=== PATIENT | female | born 1940 | race Caucasian/White ===

== ENCOUNTER 2017-05-15 10:34 | Inpatient (IN) | payer MEDICARE, OTHER ==
[~2017-05-15] VITALS: Ht 157.5 cm; Wt 56.2 kg
[~2017-05-15 10:34] MED LIST: ACET500T68 PO; ACID1TAB11 PO; ALBU6.7H IH; ALBU8.5H6 IH; ALPR0.5T6 PO; AMLO5TAB4 PO; AMOX1TAB11 PO; ARIP10TA9 PO; ARIP15TA36 PO; ARIP5TAB13 PO; ASCO500T2 PO; CALC-474 PO; CARB200T PO; CHOL4POW2 PO; CIPR500T94 PO; DIVA500T2 PO; DOCU-109 PO; DULO30CA2 PO; ESOM40CA25 PO; FERR-26 PO; FERR325T72 PO; FOLI0.8T2 PO; FOLI1TAB16 PO; HYDR-2766 PO; HYDR10TA2 PO; HYDR12.553 PO; HYDR12.58 PO; LIDO700A4 TP; LIPA1CAP6 PO; LISI10TA2 PO; LISI1TAB3 PO; LOPE2CAP PO; LORA10TA3 PO; LORA1TAB PO; MAG355OR17 PO; MAGN2400 PO; METH10TA13 PO; METH29OI TP; MIRT15TA PO; MOXI3DRO2 LEFTEYE; MOXI3DRO2 RIGHTEYE; MULT1TAB52 PO; MUPI15CR TP; MUPI22OI2 TP; MV-M1TAB8 PO; NEPA1.7D LEFTEYE; NEPA1.7D RIGHTEYE; NITR0.4T22 SL; OLAN5TAB5 PO; OMEP40CA5 PO; ONDA4TAB10 SL; OXYC10TA45 PO; PANT40TA5 PO; POLY17PO5 PO; PRED5DRO16 LEFTEYE; PRED5DRO16 RIGHTEYE; SERT100T PO; SERT50TA PO; SIMV10TA PO; TRAZ50TA15 PO; VENL75CA PO
--- NOTE | 2017-05-15 10:58 | EKG ---
[address] [address] Test Date: 2017-05-15 Test Time: 10:53:52 Pat Name: COLLEEN ANDREA Department: Room: Gender: F Banquet Set Up Person: : [id number] Requested By: JUAN CARIAS Order Number: [id number] Reading MD: Johan Pozo Measurements Intervals [place] Rate: 59 P: 62 SC: 182 QRS: 22 QRSD: 84 T: 56 QT: 454 QTc: 454 Interpretive Statements SINUS RHYTHM PRIOR ANTEROSEPTAL INFARCT Electronically Signed On 05-26-2017 11:01:48 CDT by Johan Pozo
--- NOTE | 2017-05-15 11:12 | PHYS DOC ---
Past History Past Medical History: CVA, Hypertension Past Surgical History: Other Alcohol Use: Rarely Drug Use: None Adult General Chief Complaint Chief Complaint: PSYCH EVALUATION HPI HPI She is a pleasant 77-year-old female with history of dementia, prior CVA, chronic pain, hypertension, a prior fistula, anxiety prior encephalopathy who comes in today that she has SI symptoms and wants to because of the complaint of pain. According to the [facility] she is self-including calling 911 there is increased agitation increased anxiety with erratic behavior. She is requesting a lot of pain medications and is becoming increasingly difficult to control. She's had impulse control disorder as well and she was referred here for psychiatric lives for behavior health psych unit. She denies any fever, headache, chills, voices, homicidal ideations or other symptoms at this time. Her only complaint today is chronic lower back pain lower ache in her legs which is chronic in nature for last several years and some mild dysuria. Review of Systems Review of Systems Constitutional: Denies fever or chills [] Eyes: Denies change in visual acuity, redness, or eye pain [] HENT: Denies nasal congestion or sore throat [] Respiratory: Denies cough or shortness of breath [] Cardiovascular: No additional information not addressed in HPI [] GI: Denies abdominal pain, nausea, vomiting, bloody stools or diarrhea [] does complain of some mild dysuria without hematuria urgency or frequency. Musculoskeletal: Does complain of chronic lower back pain that is radiation to the lower legs which is not new. Integument: Denies rash or skin lesions [] Neurologic: Denies headache, focal weakness or sensory changes [] Endocrine: Denies polyuria or polydipsia [] Allergies Allergies Allergies Coded Allergies Type Severity Reaction Last Updated Verified proparacaine Allergy Severe 11/01/14 Yes Sulfa (Sulfonamide Antibiotics) Allergy Intermediate 11/01/14 Yes codeine Allergy Intermediate 11/01/14 Yes herpes simplex vaccine Allergy Intermediate 11/01/14 Yes prochlorperazine Allergy Intermediate 04/08/14 Yes Physical Exam Physical Exam Constitutional: Well developed, well nourished, no acute distress, non-toxic appearance. [] HENT: Normocephalic, atraumatic, bilateral external ears normal, oropharynx moist, no oral exudates, nose normal. [] Eyes: PERRLA, EOMI, conjunctiva normal, no discharge. [] Neck: Normal range of motion, no tenderness, supple, no stridor. [] Cardiovascular:Heart rate regular rhythm, no murmur [] Lungs & Thorax: Bilateral breath sounds clear to auscultation [] Abdomen: Bowel sounds normal, soft, no tenderness, no masses, no pulsatile masses. [] Skin: Warm, dry, no erythema, no rash. [] Back: No tenderness, no CVA tenderness. [] Extremities: No tenderness, no cyanosis, no clubbing, ROM intact, no edema. [] Neurologic: Alert and oriented X 3, normal motor function, normal sensory function, no focal deficits noted. [] Psychologic: Affect normal, judgement normal, mood normal. [] Current Patient Data Vital Signs Vital Signs Date Time Temp Pulse Resp B/P (MAP) Pulse Ox O2 Delivery O2 Flow Rate FiO2 05/15/17 10:34 97.9 64 18 96 Room Air Lab Results Laboratory Tests Test 05/15/17 10:50 05/15/17 11:05 Urine Collection Type Unknown Urine Color Straw Urine Clarity Clear Urine pH 6.0 Urine Specific [place] <=1.005 Urine Protein Neg (NEG-TRACE) Urine Glucose (UA) Neg mg/dL (NEG) Urine Ketones (Stick) Neg mg/dL (NEG) Urine Blood Trace (NEG) Urine Nitrite Neg (NEG) Urine Bilirubin Neg (NEG) Urine Urobilinogen Dipstick 0.2 mg/dL (0.2 mg/dL) Urine Leukocyte Esterase Neg (NEG) Urine RBC Rare /HPF (0-2) Urine WBC 0 /HPF (0-4) Urine Squamous Epithelial Cells Occ /LPF Urine Bacteria 0 /HPF (0-FEW) Urine Opiates Screen Neg (NEG) Urine Methadone Screen Neg (NEG) Urine Barbiturates Neg (NEG) Urine Phencyclidine Screen Neg (NEG) Urine Amphetamine/Methamphetamine Neg (NEG) Urine Benzodiazepines Screen Neg (NEG) Urine Cocaine Screen Neg (NEG) Urine Cannabinoids Screen Neg (NEG) Urine Ethyl Alcohol Neg (NEG) White Blood Count 8.3 x10^3/uL (4.0-11.0) Red Blood Count 5.22 x10^6/uL (3.50-5.40) Hemoglobin 12.9 g/dL (12.0-15.5) Hematocrit 40.1 % (36.0-47.0) Mean Corpuscular Volume 77 fL (79-100) L Mean Corpuscular Hemoglobin 25 pg (25-35) Mean Corpuscular Hemoglobin Concent 32 g/dL (31-37) Red Cell Distribution Width 19.8 % (11.5-14.5) H Platelet Count 215 x10^3/uL (140-400) Neutrophils (%) (Auto) 74 % (31-73) H Lymphocytes (%) (Auto) 15 % (24-48) L Monocytes (%) (Auto) 9 % (0-9) Eosinophils (%) (Auto) 2 % (0-3) Basophils (%) (Auto) 1 % (0-3) Neutrophils # (Auto) 6.1 x10^3uL (1.8-7.7) Lymphocytes # (Auto) 1.3 x10^3/uL (1.0-4.8) Monocytes # (Auto) 0.7 x10^3/uL (0.0-1.1) Eosinophils # (Auto) 0.1 x10^3/uL (0.0-0.7) Basophils # (Auto) 0.1 x10^3/uL (0.0-0.2) Sodium Level 133 mmol/L (136-145) L Potassium Level 4.1 mmol/L (3.5-5.1) Chloride Level 95 mmol/L (98-107) L Carbon Dioxide Level 30 mmol/L (21-32) Anion Gap 8 (6-14) Blood Urea Nitrogen 18 mg/dL (7-20) Creatinine 1.0 mg/dL (0.6-1.0) Estimated GFR (Cockcroft-Gault) 53.9 BUN/Creatinine Ratio 18 (6-20) Glucose Level 83 mg/dL (70-99) Calcium Level 8.7 mg/dL (8.5-10.1) Magnesium Level 1.9 mg/dL (1.8-2.4) Total Bilirubin 0.3 mg/dL (0.2-1.0) Aspartate Amino Transferase (AST) 17 U/L (15-37) Alanine Aminotransferase (ALT) 17 U/L (14-59) Alkaline Phosphatase 88 U/L (46-116) Total Protein 6.7 g/dL (6.4-8.2) Albumin 3.4 g/dL (3.4-5.0) Albumin/Globulin Ratio 1.0 (1.0-1.7) Ethyl Alcohol Level < 10 mg/dL (0-10) EKG EKG [] EKG timed 10:53 AM 05/15/[address] Carias demonstrates normal sinus rhythm with a heart rate of 59. Normal is 182 which is within normal limits. Patient has a normal QRS width of 84 QTC of 454 which is also normal. Patient has no STEMI at this time has no significant T wave changes in V1 and no ST segment depression. Radiology/Procedures Radiology/Procedures [] Course & Med Decision Making Course & Med Decision Making Pertinent Labs and Imaging studies reviewed. (See chart for details) she presents with depression, anxiety bizarre behavior and increasing agitation with chronic pain issues. Patient resting comfortably here she was given some oral Tylenol Ativan here an oral challenge. Patient's laboratory work is really unremarkable. Patient's EKG is also unremarkable and patient is not suffering from a UTI at this time based in her initial urinalysis. Patient cleared to Senior psych be admitted to internal medicine. [] Dragon Disclaimer Dragon Disclaimer This chart was dictated in whole or in part using Voice Recognition software in a busy, high-work load, and often noisy Emergency Department environment. It may contain unintended and wholly unrecognized errors or omissions. Departure Departure: Impression: Primary Impression: Bipolar disorder, mixed Additional Impression: Dementia Disposition: ADMITTED INPATIENT Admitting Physician: Other Condition: GUARDED Referrals: FAMILIA DUMONT MD (PCP) Problem Qualifiers JUAN CARIAS MD May 15, 2017 11:12
[2017-05-15 11:15] LABS: BARBITURATES NEG (NEG); BENZODIAZEPINES NEG (NEG); CANNABINOIDS NEG (NEG); COCAINE NEG (NEG); METHADONE NEG (NEG); OPIATES NEG (NEG); PHENCYCLIDINE NEG (NEG)
[2017-05-15 11:16] LABS: AMPHETAMINE/METHAMPHETAMINE NEG (NEG)
[2017-05-15 11:18] LABS: BACTERIA,URINE 0 /HPF (0-FEW); BILIRUBIN,URINE NEG (NEG); CLARITY,URINE CLEAR; COLOR,URINE STRAW; GLUCOSE,URINE NEG (NEG); NITRITE,URINE NEG (NEG); RBC,URINE RARE /HPF (0-2); SQUAMOUS EPITHELIAL CELL,UR OCC /LPF; UROBILINOGEN,URINE 0.2 mg/dL (0.2 mg/dL); WBC,URINE 0 /HPF (0-4)
[2017-05-15 11:18] LABS: BASO # 0.1 x10^3/uL (0.0-0.2); BASO % 1 % (0-3); EOS # 0.1 x10^3/uL (0.0-0.7); EOS % 2 % (0-3); HEMATOCRIT 40.1 % (36.0-47.0); HEMOGLOBIN 12.9 g/dL (12.0-15.5); LYMPH # 1.3 x10^3/uL (1.0-4.8); LYMPH % 15 % (24-48); MEAN CORPUSCULAR HEMOGLOBIN 25 pg (25-35); MEAN CORPUSCULAR HGB CONC 32 g/dL (31-37); MEAN CORPUSCULAR VOLUME 77 fL (79-100); MONO # 0.7 x10^3/uL (0.0-1.1); MONO % 9 % (0-9); NEUT # 6.1 x10^3uL (1.8-7.7); NEUT % 74 % (31-73); PLATELET COUNT 215 x10^3/uL (140-400); RED BLOOD COUNT 5.22 x10^6/uL (3.50-5.40); RED CELL DISTRIBUTION WIDTH 19.8 % (11.5-14.5); WHITE BLOOD COUNT 8.3 x10^3/uL (4.0-11.0)
[2017-05-15 11:32] LABS: ALBUMIN 3.4 g/dL (3.4-5.0); CALCIUM 8.7 mg/dL (8.5-10.1); GFR 53.9; MAGNESIUM 1.9 mg/dL (1.8-2.4); POTASSIUM 4.1 mmol/L (3.5-5.1); TOTAL BILIRUBIN 0.3 mg/dL (0.2-1.0); TOTAL PROTEIN 6.7 g/dL (6.4-8.2)
[2017-05-15 11:35] LABS: ACETAMIN < 2.0 mcg/mL (10-30); SALIC 1.2 mg/dL (2.8-20.0)
[2017-05-15] MEDS ORDERED: LORazepam 1 MG TABLET PO ONE (11:45)
[2017-05-15] MEDS ORDERED: ACETAMINOPHEN 500 MG TABLET PO ONE (11:45)
--- NOTE | 2017-05-15 12:30 | NUR ---
Patient arrived on floor via EMS from ED accompanied by personal belongings. She was oriented to room and unit, initial assessment and VS obtained, wound noted and photographed. Patient denies SI at this time, complains of lower back pain. Will monitor for behaviours.
[2017-05-15 13:16] VITALS: BP 189/85
[2017-05-15] MEDS ORDERED: METHYL SALICYLATE/MENTHOL TOPICAL OINTMENT 29GM TUBE. TP PRN (13:30)
[2017-05-15] MEDS ORDERED: MAGNESIUM HYDROXIDE 2,400 MG/30 ML ORAL.SUSP. PO PRN (13:30)
[2017-05-15] MEDS ORDERED: MAG HYDROX/AL HYDROX/SIMETH 30 ML ORAL.SUSP PO PRN (13:30)
[2017-05-15] MEDS ORDERED: IPRATRPIUM/ALBUTEROL 0.5/2.5MG 3 ML NEBU. NEB PRN (14:15)
[2017-05-15] MEDS ORDERED: ONDANSETRON ODT 4 MG TAB.RAPDIS PO PRN (14:15)
[2017-05-15] MEDS: clonazePAM 0.5 MG TABLET PO PRN (14:42)
[2017-05-15] MEDS: ACETAMINOPHEN 325 MG TABLET PO PRN (14:43)
[2017-05-15 16:06] VITALS: BP 175/96
--- NOTE | 2017-05-15 16:57 | NUR ---
Patient has been provided with Practical Counseling for tobacco cessation. It included a face to face interaction and the following was discussed: Recognizing danger situations, Developing coping skills,Basic cessation information. Will follow for discharge needs and discharge planning.
[2017-05-15] MEDS: CALCIUM CARB/VIT D3 500/200 TABLET PO SCH (17:28)
[2017-05-15] MEDS: oxyCODONE/APAP 10/325 1 TAB TABLET PO SCH ×2 (17:29→19:37)
[2017-05-15] MEDS: FAMOTIDINE 20 MG TABLET PO SCH (19:37)
[2017-05-15] MEDS: MIRTAZAPINE 15 MG TAB.RAPDIS PO SCH (19:37)
[2017-05-15] MEDS: OLANZapine 10 MG TABLET PO SCH (19:37)
[2017-05-15] MEDS: clonazePAM 0.5 MG TABLET PO SCH (19:37)
[2017-05-15] MEDS: DOCUSATE SODIUM 100 MG CAPSULE PO SCH (19:38)
[2017-05-15] MEDS: LISINOPRIL 20 MG TABLET PO SCH (19:38)
[2017-05-15] MEDS: METOPROLOL TART IMMED RELEASE 50 MG TABLET PO SCH (19:38)
[2017-05-15] MEDS: DIVALPROEX 125 MG CAP.SPRINK PO SCH (19:38)
[2017-05-15] MEDS: DONEPEZIL HCL 10 MG TABLET PO SCH (19:38)
[2017-05-15] MEDS: levETIRAcetam 250 MG TABLET PO SCH (19:38)
[2017-05-15] MEDS: NYSTATIN TOPICAL POWDER 15GM BOTTLE. TP SCH (19:40)
--- NOTE | 2017-05-15 19:49 | PDOC ---
Exam Monty Demential Exam: Monty Note: Please also refer to the separate dictated note~for this date of service dictated separately.~Patient seen individually. Discussed the patient with Nursing staff reviewed the chart.~Reviewed interim history and current functioning. Reviewed vital signs,~Labs/ Radiology~and current medications noted below. Continue current treatment with the changes noted in the dictated addendum note Assessment: Vital Signs: Vital Signs Date Time Temp Pulse Resp B/P (MAP) Pulse Ox O2 Delivery O2 Flow Rate FiO2 05/15/17 19:38 65 175/96 05/15/17 16:06 98.4 18 94 05/15/17 11:43 Room Air Labs: Laboratory Tests Test 05/15/17 10:50 05/15/17 11:05 Urine Collection Type Unknown Urine Color Straw Urine Clarity Clear Urine pH 6.0 Urine Specific [place] <=1.005 Urine Protein Neg (NEG-TRACE) Urine Glucose (UA) Neg mg/dL (NEG) Urine Ketones (Stick) Neg mg/dL (NEG) Urine Blood Trace (NEG) Urine Nitrite Neg (NEG) Urine Bilirubin Neg (NEG) Urine Urobilinogen Dipstick 0.2 mg/dL (0.2 mg/dL) Urine Leukocyte Esterase Neg (NEG) Urine RBC Rare /HPF (0-2) Urine WBC 0 /HPF (0-4) Urine Squamous Epithelial Cells Occ /LPF Urine Bacteria 0 /HPF (0-FEW) Urine Opiates Screen Neg (NEG) Urine Methadone Screen Neg (NEG) Urine Barbiturates Neg (NEG) Urine Phencyclidine Screen Neg (NEG) Urine Amphetamine/Methamphetamine Neg (NEG) Urine Benzodiazepines Screen Neg (NEG) Urine Cocaine Screen Neg (NEG) Urine Cannabinoids Screen Neg (NEG) Urine Ethyl Alcohol Neg (NEG) White Blood Count 8.3 x10^3/uL (4.0-11.0) Red Blood Count 5.22 x10^6/uL (3.50-5.40) Hemoglobin 12.9 g/dL (12.0-15.5) Hematocrit 40.1 % (36.0-47.0) Mean Corpuscular Volume 77 fL (79-100) L Mean Corpuscular Hemoglobin 25 pg (25-35) Mean Corpuscular Hemoglobin Concent 32 g/dL (31-37) Red Cell Distribution Width 19.8 % (11.5-14.5) H Platelet Count 215 x10^3/uL (140-400) Neutrophils (%) (Auto) 74 % (31-73) H Lymphocytes (%) (Auto) 15 % (24-48) L Monocytes (%) (Auto) 9 % (0-9) Eosinophils (%) (Auto) 2 % (0-3) Basophils (%) (Auto) 1 % (0-3) Neutrophils # (Auto) 6.1 x10^3uL (1.8-7.7) Lymphocytes # (Auto) 1.3 x10^3/uL (1.0-4.8) Monocytes # (Auto) 0.7 x10^3/uL (0.0-1.1) Eosinophils # (Auto) 0.1 x10^3/uL (0.0-0.7) Basophils # (Auto) 0.1 x10^3/uL (0.0-0.2) Sodium Level 133 mmol/L (136-145) L Potassium Level 4.1 mmol/L (3.5-5.1) Chloride Level 95 mmol/L (98-107) L Carbon Dioxide Level 30 mmol/L (21-32) Anion Gap 8 (6-14) Blood Urea Nitrogen 18 mg/dL (7-20) Creatinine 1.0 mg/dL (0.6-1.0) Estimated GFR (Cockcroft-Gault) 53.9 BUN/Creatinine Ratio 18 (6-20) Glucose Level 83 mg/dL (70-99) Calcium Level 8.7 mg/dL (8.5-10.1) Magnesium Level 1.9 mg/dL (1.8-2.4) Iron Level 72 ug/dL (50-170) Total Iron Binding Capacity 342 ug/dL (250-450) Iron Saturation 21 % (15-34) Total Bilirubin 0.3 mg/dL (0.2-1.0) Aspartate Amino Transferase (AST) 17 U/L (15-37) Alanine Aminotransferase (ALT) 17 U/L (14-59) Alkaline Phosphatase 88 U/L (46-116) Troponin I Quantitative < 0.017 ng/mL (0-0.055) Total Protein 6.7 g/dL (6.4-8.2) Albumin 3.4 g/dL (3.4-5.0) Albumin/Globulin Ratio 1.0 (1.0-1.7) Vitamin B12 Level 389 pg/mL (247-911) Salicylates Level 1.2 mg/dL (2.8-20.0) L Salicylate Last Dose Date 05/15/17 Salicylate Last Dose Time 0000 Acetaminophen Level < 2.0 mcg/mL (10-30) L Acetaminophen Last Dose Date 05/15/17 Acetaminophen Last Dose Time 0000 Ethyl Alcohol Level < 10 mg/dL (0-10) Current Medications: Meds: Current Medications Acetaminophen (Tylenol) 1,000 mg 1X ONCE PO Last administered on 05/15/17 11: 38; Start 05/15/17 at 11:45; Stop 05/15/17 at 13:52; Status DC Lorazepam (Ativan) 1 mg 1X ONCE PO Last administered on 05/15/17 11:38; Start 05/15/17 at 11:45; Stop 05/15/17 at 13:50; Status DC Acetaminophen (Tylenol) 650 mg PRN Q6HRS PRN PO PAIN / TEMP; Start 05/15/17 at 13:30 Multi-Ingredient Ointment (Analgesic Orbisonia) 1 mike PRN QID PRN TP MUSCLE PAIN; Start 05/15/17 at 13:30 Al Hydroxide/Mg Hydroxide (Mylanta Plus Xs) 15 ml PRN AFTMEALHC PRN PO DYSPEPSIA; Start 05/15/17 at 13:30 Magnesium Hydroxide (Milk Of Magnesia) 2,400 mg PRN QHS PRN PO CONSTIPATION; Start 05/15/17 at 13:30 Nicotine (Nicoderm Cq 14mg) 1 patch DAILY TD ; Start 05/16/17 at 09:00 Escitalopram Oxalate (Lexapro) 20 mg DAILY PO ; Start 05/16/17 at 09:00 Donepezil HCl (Aricept) 10 mg QHS PO Last administered on 05/15/17 19:38; Start 05/15/17 at 21:00 Clonazepam (KlonoPIN) 0.5 mg QHS PO Last administered on 05/15/17 19:37; Start 05/15/17 at 21:00 Donepezil HCl (Aricept) 5 mg QHS PO Last administered on 05/15/17 19:38; Start 05/15/17 at 21:00; Stop 05/29/17 at 21:00 Levetiracetam (Keppra) 750 mg BID PO Last administered on 05/15/17 19:38; Start 05/15/17 at 21:00 Clonazepam (KlonoPIN) 0.5 mg PRN BID PRN PO ANXIETY / AGITATION Last administered on 05/15/17 14:42; Start 05/15/17 at 14:00 Olanzapine (ZyPREXA) 10 mg QHS PO Last administered on 05/15/17 19:37; Start 05/15/17 at 21:00 Mirtazapine (Remeron Genny-Tab) 15 mg QHS PO Last administered on 05/15/17 19:37 ; Start 05/15/17 at 21:00 Aspirin (Children'S Aspirin) 81 mg DAILY PO ; Start 05/16/17 at 09:00 Ferrous Sulfate (Feosol) 325 mg DAILY PO ; Start 05/16/17 at 09:00 Hydrochlorothiazide (Hydrodiuril) 25 mg DAILY PO ; Start 05/16/17 at 09:00 Oxycodone/ Acetaminophen (Percocet 10/325) 1 tab QID PO Last administered on 19:37; Start 05/15/17 at 17:00 Calcium/Vitamin D (Oscal D 500mg/ 200uts) 1 tab BIDWMEALS PO Last administered on 05/15/17 17:28; Start 05/15/17 at 17:00 Docusate Sodium (Colace) 100 mg BID PO Last administered on 05/15/17 19:38; Start 05/15/17 at 21:00 Famotidine (Pepcid) 20 mg BID PO Last administered on 05/15/17 19:37; Start at 21:00 Lisinopril (Prinivil) 20 mg BID PO Last administered on 05/15/17 19:38; Start 05/15/17 at 21:00 Metoprolol Tartrate (Lopressor) 50 mg BID PO Last administered on 05/15/17 19: 38; Start 05/15/17 at 21:00 Clonidine HCl (Catapres) 0.2 mg DAILY PRN PO HYPERTENSION, SEE COMMENTS; Start 05/16/17 at 09:00 Albuterol/ Ipratropium (Duoneb) 3 ml Q4HRS PRN NEB SHORTNESS OF BREATH; Start 05/15/17 at 14:15 Acetaminophen (Tylenol) 650 mg PRN Q8HRS PRN PO PAIN Last administered on 14:43; Start 05/15/17 at 14:15 Cyclobenzaprine HCl (Flexeril) 10 mg Q8HRS PRN PO MUSCLE SPASMS; Start at 14:15 Ondansetron HCl (Zofran Odt) 4 mg PRN Q8HRS PRN PO NAUSEA/VOMITING; Start 05/15 at 14:15 Loperamide HCl (Imodium) 2 mg PRN Q3HRS PRN PO DIARRHEA; Start 05/15/17 at 14: 15 Nystatin (Nystop) 1 mike BID TP Last administered on 05/15/17 19:38; Start at 21:00; Stop 05/15/17 at 21:00; Status DC Fentanyl (Duragesic 12mcg/ Hr) 1 patch Q3DAYS TD ; Start 05/16/17 at 09:00 Nystatin (Nystop) 1 mike BID TP Last administered on 05/15/17 19:40; Start at 21:00 Divalproex Sodium (Depakote Sprinkles) 125 mg TID PO Last administered on 19:38; Start 05/15/17 at 21:00 Active Scripts Active Reported Trazodone Hcl 50 Mg Tablet 50 Mg PO PRN QHS PRN Miralax (Polyethylene Glycol 3350) 17 Gm Powd.pack 17 Gm PO DAILY Pantoprazole Sodium 40 Mg Tablet.dr 40 Mg PO DAILYAC Oxycontin (Oxycodone Hcl) 10 Mg Tab.er.12h 10 Mg PO [id number] Zyprexa Zydis (Olanzapine) 5 Mg Tab.rapdis 5 Mg PO PRN Q2HR PRN Analgesic Orbisonia (Methyl Salicylate/Menthol) 29 Gm Oint...g. 1 Mike TP PRN QID PRN Milk Of Magnesia (Magnesium Hydroxide) 2,400 Mg/10 Ml Oral.susp 2,400 Mg PO PRN QHS PRN Advanced Antacid Liquid (Mag Hydrox/Al Hydrox/Simeth) 355 Ml Oral.susp 15 Ml PO PRN AFTMEALHC PRN Cymbalta (Duloxetine Hcl) 30 Mg Capsule.dr 30 Mg PO DAILY Colace (Docusate Sodium) 100 Mg Capsule 100 Mg PO BID Tegretol (Carbamazepine) 200 Mg Tablet 400 Mg PO HS Acetaminophen 500 Mg Tablet 650 Mg PO PRN Q6HRS PRN Folic Acid 0.8 Mg Tablet 0.8 Mg PO DAILY Calcium 500 + Vit D 400 Tablet (Calcium Carbonate/Vitamin D3) 1 Each Tablet 1 Tab PO BIDWBKFT/KAYY Hydrocodone-Apap 10-325 (Hydrocodone Bit/Acetaminophen) 1 Each Tablet 1 Tab PO PRN Q4HRS PRN Alprazolam 0.5 Mg Tablet 0.5 Mg PO PRN Q2HR PRN max dosage: 3mg/24hrs Loratadine 10 Mg Tablet 10 Mg PO PRN DAILY PRN Loperamide (Loperamide Hcl) 2 Mg Capsule 2 Mg PO PRN Q4HRS PRN Methylphenidate Er (Methylphenidate Hcl) 10 Mg Tablet.er 10 Mg PO DAILY Multivitamins (Multivitamin) 1 Each Tablet 1 Tab PO DAILY Mupirocin 22 Gm Oint...g. 1 Mike TP PRN BID PRN Cholestyramine Packet (Cholestyramine (With Sugar)) 4 Gm Powd.pack 4 Gm PO BID Ferrous Sulfate 325 Mg Tablet 325 Mg PO NOON Vitamin C (Ascorbic Acid) 500 Mg Tablet 500 Mg PO TID Norvasc (Amlodipine Besylate) 5 Mg Tablet 5 Mg PO BID NITROGLYCERIN SubLingual (Nitroglycerin) 0.4 Mg Tab.subl 0.4 Mg SL PRN Q5MIN PRN Creon 24,000 Units Capsule (Lipase/Protease/Amylase) 1 Each Capsule. 5 Cap PO TIDWMEALS Diagnosis: Problems: (1) Dementia (2) Bipolar disorder, mixed (3) Bipolar affective disorder, mixed (4) Anxiety disorder (5) Major depressive disorder, recurrent episode (6) Impulse control disorder TESHA MANZANO MD May 15, 2017 19:49
[2017-05-15] MEDS ORDERED: DONEPEZIL HCL 5 MG TABLET. PO SCH (21:00)
[2017-05-15] MEDS ORDERED: NYSTATIN TOPICAL POWDER 15GM BOTTLE. TP SCH (21:00)
--- NOTE | 2017-05-15 22:00 | NUR ---
Behavior Intervention Response and Plan: BIRP Note: Behavior: Assumed Care of patient, patient located in Patient Room at shift change. Patient exhibited the following behavior Calm, Cooperative, Withdrawn. Brief assessment on rounds of vital signs, medication needs, lab studies, and pain. Treatment plan problems Alteration on Mood and Fall Risk. Intervention: Patient assessed and the following interventions initiated safety checks 15 Minute Checks Cognitive Assessment , Head to toe Assessment , Medications. Response: After interactions and interventions patient responded in the following manner, Calm , Compliant ,Withdrawn. Continue to assess behaviors and condition will continue to monitor throughout the shift as needed. Patient educated on ADL's, and hand hygiene. 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 Continue to assess patient for changes in above assessment. Monitor for medication needs, pain, and safety concerns. Hourly rounding performed to ensure safe environment.
[2017-05-16 01:10] LABS: T3 TOTAL 98 ng/dL (71-180); THYROXINE 6.8 ug/dL (4.5-12.0)
[2017-05-16 03:19] LABS: HEMOGLOBIN A1C 5.4 % (4.8-5.6)
[2017-05-16 06:04] VITALS: BP 166/83
[2017-05-16] MEDS: ACETAMINOPHEN 325 MG TABLET PO PRN ×2 (07:37→14:41)
[2017-05-16] MEDS: CALCIUM CARB/VIT D3 500/200 TABLET PO SCH ×2 (07:37→17:03)
[2017-05-16] MEDS: CYCLOBENZAPRINE 10 MG TABLET. PO PRN ×2 (07:37→19:25)
--- NOTE | 2017-05-16 07:40 | NUR ---
Patient complains of lower back pain, PRNs provided per eMAR, will monitor for effectiveness
--- NOTE | 2017-05-16 07:59 | HP ---
ADMIT DATE: 05/15/2017 PSYCHIATRIC ADMISSION HISTORY/EVALUATION This is a late entry covers the elements not covered in my initial note of 05/15/2017. IDENTIFYING DATA: The patient is a 77-year-old female who was referred back to us from [facility] by Dr. Kristi Pope, her primary care physician, Dr. Valerie Wilson, her psychiatrist on account of worsening symptoms of depression, mood swings, suicidal ideation, "wanting to ." The patient is being isolating complaints of worsening back pain, calling 911, increased agitation, anxiety, erratic behaviors. She has failed outpatient psychiatric interventions with Dr. Wilson. Symptoms have been worsening over the past few days. The patient's behaviors were deemed dangerous at the nursing facility resulting in this referral. CHIEF COMPLAINT: "I said, I would kill myself, I am in pain." HISTORY OF PRESENT ILLNESS: The patient has a history of mood swings and prior diagnosis of bipolar 1 versus bipolar 2 disorder. She had been with us. About a month back, referred from [facility] Emergency Room where she presented from [facility] for suicidal ideation repeatedly calling 911, worsening mood swings, failure of outpatient treatment. She was stabilized at that time, transferred to [facility], did well initially, but for the past several days, all the above symptoms have resurfaced, behaviors are deemed dangerous. She has had some sleep and appetite changes as well, but some marked mood lability has been a significant problem. No active homicidal ideation. She appears somewhat paranoid as well and depressed. PAST PSYCHIATRIC HISTORY: As above. PAST MEDICAL HISTORY: Chronic back pain with vertebral changes and prolapsed intervertebral disk, hypovitaminosis D, GERD, iron deficiency, hypertension, and fistula. DRUG ALLERGIES: SULFA. CURRENT PSYCHOTROPICS: Klonopin 0.5 mg b.i.d. p.r.n., 0.5 mg at bedtime, Depakote 125 mg t.i.d. is being started at the time of the patient's admission, Aricept increased from 5 mg at bedtime to 10 mg at bedtime, Lexapro 20 mg a day, Remeron 15 mg at bedtime, Zyprexa 10 mg at bedtime. In the past, she was treated on Cymbalta, and Tegretol XR 400 mg at bedtime. FAMILY HISTORY: Noncontributory. SOCIAL HISTORY: No alcohol, drug abuse, physical, sexual or elder abuse history is noted. She is not known to be a perpetrator. She does have a history of overuse of prescription opioids. Code status is full. MENTAL STATUS EXAM: The patient was seen individually evening of 05/15/2017, in her room. She remembered me as a psychiatrist, did not remember my name. Speech coherent. Thought processes goal directed. Intellect average. Insight fair. Judgment intact to standard questioning. Mood is depressed. She is quite anxious, dysphoric, hopeless, and helpless. Denies active suicidal ideation, somewhat paranoid. Attention span short. Language function intact. LABORATORY DATA: Reviewed. IMPRESSION: Probable bipolar 1 disorder, depressed versus bipolar 2 disorder, depressed with psychotic features; major depressive disorder with psychotic features; anxiety disorder, unspecified; impulse control disorder, unspecified; chronic pain. Rest diagnoses as above. PLAN: Admit to the geropsychiatry unit at [facility]. I will see the patient daily individually from a psychiatric standpoint, medical followup per Dr. Andre/Dr. Singh. It was noted above, Aricept increased to 10 mg a day. The patient was started on Depakote as a mood stabilizer. Maintain Lexapro for now. I am not sure why Cymbalta was discontinued since it could be ineffective antidepressant and also help somewhat with the pain, which worsens her symptoms. Reviewed drug interactions, risk, benefits ratio favors no further change at this time. We will make further changes as clinically indicated. MAN Mau MANZANO MD DR: SURESH/ame JOB#: [id number] / [id number]
[2017-05-16] MEDS: oxyCODONE/APAP 10/325 1 TAB TABLET PO SCH ×4 (08:06→19:25)
[2017-05-16] MEDS: levETIRAcetam 250 MG TABLET PO SCH ×2 (08:06→19:25)
[2017-05-16] MEDS: DIVALPROEX 125 MG CAP.SPRINK PO SCH ×3 (08:06→19:26)
[2017-05-16] MEDS: FAMOTIDINE 20 MG TABLET PO SCH ×2 (08:06→19:26)
[2017-05-16] MEDS: LISINOPRIL 20 MG TABLET PO SCH ×2 (08:06→19:26)
[2017-05-16] MEDS: DOCUSATE SODIUM 100 MG CAPSULE PO SCH ×2 (08:06→19:26)
[2017-05-16] MEDS: METOPROLOL TART IMMED RELEASE 50 MG TABLET PO SCH ×2 (08:07→19:27)
[2017-05-16] MEDS: ESCITALOPRAM 20 MG TABLET. PO SCH (08:27)
[2017-05-16] MEDS: FERROUS SULFATE 325 MG TABLET PO SCH (08:27)
[2017-05-16] MEDS: ASPIRIN 81 MG TAB.CHEW PO SCH (08:27)
[2017-05-16] MEDS: hydroCHLOROthiazide 25 MG TABLET PO SCH (08:27)
[2017-05-16] MEDS: fentaNYL 12MCG/HR 1 PATCH PATCH TD SCH (08:28)
[2017-05-16] MEDS: NICOTINE 14MG PATCH. TD SCH ×2 (08:28→09:00)
[2017-05-16] MEDS: NYSTATIN TOPICAL POWDER 15GM BOTTLE. TP SCH ×2 (08:28→19:28)
[2017-05-16] MEDS: clonazePAM 0.5 MG TABLET PO PRN ×2 (09:20→16:22)
--- NOTE | 2017-05-16 09:20 | NUR ---
Patient states back pain is continuing. She also states that fentanyl makes her anxious and requests prn anxiety meds which are provided per eMAR. Will monitor for behaviors.
--- NOTE | 2017-05-16 09:20 | NUR ---
Behavior Intervention Response and Plan: BIRP Note: Behavior: Assumed Care of patient, patient located in Patient Room at shift change. Patient exhibited the following behavior Withdrawn, Medication Seeking, Attention Seeking. Brief assessment on rounds of vital signs, medication needs, lab studies, and pain. Treatment plan problems 1 & 2. Intervention: Patient assessed and the following interventions initiated safety checks 15 Minute Checks Cognitive Assessment , Head to toe Assessment , Medications. Response: After interactions and interventions patient responded in the following manner, Calm , Appropriate ,Compliant. Continue to assess behaviors and condition will continue to monitor throughout the shift as needed. Patient educated on ADL's, and hand hygiene. 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 Continue to assess patient for changes in above assessment. Monitor for medication needs, pain, and safety concerns. Hourly rounding performed to ensure safe environment.
--- NOTE | 2017-05-16 09:30 | NUR ---
THERAPEUTIC RECREATION GROUP NOTE TITLE :Social Session: 5 ways to [place] with Change ACTIVITY : Education and Life Skills GOAL : Increase self-expression/insight, coping skills, attention DURATION : 60 Minutes RESPONSE : No participation.
--- NOTE | 2017-05-16 11:30 | NUR ---
THERAPEUTIC RECREATION GROUP NOTE TITLE :Movement to Music: Flexibility Outside! ACTIVITY : Movement/ Exercise GOAL : Increase morale, attention, flexibility. Decrease stress/anxiety. DURATION : 30 Minutes RESPONSE : No participation.
--- NOTE | 2017-05-16 14:15 | NUR ---
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 Periwound skin is intact, moderate amount of green and red thick drainage on previous dressing. Skin cleaned, skin prep applied and aquacel foam applied. Recommend to apply stoma powder after skin prep and change daily and as needed for drainage. Pt refused to have urostomy bag attached. Pt states she doesn't have issues with skin breakdown as long as she uses stoma powder. Discussed POC with ANGELY Seaman. No other wounds found on full skin inspection. Educated pt to be sure and rotate from left to right sides to avoid breakdown on buttocks and heels. Pt verbalized understanding. Wound care will follow up on 05/23/17.
[2017-05-16 14:27] LABS: THYROID STIM HORMONE (TSH) 2.086 uIU/mL (0.358-3.740)
--- NOTE | 2017-05-16 14:34 | NUR ---
SW met w/Pt. 1:1 while Pt. sat on her bed. Pt. stated she was in pain, but had just received her medication and was hoping for a decrease in pain shortly. Pt. stated she was not happy here as Nursing Staff has not been good to her. SW asked her to talk more about these concerns and Pt. stated they had been late giving her the medications, and that was only after she had continued to ask for them. SW validated her pain and frustration and continued to assess for reason for admit. PT. stated she was not sure why she was at this facility. SW asked if she had felt like hurting herself and Pt. stated, "Well ya, I probably did say I just wanted to ". Pt. did not state she had a plan. SW asked about triggers for this feeling and Pt. stated she was upset w/her dtr as she is using Pt's grandson to do all of her things she is responsible for. Pt. stated her grandson moved in w/his mother (Pt's dtr) and since then she has been taking advantage of his niceness. SW asked if Pt. had visited family recently, as in last weekend, and Pt. stated it had been a while since she had left her facility to visit family. Pt. asked if SW could continue this discussion later as her back was aching and she wanted to rest. Pt. insisted SW continue to talk w/her at a later date and to "not forget" about her.
--- NOTE | 2017-05-16 14:42 | NUR ---
SW left message for SW at Pt's facility, [facility], regarding allegations of drug/alcohol while out of facility.
--- NOTE | 2017-05-16 15:30 | NUR ---
Attempted to meet and complete Activity Therapy Assessment; however, Pt. was sleeping
--- NOTE | 2017-05-16 16:20 | NUR ---
patient asked for tylenol, informed her that it was too soon to give her any and that she would be receiving percocet within the hour. Patient returned to nurse's station and asked for something for anxiety. PRN med provided per eMAR.
[2017-05-16 16:35] VITALS: BP 122/67
[2017-05-16] MEDS: clonazePAM 0.5 MG TABLET PO SCH (19:26)
[2017-05-16] MEDS: DONEPEZIL HCL 10 MG TABLET PO SCH (19:26)
[2017-05-16] MEDS: OLANZapine 10 MG TABLET PO SCH (19:26)
[2017-05-16] MEDS: MIRTAZAPINE 15 MG TAB.RAPDIS PO SCH (19:27)
--- NOTE | 2017-05-16 19:53 | PDOC ---
Exam Monty Demential Exam: Monty Note: Please also refer to the separate dictated note~for this date of service dictated separately.~Patient seen individually. Discussed the patient with Nursing staff reviewed the chart.~Reviewed interim history and current functioning. Reviewed vital signs,~Labs/ Radiology~and current medications noted below. Continue current treatment with the changes noted in the dictated addendum note Assessment: Vital Signs: Vital Signs Date Time Temp Pulse Resp B/P (MAP) Pulse Ox O2 Delivery O2 Flow Rate FiO2 05/16/17 19:27 68 122/67 05/16/17 16:35 98.2 18 93 05/16/17 13:20 Room Air I&O Intake and Output 05/16/17 07:00 Intake Total 720 ml Balance 720 ml Intake Oral 720 ml # Bowel Movements 1 Current Medications: Meds: Current Medications Acetaminophen (Tylenol) 1,000 mg 1X ONCE PO Last administered on 05/15/17 11: 38; Start 05/15/17 at 11:45; Stop 05/15/17 at 13:52; Status DC Lorazepam (Ativan) 1 mg 1X ONCE PO Last administered on 05/15/17 11:38; Start 05/15/17 at 11:45; Stop 05/15/17 at 13:50; Status DC Acetaminophen (Tylenol) 650 mg PRN Q6HRS PRN PO PAIN / TEMP Last administered on 05/16/17 14:41; Start 05/15/17 at 13:30; Stop 05/16/17 at 15:30; Status DC Multi-Ingredient Ointment (Analgesic [place]) 1 mike PRN QID PRN TP MUSCLE PAIN; Start 05/15/17 at 13:30 Al Hydroxide/Mg Hydroxide (Mylanta Plus Xs) 15 ml PRN AFTMEALHC PRN PO DYSPEPSIA; Start 05/15/17 at 13:30 Magnesium Hydroxide (Milk Of Magnesia) 2,400 mg PRN QHS PRN PO CONSTIPATION; Start 05/15/17 at 13:30 Nicotine (Nicoderm Cq 14mg) 1 patch DAILY TD ; Start 05/16/17 at 09:00 Escitalopram Oxalate (Lexapro) 20 mg DAILY PO Last administered on 05/16/17 08 :27; Start 05/16/17 at 09:00 Donepezil HCl (Aricept) 10 mg QHS PO Last administered on 05/16/17 19:26; Start 05/15/17 at 21:00 Clonazepam (KlonoPIN) 0.5 mg QHS PO Last administered on 05/16/17 19:26; Start 05/15/17 at 21:00 Donepezil HCl (Aricept) 5 mg QHS PO Last administered on 05/15/17 19:38; Start 05/15/17 at 21:00; Stop 05/15/17 at 23:44; Status DC Levetiracetam (Keppra) 750 mg BID PO Last administered on 05/16/17 19:25; Start 05/15/17 at 21:00 Clonazepam (KlonoPIN) 0.5 mg PRN BID PRN PO ANXIETY / AGITATION Last administered on 05/16/17 16:22; Start 05/15/17 at 14:00; Stop 05/16/17 at 18:45 ; Status DC Olanzapine (ZyPREXA) 10 mg QHS PO Last administered on 05/16/17 19:26; Start 05/15/17 at 21:00 Mirtazapine (Remeron Genny-Tab) 15 mg QHS PO Last administered on 05/16/17 19:27 ; Start 05/15/17 at 21:00 Aspirin (Children'S Aspirin) 81 mg DAILY PO Last administered on 05/16/17 08: 27; Start 05/16/17 at 09:00 Ferrous Sulfate (Feosol) 325 mg DAILY PO Last administered on 05/16/17 08:27; Start 05/16/17 at 09:00 Hydrochlorothiazide (Hydrodiuril) 25 mg DAILY PO Last administered on 08:27; Start 05/16/17 at 09:00 Oxycodone/ Acetaminophen (Percocet 10/325) 1 tab QID PO Last administered on 19:25; Start 05/15/17 at 17:00 Calcium/Vitamin D (Oscal D 500mg/ 200uts) 1 tab BIDWMEALS PO Last administered on 05/16/17 17:03; Start 05/15/17 at 17:00 Docusate Sodium (Colace) 100 mg BID PO Last administered on 05/16/17 19:26; Start 05/15/17 at 21:00 Famotidine (Pepcid) 20 mg BID PO Last administered on 05/16/17 19:26; Start at 21:00 Lisinopril (Prinivil) 20 mg BID PO Last administered on 05/16/17 19:26; Start 05/15/17 at 21:00 Metoprolol Tartrate (Lopressor) 50 mg BID PO Last administered on 05/16/17 19: 27; Start 05/15/17 at 21:00 Clonidine HCl (Catapres) 0.2 mg DAILY PRN PO HYPERTENSION, SEE COMMENTS; Start 05/16/17 at 09:00 Albuterol/ Ipratropium (Duoneb) 3 ml Q4HRS PRN NEB SHORTNESS OF BREATH; Start 05/15/17 at 14:15 Acetaminophen (Tylenol) 650 mg PRN Q8HRS PRN PO PAIN Last administered on 14:43; Start 05/15/17 at 14:15 Cyclobenzaprine HCl (Flexeril) 10 mg Q8HRS PRN PO MUSCLE SPASMS Last administered on 05/16/17 19:25; Start 05/15/17 at 14:15 Ondansetron HCl (Zofran Odt) 4 mg PRN Q8HRS PRN PO NAUSEA/VOMITING; Start 05/15 at 14:15 Loperamide HCl (Imodium) 2 mg PRN Q3HRS PRN PO DIARRHEA; Start 05/15/17 at 14: 15 Nystatin (Nystop) 1 mike BID TP Last administered on 05/15/17 19:38; Start at 21:00; Stop 05/15/17 at 21:00; Status DC Fentanyl (Duragesic 12mcg/ Hr) 1 patch Q3DAYS TD Last administered on 08:28; Start 05/16/17 at 09:00 Nystatin (Nystop) 1 mike BID TP Last administered on 05/16/17 19:28; Start at 21:00 Divalproex Sodium (Depakote Sprinkles) 125 mg TID PO Last administered on 19:26; Start 05/15/17 at 21:00 Vitamin D (Vitamin D3) 50,000 unit WEEKLY PO ; Start 05/17/17 at 09:00 Clonazepam (KlonoPIN) 0.5 mg PRN TID PRN PO ANXIETY / AGITATION; Start at 14:00 Active Scripts Active Reported Trazodone Hcl 50 Mg Tablet 50 Mg PO PRN QHS PRN Miralax (Polyethylene Glycol 3350) 17 Gm Powd.pack 17 Gm PO DAILY Pantoprazole Sodium 40 Mg Tablet.dr 40 Mg PO DAILYAC Oxycontin (Oxycodone Hcl) 10 Mg Tab.er.12h 10 Mg PO [id number] Zyprexa Zydis (Olanzapine) 5 Mg Tab.rapdis 5 Mg PO PRN Q2HR PRN Analgesic [place] (Methyl Salicylate/Menthol) 29 Gm Oint...g. 1 Mike TP PRN QID PRN Milk Of Magnesia (Magnesium Hydroxide) 2,400 Mg/10 Ml Oral.susp 2,400 Mg PO PRN QHS PRN Advanced Antacid Liquid (Mag Hydrox/Al Hydrox/Simeth) 355 Ml Oral.susp 15 Ml PO PRN AFTMEALHC PRN Cymbalta (Duloxetine Hcl) 30 Mg Capsule.dr 30 Mg PO DAILY Colace (Docusate Sodium) 100 Mg Capsule 100 Mg PO BID Tegretol (Carbamazepine) 200 Mg Tablet 400 Mg PO HS Acetaminophen 500 Mg Tablet 650 Mg PO PRN Q6HRS PRN Folic Acid 0.8 Mg Tablet 0.8 Mg PO DAILY Calcium 500 + Vit D 400 Tablet (Calcium Carbonate/Vitamin D3) 1 Each Tablet 1 Tab PO BIDWBK/KAYY Hydrocodone-Apap 10-325 (Hydrocodone Bit/Acetaminophen) 1 Each Tablet 1 Tab PO PRN Q4HRS PRN Alprazolam 0.5 Mg Tablet 0.5 Mg PO PRN Q2HR PRN max dosage: 3mg/24hrs Loratadine 10 Mg Tablet 10 Mg PO PRN DAILY PRN Loperamide (Loperamide Hcl) 2 Mg Capsule 2 Mg PO PRN Q4HRS PRN Methylphenidate Er (Methylphenidate Hcl) 10 Mg Tablet.er 10 Mg PO DAILY Multivitamins (Multivitamin) 1 Each Tablet 1 Tab PO DAILY Mupirocin 22 Gm Oint...g. 1 Imke TP PRN BID PRN Cholestyramine Packet (Cholestyramine (With Sugar)) 4 Gm Powd.pack 4 Gm PO BID Ferrous Sulfate 325 Mg Tablet 325 Mg PO NOON Vitamin C (Ascorbic Acid) 500 Mg Tablet 500 Mg PO TID Norvasc (Amlodipine Besylate) 5 Mg Tablet 5 Mg PO BID NITROGLYCERIN SubLingual (Nitroglycerin) 0.4 Mg Tab.subl 0.4 Mg SL PRN Q5MIN PRN Creon Dr 24,000 Units Capsule (Lipase/Protease/Amylase) 1 Each Capsule. 5 Cap PO TIDWMEALS Diagnosis: Problems: (1) Bipolar disorder, mixed (2) Bipolar affective disorder, mixed (3) Anxiety disorder (4) Major depressive disorder, recurrent episode (5) Impulse control disorder TESHA MANZANO MD May 16, 2017 19:53
--- NOTE | 2017-05-16 20:00 | NUR ---
Nursing Note: Call placed to DPOA per Dr. Alegre request to obtain information r/t Pt's seizure history. Message left for Primary DPOA, Call placed to Second DPOA listed on [facility] Facesheet,, Pt's Daughter answered the phone and was very agitated stating "her sister should not be listed anywhere on any paperwork, they don't like each other and do not speak to each other I don't know why you keep calling her sister" Nurse attempted to explain that the number called was the second DPOA listed on the Facesheet from her Half-Way, Daughter continued to be very short tempered and began ranting about patient being on Fentanyl patch when the PCP and Ortho physicians both agreed that this was not a good medication for her. Nurse interrupted Daughter again attempting to explain the reason for the call being a need for details on the history of Her seizures, Daughter then began on a very long winded explanation that pt's current level of pain is related to her DX Ankylosing Spondylitis and demanding to have this medical condition treated. Nurse attempted to explain that pt is here at this facility for Psych issues and again attempted to question about Pt's seizure history, Daughter again began detailing all the reasons why her Mother's sister should never be called and why her pain should not be treated with Fentanyl, Nurse again had to interrupt daughter and explained the need for Seizure history for Dr. Alegre to determine the need for anti Seizure medications. Daughter then stated pt had a seizure around 15 years ago when she was going through acute Alcohol withdraw and then she had one in May of 2016 just before having her Stroke. When daughter again began talking about pain medications and need to Treat the Ankylosing Spondylitis, Nruse encouraged her contact Assistant Professor Of Criminal Justice on Friday to be involved in the Treatment Team Next week to have all of her issues discussed.
--- NOTE | 2017-05-16 23:41 | NUR ---
Behavior Intervention Response and Plan: BIRP Note: Behavior: Assumed Care of patient, patient located in Patient Room at shift change. Patient exhibited the following behavior Calm, Cooperative, Withdrawn. Brief assessment on rounds of vital signs, medication needs, lab studies, and pain. Treatment plan problems Alteration on Mood and Fall Risk. Intervention: Patient assessed and the following interventions initiated safety checks 15 Minute Checks Cognitive Assessment , Head to toe Assessment , Medications. Response: After interactions and interventions patient responded in the following manner, Calm , Compliant ,Withdrawn. Continue to assess behaviors and condition will continue to monitor throughout the shift as needed. Patient educated on ADL's, and hand hygiene. Plan: Continue to monitor Master Treatment Plan for patient's progress toward short term goals of Decreased Agitation, Medication Compliance, adjunct faculty for medical terminology goals to return to previous living setting vs placement. Continue to assess patient for changes in above assessment. Monitor for medication needs, pain, and safety concerns. Hourly rounding performed to ensure safe environment.
--- NOTE | 2017-05-17 00:46 | ACF ---
Admission Criteria Forms PSYCHIATRIC DISORDERS Clinical Indications for Inpatient Care (Place 'X' for any and all applicable criteria): Ongoing inpatient care may be needed for 1 or more of the following(1)(2)(3)(4)( 6)(7)(8): [ ]I. Danger to self or others not manageable at lower level of care. [ ]II. Grave disability (eg, inability to perform self care necessary at lower level of care) [ ]III. Agitation or inappropriate behavior interfering with care for primary condition (eg, attempting to discontinue lines or drains prematurely, unable to cooperate with respiratory care) [x]IV. Severe disability or disorder indicated by ALL of the following: [x]a) Severe behavioral health disorder-related symptoms or condition indicated by 1 or more of the following: [ ]i) Severe problem with cognition, memory, judgment, or impulse control [x]ii) Severe clinical manifestations (eg, hallucinations, delusions, other acute psychotic symptoms, isela, extreme agitation or anxiety) [x]b) Patient management at lower level of care is not feasible until acute intervention or modification is initiated. Extended stay beyond goal length of stay for the primary condition may be needed untilALLof the following are present(1)(2)(3)(4)(722)(23): [ ]a) Danger to self or others is absent or manageable at lower level of care [ ]b) Behavior crisis management, including physical or chemical restraints, is required and is not available at a lower level of care. [ ]c) Behavioral symptoms (e.g., agitation, somnolence, inappropriate behavior) are present, and are not manageable at a lower level of care. [ ]d) Patient cannot understand follow-up treatment and crisis plan. [ ]e) Provider and supports are sufficiently available at lower level of care. [ ]f) Patient can participate (e.g., verify absence of plan for harm) and is in needed of monitoring. The original [facility] [employer] content created by [employer] has been revised. The portions of the content which have been revised are identified through the use of italic text, and [employer] has neither reviewed nor approved the modified material. All other unmodified content is copyright [facility] [employer]. Please see references footnoted in the original [facility] edition 2015 Admission Criteria Met?: Yes TYLER REDD May 17, 2017 00:46
--- NOTE | 2017-05-17 02:12 | PN ---
DATE: 05/15/2017 This is a late entry for 05/15/2017 and covers elements not covered in my initial note of 05/15/2017. SUBJECTIVE: The patient was staffed at a treatment team meeting with the entire team morning 05/05/2017, reviewed her history, diagnosis of bipolar disorder versus major depressive disorder, past failed stay at [facility] and recent failed to stay at [facility]. Per nursing report, she is noted to be attention seeking. I met with her at some length the evening of 05/15/2017 in her room. She denies active suicidal ideation, admitted to verbalizing suicidal ideation at the skilled nursing, noted to be sarcastic, labile in her mood at times. REVIEW OF SYSTEMS: No CV, , pulmonary, eye, ENT system symptoms on review. She does have chronic back pain. MENTAL STATUS EXAM: Reasonably oriented, seemed to remember me as a psychiatrist. Speech coherent. Abstraction fair. Thought processes goal directed, attention span short, language function intact. Mood and affect remain somewhat labile. LABORATORY DATA: Reviewed. IMPRESSION: Unchanged from initial note. PLAN: Start Depakote Sprinkles 125 mg 3 times a day. Check CBC, CMP, valproic acid level in 3 days. Continue rest of the psychotropics mentioned in my initial note, Klonopin, Aricept, Lexapro, along with Zyprexa 10 mg at bedtime, Keppra. We will have Neurology consult with Dr. Alegre as there does not seem to be a history of seizure disorder, but she is on Keppra and if so, I would like to get the Depakote therapeutic, which should help as a mood stabilizer and then taper off the Keppra if Dr. Alegre approves this. MAN Mau MANZANO MD DR: SURESH/ame JOB#: [id number] / [id number]
[2017-05-17 06:06] VITALS: BP 148/85
[2017-05-17] MEDS: clonazePAM 0.5 MG TABLET PO PRN ×2 (06:09→13:27)
--- NOTE | 2017-05-17 06:11 | NUR ---
Nursing Note: Pt out to the Nurses station with c/o increased anxiety and requesting and anxiety pill. Nurse checked MAR to ensure pt did not have antianxiety medication already scheduled, Pt then requested to have a pain pill at the same time. PRN Clonazepam administered per PRN order, PT again stated she wanted a pain pill, Nurse explained to pt that her Pain medication was scheduled and it was too early to administer it at this time.
[2017-05-17] MEDS: DOCUSATE SODIUM 100 MG CAPSULE PO SCH ×2 (07:25→19:34)
[2017-05-17] MEDS: ASPIRIN 81 MG TAB.CHEW PO SCH (07:25)
[2017-05-17] MEDS: CALCIUM CARB/VIT D3 500/200 TABLET PO SCH ×2 (07:25→17:36)
[2017-05-17] MEDS: DIVALPROEX 125 MG CAP.SPRINK PO SCH ×3 (07:25→19:35)
[2017-05-17] MEDS: levETIRAcetam 250 MG TABLET PO SCH ×2 (07:27→19:34)
[2017-05-17] MEDS: FERROUS SULFATE 325 MG TABLET PO SCH (07:27)
[2017-05-17] MEDS: hydroCHLOROthiazide 25 MG TABLET PO SCH (07:27)
[2017-05-17] MEDS: ESCITALOPRAM 20 MG TABLET. PO SCH (07:28)
[2017-05-17] MEDS: METOPROLOL TART IMMED RELEASE 50 MG TABLET PO SCH ×2 (07:29→19:35)
[2017-05-17] MEDS: oxyCODONE/APAP 10/325 1 TAB TABLET PO SCH ×4 (07:29→19:37)
[2017-05-17] MEDS: FAMOTIDINE 20 MG TABLET PO SCH ×2 (07:29→19:35)
[2017-05-17] MEDS: LISINOPRIL 20 MG TABLET PO SCH ×2 (07:30→19:35)
[2017-05-17] MEDS: NICOTINE 14MG PATCH. TD SCH ×2 (07:31→07:48)
[2017-05-17] MEDS: CHOLECALCIFEROL (VITAMIN D3) 50,000 UNIT CAPSULE PO SCH (07:35)
--- NOTE | 2017-05-17 08:15 | CONS ---
DATE OF CONSULTATION: 05/15/2017 REASON FOR CONSULTATION: Medical management. HISTORY OF PRESENT ILLNESS: This patient is a 77-year-old female patient, a resident at [facility], who was admitted on the account of stating that she wants to , erratic behavior, anxious, increased agitation, ____, requesting pain medication frequently, these in a background of bipolar disorder, depression, anxiety with impulse control disorder. She apparently was here before in 2014. At that time, she has complained of back pain and a CT scan at that time showed that she has L1 compression fracture and also spondylolisthesis, although according to her, she has never had an MRI of vertebroplasty. PAST MEDICAL HISTORY: Significant for she has chronic abdominal wound which she has had for about 10 years after undergoing an emergency surgery. She has chronic back pain, anemia, severe anxiety, severe depression and she also was admitted before with some extreme drug seeking behavior. She is known to have hypertension, hypovitaminosis D, iron deficiency anemia, gastroesophageal reflux disease. ALLERGIES: SHE IS ALLERGIC TO CODEINE, PROCHLORPERAZINE, PROPARACAINE. FAMILY HISTORY: Positive for bipolar disorder, mood swings, narcissistic personality disorder in the patient's daughter. SOCIAL HISTORY: She lives at [facility]. She does not smoke, drink alcohol or use recreational drugs. MEDICATIONS: She is currently on following medications: She is on Tylenol 650 mg every 6 hours, alprazolam 0.5 mg every 2 hours as needed for anxiety and agitation, amlodipine 5 mg p.o. b.i.d., ascorbic acid 500 mg 3 times a day, calcium carbonate with vitamin D one tablet twice a day, carbamazepine 400 mg at bedtime, cholestyramine 4 grams twice a day, Colace 100 mg p.o. b.i.d., duloxetine 30 mg once a day, ferrous sulfate 325 mg once a day, folic acid 0.8 mg once a day, hydrocodone/APAP tab 10/325 every 4 hours. Lipase, protease, amylase, Creon 24,000 units 5 capsules 3 times a day with meals, loperamide 2 mg every 4 hours, loratadine 10 mg once a day. She is on Mylanta 15 mL as needed, magnesium hydroxide or milk of magnesia 30 mL p.o. daily p.r.n. for constipation, methylphenidate 10 mg p.o. daily, multivitamin 1 tablet once a day, Bactroban ointment applied topically twice a day, nitroglycerin 0.4 mg sublingually as needed every 5 minutes x3, olanzapine or Zyprexa Zydis 5 mg every 2 hours as needed, oxycodone 10 mg, OxyContin twice a day, Protonix 40 mg daily, polyethylene glycol 17 grams daily, trazodone 50 mg at bedtime. REVIEW OF SYSTEMS: As per history of present illness. PHYSICAL EXAMINATION: GENERAL: When I examined her, she was resting, slightly propped up in bed, in no apparent respiratory distress, she was pale, but no jaundice, cyanosis, or thyromegaly. No jugular venous distention. No limb edema. VITAL SIGNS: Her heart rate was 60, blood pressure 166/83, temperature was 98.7, respiratory rate was 18 and oxygen saturation was 97% on room air. HEAD, EARS, NOSE AND THROAT: Showed she is normocephalic, atraumatic. NECK: Supple. HEART: Showed normal first and second heart sounds with no gallop, rub or murmur. CHEST: Clear to auscultation. No crepitation or rhonchi. ABDOMEN: Distended, soft, nontender. NEUROLOGIC: She was sleepy, but arousable. All cranial nerves are intact. EXTREMITIES: She moves her extremities without difficulty. She ambulates without assistance or assistive devices. LABORATORY DATA: Showed a white cell count of 8300, hemoglobin 13, hematocrit 34, MCV 77 and platelet count ____. Her chemistry showed that serum sodium was 133, potassium 4.1, chloride 95, bicarbonate 30, anion gap of 8, BUN 18, creatinine 1, estimated GFR was 54 mL per minute. Her glucose was 83, calcium was 8.7, and magnesium was 1.9. Her serum iron was 72. TIBC was 342 and iron saturation was 21. Total bilirubin, AST, ALT, alkaline phosphatase were normal. Total protein 6.7, albumin 3.4. Hemoglobin A1c was 5.4%. Her serum triglycerides were 93. Total cholesterol was 181, LDL was 106, VLDL was 18, and HDL cholesterol was 57. Her cholesterol to HDL cholesterol ratio was 3. Her vitamin B12 was 389, 25-hydroxy vitamin D was low at 21.3. TSH was 2.086, total T4 was 6.8. Total T3 was 98. Urinalysis was essentially unremarkable. Urine toxicology screen was also unremarkable. Her RPR was nonreactive. IMPRESSION: In summary, this is a 77-year-old female patient, a resident at [facility], who was admitted on the account of wanting to , has erratic behavior, anxious, increasingly agitated since isolating, requesting pain medication frequently, all this in the background of bipolar disorder, anxiety and impulse control disorder. Medically, she is known to have hypertension, chronic pain syndrome as well as fistula. All her vital signs are essentially stable as well as her lab work. Her MCV is low and her iron studies are consistent with iron deficiency anemia, although her hemoglobin is 12.9 and hematocrit 14. She did complain of back pain on her last admission and at that time, she had had a CT scan of the lumbar spine, which showed that she has marked compression of L1 ____ which is not certain. She has also mild spondylolisthesis at L4-L5. 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 PLAN: My plan is to repeat her CT scan of the lumbar spine and also arrange for abdominal ultrasound and decide on further management accordingly. ARCENIO NAIK MD DR: LUCIO/ame JOB#: [id number] / [id number]
[2017-05-17] MEDS: NYSTATIN TOPICAL POWDER 15GM BOTTLE. TP SCH ×2 (09:00→21:00)
--- NOTE | 2017-05-17 09:44 | RAD ---
Indication: Abdominal pain and back pain. Possible aneurysm. Midline bandage for abdominal drainage. Technique: Ultrasound of the abdomen complete was performed. No comparison is available. Findings: Visualized pancreas is unremarkable, much of the pancreas is obscured by bowel gas. Aorta is visualized proximally and normal caliber, remainder of the aorta is difficult to visualize given bowel gas, bandage, and body habitus. IVC is limited in evaluation but appears patent. Liver is increased in echogenicity without discrete lesion. Gallbladder is probably within normal limits. However, there is a fluid collection in the midline which extends towards the gallbladder fossa, probably separate from the gallbladder although a distended gallbladder is hard to completely excluded. Consider CT. Common bile duct measures 5 mm, within normal limits for age. Kidneys are without hydronephrosis or mass. Benign calcifications are noted in the spleen. Midline collection versus dilated gallbladder measures up to 7.9 cm. Impression: 1. Apparent midline fluid collection versus distended gallbladder. This is more likely to be a fluid collection or loculated ascites given how anterior the collection is. However, given the study is limited secondary to bandage, bowel gas, and body habitus, consider a CT for further evaluation. This ideally would be with IV and oral contrast. 2. Fatty liver. 3. Aorta is normal caliber but only visualized proximally.
[2017-05-17] MEDS: ACETAMINOPHEN 325 MG TABLET PO PRN (09:45)
--- NOTE | 2017-05-17 10:47 | RAD ---
Indication: Low back pain. Technique: Axial images and coronal and sagittal reformatted images are provided. Comparison is a CT abdomen and pelvis from April 08, 2014. One or more of the following individualized dose reduction techniques were utilized for this examination: 1. Automated exposure control 2. Adjustment of the mA and/or kV according to patient size 3. Use of iterative reconstruction technique Findings: Since the prior study there has been compression fracture at L1 although the appearance of this fracture is chronic. There is grade 1 anterolisthesis at L4-L5 which appears to be secondary to facet hypertrophy. There is levocurvature centered at L1. There is no evidence of an acute fracture or traumatic malalignment. Disc osteophyte complexes and facet hypertrophy are noted at L3-L4, L4-L5, and L5-S1 most notably. At L3-L4, there is probably mild canal stenosis and [id number] right foraminal narrowing. At L4-L5, there is moderate to severe canal stenosis with lateral recess narrowing. There is mild right and severe left foraminal narrowing. At L5-S1, there is high-grade left and mild right foraminal narrowing. Distal descending thoracic aorta has a transverse diameter of 4.5 cm. There is atheromatous disease within the included aorta and iliac arteries. There are diverticula in the colon. Impression: 1. There is an old L1 compression fracture. There is no evidence of an acute compression fracture. 2. There are degenerative changes in the lumbar spine with canal stenosis greatest at L4-L5 and several levels of foraminal narrowing suspected. This could be better evaluated by MRI or postmyelogram CT if further workup is required. 3. 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
[2017-05-17 15:48] VITALS: BP 154/83
--- NOTE | 2017-05-17 16:22 | NUR ---
Behavior Intervention Response and Plan: BIRP Note: Behavior: Assumed Care of patient, patient located in Patient Room at shift change. Patient exhibited the following behavior Calm, Cooperative, Withdrawn. Brief assessment on rounds of vital signs, medication needs, lab studies, and pain. Treatment plan problems Alteration on Mood and Fall Risk. Intervention: Patient assessed and the following interventions initiated safety checks 15 Minute Checks Cognitive Assessment , Head to toe Assessment , Medications. Response: After interactions and interventions patient responded in the following manner, Calm , Compliant ,Withdrawn. Continue to assess behaviors and condition will continue to monitor throughout the shift as needed. Patient educated on ADL's, and hand hygiene. 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 Continue to assess patient for changes in above assessment. Monitor for medication needs, pain, and safety concerns. Hourly rounding performed to ensure safe environment.
[2017-05-17] MEDS: clonazePAM 0.5 MG TABLET PO SCH (19:34)
[2017-05-17] MEDS: OLANZapine 10 MG TABLET PO SCH (19:35)
[2017-05-17] MEDS: MIRTAZAPINE 15 MG TAB.RAPDIS PO SCH (19:35)
[2017-05-17] MEDS: DONEPEZIL HCL 10 MG TABLET PO SCH (19:35)
--- NOTE | 2017-05-17 21:49 | NUR ---
Behavior Intervention Response and Plan: BIRP Note: Behavior: Assumed Care of patient, patient located in Patient Room at shift change. Patient exhibited the following behavior Withdrawn, Medication Seeking, Attention Seeking. Brief assessment on rounds of vital signs, medication needs, lab studies, and pain. Treatment plan problems alternation in mood and fall risk. Intervention: Patient assessed and the following interventions initiated safety checks 15 Minute Checks Cognitive Assessment , Head to toe Assessment , Medications. Response: After interactions and interventions patient responded in the following manner, Calm , Compliant ,Sleeping. Continue to assess behaviors and condition will continue to monitor throughout the shift as needed. Patient educated on ADL's, and hand hygiene. 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 Continue to assess patient for changes in above assessment. Monitor for medication needs, pain, and safety concerns. Hourly rounding performed to ensure safe environment.
--- NOTE | 2017-05-17 23:19 | PDOC ---
Exam Monty Demential Exam: Monty Note: Please also refer to the separate dictated note~for this date of service dictated separately.~Patient seen individually. Discussed the patient with Nursing staff reviewed the chart.~Reviewed interim history and current functioning. Reviewed vital signs,~Labs/ Radiology~and current medications noted below. Continue current treatment with the changes noted in the dictated addendum note Assessment: Vital Signs: Vital Signs Date Time Temp Pulse Resp B/P (MAP) Pulse Ox O2 Delivery O2 Flow Rate FiO2 05/17/17 19:35 74 154/83 05/17/17 15:48 98.1 18 95 05/17/17 06:06 Room Air I&O Intake and Output 05/17/17 07:00 Intake Total 840 ml Balance 840 ml Intake Oral 840 ml Current Medications: Meds: Current Medications Acetaminophen (Tylenol) 1,000 mg 1X ONCE PO Last administered on 05/15/17 11: 38; Start 05/15/17 at 11:45; Stop 05/15/17 at 13:52; Status DC Lorazepam (Ativan) 1 mg 1X ONCE PO Last administered on 05/15/17 11:38; Start 05/15/17 at 11:45; Stop 05/15/17 at 13:50; Status DC Acetaminophen (Tylenol) 650 mg PRN Q6HRS PRN PO PAIN / TEMP Last administered on 05/16/17 14:41; Start 05/15/17 at 13:30; Stop 05/16/17 at 15:30; Status DC Multi-Ingredient Ointment (Analgesic Fenton) 1 mike PRN QID PRN TP MUSCLE PAIN; Start 05/15/17 at 13:30 Al Hydroxide/Mg Hydroxide (Mylanta Plus Xs) 15 ml PRN AFTMEALHC PRN PO DYSPEPSIA; Start 05/15/17 at 13:30 Magnesium Hydroxide (Milk Of Magnesia) 2,400 mg PRN QHS PRN PO CONSTIPATION; Start 05/15/17 at 13:30 Nicotine (Nicoderm Cq 14mg) 1 patch DAILY TD ; Start 05/16/17 at 09:00 Escitalopram Oxalate (Lexapro) 20 mg DAILY PO Last administered on 05/17/17 07 :28; Start 05/16/17 at 09:00 Donepezil HCl (Aricept) 10 mg QHS PO Last administered on 05/17/17 19:35; Start 05/15/17 at 21:00 Clonazepam (KlonoPIN) 0.5 mg QHS PO Last administered on 05/17/17 19:34; Start 05/15/17 at 21:00 Donepezil HCl (Aricept) 5 mg QHS PO Last administered on 05/15/17 19:38; Start 05/15/17 at 21:00; Stop 05/15/17 at 23:44; Status DC Levetiracetam (Keppra) 750 mg BID PO Last administered on 05/17/17 19:34; Start 05/15/17 at 21:00 Clonazepam (KlonoPIN) 0.5 mg PRN BID PRN PO ANXIETY / AGITATION Last administered on 05/16/17 16:22; Start 05/15/17 at 14:00; Stop 05/16/17 at 18:45 ; Status DC Olanzapine (ZyPREXA) 10 mg QHS PO Last administered on 05/17/17 19:35; Start 05/15/17 at 21:00 Mirtazapine (Remeron Genny-Tab) 15 mg QHS PO Last administered on 05/17/17 19:35 ; Start 05/15/17 at 21:00 Aspirin (Children'S Aspirin) 81 mg DAILY PO Last administered on 05/17/17 07: 25; Start 05/16/17 at 09:00 Ferrous Sulfate (Feosol) 325 mg DAILY PO Last administered on 05/17/17 07:27; Start 05/16/17 at 09:00 Hydrochlorothiazide (Hydrodiuril) 25 mg DAILY PO Last administered on 07:27; Start 05/16/17 at 09:00 Oxycodone/ Acetaminophen (Percocet 10/325) 1 tab QID PO Last administered on 19:37; Start 05/15/17 at 17:00 Calcium/Vitamin D (Oscal D 500mg/ 200uts) 1 tab BIDWMEALS PO Last administered on 05/17/17 17:36; Start 05/15/17 at 17:00 Docusate Sodium (Colace) 100 mg BID PO Last administered on 05/17/17 19:34; Start 05/15/17 at 21:00 Famotidine (Pepcid) 20 mg BID PO Last administered on 05/17/17 19:35; Start at 21:00 Lisinopril (Prinivil) 20 mg BID PO Last administered on 05/17/17 19:35; Start 05/15/17 at 21:00 Metoprolol Tartrate (Lopressor) 50 mg BID PO Last administered on 05/17/17 19: 35; Start 05/15/17 at 21:00 Clonidine HCl (Catapres) 0.2 mg DAILY PRN PO HYPERTENSION, SEE COMMENTS; Start 05/16/17 at 09:00 Albuterol/ Ipratropium (Duoneb) 3 ml Q4HRS PRN NEB SHORTNESS OF BREATH; Start 05/15/17 at 14:15 Acetaminophen (Tylenol) 650 mg PRN Q8HRS PRN PO PAIN Last administered on 09:45; Start 05/15/17 at 14:15 Cyclobenzaprine HCl (Flexeril) 10 mg Q8HRS PRN PO MUSCLE SPASMS Last administered on 05/16/17 19:25; Start 05/15/17 at 14:15 Ondansetron HCl (Zofran Odt) 4 mg PRN Q8HRS PRN PO NAUSEA/VOMITING; Start 05/15 at 14:15 Loperamide HCl (Imodium) 2 mg PRN Q3HRS PRN PO DIARRHEA; Start 05/15/17 at 14: 15 Nystatin (Nystop) 1 mike BID TP Last administered on 05/15/17 19:38; Start at 21:00; Stop 05/15/17 at 21:00; Status DC Fentanyl (Duragesic 12mcg/ Hr) 1 patch Q3DAYS TD Last administered on 08:28; Start 05/16/17 at 09:00 Nystatin (Nystop) 1 mike BID TP Last administered on 05/17/17 21:00; Start at 21:00 Divalproex Sodium (Depakote Sprinkles) 125 mg TID PO Last administered on 19:35; Start 05/15/17 at 21:00 Vitamin D (Vitamin D3) 50,000 unit WEEKLY PO Last administered on 05/17/17 07: 35; Start 05/17/17 at 09:00 Clonazepam (KlonoPIN) 0.5 mg PRN TID PRN PO ANXIETY / AGITATION Last administered on 05/17/17 13:27; Start 05/17/17 at 06:00 Active Scripts Active Reported Trazodone Hcl 50 Mg Tablet 50 Mg PO PRN QHS PRN Miralax (Polyethylene Glycol 3350) 17 Gm Powd.pack 17 Gm PO DAILY Pantoprazole Sodium 40 Mg Tablet.dr 40 Mg PO DAILYAC Oxycontin (Oxycodone Hcl) 10 Mg Tab.er.12h 10 Mg PO [id number] Zyprexa Zydis (Olanzapine) 5 Mg Tab.rapdis 5 Mg PO PRN Q2HR PRN Analgesic Fenton (Methyl Salicylate/Menthol) 29 Gm Oint...g. 1 Mike TP PRN QID PRN Milk Of Magnesia (Magnesium Hydroxide) 2,400 Mg/10 Ml Oral.susp 2,400 Mg PO PRN QHS PRN Advanced Antacid Liquid (Mag Hydrox/Al Hydrox/Simeth) 355 Ml Oral.susp 15 Ml PO PRN AFTMEALHC PRN Cymbalta (Duloxetine Hcl) 30 Mg Capsule.dr 30 Mg PO DAILY Colace (Docusate Sodium) 100 Mg Capsule 100 Mg PO BID Tegretol (Carbamazepine) 200 Mg Tablet 400 Mg PO HS Acetaminophen 500 Mg Tablet 650 Mg PO PRN Q6HRS PRN Folic Acid 0.8 Mg Tablet 0.8 Mg PO DAILY Calcium 500 + Vit D 400 Tablet (Calcium Carbonate/Vitamin D3) 1 Each Tablet 1 Tab PO BIDWBKFT/KAYY Hydrocodone-Apap 10-325 (Hydrocodone Bit/Acetaminophen) 1 Each Tablet 1 Tab PO PRN Q4HRS PRN Alprazolam 0.5 Mg Tablet 0.5 Mg PO PRN Q2HR PRN max dosage: 3mg/24hrs Loratadine 10 Mg Tablet 10 Mg PO PRN DAILY PRN Loperamide (Loperamide Hcl) 2 Mg Capsule 2 Mg PO PRN Q4HRS PRN Methylphenidate Er (Methylphenidate Hcl) 10 Mg Tablet.er 10 Mg PO DAILY Multivitamins (Multivitamin) 1 Each Tablet 1 Tab PO DAILY Mupirocin 22 Gm Oint...g. 1 Mike TP PRN BID PRN Cholestyramine Packet (Cholestyramine (With Sugar)) 4 Gm Powd.pack 4 Gm PO BID Ferrous Sulfate 325 Mg Tablet 325 Mg PO NOON Vitamin C (Ascorbic Acid) 500 Mg Tablet 500 Mg PO TID Norvasc (Amlodipine Besylate) 5 Mg Tablet 5 Mg PO BID NITROGLYCERIN SubLingual (Nitroglycerin) 0.4 Mg Tab.subl 0.4 Mg SL PRN Q5MIN PRN Creon 24,000 Units Capsule (Lipase/Protease/Amylase) 1 Each Capsule. 5 Cap PO TIDWMEALS Diagnosis: Problems: (1) Bipolar disorder, mixed (2) Bipolar affective disorder, mixed (3) Anxiety disorder (4) Major depressive disorder, recurrent episode (5) Impulse control disorder (6) Dementia TESHA MANZANO MD May 17, 2017 23:18
--- NOTE | 2017-05-18 02:52 | PN ---
DATE: 05/16/2017 This late entry of 05/16/2017 covers elements not covered in initial note. Also discussed with Dr. Alegre, Neurology at some length. SUBJECTIVE: The patient does have a history of seizure disorder and has been on Keppra for this. REVIEW OF SYSTEMS: I met with her in her room. The patient complains of back pain. CT of her spine and an ultrasound have been requested. When she was discharged from our facility, the last time she was on Cymbalta as an antidepressant which would help with the pain as well but since then has been changed to Lexapro. Nursing staff will enquire the reason for the change. We will consider restarting Cymbalta unless there is some reason not to. No CV, , pulmonary, eye system symptoms on review. MENTAL STATUS EXAM: Reasonably oriented. Speech is coherent, abstraction fair, computation impaired, language function intact, attention span short. Mood and affect is still anxious, labile. LABORATORY DATA: Reviewed. IMPRESSION: Unchanged from initial note. PLAN: Increase Klonopin from 0.5 mg b.i.d. p.r.n. to 0.5 mg t.i.d. p.r.n., maintain Lexapro, consider Cymbalta in place of this, continue Depakote, Aricept, Keppra, Remeron, follow labs level on the Depakote once is therapeutic, deferred to Dr. Alegre regarding Keppra. TESHA MANZANO MD DR: SURESH/ame JOB#: [id number] / [id number]
[2017-05-18] MEDS: clonazePAM 0.5 MG TABLET PO PRN (05:32)
--- NOTE | 2017-05-18 05:38 | NUR ---
Nursing Note Pt repeatedly asking for pain medication, reassured pt that she receives scheduled pain medication. Pt requesting something for anxiety, this nurse administered PRN medication (see eMAR).
[2017-05-18 05:40] VITALS: BP 152/54
[2017-05-18] MEDS: ESCITALOPRAM 20 MG TABLET. PO SCH (07:17)
[2017-05-18] MEDS: CALCIUM CARB/VIT D3 500/200 TABLET PO SCH ×2 (07:18→17:07)
[2017-05-18] MEDS: hydroCHLOROthiazide 25 MG TABLET PO SCH (07:18)
[2017-05-18] MEDS: DIVALPROEX 125 MG CAP.SPRINK PO SCH ×3 (07:18→19:22)
[2017-05-18] MEDS: DOCUSATE SODIUM 100 MG CAPSULE PO SCH ×2 (07:18→19:21)
[2017-05-18] MEDS: FERROUS SULFATE 325 MG TABLET PO SCH (07:18)
[2017-05-18] MEDS: ASPIRIN 81 MG TAB.CHEW PO SCH (07:18)
[2017-05-18] MEDS: oxyCODONE/APAP 10/325 1 TAB TABLET PO SCH ×4 (07:19→19:21)
[2017-05-18] MEDS: FAMOTIDINE 20 MG TABLET PO SCH ×2 (07:19→19:21)
[2017-05-18] MEDS: METOPROLOL TART IMMED RELEASE 50 MG TABLET PO SCH ×2 (07:19→19:21)
[2017-05-18] MEDS: LISINOPRIL 20 MG TABLET PO SCH ×2 (07:20→19:21)
[2017-05-18] MEDS: NICOTINE 14MG PATCH. TD SCH (07:20)
[2017-05-18] MEDS: NYSTATIN TOPICAL POWDER 15GM BOTTLE. TP SCH ×2 (07:21→19:25)
[2017-05-18] MEDS: levETIRAcetam 250 MG TABLET PO SCH ×2 (07:21→19:21)
--- NOTE | 2017-05-18 09:43 | NUR ---
Behavior Intervention Response and Plan: BIRP Note: Behavior: Assumed Care of patient, patient located in Patient Room at shift change. Patient exhibited the following behavior Calm, Demanding, Able to Focus on Task. Brief assessment on rounds of vital signs, medication needs, lab studies, and pain. Treatment plan problems . Intervention: Patient assessed and the following interventions initiated safety checks 15 Minute Checks Head to toe Assessment , Medications , Nutrition. Response: After interactions and interventions patient responded in the following manner, Calm , Able to Focus on Task ,Demanding. Continue to assess behaviors and condition will continue to monitor throughout the shift as needed. Patient educated on ADL's, and hand hygiene. 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 Continue to assess patient for changes in above assessment. Monitor for medication needs, pain, and safety concerns. Hourly rounding performed to ensure safe environment.
[2017-05-18 16:16] VITALS: BP 162/65
[2017-05-18] MEDS: ACETAMINOPHEN 325 MG TABLET PO PRN (16:38)
--- NOTE | 2017-05-18 18:20 | RAD ---
CT study of the abdomen without contrast HISTORY: Abdominal and back pain. Possible abdominal aortic aneurysm. TECHNIQUE: Could not obtain IV access. Therefore, noncontrast helical CT scanning of the abdomen was performed. Without contrast, the sensitivity to detect organ pathology and GI tract pathology is decreased. PQRS compliance Statement One or more of the following individualized dose reduction techniques were utilized for this study: 1. Automated exposure control 2. Adjustment of the mA and/or kV according to patient size 3. Use of iterative reconstruction technique COMPARISON: None available. FINDINGS: The liver and spleen and pancreas are unremarkable on this noncontrast study. The gallbladder is distended Rebetron the anterior edge of the liver. The gallbladder measures 12 cm in length. No gallbladder wall thickening is evident. No extrahepatic biliary ductal dilatation is seen. No adrenal mass is evident. No hydronephrosis or renal mass is seen on either side. Calcified atheromatous disease of the abdominal aorta and proximal iliac arteries is seen. No focal aneurysmal dilatation of the abdominal aorta is seen. There is fusiform aneurysmal dilatation of the distal thoracic aorta measuring up to 5 cm in greatest caliber. No enlarged abdominal lymphadenopathy is seen. No obstructive bowel pattern is evident. 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 Anterior abdominal wall midline incision is seen. There is air within the midline incision deep to the skin surface but superficial to the peritoneal cavity. This appears to communicate to the skin surface. Therefore, there is a dehiscence here. There is a fluidlike collection present here as well which measures 7.9 cm in transverse dimension and 1.8 cm and AP thickness and 2.7 cm in vertical dimension. This may represent a postoperative seroma or hematoma or abscess. No free intraperitoneal air or free fluid is seen. Moderate fecal retention is seen.There is severe compression fracture of L1. There is mild posterior protrusion of bony elements into the anterior aspect of the spinal canal. This narrows the spinal canal at this level down to 9 mm. Grade 1-2 anterolisthesis of L4-5 is seen. No focal osteolytic process is seen. IMPRESSION: Distal thoracic aortic aneurysm measuring up to 5 cm in greatest caliber. No abdominal aortic aneurysm is seen. Gallbladder distention. Upper anterior abdominal wall midline incisional fluid collection containing air. The air communicates with the skin surface consistent with dehiscence. This may represent a postoperative seroma or hematoma or abscess. Severe compression fracture of L1. Narrowing of the AP dimension of the spinal canal at this level. Moderate fecal retention. Electronically signed by: Mikie Burton MD (05/18/2017 6:17 PM) [id number]
[2017-05-18] MEDS: CYCLOBENZAPRINE 10 MG TABLET. PO PRN (19:21)
[2017-05-18] MEDS: OLANZapine 10 MG TABLET PO SCH (19:22)
[2017-05-18] MEDS: MIRTAZAPINE 15 MG TAB.RAPDIS PO SCH (19:22)
[2017-05-18] MEDS: DONEPEZIL HCL 10 MG TABLET PO SCH (19:22)
[2017-05-18] MEDS: clonazePAM 0.5 MG TABLET PO SCH (19:22)
--- NOTE | 2017-05-18 19:48 | PDOC ---
Exam Monty Demential Exam: Monty Note: Please also refer to the separate dictated note~for this date of service dictated separately.~Patient seen individually. Discussed the patient with Nursing staff reviewed the chart.~Reviewed interim history and current functioning. Reviewed vital signs,~Labs/ Radiology~and current medications noted below. Continue current treatment with the changes noted in the dictated addendum note Assessment: Vital Signs: Vital Signs Date Time Temp Pulse Resp B/P (MAP) Pulse Ox O2 Delivery O2 Flow Rate FiO2 05/18/17 19:21 73 162/65 05/18/17 16:16 99.0 18 97 Room Air I&O Intake and Output 05/18/17 07:00 Intake Total 360 ml Balance 360 ml Intake Oral 360 ml Current Medications: Meds: Current Medications Acetaminophen (Tylenol) 1,000 mg 1X ONCE PO Last administered on 05/15/17 11: 38; Start 05/15/17 at 11:45; Stop 05/15/17 at 13:52; Status DC Lorazepam (Ativan) 1 mg 1X ONCE PO Last administered on 05/15/17 11:38; Start 05/15/17 at 11:45; Stop 05/15/17 at 13:50; Status DC Acetaminophen (Tylenol) 650 mg PRN Q6HRS PRN PO PAIN / TEMP Last administered on 05/16/17 14:41; Start 05/15/17 at 13:30; Stop 05/16/17 at 15:30; Status DC Multi-Ingredient Ointment (Analgesic Cantonment) 1 mike PRN QID PRN TP MUSCLE PAIN; Start 05/15/17 at 13:30 Al Hydroxide/Mg Hydroxide (Mylanta Plus Xs) 15 ml PRN AFTMEALHC PRN PO DYSPEPSIA; Start 05/15/17 at 13:30 Magnesium Hydroxide (Milk Of Magnesia) 2,400 mg PRN QHS PRN PO CONSTIPATION; Start 05/15/17 at 13:30 Nicotine (Nicoderm Cq 14mg) 1 patch DAILY TD ; Start 05/16/17 at 09:00 Escitalopram Oxalate (Lexapro) 20 mg DAILY PO Last administered on 05/18/17 07 :17; Start 05/16/17 at 09:00 Donepezil HCl (Aricept) 10 mg QHS PO Last administered on 05/18/17 19:22; Start 05/15/17 at 21:00 Clonazepam (KlonoPIN) 0.5 mg QHS PO Last administered on 05/18/17 19:22; Start 05/15/17 at 21:00 Donepezil HCl (Aricept) 5 mg QHS PO Last administered on 05/15/17 19:38; Start 05/15/17 at 21:00; Stop 05/15/17 at 23:44; Status DC Levetiracetam (Keppra) 750 mg BID PO Last administered on 05/18/17 19:21; Start 05/15/17 at 21:00 Clonazepam (KlonoPIN) 0.5 mg PRN BID PRN PO ANXIETY / AGITATION Last administered on 05/16/17 16:22; Start 05/15/17 at 14:00; Stop 05/16/17 at 18:45 ; Status DC Olanzapine (ZyPREXA) 10 mg QHS PO Last administered on 05/18/17 19:22; Start 05/15/17 at 21:00 Mirtazapine (Remeron Genny-Tab) 15 mg QHS PO Last administered on 05/18/17 19:22 ; Start 05/15/17 at 21:00 Aspirin (Children'S Aspirin) 81 mg DAILY PO Last administered on 05/18/17 07: 18; Start 05/16/17 at 09:00 Ferrous Sulfate (Feosol) 325 mg DAILY PO Last administered on 05/18/17 07:18; Start 05/16/17 at 09:00 Hydrochlorothiazide (Hydrodiuril) 25 mg DAILY PO Last administered on 07:18; Start 05/16/17 at 09:00 Oxycodone/ Acetaminophen (Percocet 10/325) 1 tab QID PO Last administered on 19:21; Start 05/15/17 at 17:00 Calcium/Vitamin D (Oscal D 500mg/ 200uts) 1 tab BIDWMEALS PO Last administered on 05/18/17 17:07; Start 05/15/17 at 17:00 Docusate Sodium (Colace) 100 mg BID PO Last administered on 05/18/17 19:21; Start 05/15/17 at 21:00 Famotidine (Pepcid) 20 mg BID PO Last administered on 05/18/17 19:21; Start at 21:00 Lisinopril (Prinivil) 20 mg BID PO Last administered on 05/18/17 19:21; Start 05/15/17 at 21:00 Metoprolol Tartrate (Lopressor) 50 mg BID PO Last administered on 05/18/17 19: 21; Start 05/15/17 at 21:00 Clonidine HCl (Catapres) 0.2 mg DAILY PRN PO HYPERTENSION, SEE COMMENTS; Start 05/16/17 at 09:00 Albuterol/ Ipratropium (Duoneb) 3 ml Q4HRS PRN NEB SHORTNESS OF BREATH; Start 05/15/17 at 14:15 Acetaminophen (Tylenol) 650 mg PRN Q8HRS PRN PO PAIN Last administered on 16:38; Start 05/15/17 at 14:15 Cyclobenzaprine HCl (Flexeril) 10 mg Q8HRS PRN PO MUSCLE SPASMS Last administered on 05/18/17 19:21; Start 05/15/17 at 14:15 Ondansetron HCl (Zofran Odt) 4 mg PRN Q8HRS PRN PO NAUSEA/VOMITING; Start 05/15 at 14:15 Loperamide HCl (Imodium) 2 mg PRN Q3HRS PRN PO DIARRHEA; Start 05/15/17 at 14: 15 Nystatin (Nystop) 1 mike BID TP Last administered on 05/15/17 19:38; Start at 21:00; Stop 05/15/17 at 21:00; Status DC Fentanyl (Duragesic 12mcg/ Hr) 1 patch Q3DAYS TD Last administered on 08:28; Start 05/16/17 at 09:00 Nystatin (Nystop) 1 mike BID TP Last administered on 05/18/17 19:25; Start at 21:00 Divalproex Sodium (Depakote Sprinkles) 125 mg TID PO Last administered on 19:22; Start 05/15/17 at 21:00 Vitamin D (Vitamin D3) 50,000 unit WEEKLY PO Last administered on 05/17/17 07: 35; Start 05/17/17 at 09:00 Clonazepam (KlonoPIN) 0.5 mg PRN TID PRN PO ANXIETY / AGITATION Last administered on 05/18/17 05:32; Start 05/17/17 at 06:00 Active Scripts Active Reported Trazodone Hcl 50 Mg Tablet 50 Mg PO PRN QHS PRN Miralax (Polyethylene Glycol 3350) 17 Gm Powd.pack 17 Gm PO DAILY Pantoprazole Sodium 40 Mg Tablet.dr 40 Mg PO DAILYAC Oxycontin (Oxycodone Hcl) 10 Mg Tab.er.12h 10 Mg PO [id number] Zyprexa Zydis (Olanzapine) 5 Mg Tab.rapdis 5 Mg PO PRN Q2HR PRN Analgesic Cantonment (Methyl Salicylate/Menthol) 29 Gm Oint...g. 1 Mike TP PRN QID PRN Milk Of Magnesia (Magnesium Hydroxide) 2,400 Mg/10 Ml Oral.susp 2,400 Mg PO PRN QHS PRN Advanced Antacid Liquid (Mag Hydrox/Al Hydrox/Simeth) 355 Ml Oral.susp 15 Ml PO PRN AFTMEALHC PRN Cymbalta (Duloxetine Hcl) 30 Mg Capsule.dr 30 Mg PO DAILY Colace (Docusate Sodium) 100 Mg Capsule 100 Mg PO BID Tegretol (Carbamazepine) 200 Mg Tablet 400 Mg PO HS Acetaminophen 500 Mg Tablet 650 Mg PO PRN Q6HRS PRN Folic Acid 0.8 Mg Tablet 0.8 Mg PO DAILY Calcium 500 + Vit D 400 Tablet (Calcium Carbonate/Vitamin D3) 1 Each Tablet 1 Tab PO BIDWBK/ Hydrocodone-Apap 10-325 (Hydrocodone Bit/Acetaminophen) 1 Each Tablet 1 Tab PO PRN Q4HRS PRN Alprazolam 0.5 Mg Tablet 0.5 Mg PO PRN Q2HR PRN max dosage: 3mg/24hrs Loratadine 10 Mg Tablet 10 Mg PO PRN DAILY PRN Loperamide (Loperamide Hcl) 2 Mg Capsule 2 Mg PO PRN Q4HRS PRN Methylphenidate Er (Methylphenidate Hcl) 10 Mg Tablet.er 10 Mg PO DAILY Multivitamins (Multivitamin) 1 Each Tablet 1 Tab PO DAILY Mupirocin 22 Gm Oint...g. 1 Mike TP PRN BID PRN Cholestyramine Packet (Cholestyramine (With Sugar)) 4 Gm Powd.pack 4 Gm PO BID Ferrous Sulfate 325 Mg Tablet 325 Mg PO NOON Vitamin C (Ascorbic Acid) 500 Mg Tablet 500 Mg PO TID Norvasc (Amlodipine Besylate) 5 Mg Tablet 5 Mg PO BID NITROGLYCERIN SubLingual (Nitroglycerin) 0.4 Mg Tab.subl 0.4 Mg SL PRN Q5MIN PRN Creon 24,000 Units Capsule (Lipase/Protease/Amylase) 1 Each Capsule. 5 Cap PO TIDWMEALS Diagnosis: Problems: (1) Dementia (2) Bipolar disorder, mixed (3) Bipolar affective disorder, mixed (4) Anxiety disorder (5) Major depressive disorder, recurrent episode (6) Impulse control disorder TESHA MANZANO MD May 18, 2017 19:48
--- NOTE | 2017-05-18 21:58 | NUR ---
Behavior Intervention Response and Plan: BIRP Note: Behavior: Assumed Care of patient, patient located in Patient Room at shift change. Patient exhibited the following behavior Calm, Medication Seeking, Cooperative, Withdrawn. Brief assessment on rounds of vital signs, medication needs, lab studies, and pain. Treatment plan problems Alteration on Mood and Fall Risk. Intervention: Patient assessed and the following interventions initiated safety checks 15 Minute Checks Cognitive Assessment , Head to toe Assessment , Medications. Response: After interactions and interventions patient responded in the following manner, Calm , Compliant ,Withdrawn, Medication Seeking. Continue to assess behaviors and condition will continue to monitor throughout the shift as needed. Patient educated on ADL's, and hand hygiene. Plan: Continue to monitor Master Treatment Plan for patient's progress toward short term goals of Decreased Agitation, Medication Compliance, skilled nursing goals to return to previous living setting vs placement. Continue to assess patient for changes in above assessment. Monitor for medication needs, pain, and safety concerns. Hourly rounding performed to ensure safe environment.
--- NOTE | 2017-05-18 23:40 | PN ---
DATE: 05/17/2017 PSYCHIATRIC PROGRESS NOTE This is a late entry for 05/17/2017, covers elements not covered in my initial note. SUBJECTIVE: I met with the patient evening of 05/17/2017. The patient is repeatedly asking for pain medications, attention seeking, complaining of low back pain, some abdominal pain. Her abdominal fistula was changed on 05/17/2017. REVIEW OF SYSTEMS: I met with her in her room. No CV, , pulmonary, eye system symptoms on review. MENTAL STATUS EXAM: Reasonably oriented. Speech is coherent, abstraction fair, computation impaired, language function intact. Mood and affect still depressed, anxious, labile. No active suicidal or homicidal ideation, but still seems depressed. LABORATORY DATA: Reviewed. IMPRESSION: Unchanged from initial note. PLAN: Change Lexapro 20 mg a day to Cymbalta 30 mg a day for 2 days and then 60 mg a day for 3 days and then 90 mg a day hereafter. Maintain the rest of psychotropics. Adjust further as clinically indicated. Labs, valproic acid level to be checked on 05/19/2017. Adjust Depakote thereafter. MAN Mau MANZANO MD DR: SURESH/ame JOB#: [id number] / [id number]
--- NOTE | 2017-05-19 06:01 | CONS ---
DATE OF CONSULTATION: 05/16/2017 REFERRING PHYSICIAN: Dr. Marsh. REASON FOR CONSULTATIONS: Rule out seizure. HISTORY OF PRESENT ILLNESS: This is a 77-year-old female, who was transferred from [facility] to the Geropsychiatric Unit for mood stabilization. The patient had recently increased erratic behavior, increased agitation and anxiety, and requesting pain medications for chronic lower back pain frequently. A neuro consult was requested because the patient has had a history of seizure disorder of unknown etiology. There is no further information available at this time, but from the patient herself. She states she was diagnosed as having seizure disorder several months ago and she was placed on Keppra at 750 mg twice daily and she has not had any recurrent seizures since. The patient did not give me more information about herself. She has been depressed and deeply anxious. She also complains of lower back pain secondary to an L1 compression fracture and spondylolisthesis diagnosed by MRI. She required a vertebroplasty for a compression fracture. The patient denies any recent head injuries or falls. PAST MEDICAL HISTORY: Significant for chronic lower back pain radiating to the lower extremities and associated with numbness and paresthesias, behavioral disturbances, hypertension, vitamin D deficiency, anemia, GERD, depressions, and anxiety. SOCIAL HISTORY: The patient [facility] in a jail. She denies smoking, alcohol drinking, or illicit drug use. FAMILY HISTORY: Positive for personality disorders in the patient's daughter and positive for bipolar disorder. CURRENT MEDICATIONS: Include Tylenol, alprazolam, amlodipine, vitamin D with calcium, vitamin C, cholestyramine, Cymbalta, ferrous sulfate, loratadine, methylphenidate 10 mg p.o. daily, multivitamins, olanzapine 5 mg every 2 hours p.r.n. for agitation, oxycodone/OxyContin, trazodone 50 mg at bedtime. ALLERGIES: ____, PROCHLORPERAZINE, and PROPARACAINE. PHYSICAL EXAMINATION: GENERAL: Well-developed, well-nourished white female, not in acute distress. She weighs 125 pounds. VITAL SIGNS: Blood pressure 122/76, respiratory rate 14, pulse 68 and regular, temperature 96% on room air. HEENT: Normocephalic, atraumatic, otherwise, unremarkable. NECK: Supple. Negative for carotid bruit, lymphadenopathy, or thyromegaly. LUNGS: Clear to A and P. CARDIOVASCULAR: Regular rate and rhythm, normal S1, S2. There is no S3, S4 or murmur. ABDOMEN: Soft. Bowel sounds positive. EXTREMITIES: Negative for cyanosis, clubbing, or pitting edema. NEUROLOGIC: MENTAL STATUS: The patient is alert and oriented x3. The speech is fluent. There is no language dysfunction. The patient recalls 1/3 after 1 and 3 minutes. Judgment and abstract thinking are fair. The patient denies hallucination or delusion. CRANIAL NERVES: Visual farley are full. The pupils are reactive to light and accommodation. The extraocular movements are intact. There is no nystagmus. There is no facial motor or sensory deficit. Hearing is intact bilaterally. The palate elevates symmetrically. Sternocleidomastoid muscles are powerful bilaterally. The patient shrugs her shoulders symmetrically and protrudes her tongue in the midline without fasciculation or atrophy. Motor examination revealed no focal muscle bulk was seen. The tone is normal. The strength is 4/5 throughout. Sensory examination revealed normal pinprick, light touch, vibratory, and position senses. Deep tendon reflexes are symmetric and hypoactive with absent Achilles responses. Gait is not tested at this time as the patient declined to cooperate. RADIOLOGY: A CT of the lumbar spine revealed an old L1 compression fracture and degenerative disk disease at L4-L5, and an aneurysm of the descending thoracic aorta. LABORATORY DATA: CBC revealed white blood cells of 8.3 thousand, hemoglobin 12.9, hematocrit 40.1, platelet count 215,000. Chemistry revealed sodium 133, potassium 4.1, chloride 95, CO2 of 30, BUN of 18, creatinine 1, glucose 83, calcium 8.7, magnesium 1.9. Troponin level is normal. Lipid profile is normal. Vitamin B12 was 389. Vitamin D is low at 21.3. Thyroid profile is normal. Urinalysis is negative for urinary tract infections. Urine drug screen is negative. IMPRESSION: 1. History of seizure of unknown etiology. The patient has been on Keppra 750 mg twice daily. 2. Multiple medical problems, including depression, anxiety, anemia, chronic low back pain, gastroesophageal reflux disease, hypertension. RECOMMENDATIONS: 1. Would continue with current home medications, including Keppra 750 mg twice daily. 2. To obtain more information from her daughter or any other family member regarding her seizure. 3. We will arrange for an EEG. 4. Continue with current psychiatric care. M Nidhi KIM MD DR: GERARDO/ame JOB#: [id number] / [id number]
[2017-05-19 06:10] VITALS: BP 132/65
[2017-05-19] MEDS: clonazePAM 0.5 MG TABLET PO PRN (07:15)
--- NOTE | 2017-05-19 07:15 | NUR ---
Patient repeatedly asking for anxiety medication; prn meds provided per eMAR.
[2017-05-19] MEDS: NICOTINE 14MG PATCH. TD SCH ×2 (07:47→09:00)
[2017-05-19] MEDS: DIVALPROEX 125 MG CAP.SPRINK PO SCH ×3 (07:48→20:24)
[2017-05-19] MEDS: oxyCODONE/APAP 10/325 1 TAB TABLET PO SCH ×4 (07:48→20:24)
[2017-05-19] MEDS: DULoxetine HCL 30 MG CAPSULE.DR PO SCH (07:48)
[2017-05-19] MEDS: levETIRAcetam 250 MG TABLET PO SCH ×2 (07:49→20:24)
[2017-05-19] MEDS: FAMOTIDINE 20 MG TABLET PO SCH ×2 (07:49→20:23)
[2017-05-19] MEDS: CALCIUM CARB/VIT D3 500/200 TABLET PO SCH ×2 (07:49→17:31)
[2017-05-19] MEDS: hydroCHLOROthiazide 25 MG TABLET PO SCH (07:49)
[2017-05-19] MEDS: ASPIRIN 81 MG TAB.CHEW PO SCH (07:49)
[2017-05-19] MEDS: LISINOPRIL 20 MG TABLET PO SCH ×2 (07:50→20:26)
[2017-05-19] MEDS: METOPROLOL TART IMMED RELEASE 50 MG TABLET PO SCH ×2 (07:50→20:25)
[2017-05-19] MEDS: DOCUSATE SODIUM 100 MG CAPSULE PO SCH ×2 (07:51→20:23)
[2017-05-19] MEDS: FERROUS SULFATE 325 MG TABLET PO SCH (07:51)
[2017-05-19] MEDS: NYSTATIN TOPICAL POWDER 15GM BOTTLE. TP SCH ×2 (07:51→20:45)
[2017-05-19] MEDS: fentaNYL 12MCG/HR 1 PATCH PATCH TD SCH (07:55)
[2017-05-19 08:01] LABS: BASO # 0.1 x10^3/uL (0.0-0.2); BASO % 1 % (0-3); EOS # 0.2 x10^3/uL (0.0-0.7); EOS % 3 % (0-3); HEMATOCRIT 43.1 % (36.0-47.0); HEMOGLOBIN 13.2 g/dL (12.0-15.5); LYMPH # 1.4 x10^3/uL (1.0-4.8); LYMPH % 22 % (24-48); MEAN CORPUSCULAR HEMOGLOBIN 25 pg (25-35); MEAN CORPUSCULAR HGB CONC 31 g/dL (31-37); MEAN CORPUSCULAR VOLUME 81 fL (79-100); MONO # 0.8 x10^3/uL (0.0-1.1); MONO % 12 % (0-9); NEUT # 4.1 x10^3uL (1.8-7.7); NEUT % 63 % (31-73); PLATELET COUNT 186 x10^3/uL (140-400); RED CELL DISTRIBUTION WIDTH 20.9 % (11.5-14.5); WHITE BLOOD COUNT 6.6 x10^3/uL (4.0-11.0)
[2017-05-19 08:24] LABS: ALBUMIN 3.1 g/dL (3.4-5.0); ALBUMIN/GLOBULIN RATIO 0.7 (1.0-1.7); ALK PHOS 89 U/L (46-116); ALT (SGPT) 13 U/L (14-59); ANION GAP 8 (6-14); AST (SGOT) 20 U/L (15-37); BLOOD UREA NITROGEN 16 mg/dL (7-20); BUN/CREATININE RATIO 18 (6-20); CARBON DIOXIDE 27 mmol/L (21-32); CHLORIDE 100 mmol/L (98-107); CREATININE 0.9 mg/dL (0.6-1.0); GFR 60.9; GLUCOSE 92 mg/dL (70-99); POTASSIUM 4.5 mmol/L (3.5-5.1); SODIUM 135 mmol/L (136-145); TOTAL BILIRUBIN 0.5 mg/dL (0.2-1.0); TOTAL PROTEIN 7.6 g/dL (6.4-8.2)
[2017-05-19 08:26] LABS: VAL ACID 20 mcg/mL (50-100)
--- NOTE | 2017-05-19 09:15 | NUR ---
THERAPEUTIC RECREATION GROUP NOTE TITLE :[employer] ACTIVITY : Arts/ Crafts GOAL : Increase socialization, fine motor skills, creativity DURATION : 75 Minutes RESPONSE : No participation.
--- NOTE | 2017-05-19 10:00 | NUR ---
Patient has refused nicotine patch repeatedly, stating that she quit smoking years ago. Per her H&P, she has not smoked in several weeks. Will d/c the nicotine patch order to reflect updated tobacco usage assessment.
--- NOTE | 2017-05-19 11:05 | NUR ---
Behavior Intervention Response and Plan: BIRP Note: Behavior: Assumed Care of patient, patient located in Patient Room at shift change. Patient exhibited the following behavior Medication Seeking, Disorganized, Interactive. Brief assessment on rounds of vital signs, medication needs, lab studies, and pain. Treatment plan problems 1 & 2. Intervention: Patient assessed and the following interventions initiated safety checks 15 Minute Checks Cognitive Assessment , Head to toe Assessment , Medications. Response: After interactions and interventions patient responded in the following manner, Calm , Appropriate ,Compliant. Continue to assess behaviors and condition will continue to monitor throughout the shift as needed. Patient educated on ADL's, and hand hygiene. 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 Continue to assess patient for changes in above assessment. Monitor for medication needs, pain, and safety concerns. Hourly rounding performed to ensure safe environment.
--- NOTE | 2017-05-19 11:20 | NUR ---
Attempted to meet and complete Activity Therapy Assessment; however, Pt. was sleeping. BLOOD BANK ATTENDANT will try again later today or tomorrow.
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
--- NOTE | 2017-05-19 12:15 | NUR ---
THERAPEUTIC RECREATION GROUP NOTE TITLE :[employer] Party ACTIVITY : Social Events and Holidays GOAL : Facilitate sense of belonging and well-being, elevate mood, increase socialization. Incorporate traditions. DURATION : 135 Minutes RESPONSE : No participation.
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
--- NOTE | 2017-05-19 15:49 | NUR ---
JIMMY reviewed Pt. insurance upon admit. Face sheet states Medicare is Primary, Face sheet [facility] Medicare Primary and [facility] Medicaid secondary and [employer] Medicare A & B w/no part C for auth.
[2017-05-19 16:03] VITALS: BP 110/77
--- NOTE | 2017-05-19 19:47 | PDOC ---
Exam Monty Demential Exam: Monty Note: Please also refer to the separate dictated note~for this date of service dictated separately.~Patient seen individually. Discussed the patient with Nursing staff reviewed the chart.~Reviewed interim history and current functioning. Reviewed vital signs,~Labs/ Radiology~and current medications noted below. Continue current treatment with the changes noted in the dictated addendum note Assessment: Vital Signs: Vital Signs Date Time Temp Pulse Resp B/P (MAP) Pulse Ox O2 Delivery O2 Flow Rate FiO2 05/19/17 16:03 98.1 86 18 110/77 (88) 95 05/19/17 12:20 Room Air I&O Intake and Output 05/19/17 06:59 Intake Total 720 ml Balance 720 ml Intake Oral 720 ml Labs: Laboratory Tests Test 05/19/17 07:08 White Blood Count 6.6 x10^3/uL (4.0-11.0) Red Blood Count 5.30 x10^6/uL (3.50-5.40) Hemoglobin 13.2 g/dL (12.0-15.5) Hematocrit 43.1 % (36.0-47.0) Mean Corpuscular Volume 81 fL (79-100) # Mean Corpuscular Hemoglobin 25 pg (25-35) Mean Corpuscular Hemoglobin Concent 31 g/dL (31-37) Red Cell Distribution Width 20.9 % (11.5-14.5) H Platelet Count 186 x10^3/uL (140-400) Neutrophils (%) (Auto) 63 % (31-73) Lymphocytes (%) (Auto) 22 % (24-48) L Monocytes (%) (Auto) 12 % (0-9) H Eosinophils (%) (Auto) 3 % (0-3) Basophils (%) (Auto) 1 % (0-3) Neutrophils # (Auto) 4.1 x10^3uL (1.8-7.7) Lymphocytes # (Auto) 1.4 x10^3/uL (1.0-4.8) Monocytes # (Auto) 0.8 x10^3/uL (0.0-1.1) Eosinophils # (Auto) 0.2 x10^3/uL (0.0-0.7) Basophils # (Auto) 0.1 x10^3/uL (0.0-0.2) Sodium Level 135 mmol/L (136-145) L Potassium Level 4.5 mmol/L (3.5-5.1) Chloride Level 100 mmol/L (98-107) Carbon Dioxide Level 27 mmol/L (21-32) Anion Gap 8 (6-14) Blood Urea Nitrogen 16 mg/dL (7-20) Creatinine 0.9 mg/dL (0.6-1.0) Estimated GFR (Cockcroft-Gault) 60.9 BUN/Creatinine Ratio 18 (6-20) Glucose Level 92 mg/dL (70-99) Calcium Level 9.0 mg/dL (8.5-10.1) Total Bilirubin 0.5 mg/dL (0.2-1.0) Aspartate Amino Transferase (AST) 20 U/L (15-37) Alanine Aminotransferase (ALT) 13 U/L (14-59) L Alkaline Phosphatase 89 U/L (46-116) Ammonia 17 mcmol/L (11-34) Total Protein 7.6 g/dL (6.4-8.2) Albumin 3.1 g/dL (3.4-5.0) L Albumin/Globulin Ratio 0.7 (1.0-1.7) L Valproic Acid Level 20 mcg/mL (50-100) L Valproic Acid Last Dose Date 05/18/17 Valproic Acid Last Dose Time 2100 Current Medications: Meds: Current Medications Acetaminophen (Tylenol) 1,000 mg 1X ONCE PO Last administered on 05/15/17 11: 38; Start 05/15/17 at 11:45; Stop 05/15/17 at 13:52; Status DC Lorazepam (Ativan) 1 mg 1X ONCE PO Last administered on 05/15/17 11:38; Start 05/15/17 at 11:45; Stop 05/15/17 at 13:50; Status DC Acetaminophen (Tylenol) 650 mg PRN Q6HRS PRN PO PAIN / TEMP Last administered on 05/16/17 14:41; Start 05/15/17 at 13:30; Stop 05/16/17 at 15:30; Status DC Multi-Ingredient Ointment (Analgesic [place]) 1 mike PRN QID PRN TP MUSCLE PAIN; Start 05/15/17 at 13:30 Al Hydroxide/Mg Hydroxide (Mylanta Plus Xs) 15 ml PRN AFTMEALHC PRN PO DYSPEPSIA; Start 05/15/17 at 13:30 Magnesium Hydroxide (Milk Of Magnesia) 2,400 mg PRN QHS PRN PO CONSTIPATION; Start 05/15/17 at 13:30 Nicotine (Nicoderm Cq 14mg) 1 patch DAILY TD ; Start 05/16/17 at 09:00; Stop at 10:41; Status DC Escitalopram Oxalate (Lexapro) 20 mg DAILY PO Last administered on 05/18/17 07 :17; Start 05/16/17 at 09:00; Stop 05/18/17 at 22:07; Status DC Donepezil HCl (Aricept) 10 mg QHS PO Last administered on 05/18/17 19:22; Start 05/15/17 at 21:00 Clonazepam (KlonoPIN) 0.5 mg QHS PO Last administered on 05/18/17 19:22; Start 05/15/17 at 21:00 Donepezil HCl (Aricept) 5 mg QHS PO Last administered on 05/15/17 19:38; Start 05/15/17 at 21:00; Stop 05/15/17 at 23:44; Status DC Levetiracetam (Keppra) 750 mg BID PO Last administered on 05/19/17 07:49; Start 05/15/17 at 21:00 Clonazepam (KlonoPIN) 0.5 mg PRN BID PRN PO ANXIETY / AGITATION Last administered on 05/16/17 16:22; Start 05/15/17 at 14:00; Stop 05/16/17 at 18:45 ; Status DC Olanzapine (ZyPREXA) 10 mg QHS PO Last administered on 05/18/17 19:22; Start 05/15/17 at 21:00 Mirtazapine (Remeron Genny-Tab) 15 mg QHS PO Last administered on 05/18/17 19:22 ; Start 05/15/17 at 21:00 Aspirin (Children'S Aspirin) 81 mg DAILY PO Last administered on 05/19/17 07: 49; Start 05/16/17 at 09:00 Ferrous Sulfate (Feosol) 325 mg DAILY PO Last administered on 05/19/17 07:51; Start 05/16/17 at 09:00 Hydrochlorothiazide (Hydrodiuril) 25 mg DAILY PO Last administered on 07:49; Start 05/16/17 at 09:00 Oxycodone/ Acetaminophen (Percocet 10/325) 1 tab QID PO Last administered on 17:31; Start 05/15/17 at 17:00 Calcium/Vitamin D (Oscal D 500mg/ 200uts) 1 tab BIDWMEALS PO Last administered on 05/19/17 17:31; Start 05/15/17 at 17:00 Docusate Sodium (Colace) 100 mg BID PO Last administered on 05/19/17 07:51; Start 05/15/17 at 21:00 Famotidine (Pepcid) 20 mg BID PO Last administered on 05/19/17 07:49; Start at 21:00 Lisinopril (Prinivil) 20 mg BID PO Last administered on 05/19/17 07:50; Start 05/15/17 at 21:00 Metoprolol Tartrate (Lopressor) 50 mg BID PO Last administered on 05/19/17 07: 50; Start 05/15/17 at 21:00 Clonidine HCl (Catapres) 0.2 mg DAILY PRN PO HYPERTENSION, SEE COMMENTS; Start 05/16/17 at 09:00 Albuterol/ Ipratropium (Duoneb) 3 ml Q4HRS PRN NEB SHORTNESS OF BREATH; Start 05/15/17 at 14:15 Acetaminophen (Tylenol) 650 mg PRN Q8HRS PRN PO PAIN Last administered on 16:38; Start 05/15/17 at 14:15 Cyclobenzaprine HCl (Flexeril) 10 mg Q8HRS PRN PO MUSCLE SPASMS Last administered on 05/18/17 19:21; Start 05/15/17 at 14:15 Ondansetron HCl (Zofran Odt) 4 mg PRN Q8HRS PRN PO NAUSEA/VOMITING; Start 05/15 at 14:15 Loperamide HCl (Imodium) 2 mg PRN Q3HRS PRN PO DIARRHEA; Start 05/15/17 at 14: 15 Nystatin (Nystop) 1 mike BID TP Last administered on 05/15/17 19:38; Start at 21:00; Stop 05/15/17 at 21:00; Status DC Fentanyl (Duragesic 12mcg/ Hr) 1 patch Q3DAYS TD Last administered on 07:55; Start 05/16/17 at 09:00 Nystatin (Nystop) 1 mike BID TP Last administered on 05/19/17 07:51; Start at 21:00 Divalproex Sodium (Depakote Sprinkles) 125 mg TID PO Last administered on 14:50; Start 05/15/17 at 21:00 Vitamin D (Vitamin D3) 50,000 unit WEEKLY PO Last administered on 05/17/17 07: 35; Start 05/17/17 at 09:00 Clonazepam (KlonoPIN) 0.5 mg PRN TID PRN PO ANXIETY / AGITATION Last administered on 05/19/17 07:15; Start 05/17/17 at 06:00 Duloxetine HCl (Cymbalta) 30 mg DAILY PO Last administered on 05/19/17 07:48; Start 05/19/17 at 09:00; Stop 05/20/17 at 10:00 Duloxetine HCl (Cymbalta) 60 mg DAILY PO ; Start 05/21/17 at 09:00; Stop at 10:00 Duloxetine HCl (Cymbalta) 90 mg DAILY PO ; Start 05/24/17 at 09:00 Active Scripts Active Reported Trazodone Hcl 50 Mg Tablet 50 Mg PO PRN QHS PRN Miralax (Polyethylene Glycol 3350) 17 Gm Powd.pack 17 Gm PO DAILY Pantoprazole Sodium 40 Mg Tablet.dr 40 Mg PO DAILYAC Oxycontin (Oxycodone Hcl) 10 Mg Tab.er.12h 10 Mg PO [id number] Zyprexa Zydis (Olanzapine) 5 Mg Tab.rapdis 5 Mg PO PRN Q2HR PRN Analgesic [place] (Methyl Salicylate/Menthol) 29 Gm Oint...g. 1 Mike TP PRN QID PRN Milk Of Magnesia (Magnesium Hydroxide) 2,400 Mg/10 Ml Oral.susp 2,400 Mg PO PRN QHS PRN Advanced Antacid Liquid (Mag Hydrox/Al Hydrox/Simeth) 355 Ml Oral.susp 15 Ml PO PRN AFTMEALHC PRN Cymbalta (Duloxetine Hcl) 30 Mg Capsule.dr 30 Mg PO DAILY Colace (Docusate Sodium) 100 Mg Capsule 100 Mg PO BID Tegretol (Carbamazepine) 200 Mg Tablet 400 Mg PO HS Acetaminophen 500 Mg Tablet 650 Mg PO PRN Q6HRS PRN Folic Acid 0.8 Mg Tablet 0.8 Mg PO DAILY Calcium 500 + Vit D 400 Tablet (Calcium Carbonate/Vitamin D3) 1 Each Tablet 1 Tab PO BIDWBKFT/KAYY Hydrocodone-Apap 10-325 (Hydrocodone Bit/Acetaminophen) 1 Each Tablet 1 Tab PO PRN Q4HRS PRN Alprazolam 0.5 Mg Tablet 0.5 Mg PO PRN Q2HR PRN max dosage: 3mg/24hrs Loratadine 10 Mg Tablet 10 Mg PO PRN DAILY PRN Loperamide (Loperamide Hcl) 2 Mg Capsule 2 Mg PO PRN Q4HRS PRN Methylphenidate Er (Methylphenidate Hcl) 10 Mg Tablet.er 10 Mg PO DAILY Multivitamins (Multivitamin) 1 Each Tablet 1 Tab PO DAILY Mupirocin 22 Gm Oint...g. 1 Mike TP PRN BID PRN Cholestyramine Packet (Cholestyramine (With Sugar)) 4 Gm Powd.pack 4 Gm PO BID Ferrous Sulfate 325 Mg Tablet 325 Mg PO NOON Vitamin C (Ascorbic Acid) 500 Mg Tablet 500 Mg PO TID Norvasc (Amlodipine Besylate) 5 Mg Tablet 5 Mg PO BID NITROGLYCERIN SubLingual (Nitroglycerin) 0.4 Mg Tab.subl 0.4 Mg SL PRN Q5MIN PRN Creon 24,000 Units Capsule (Lipase/Protease/Amylase) 1 Each Capsule. 5 Cap PO TIDWMEALS Diagnosis: Problems: (1) Dementia (2) Bipolar disorder, mixed (3) Bipolar affective disorder, mixed (4) Anxiety disorder (5) Major depressive disorder, recurrent episode (6) Impulse control disorder TESHA MANZANO MD May 19, 2017 19:47
[2017-05-19] MEDS: OLANZapine 10 MG TABLET PO SCH (20:23)
[2017-05-19] MEDS: DONEPEZIL HCL 10 MG TABLET PO SCH (20:23)
[2017-05-19] MEDS: MIRTAZAPINE 15 MG TAB.RAPDIS PO SCH (20:24)
[2017-05-19] MEDS: clonazePAM 0.5 MG TABLET PO SCH (20:25)
--- NOTE | 2017-05-19 21:52 | NUR ---
Behavior Intervention Response and Plan: BIRP Note: Behavior: Assumed Care of patient, patient located in Patient Room at shift change. Patient exhibited the following behavior Withdrawn, Disorganized, Calm. Brief assessment on rounds of vital signs, medication needs, lab studies, and pain. Treatment plan problems 1 & 2. Intervention: Patient assessed and the following interventions initiated safety checks 15 Minute Checks Cognitive Assessment , Head to toe Assessment , Medications. Response: After interactions and interventions patient responded in the following manner, Calm , Appropriate ,Compliant. Continue to assess behaviors and condition will continue to monitor throughout the shift as needed. Patient educated on ADL's, and hand hygiene. Plan: Continue to monitor Master Treatment Plan for patient's progress toward short term goals of Decreased Agitation, Improved Mood, long term care pharmacist goals to return to previous living setting vs placement. Continue to assess patient for changes in above assessment. Monitor for medication needs, pain, and safety concerns. Hourly rounding performed to ensure safe environment.
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
--- NOTE | 2017-05-20 00:09 | PN ---
DATE: 05/18/2017 This late entry, 05/18/2017, covers elements not mentioned in my initial note. SUBJECTIVE: I met with the patient evening of 05/18/2017 in her room. The patient remains somewhat somatically preoccupied, complains of pain. Family is somewhat concerned about the extent of usage of narcotics for her. CT does show severe compression fractures in her spine, but negative for abdominal aortic aneurysm. REVIEW OF SYSTEMS: No CV, , pulmonary, eye, ENT system symptoms on review. MENTAL STATUS EXAM: Oriented reasonably. Speech is coherent, abstraction fair, computation impaired, language function intact, attention span short. Mood and affect somewhat withdrawn. LABORATORY DATA: Reviewed. IMPRESSION: Unchanged from initial note. PLAN: Continue current psychotropics, reviewed drug interactions risk/benefit ratio favors no further changes as of now. MAN Mau MANZANO MD DR: SURESH/ame JOB#: [id number] / [id number]
--- NOTE | 2017-05-20 04:16 | PN ---
DATE: 05/18/2017 SUBJECTIVE: The patient continues to have a localized lower back pain, aggravated by physical activities and walking. She has not had any recurrent seizure-like activities since admission. The patient continues to complain of abdominal pain. She denies bowel or bladder dysfunctions or bowel movement changes. She denies headaches, visual disturbances, nausea, vomiting, chest pain or shortness of breath. OBJECTIVE: GENERAL: Well-developed, well-nourished white female, not in acute distress. VITAL SIGNS: Blood pressure 162/65, respiratory rate 18, pulse is 73, temperature is 99, oxygen saturation is 97% on room air. HEENT: Normocephalic, atraumatic, otherwise unremarkable. NECK: Supple. Negative for carotid bruit, lymphadenopathy or thyromegaly. LUNGS: Clear to A and P. CARDIOVASCULAR: Regular rate and rhythm, normal S1, S2. ABDOMEN: Soft. Bowel sounds positive. EXTREMITIES: Negative for cyanosis, clubbing or pitting edema. NEUROLOGICAL EXAM: Mental Status: The patient is alert and oriented x 3. Speech is fluent. There is no language dysfunction. Memory, judgment, abstraction thinking are fair; however, the patient denies hallucination or delusion. Cranial nerves are intact. Motor Examination: No focal muscle bulk was seen. The tone is normal. The strength is 4/5 throughout. Sensory examination revealed normal pinprick and light touch senses throughout. Deep tendon reflexes are symmetric and hypoactive with absent Achilles responses. Gait: The patient walks without assistance. LABORATORY DATA: Abdominal CT scan today reveals distal thoracic aortic aneurysms measuring up to 5 cm water. No abdominal aortic aneurysms seen. Upper anterior abdominal wall midline incisional fluid collection and severe compression fracture of L1. IMPRESSION: 1. History of seizure disorder of unknown etiology. It was reported that first seizure was long time ago secondary to alcohol withdrawal and the second seizure was secondary to stroke several months ago without significant neurological residuals. 2. Chronic lower back pain with evidence of severe compression fracture of L1 by a CT scan of the lumbar spine. 3. Abnormal CT of the abdomen consistent with distal aortic aneurysm of 5 cm water. 4. Multiple medical and psychiatric problems including hypertension, gastroesophageal reflux disease, anxiety and depression. RECOMMENDATIONS: 1. The patient may need a vertebroplasty for compression fracture. 2. To monitor aortic aneurysms. 3. Continue with current medical and psychiatric care. M Nidhi KIM MD DR: Maryann JOB#: [id number] / [id number]
[2017-05-20] MEDS: clonazePAM 0.5 MG TABLET PO PRN (04:48)
--- NOTE | 2017-05-20 05:32 | PN ---
DATE: 05/15/2017 SUBJECTIVE: The patient continues to complain of low back pain, and intermittent abdominal pain. She has not had any recurrent seizures. According to the patient, she has had seizures in the past, but she does not remember what the etiology of seizure. The patient had an electroencephalogram, which was consistent with moderately diffuse cerebral dysfunction, but negative for epileptiform activities or active seizure. Abdominal ultrasound performed on 05/17/2017 revealed fatty liver and midline fluid collection. The thoracic aorta was not seen. PHYSICAL EXAMINATION GENERAL: Well-developed, well-nourished white female, not in acute distress. VITAL SIGNS: Blood pressure 154/83, respiratory rate 18, pulse is 74 and regular, temperature 98.1, oxygen saturation 95% on room air. HEENT: Normocephalic, atraumatic, otherwise unremarkable. NECK: Supple. Negative for carotid bruit, lymphadenopathy or thyromegaly. LUNGS: Clear to A and P. CARDIOVASCULAR: Regular rate and rhythm, normal S1 and S2. ABDOMEN: Soft, but tender. No palpable mass or organomegaly. EXTREMITIES: Negative for cyanosis, clubbing or pitting edema. NEUROLOGICAL: Mental status: The patient is alert and oriented x2. Speech is fluent. There is no language dysfunction. Cranial nerves are intact. No focal, motor, or sensory deficit. Deep tendon reflexes were symmetric and hypoactive with absent Achilles responses. Gait not tested today; however, the patient was seen in the floor patel walking without assistance. IMPRESSION: 1. History of seizure disorder. The etiology is uncertain, more information is needed to come from the frequency and etiology of seizure. 2. Chronic low back pain with evidence of severe compression fracture of L1. 3. Chronic and intermittent abdominal pain. 4. Multiple medical and psychiatric problems include anxiety, depressions, anemia, gastroesophageal reflux disease, and hypertension. RECOMMENDATIONS: 1. Await for abdominal CT scan. 2. The patient may need vertebroplasty for vertebral body compression fracture and that can be done by Orthopedics or Neurosurgeon. 3. Continue with current psychiatric and medical care. M Nidhi KIM MD DR: GERARDO/ame JOB#: [id number] / [id number]
[2017-05-20 05:51] VITALS: BP 131/75
[2017-05-20] MEDS: CYCLOBENZAPRINE 10 MG TABLET. PO PRN ×2 (07:22→20:27)
[2017-05-20] MEDS: ACETAMINOPHEN 325 MG TABLET PO PRN (07:22)
[2017-05-20] MEDS: CALCIUM CARB/VIT D3 500/200 TABLET PO SCH ×2 (07:22→16:57)
--- NOTE | 2017-05-20 07:25 | NUR ---
Patient complained of increased hip pain; prn meds provided per eMAR.
[2017-05-20] MEDS: DULoxetine HCL 30 MG CAPSULE.DR PO SCH (08:25)
[2017-05-20] MEDS: LISINOPRIL 20 MG TABLET PO SCH ×2 (08:25→20:24)
[2017-05-20] MEDS: ASPIRIN 81 MG TAB.CHEW PO SCH (08:25)
[2017-05-20] MEDS: oxyCODONE/APAP 10/325 1 TAB TABLET PO SCH ×4 (08:26→20:28)
[2017-05-20] MEDS: DIVALPROEX 125 MG CAP.SPRINK PO SCH ×3 (08:26→20:22)
[2017-05-20] MEDS: FERROUS SULFATE 325 MG TABLET PO SCH (08:26)
[2017-05-20] MEDS: hydroCHLOROthiazide 25 MG TABLET PO SCH (08:26)
[2017-05-20] MEDS: levETIRAcetam 250 MG TABLET PO SCH ×2 (08:27→20:24)
[2017-05-20] MEDS: METOPROLOL TART IMMED RELEASE 50 MG TABLET PO SCH ×2 (08:27→20:23)
[2017-05-20] MEDS: DOCUSATE SODIUM 100 MG CAPSULE PO SCH (08:27)
[2017-05-20] MEDS: FAMOTIDINE 20 MG TABLET PO SCH ×2 (08:27→20:22)
[2017-05-20] MEDS: NYSTATIN TOPICAL POWDER 15GM BOTTLE. TP SCH ×2 (08:28→20:29)
--- NOTE | 2017-05-20 09:10 | NUR ---
THERAPEUTIC RECREATION GROUP NOTE TITLE :You know you're in [place] ACTIVITY : Reminiscence GOAL : Increase socialization, gain perspective, elevate mood, stimulate memory DURATION : 50 minutes RESPONSE : No participation.
--- NOTE | 2017-05-20 09:50 | NUR ---
Behavior Intervention Response and Plan: BIRP Note: Behavior: Assumed Care of patient, patient located in Patient Room at shift change. Patient exhibited the following behavior Interactive, Withdrawn, Medication Seeking. Brief assessment on rounds of vital signs, medication needs, lab studies, and pain. Treatment plan problems 1 & 2. Intervention: Patient assessed and the following interventions initiated safety checks 15 Minute Checks Call devlin in reach , Head to toe Assessment , Medications. Response: After interactions and interventions patient responded in the following manner, Calm , Appropriate ,Compliant. Continue to assess behaviors and condition will continue to monitor throughout the shift as needed. Patient educated on ADL's, and hand hygiene. Plan: Continue to monitor Master Treatment Plan for patient's progress toward short term goals of Decreased Agitation, Decreased Anxiety, long term care administrator goals to return to previous living setting vs placement. Continue to assess patient for changes in above assessment. Monitor for medication needs, pain, and safety concerns. Hourly rounding performed to ensure safe environment.
--- NOTE | 2017-05-20 10:45 | NUR ---
Changed dressing to patient's abdominal fistula. Cleaned skin with saline solution after removing old dressing. Skin surrounding open wound was pink, intact with no signs of breaking down. Skin prep applied then aquafoam dressing.
--- NOTE | 2017-05-20 10:45 | NUR ---
ACTIVITY THERAPY ASSESSMENT Completed based on observation and interview. Pt. was agreeable but tired. 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 Pt. keeps to her room most of the time but when encouraged to join, Pt. was agreeable and open. She wanted to learn new ways to handle stress, stating she has a lot of it. Pt. enjoys spending time with her 30 year old grandson, playing bingo, board games/ cards. She stated she had a stroke two months ago and that interfered with participation. Pt. needed reminders and encouragement, she did not know why she was here but knew she lived in a prison, "thanks to my daughter." She said that move was against her will. Initial goal aimed to increase stimulating activities, socialization and relaxation techniques: Pt. will participate in at least one group a day and all groups focused on stress management.
[2017-05-20 16:05] VITALS: BP 104/66
--- NOTE | 2017-05-20 18:44 | PDOC ---
Exam Monty Demential Exam: Monty Note: Please also refer to the separate dictated note~for this date of service dictated separately.~Patient seen individually. Discussed the patient with Nursing staff reviewed the chart.~Reviewed interim history and current functioning. Reviewed vital signs,~Labs/ Radiology~and current medications noted below. Continue current treatment with the changes noted in the dictated addendum note Assessment: Vital Signs: Vital Signs Date Time Temp Pulse Resp B/P (MAP) Pulse Ox O2 Delivery O2 Flow Rate FiO2 05/20/17 16:05 97.4 82 18 104/66 (79) 98 05/19/17 12:20 Room Air I&O Intake and Output 05/20/17 07:00 Intake Total 720 ml Balance 720 ml Intake Oral 720 ml # Bowel Movements 1 Current Medications: Meds: Current Medications Acetaminophen (Tylenol) 1,000 mg 1X ONCE PO Last administered on 05/15/17 11: 38; Start 05/15/17 at 11:45; Stop 05/15/17 at 13:52; Status DC Lorazepam (Ativan) 1 mg 1X ONCE PO Last administered on 05/15/17 11:38; Start 05/15/17 at 11:45; Stop 05/15/17 at 13:50; Status DC Acetaminophen (Tylenol) 650 mg PRN Q6HRS PRN PO PAIN / TEMP Last administered on 05/16/17 14:41; Start 05/15/17 at 13:30; Stop 05/16/17 at 15:30; Status DC Multi-Ingredient Ointment (Analgesic [place]) 1 mike PRN QID PRN TP MUSCLE PAIN; Start 05/15/17 at 13:30 Al Hydroxide/Mg Hydroxide (Mylanta Plus Xs) 15 ml PRN AFTMEALHC PRN PO DYSPEPSIA; Start 05/15/17 at 13:30 Magnesium Hydroxide (Milk Of Magnesia) 2,400 mg PRN QHS PRN PO CONSTIPATION; Start 05/15/17 at 13:30 Nicotine (Nicoderm Cq 14mg) 1 patch DAILY TD ; Start 05/16/17 at 09:00; Stop at 10:41; Status DC Escitalopram Oxalate (Lexapro) 20 mg DAILY PO Last administered on 05/18/17 07 :17; Start 05/16/17 at 09:00; Stop 05/18/17 at 22:07; Status DC Donepezil HCl (Aricept) 10 mg QHS PO Last administered on 05/19/17 20:23; Start 05/15/17 at 21:00 Clonazepam (KlonoPIN) 0.5 mg QHS PO Last administered on 05/19/17 20:25; Start 05/15/17 at 21:00 Donepezil HCl (Aricept) 5 mg QHS PO Last administered on 05/15/17 19:38; Start 05/15/17 at 21:00; Stop 05/15/17 at 23:44; Status DC Levetiracetam (Keppra) 750 mg BID PO Last administered on 05/20/17 08:27; Start 05/15/17 at 21:00 Clonazepam (KlonoPIN) 0.5 mg PRN BID PRN PO ANXIETY / AGITATION Last administered on 05/16/17 16:22; Start 05/15/17 at 14:00; Stop 05/16/17 at 18:45 ; Status DC Olanzapine (ZyPREXA) 10 mg QHS PO Last administered on 05/19/17 20:23; Start 05/15/17 at 21:00 Mirtazapine (Remeron Genny-Tab) 15 mg QHS PO Last administered on 05/19/17 20:24 ; Start 05/15/17 at 21:00 Aspirin (Children'S Aspirin) 81 mg DAILY PO Last administered on 05/20/17 08: 25; Start 05/16/17 at 09:00 Ferrous Sulfate (Feosol) 325 mg DAILY PO Last administered on 05/20/17 08:26; Start 05/16/17 at 09:00 Hydrochlorothiazide (Hydrodiuril) 25 mg DAILY PO Last administered on 08:26; Start 05/16/17 at 09:00 Oxycodone/ Acetaminophen (Percocet 10/325) 1 tab QID PO Last administered on 16:57; Start 05/15/17 at 17:00 Calcium/Vitamin D (Oscal D 500mg/ 200uts) 1 tab BIDWMEALS PO Last administered on 05/20/17 16:57; Start 05/15/17 at 17:00 Docusate Sodium (Colace) 100 mg BID PO Last administered on 05/20/17 08:27; Start 05/15/17 at 21:00; Stop 05/20/17 at 12:49; Status DC Famotidine (Pepcid) 20 mg BID PO Last administered on 05/20/17 08:27; Start at 21:00 Lisinopril (Prinivil) 20 mg BID PO Last administered on 05/20/17 08:25; Start 05/15/17 at 21:00 Metoprolol Tartrate (Lopressor) 50 mg BID PO Last administered on 05/20/17 08: 27; Start 05/15/17 at 21:00 Clonidine HCl (Catapres) 0.2 mg DAILY PRN PO HYPERTENSION, SEE COMMENTS; Start 05/16/17 at 09:00 Albuterol/ Ipratropium (Duoneb) 3 ml Q4HRS PRN NEB SHORTNESS OF BREATH; Start 05/15/17 at 14:15 Acetaminophen (Tylenol) 650 mg PRN Q8HRS PRN PO PAIN Last administered on 07:22; Start 05/15/17 at 14:15 Cyclobenzaprine HCl (Flexeril) 10 mg Q8HRS PRN PO MUSCLE SPASMS Last administered on 05/20/17 07:22; Start 05/15/17 at 14:15 Ondansetron HCl (Zofran Odt) 4 mg PRN Q8HRS PRN PO NAUSEA/VOMITING; Start 05/15 at 14:15 Loperamide HCl (Imodium) 2 mg PRN Q3HRS PRN PO DIARRHEA; Start 05/15/17 at 14: 15 Nystatin (Nystop) 1 mike BID TP Last administered on 05/15/17 19:38; Start at 21:00; Stop 05/15/17 at 21:00; Status DC Fentanyl (Duragesic 12mcg/ Hr) 1 patch Q3DAYS TD Last administered on 07:55; Start 05/16/17 at 09:00 Nystatin (Nystop) 1 mike BID TP Last administered on 05/20/17 08:28; Start at 21:00 Divalproex Sodium (Depakote Sprinkles) 125 mg TID PO Last administered on 14:03; Start 05/15/17 at 21:00 Vitamin D (Vitamin D3) 50,000 unit WEEKLY PO Last administered on 05/17/17 07: 35; Start 05/17/17 at 09:00 Clonazepam (KlonoPIN) 0.5 mg PRN TID PRN PO ANXIETY / AGITATION Last administered on 05/20/17 04:48; Start 05/17/17 at 06:00 Duloxetine HCl (Cymbalta) 30 mg DAILY PO Last administered on 05/20/17 08:25; Start 05/19/17 at 09:00; Stop 05/20/17 at 10:00; Status DC Duloxetine HCl (Cymbalta) 60 mg DAILY PO ; Start 05/21/17 at 09:00; Stop at 10:00 Duloxetine HCl (Cymbalta) 90 mg DAILY PO ; Start 05/24/17 at 09:00 Active Scripts Active Reported Trazodone Hcl 50 Mg Tablet 50 Mg PO PRN QHS PRN Miralax (Polyethylene Glycol 3350) 17 Gm Powd.pack 17 Gm PO DAILY Pantoprazole Sodium 40 Mg Tablet.dr 40 Mg PO DAILYAC Oxycontin (Oxycodone Hcl) 10 Mg Tab.er.12h 10 Mg PO [id number] Zyprexa Zydis (Olanzapine) 5 Mg Tab.rapdis 5 Mg PO PRN Q2HR PRN Analgesic [place] (Methyl Salicylate/Menthol) 29 Gm Oint...g. 1 Mike TP PRN QID PRN Milk Of Magnesia (Magnesium Hydroxide) 2,400 Mg/10 Ml Oral.susp 2,400 Mg PO PRN QHS PRN Advanced Antacid Liquid (Mag Hydrox/Al Hydrox/Simeth) 355 Ml Oral.susp 15 Ml PO PRN AFTMEALHC PRN Cymbalta (Duloxetine Hcl) 30 Mg Capsule.dr 30 Mg PO DAILY Colace (Docusate Sodium) 100 Mg Capsule 100 Mg PO BID Tegretol (Carbamazepine) 200 Mg Tablet 400 Mg PO HS Acetaminophen 500 Mg Tablet 650 Mg PO PRN Q6HRS PRN Folic Acid 0.8 Mg Tablet 0.8 Mg PO DAILY Calcium 500 + Vit D 400 Tablet (Calcium Carbonate/Vitamin D3) 1 Each Tablet 1 Tab PO BIDWBKFT/KAYY Hydrocodone-Apap 10-325 (Hydrocodone Bit/Acetaminophen) 1 Each Tablet 1 Tab PO PRN Q4HRS PRN Alprazolam 0.5 Mg Tablet 0.5 Mg PO PRN Q2HR PRN max dosage: 3mg/24hrs Loratadine 10 Mg Tablet 10 Mg PO PRN DAILY PRN Loperamide (Loperamide Hcl) 2 Mg Capsule 2 Mg PO PRN Q4HRS PRN Methylphenidate Er (Methylphenidate Hcl) 10 Mg Tablet.er 10 Mg PO DAILY Multivitamins (Multivitamin) 1 Each Tablet 1 Tab PO DAILY Mupirocin 22 Gm Oint...g. 1 Mike TP PRN BID PRN Cholestyramine Packet (Cholestyramine (With Sugar)) 4 Gm Powd.pack 4 Gm PO BID Ferrous Sulfate 325 Mg Tablet 325 Mg PO NOON Vitamin C (Ascorbic Acid) 500 Mg Tablet 500 Mg PO TID Norvasc (Amlodipine Besylate) 5 Mg Tablet 5 Mg PO BID NITROGLYCERIN SubLingual (Nitroglycerin) 0.4 Mg Tab.subl 0.4 Mg SL PRN Q5MIN PRN Creon 24,000 Units Capsule (Lipase/Protease/Amylase) 1 Each Capsule. 5 Cap PO TIDWMEALS Diagnosis: Problems: (1) Impulse control disorder (2) Major depressive disorder, recurrent episode (3) Anxiety disorder (4) Bipolar affective disorder, mixed TESHA MANZANO MD May 20, 2017 18:44
[2017-05-20] MEDS: DONEPEZIL HCL 10 MG TABLET PO SCH (20:22)
[2017-05-20] MEDS: OLANZapine 10 MG TABLET PO SCH (20:22)
[2017-05-20] MEDS: MIRTAZAPINE 15 MG TAB.RAPDIS PO SCH (20:24)
[2017-05-20] MEDS: clonazePAM 0.5 MG TABLET PO SCH (20:27)
--- NOTE | 2017-05-20 20:55 | NUR ---
Behavior Intervention Response and Plan: BIRP Note: Behavior: Assumed Care of patient, patient located in Patient Room at shift change. Patient exhibited the following behavior Interactive, Withdrawn, Medication Seeking. Brief assessment on rounds of vital signs, medication needs, lab studies, and pain. Treatment plan problems 1 & 2. Intervention: Patient assessed and the following interventions initiated safety checks 15 Minute Checks Call devlin in reach , Head to toe Assessment , Medications. Response: After interactions and interventions patient responded in the following manner, Calm , Appropriate ,Compliant. Continue to assess behaviors and condition will continue to monitor throughout the shift as needed. Patient educated on ADL's, and hand hygiene. 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 Continue to assess patient for changes in above assessment. Monitor for medication needs, pain, and safety concerns. Hourly rounding performed to ensure safe environment.
--- NOTE | 2017-05-21 03:42 | PN ---
DATE: 05/19/2017 This late entry 05/19/2017 covers elements not covered in my initial note. Per nursing report, the patient has been withdrawn, spends much time in her room. 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 REVIEW OF SYSTEMS: She was lying in bed, met with her individually in her room, complains of low back pain. No CV, , pulmonary, eye system symptoms on review. MENTAL STATUS EXAM: Reasonably oriented. Speech is coherent, abstraction fair, computation impaired, language function intact, attention span short, mood and affect anxious, partly consequent to the pain, labile at times, but appropriate. LABORATORY DATA: Reviewed. IMPRESSION: Unchanged from initial note. PLAN: Cymbalta has been increased to 60 mg a day, maintain rest unchanged, reviewed drug interactions. Risk benefit ratio favors no further change as of now. TESHA MANZANO MD DR: SURESH/ame JOB#: [id number] / [id number]
[2017-05-21 06:09] VITALS: BP 144/56
[2017-05-21] MEDS: LISINOPRIL 20 MG TABLET PO SCH ×2 (07:51→20:12)
[2017-05-21] MEDS: oxyCODONE/APAP 10/325 1 TAB TABLET PO SCH ×4 (07:52→20:10)
[2017-05-21] MEDS: FAMOTIDINE 20 MG TABLET PO SCH ×2 (07:52→20:12)
[2017-05-21] MEDS: METOPROLOL TART IMMED RELEASE 50 MG TABLET PO SCH ×2 (07:52→20:11)
[2017-05-21] MEDS: FERROUS SULFATE 325 MG TABLET PO SCH (07:52)
[2017-05-21] MEDS: hydroCHLOROthiazide 25 MG TABLET PO SCH (07:52)
[2017-05-21] MEDS: DIVALPROEX 125 MG CAP.SPRINK PO SCH ×3 (07:53→20:14)
[2017-05-21] MEDS: levETIRAcetam 250 MG TABLET PO SCH ×2 (07:53→20:12)
[2017-05-21] MEDS: DULoxetine HCL 60 MG CAPSULE.DR PO SCH (07:55)
[2017-05-21] MEDS: CALCIUM CARB/VIT D3 500/200 TABLET PO SCH ×2 (07:55→17:30)
[2017-05-21] MEDS: ASPIRIN 81 MG TAB.CHEW PO SCH (07:55)
--- NOTE | 2017-05-21 08:45 | NUR ---
Behavior Intervention Response and Plan: BIRP Note: Behavior: Assumed Care of patient, patient located in Patient Room at shift change. Patient exhibited the following behavior Restless, Medication Seeking, Disorganized. Brief assessment on rounds of vital signs, medication needs, lab studies, and pain. Treatment plan problems 1 & 2. Intervention: Patient assessed and the following interventions initiated safety checks 15 Minute Checks Cognitive Assessment , Head to toe Assessment , Medications. Response: After interactions and interventions patient responded in the following manner, Calm , Appropriate ,Compliant. Continue to assess behaviors and condition will continue to monitor throughout the shift as needed. Patient educated on ADL's, and hand hygiene. 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 Continue to assess patient for changes in above assessment. Monitor for medication needs, pain, and safety concerns. Hourly rounding performed to ensure safe environment.
--- NOTE | 2017-05-21 08:45 | NUR ---
Patient complains of shortness of breath. Breath sounds diminished all farley, SpO2 WNL, no cyanosis. RT paged for prn nebulizer treatment, will monitor for s/sx of O2 depravation.
--- NOTE | 2017-05-21 09:15 | NUR ---
THERAPEUTIC RECREATION GROUP NOTE TITLE :Ball Bounce and Black Magic ACTIVITY : Activities and Games GOAL : Increase alertness, focus, morale, decrease stress DURATION : 45 Minutes RESPONSE : No participation.
[2017-05-21] MEDS: NYSTATIN TOPICAL POWDER 15GM BOTTLE. TP SCH ×2 (10:15→20:09)
--- NOTE | 2017-05-21 11:30 | NUR ---
THERAPEUTIC RECREATION GROUP NOTE TITLE :Movement to Music: Flexibility ACTIVITY : Movement/ Exercise GOAL : Increase morale, attention, flexibility. Decrease stress/anxiety. DURATION : 30 Minutes RESPONSE : No participation.
[2017-05-21] MEDS: ACETAMINOPHEN 325 MG TABLET PO PRN (11:38)
--- NOTE | 2017-05-21 14:15 | NUR ---
SW faxed updated clinicals to Pt's facility.
--- NOTE | 2017-05-21 14:15 | NUR ---
THERAPEUTIC RECREATION GROUP NOTE TITLE :The Cup Challenger (Rubber Band with strings) ACTIVITY : Activities and Games GOAL : Increase alertness, focus, morale, decrease stress, team building, positive communication DURATION : 60 Minutes RESPONSE : No participation.
--- NOTE | 2017-05-21 14:45 | NUR ---
Dressing to patient abdomen changed. Skin cleansed with saline spray, aquacell foam applied per wound care instructions. Patient tolerated procedure well.
--- NOTE | 2017-05-21 16:19 | NUR ---
SW received phone call from Pt's dtr, who is not the DPOA for PT., with several complaints regarding this facility. Dtr. stated she is very upset her records indicate Pt. tested positive for Cocaine as she has NEVER used drugs. Dtr. states that is a complete lie and requests that to be taken out of Pt's record. JIMMY stated that is what the lab reports from [facility] state from March, they can not be altered and it will not be addressed by this facility as that is not reason for admit. JIMMY stated Pt. is admitted to this facility for stating she wants to . Dtr. stated that is due to Pt's pain level. Pt's dtr. stated she is very upset that nursing reported to her that her mother is "attention seeking". JIMMY stated there are several documented notes w/PT med seeking for pain. Dtr. became angry, stating this SW said her mother did not have any pain and is a drug addict. JIMMY stated PT. tends to ask for additional pain medications even after already given. JIMMY stated if PT. has a history of drug use, it may be contributing to Pt's pain tolerance. Dtr. stated PT's pain tolerance is due to PT. being on the fentanyl patch, which she did not want Pt. to ever be on. Dtr. demanded to be present during the Treatment Team mtg. on to discuss her concerns w/Pt's pain level. JIMMY stated Pt's DPOA is Tucker, and if he wanted to be included in the phone conversation, JIMMY would be happy to include him during the phone conference. Dtr. stated she would be attending. JIMMY stated she is not the DPOA, therefore would not be contacted. Dtr. argued that she was the DPOA. JIMMY clarified it is her son, Tucker. JIMMY again stated the topics covered during treatment team w/the Psychiatrist would only include reason for admit, and if Dtr. wanted the labs from [facility] changed or pain level addressed w/a specialist, those would be things to follow up on w/[place]. PT's dtr. began to accuse SW of not caring about PT's pain level, not believing Pt, calling PT. a liar, a druggie, etc. JIMMY clarified those words were never spoken, and PT's dtr. then accused SW of calling Pt's dtr. a liar. Pt's dtr, threatened to "call the state". It was clear to JIMMY at this time the purpose of the phone conversation was no longer being addressed or productive. SW attempted to redirect the conversation back to the purpose and asked if Pt's dtr. had any other questions SW could assist w/at this time. PT's dtr stated SW did not answer any of her questions, she can not believe her mother is in a place where there are so many medical people that don't care about patients. At this time, JIMMY stated SW was sorry she believed that and felt those things and if she had any further questions she was welcome to call back.
[2017-05-21 16:24] VITALS: BP 127/55
--- NOTE | 2017-05-21 18:28 | PDOC ---
Exam Monty Demential Exam: Monty Note: Please also refer to the separate dictated note~for this date of service dictated separately.~Patient seen individually. Discussed the patient with Nursing staff reviewed the chart.~Reviewed interim history and current functioning. Reviewed vital signs,~Labs/ Radiology~and current medications noted below. Continue current treatment with the changes noted in the dictated addendum note Assessment: Vital Signs: Vital Signs Date Time Temp Pulse Resp B/P (MAP) Pulse Ox O2 Delivery O2 Flow Rate FiO2 05/21/17 16:24 97.6 69 16 127/55 (79) 96 05/21/17 10:12 Room Air I&O Intake and Output 05/21/17 07:00 Intake Total 960 ml Balance 960 ml Intake Oral 960 ml # Bowel Movements 1 Current Medications: Meds: Current Medications Acetaminophen (Tylenol) 1,000 mg 1X ONCE PO Last administered on 05/15/17 11: 38; Start 05/15/17 at 11:45; Stop 05/15/17 at 13:52; Status DC Lorazepam (Ativan) 1 mg 1X ONCE PO Last administered on 05/15/17 11:38; Start 05/15/17 at 11:45; Stop 05/15/17 at 13:50; Status DC Acetaminophen (Tylenol) 650 mg PRN Q6HRS PRN PO PAIN / TEMP Last administered on 05/16/17 14:41; Start 05/15/17 at 13:30; Stop 05/16/17 at 15:30; Status DC Multi-Ingredient Ointment (Analgesic [place]) 1 mike PRN QID PRN TP MUSCLE PAIN; Start 05/15/17 at 13:30 Al Hydroxide/Mg Hydroxide (Mylanta Plus Xs) 15 ml PRN AFTMEALHC PRN PO DYSPEPSIA; Start 05/15/17 at 13:30 Magnesium Hydroxide (Milk Of Magnesia) 2,400 mg PRN QHS PRN PO CONSTIPATION; Start 05/15/17 at 13:30 Nicotine (Nicoderm Cq 14mg) 1 patch DAILY TD ; Start 05/16/17 at 09:00; Stop at 10:41; Status DC Escitalopram Oxalate (Lexapro) 20 mg DAILY PO Last administered on 05/18/17 07 :17; Start 05/16/17 at 09:00; Stop 05/18/17 at 22:07; Status DC Donepezil HCl (Aricept) 10 mg QHS PO Last administered on 05/20/17 20:22; Start 05/15/17 at 21:00 Clonazepam (KlonoPIN) 0.5 mg QHS PO Last administered on 05/20/17 20:27; Start 05/15/17 at 21:00 Donepezil HCl (Aricept) 5 mg QHS PO Last administered on 05/15/17 19:38; Start 05/15/17 at 21:00; Stop 05/15/17 at 23:44; Status DC Levetiracetam (Keppra) 750 mg BID PO Last administered on 05/21/17 07:53; Start 05/15/17 at 21:00 Clonazepam (KlonoPIN) 0.5 mg PRN BID PRN PO ANXIETY / AGITATION Last administered on 05/16/17 16:22; Start 05/15/17 at 14:00; Stop 05/16/17 at 18:45 ; Status DC Olanzapine (ZyPREXA) 10 mg QHS PO Last administered on 05/20/17 20:22; Start 05/15/17 at 21:00 Mirtazapine (Remeron Genny-Tab) 15 mg QHS PO Last administered on 05/20/17 20:24 ; Start 05/15/17 at 21:00 Aspirin (Children'S Aspirin) 81 mg DAILY PO Last administered on 05/21/17 07: 55; Start 05/16/17 at 09:00 Ferrous Sulfate (Feosol) 325 mg DAILY PO Last administered on 05/21/17 07:52; Start 05/16/17 at 09:00 Hydrochlorothiazide (Hydrodiuril) 25 mg DAILY PO Last administered on 07:52; Start 05/16/17 at 09:00 Oxycodone/ Acetaminophen (Percocet 10/325) 1 tab QID PO Last administered on 17:30; Start 05/15/17 at 17:00 Calcium/Vitamin D (Oscal D 500mg/ 200uts) 1 tab BIDWMEALS PO Last administered on 05/21/17 17:30; Start 05/15/17 at 17:00 Docusate Sodium (Colace) 100 mg BID PO Last administered on 05/20/17 08:27; Start 05/15/17 at 21:00; Stop 05/20/17 at 12:49; Status DC Famotidine (Pepcid) 20 mg BID PO Last administered on 05/21/17 07:52; Start at 21:00 Lisinopril (Prinivil) 20 mg BID PO Last administered on 05/21/17 07:51; Start 05/15/17 at 21:00 Metoprolol Tartrate (Lopressor) 50 mg BID PO Last administered on 05/21/17 07: 52; Start 05/15/17 at 21:00 Clonidine HCl (Catapres) 0.2 mg DAILY PRN PO HYPERTENSION, SEE COMMENTS; Start 05/16/17 at 09:00 Albuterol/ Ipratropium (Duoneb) 3 ml Q4HRS PRN NEB SHORTNESS OF BREATH Last administered on 05/21/17 10:10; Start 05/15/17 at 14:15 Acetaminophen (Tylenol) 650 mg PRN Q8HRS PRN PO PAIN Last administered on 11:38; Start 05/15/17 at 14:15 Cyclobenzaprine HCl (Flexeril) 10 mg Q8HRS PRN PO MUSCLE SPASMS Last administered on 05/20/17 20:27; Start 05/15/17 at 14:15 Ondansetron HCl (Zofran Odt) 4 mg PRN Q8HRS PRN PO NAUSEA/VOMITING; Start 05/15 at 14:15 Loperamide HCl (Imodium) 2 mg PRN Q3HRS PRN PO DIARRHEA; Start 05/15/17 at 14: 15 Nystatin (Nystop) 1 mike BID TP Last administered on 05/15/17 19:38; Start at 21:00; Stop 05/15/17 at 21:00; Status DC Fentanyl (Duragesic 12mcg/ Hr) 1 patch Q3DAYS TD Last administered on 07:55; Start 05/16/17 at 09:00 Nystatin (Nystop) 1 mike BID TP Last administered on 05/21/17 10:15; Start at 21:00 Divalproex Sodium (Depakote Sprinkles) 125 mg TID PO Last administered on 13:57; Start 05/15/17 at 21:00 Vitamin D (Vitamin D3) 50,000 unit WEEKLY PO Last administered on 05/17/17 07: 35; Start 05/17/17 at 09:00 Clonazepam (KlonoPIN) 0.5 mg PRN TID PRN PO ANXIETY / AGITATION Last administered on 05/20/17 04:48; Start 05/17/17 at 06:00 Duloxetine HCl (Cymbalta) 30 mg DAILY PO Last administered on 05/20/17 08:25; Start 05/19/17 at 09:00; Stop 05/20/17 at 10:00; Status DC Duloxetine HCl (Cymbalta) 60 mg DAILY PO Last administered on 05/21/17 07:55; Start 05/21/17 at 09:00; Stop 05/23/17 at 10:00 Duloxetine HCl (Cymbalta) 90 mg DAILY PO ; Start 05/24/17 at 09:00 Active Scripts Active Reported Trazodone Hcl 50 Mg Tablet 50 Mg PO PRN QHS PRN Miralax (Polyethylene Glycol 3350) 17 Gm Powd.pack 17 Gm PO DAILY Pantoprazole Sodium 40 Mg Tablet.dr 40 Mg PO DAILYAC Oxycontin (Oxycodone Hcl) 10 Mg Tab.er.12h 10 Mg PO BID76 Zyprexa Zydis (Olanzapine) 5 Mg Tab.rapdis 5 Mg PO PRN Q2HR PRN Analgesic [place] (Methyl Salicylate/Menthol) 29 Gm Oint...g. 1 Mike TP PRN QID PRN Milk Of Magnesia (Magnesium Hydroxide) 2,400 Mg/10 Ml Oral.susp 2,400 Mg PO PRN QHS PRN Advanced Antacid Liquid (Mag Hydrox/Al Hydrox/Simeth) 355 Ml Oral.susp 15 Ml PO PRN AFTMEALHC PRN Cymbalta (Duloxetine Hcl) 30 Mg Capsule.dr 30 Mg PO DAILY Colace (Docusate Sodium) 100 Mg Capsule 100 Mg PO BID Tegretol (Carbamazepine) 200 Mg Tablet 400 Mg PO HS Acetaminophen 500 Mg Tablet 650 Mg PO PRN Q6HRS PRN Folic Acid 0.8 Mg Tablet 0.8 Mg PO DAILY Calcium 500 + Vit D 400 Tablet (Calcium Carbonate/Vitamin D3) 1 Each Tablet 1 Tab PO BIDWBKFT/KAYY Hydrocodone-Apap 10-325 (Hydrocodone Bit/Acetaminophen) 1 Each Tablet 1 Tab PO PRN Q4HRS PRN Alprazolam 0.5 Mg Tablet 0.5 Mg PO PRN Q2HR PRN max dosage: 3mg/24hrs Loratadine 10 Mg Tablet 10 Mg PO PRN DAILY PRN Loperamide (Loperamide Hcl) 2 Mg Capsule 2 Mg PO PRN Q4HRS PRN Methylphenidate Er (Methylphenidate Hcl) 10 Mg Tablet.er 10 Mg PO DAILY Multivitamins (Multivitamin) 1 Each Tablet 1 Tab PO DAILY Mupirocin 22 Gm Oint...g. 1 Mike TP PRN BID PRN Cholestyramine Packet (Cholestyramine (With Sugar)) 4 Gm Powd.pack 4 Gm PO BID Ferrous Sulfate 325 Mg Tablet 325 Mg PO NOON Vitamin C (Ascorbic Acid) 500 Mg Tablet 500 Mg PO TID Norvasc (Amlodipine Besylate) 5 Mg Tablet 5 Mg PO BID NITROGLYCERIN SubLingual (Nitroglycerin) 0.4 Mg Tab.subl 0.4 Mg SL PRN Q5MIN PRN Creon 24,000 Units Capsule (Lipase/Protease/Amylase) 1 Each Capsule. 5 Cap PO TIDWMEALS Diagnosis: Problems: (1) Impulse control disorder (2) Major depressive disorder, recurrent episode (3) Anxiety disorder (4) Bipolar affective disorder, mixed TESHA MANZANO MD May 21, 2017 18:28
[2017-05-21] MEDS: OLANZapine 10 MG TABLET PO SCH (20:11)
[2017-05-21] MEDS: DONEPEZIL HCL 10 MG TABLET PO SCH (20:12)
[2017-05-21] MEDS: MIRTAZAPINE 15 MG TAB.RAPDIS PO SCH (20:12)
[2017-05-21] MEDS: clonazePAM 0.5 MG TABLET PO SCH (20:14)
--- NOTE | 2017-05-21 23:18 | NUR ---
Behavior Intervention Response and Plan: BIRP Note: Behavior: Assumed Care of patient, patient located in Patient Room at shift change. Patient exhibited the following behavior Calm, Compliant, Disorganized. Brief assessment on rounds of vital signs, medication needs, lab studies, and pain. Treatment plan problems 1 & 2. Intervention: Patient assessed and the following interventions initiated safety checks 15 Minute Checks Cognitive Assessment , Head to toe Assessment , Medications. Response: After interactions and interventions patient responded in the following manner, Calm , Appropriate ,Cooperative. Continue to assess behaviors and condition will continue to monitor throughout the shift as needed. Patient educated on ADL's, and hand hygiene. 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 Continue to assess patient for changes in above assessment. Monitor for medication needs, pain, and safety concerns. Hourly rounding performed to ensure safe environment.
--- NOTE | 2017-05-22 02:23 | PN ---
DATE: 05/20/2017 PSYCHIATRIC PROGRESS NOTE This late entry 05/20 covers the elements not covered in my initial note of 05/20. SUBJECTIVE: I met with the patient the evening of 05/20. The patient slept 10 hours previous evening, spends much time in her room in bed because of pain, but she did come out to the dining room for dinner asking for pain medications at noon, received Klonopin for increased anxiety at 4:48 a.m. REVIEW OF SYSTEMS: Positive for back pain, impaired ambulation. No CV, , pulmonary, eye, ENT system symptoms on review. MENTAL STATUS EXAMINATION: Reasonably oriented. Speech is coherent, abstraction fair, computation impaired, language function intact. Attention span short. Mood and affect remains somewhat labile but showing improvement. LABORATORY DATA: Reviewed. IMPRESSION: Unchanged from initial note. PLAN: Continue current psychotropics, reviewed drug interactions and risk/benefit ratio, the latter favors no further change, as of now Cymbalta being increased, we may increase it to a maximum of 90 mg a day. MAN Mau MANZANO MD DR: SURESH/ame JOB#: [id number] / [id number]
[2017-05-22 06:13] VITALS: BP 179/82
[2017-05-22] MEDS: ACETAMINOPHEN 325 MG TABLET PO PRN ×2 (06:42→10:45)
[2017-05-22] MEDS: LISINOPRIL 20 MG TABLET PO SCH ×2 (08:23→19:48)
[2017-05-22] MEDS: METOPROLOL TART IMMED RELEASE 50 MG TABLET PO SCH ×2 (08:23→19:47)
[2017-05-22] MEDS: FAMOTIDINE 20 MG TABLET PO SCH ×2 (08:23→19:48)
[2017-05-22] MEDS: DULoxetine HCL 60 MG CAPSULE.DR PO SCH (08:24)
[2017-05-22] MEDS: levETIRAcetam 250 MG TABLET PO SCH ×2 (08:24→19:47)
[2017-05-22] MEDS: hydroCHLOROthiazide 25 MG TABLET PO SCH (08:24)
[2017-05-22] MEDS: FERROUS SULFATE 325 MG TABLET PO SCH (08:24)
[2017-05-22] MEDS: CALCIUM CARB/VIT D3 500/200 TABLET PO SCH ×2 (08:24→16:55)
[2017-05-22] MEDS: ASPIRIN 81 MG TAB.CHEW PO SCH (08:24)
[2017-05-22] MEDS: DIVALPROEX 125 MG CAP.SPRINK PO SCH ×3 (08:24→19:48)
[2017-05-22] MEDS: fentaNYL 12MCG/HR 1 PATCH PATCH TD SCH (08:26)
[2017-05-22] MEDS: oxyCODONE/APAP 10/325 1 TAB TABLET PO SCH ×4 (08:26→19:51)
[2017-05-22] MEDS: NYSTATIN TOPICAL POWDER 15GM BOTTLE. TP SCH ×2 (08:27→19:51)
--- NOTE | 2017-05-22 10:00 | NUR ---
THERAPEUTIC RECREATION GROUP NOTE TITLE :[place]- Led by Fabio ACTIVITY : Activities and Games GOAL : Increase alertness, focus, morale, decrease stress, team building, positive communication DURATION : 60 Minutes RESPONSE : No participation.
[2017-05-22] MEDS: CYCLOBENZAPRINE 10 MG TABLET. PO PRN (13:27)
--- NOTE | 2017-05-22 14:00 | NUR ---
THERAPEUTIC RECREATION GROUP NOTE TITLE :Song Lana Interpretation ACTIVITY : Music, Cognitive Stimulation GOAL : Increase socialization, elevate mood, stimulate memory. Maintain or improve cognitive functioning and memory. DURATION : 90 Minutes RESPONSE : No participation.
[2017-05-22 16:11] VITALS: BP 170/78
--- NOTE | 2017-05-22 16:20 | NUR ---
Behavior Intervention Response and Plan: BIRP Note: Behavior: Assumed Care of patient, patient located in Dining Room at shift change. Patient exhibited the following behavior Demanding, Attention Seeking, Medication Seeking. Brief assessment on rounds of vital signs, medication needs, lab studies, and pain. Treatment plan problems . Intervention: Patient assessed and the following interventions initiated safety checks 15 Minute Checks Cognitive Assessment , Head to toe Assessment , Medications. Response: After interactions and interventions patient responded in the following manner, Calm , Attention Seeking ,Medication Seeking. Continue to assess behaviors and condition will continue to monitor throughout the shift as needed. Patient educated on ADL's, and hand hygiene. 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 Continue to assess patient for changes in above assessment. Monitor for medication needs, pain, and safety concerns. Hourly rounding performed to ensure safe environment.
[2017-05-22] MEDS: DONEPEZIL HCL 10 MG TABLET PO SCH (19:47)
[2017-05-22] MEDS: MIRTAZAPINE 15 MG TAB.RAPDIS PO SCH (19:48)
[2017-05-22] MEDS: OLANZapine 10 MG TABLET PO SCH (19:48)
[2017-05-22] MEDS: clonazePAM 0.5 MG TABLET PO SCH (19:51)
--- NOTE | 2017-05-22 20:36 | PDOC ---
Exam Monty Demential Exam: Monty Note: Please also refer to the separate dictated note~for this date of service dictated separately.~Patient seen individually. Discussed the patient with Nursing staff reviewed the chart.~Reviewed interim history and current functioning. Reviewed vital signs,~Labs/ Radiology~and current medications noted below. Continue current treatment with the changes noted in the dictated addendum note Assessment: Vital Signs: Vital Signs Date Time Temp Pulse Resp B/P (MAP) Pulse Ox O2 Delivery O2 Flow Rate FiO2 05/22/17 19:48 72 170/78 05/22/17 16:11 98.6 18 96 05/21/17 10:12 Room Air I&O Intake and Output 05/22/17 07:00 Intake Total 960 ml Balance 960 ml Intake Oral 960 ml Current Medications: Meds: Current Medications Acetaminophen (Tylenol) 1,000 mg 1X ONCE PO Last administered on 05/15/17 11: 38; Start 05/15/17 at 11:45; Stop 05/15/17 at 13:52; Status DC Lorazepam (Ativan) 1 mg 1X ONCE PO Last administered on 05/15/17 11:38; Start 05/15/17 at 11:45; Stop 05/15/17 at 13:50; Status DC Acetaminophen (Tylenol) 650 mg PRN Q6HRS PRN PO PAIN / TEMP Last administered on 05/16/17 14:41; Start 05/15/17 at 13:30; Stop 05/16/17 at 15:30; Status DC Multi-Ingredient Ointment (Analgesic Crawford) 1 mike PRN QID PRN TP MUSCLE PAIN; Start 05/15/17 at 13:30 Al Hydroxide/Mg Hydroxide (Mylanta Plus Xs) 15 ml PRN AFTMEALHC PRN PO DYSPEPSIA; Start 05/15/17 at 13:30 Magnesium Hydroxide (Milk Of Magnesia) 2,400 mg PRN QHS PRN PO CONSTIPATION; Start 05/15/17 at 13:30 Nicotine (Nicoderm Cq 14mg) 1 patch DAILY TD ; Start 05/16/17 at 09:00; Stop at 10:41; Status DC Escitalopram Oxalate (Lexapro) 20 mg DAILY PO Last administered on 05/18/17 07 :17; Start 05/16/17 at 09:00; Stop 05/18/17 at 22:07; Status DC Donepezil HCl (Aricept) 10 mg QHS PO Last administered on 05/22/17 19:47; Start 05/15/17 at 21:00 Clonazepam (KlonoPIN) 0.5 mg QHS PO Last administered on 05/22/17 19:51; Start 05/15/17 at 21:00 Donepezil HCl (Aricept) 5 mg QHS PO Last administered on 05/15/17 19:38; Start 05/15/17 at 21:00; Stop 05/15/17 at 23:44; Status DC Levetiracetam (Keppra) 750 mg BID PO Last administered on 05/22/17 19:47; Start 05/15/17 at 21:00 Clonazepam (KlonoPIN) 0.5 mg PRN BID PRN PO ANXIETY / AGITATION Last administered on 05/16/17 16:22; Start 05/15/17 at 14:00; Stop 05/16/17 at 18:45 ; Status DC Olanzapine (ZyPREXA) 10 mg QHS PO Last administered on 05/22/17 19:48; Start 05/15/17 at 21:00 Mirtazapine (Remeron Genny-Tab) 15 mg QHS PO Last administered on 05/22/17 19:48 ; Start 05/15/17 at 21:00 Aspirin (Children'S Aspirin) 81 mg DAILY PO Last administered on 05/22/17 08: 24; Start 05/16/17 at 09:00 Ferrous Sulfate (Feosol) 325 mg DAILY PO Last administered on 05/22/17 08:24; Start 05/16/17 at 09:00 Hydrochlorothiazide (Hydrodiuril) 25 mg DAILY PO Last administered on 08:24; Start 05/16/17 at 09:00 Oxycodone/ Acetaminophen (Percocet 10/325) 1 tab QID PO Last administered on 19:51; Start 05/15/17 at 17:00 Calcium/Vitamin D (Oscal D 500mg/ 200uts) 1 tab BIDWMEALS PO Last administered on 05/22/17 16:55; Start 05/15/17 at 17:00 Docusate Sodium (Colace) 100 mg BID PO Last administered on 05/20/17 08:27; Start 05/15/17 at 21:00; Stop 05/20/17 at 12:49; Status DC Famotidine (Pepcid) 20 mg BID PO Last administered on 05/22/17 19:48; Start at 21:00 Lisinopril (Prinivil) 20 mg BID PO Last administered on 05/22/17 19:48; Start 05/15/17 at 21:00 Metoprolol Tartrate (Lopressor) 50 mg BID PO Last administered on 05/22/17 19: 47; Start 05/15/17 at 21:00 Clonidine HCl (Catapres) 0.2 mg DAILY PRN PO HYPERTENSION, SEE COMMENTS; Start 05/16/17 at 09:00 Albuterol/ Ipratropium (Duoneb) 3 ml Q4HRS PRN NEB SHORTNESS OF BREATH Last administered on 05/21/17 10:10; Start 05/15/17 at 14:15 Acetaminophen (Tylenol) 650 mg PRN Q8HRS PRN PO PAIN Last administered on 06:42; Start 05/15/17 at 14:15 Cyclobenzaprine HCl (Flexeril) 10 mg Q8HRS PRN PO MUSCLE SPASMS Last administered on 05/22/17 13:27; Start 05/15/17 at 14:15 Ondansetron HCl (Zofran Odt) 4 mg PRN Q8HRS PRN PO NAUSEA/VOMITING; Start 05/15 at 14:15 Loperamide HCl (Imodium) 2 mg PRN Q3HRS PRN PO DIARRHEA; Start 05/15/17 at 14: 15 Nystatin (Nystop) 1 mike BID TP Last administered on 05/15/17 19:38; Start at 21:00; Stop 05/15/17 at 21:00; Status DC Fentanyl (Duragesic 12mcg/ Hr) 1 patch Q3DAYS TD Last administered on 08:26; Start 05/16/17 at 09:00 Nystatin (Nystop) 1 mike BID TP Last administered on 05/22/17 19:51; Start at 21:00 Divalproex Sodium (Depakote Sprinkles) 125 mg TID PO Last administered on 19:48; Start 05/15/17 at 21:00 Vitamin D (Vitamin D3) 50,000 unit WEEKLY PO Last administered on 05/17/17 07: 35; Start 05/17/17 at 09:00 Clonazepam (KlonoPIN) 0.5 mg PRN TID PRN PO ANXIETY / AGITATION Last administered on 05/20/17 04:48; Start 05/17/17 at 06:00 Duloxetine HCl (Cymbalta) 30 mg DAILY PO Last administered on 05/20/17 08:25; Start 05/19/17 at 09:00; Stop 05/20/17 at 10:00; Status DC Duloxetine HCl (Cymbalta) 60 mg DAILY PO Last administered on 05/22/17 08:24; Start 05/21/17 at 09:00; Stop 05/23/17 at 10:00 Duloxetine HCl (Cymbalta) 90 mg DAILY PO ; Start 05/24/17 at 09:00 Active Scripts Active Reported Trazodone Hcl 50 Mg Tablet 50 Mg PO PRN QHS PRN Miralax (Polyethylene Glycol 3350) 17 Gm Powd.pack 17 Gm PO DAILY Pantoprazole Sodium 40 Mg Tablet.dr 40 Mg PO DAILYAC Oxycontin (Oxycodone Hcl) 10 Mg Tab.er.12h 10 Mg PO [id number] Zyprexa Zydis (Olanzapine) 5 Mg Tab.rapdis 5 Mg PO PRN Q2HR PRN Analgesic Crawford (Methyl Salicylate/Menthol) 29 Gm Oint...g. 1 Mike TP PRN QID PRN Milk Of Magnesia (Magnesium Hydroxide) 2,400 Mg/10 Ml Oral.susp 2,400 Mg PO PRN QHS PRN Advanced Antacid Liquid (Mag Hydrox/Al Hydrox/Simeth) 355 Ml Oral.susp 15 Ml PO PRN AFTMEALHC PRN Cymbalta (Duloxetine Hcl) 30 Mg Capsule.dr 30 Mg PO DAILY Colace (Docusate Sodium) 100 Mg Capsule 100 Mg PO BID Tegretol (Carbamazepine) 200 Mg Tablet 400 Mg PO HS Acetaminophen 500 Mg Tablet 650 Mg PO PRN Q6HRS PRN Folic Acid 0.8 Mg Tablet 0.8 Mg PO DAILY Calcium 500 + Vit D 400 Tablet (Calcium Carbonate/Vitamin D3) 1 Each Tablet 1 Tab PO BIDWBKFT/[id number] Hydrocodone-Apap 10-325 (Hydrocodone Bit/Acetaminophen) 1 Each Tablet 1 Tab PO PRN Q4HRS PRN Alprazolam 0.5 Mg Tablet 0.5 Mg PO PRN Q2HR PRN max dosage: 3mg/24hrs Loratadine 10 Mg Tablet 10 Mg PO PRN DAILY PRN Loperamide (Loperamide Hcl) 2 Mg Capsule 2 Mg PO PRN Q4HRS PRN Methylphenidate Er (Methylphenidate Hcl) 10 Mg Tablet.er 10 Mg PO DAILY Multivitamins (Multivitamin) 1 Each Tablet 1 Tab PO DAILY Mupirocin 22 Gm Oint...g. 1 Mike TP PRN BID PRN Cholestyramine Packet (Cholestyramine (With Sugar)) 4 Gm Powd.pack 4 Gm PO BID Ferrous Sulfate 325 Mg Tablet 325 Mg PO NOON Vitamin C (Ascorbic Acid) 500 Mg Tablet 500 Mg PO TID Norvasc (Amlodipine Besylate) 5 Mg Tablet 5 Mg PO BID NITROGLYCERIN SubLingual (Nitroglycerin) 0.4 Mg Tab.subl 0.4 Mg SL PRN Q5MIN PRN Creon Dr 24,000 Units Capsule (Lipase/Protease/Amylase) 1 Each Capsule. 5 Cap PO TIDWMEALS Diagnosis: Problems: (1) Dementia (2) Bipolar disorder, mixed (3) Bipolar affective disorder, mixed (4) Anxiety disorder (5) Major depressive disorder, recurrent episode (6) Impulse control disorder TESHA MANZANO MD May 22, 2017 20:36
--- NOTE | 2017-05-22 21:39 | NUR ---
Behavior Intervention Response and Plan: BIRP Note: Behavior: Assumed Care of patient, patient located in Patient Room at shift change. Patient exhibited the following behavior Calm, Sleeping, Withdrawn. Brief assessment on rounds of vital signs, medication needs, lab studies, and pain. Treatment plan problems 1 and 2. Intervention: Patient assessed and the following interventions initiated safety checks 15 Minute Checks Cognitive Assessment , Head to toe Assessment , Medications. Response: After interactions and interventions patient responded in the following manner, Calm , Compliant ,Cooperative. Continue to assess behaviors and condition will continue to monitor throughout the shift as needed. Patient educated on ADL's, and hand hygiene. 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 Continue to assess patient for changes in above assessment. Monitor for medication needs, pain, and safety concerns. Hourly rounding performed to ensure safe environment.
--- NOTE | 2017-05-23 00:23 | PN ---
DATE: 05/21/2017 This late entry for 05/21/2017 covers elements not covered in my initial note of 05/21/2017. SUBJECTIVE: I met with the patient in the evening of 05/21/2017. She is neatly dressed and groomed and goes out to the dining room, but otherwise, spends much time in her room. REVIEW OF SYSTEMS: Positive for back pain, some shortness of breath in the morning of 05/21/2017. O2 sats were unremarkable. No CV, , pulmonary, eye system symptoms on review other than above. MENTAL STATUS EXAM: Reasonably oriented. Speech is coherent, abstraction fair, computation impaired, language function intact, attention span short. Mood and affect, lability is improved, seems less depressed. No suicidal or homicidal ideation. IMPRESSION: Unchanged from initial note. PLAN: Continue current psychotropics. Cymbalta has been increased. Adjust as clinically indicated. Reviewed drug interactions. Risk/benefit ratio favors no further change as of now. TESHA MANZANO MD DR: SURESH/ame JOB#: [id number] / [id number]
[2017-05-23 05:59] VITALS: BP 142/83
[2017-05-23] MEDS: clonazePAM 0.5 MG TABLET PO PRN (06:18)
[2017-05-23] MEDS: DULoxetine HCL 60 MG CAPSULE.DR PO SCH (08:07)
[2017-05-23] MEDS: FERROUS SULFATE 325 MG TABLET PO SCH (08:08)
[2017-05-23] MEDS: ASPIRIN 81 MG TAB.CHEW PO SCH (08:08)
[2017-05-23] MEDS: METOPROLOL TART IMMED RELEASE 50 MG TABLET PO SCH ×2 (08:08→19:55)
[2017-05-23] MEDS: CALCIUM CARB/VIT D3 500/200 TABLET PO SCH ×2 (08:08→17:13)
[2017-05-23] MEDS: FAMOTIDINE 20 MG TABLET PO SCH ×2 (08:08→19:55)
[2017-05-23] MEDS: levETIRAcetam 250 MG TABLET PO SCH ×2 (08:08→19:54)
[2017-05-23] MEDS: DIVALPROEX 125 MG CAP.SPRINK PO SCH ×3 (08:09→19:59)
[2017-05-23] MEDS: LISINOPRIL 20 MG TABLET PO SCH ×2 (08:10→19:56)
[2017-05-23] MEDS: hydroCHLOROthiazide 25 MG TABLET PO SCH (08:11)
[2017-05-23] MEDS: oxyCODONE/APAP 10/325 1 TAB TABLET PO SCH ×4 (08:12→19:59)
[2017-05-23] MEDS: NYSTATIN TOPICAL POWDER 15GM BOTTLE. TP SCH ×2 (09:00→22:49)
--- NOTE | 2017-05-23 09:15 | NUR ---
THERAPEUTIC RECREATION GROUP NOTE TITLE :Balloon [employer] with Pool Noodles ACTIVITY : Activities and Games GOAL : Increase alertness, focus, morale, decrease stress, team building, positive communication DURATION : 60 Minutes RESPONSE : No participation.
--- NOTE | 2017-05-23 10:09 | PDOC ---
Exam Monty Demential Exam: Monty Note: Please also refer to the separate dictated note~for this date of service dictated separately.~Patient seen individually. Discussed the patient with Nursing staff reviewed the chart.~Reviewed interim history and current functioning. Reviewed vital signs,~Labs/ Radiology~and current medications noted below. Continue current treatment with the changes noted in the dictated addendum note Assessment: Vital Signs: Vital Signs Date Time Temp Pulse Resp B/P (MAP) Pulse Ox O2 Delivery O2 Flow Rate FiO2 05/23/17 08:10 66 142/83 05/23/17 05:59 97.9 18 94 05/21/17 10:12 Room Air I&O Intake and Output 05/23/17 07:00 Intake Total 840 ml Balance 840 ml Intake Oral 840 ml # Bowel Movements 1 Current Medications: Meds: Current Medications Acetaminophen (Tylenol) 1,000 mg 1X ONCE PO Last administered on 05/15/17 11: 38; Start 05/15/17 at 11:45; Stop 05/15/17 at 13:52; Status DC Lorazepam (Ativan) 1 mg 1X ONCE PO Last administered on 05/15/17 11:38; Start 05/15/17 at 11:45; Stop 05/15/17 at 13:50; Status DC Acetaminophen (Tylenol) 650 mg PRN Q6HRS PRN PO PAIN / TEMP Last administered on 05/16/17 14:41; Start 05/15/17 at 13:30; Stop 05/16/17 at 15:30; Status DC Multi-Ingredient Ointment (Analgesic Amity) 1 mike PRN QID PRN TP MUSCLE PAIN; Start 05/15/17 at 13:30 Al Hydroxide/Mg Hydroxide (Mylanta Plus Xs) 15 ml PRN AFTMEALHC PRN PO DYSPEPSIA; Start 05/15/17 at 13:30 Magnesium Hydroxide (Milk Of Magnesia) 2,400 mg PRN QHS PRN PO CONSTIPATION; Start 05/15/17 at 13:30 Nicotine (Nicoderm Cq 14mg) 1 patch DAILY TD ; Start 05/16/17 at 09:00; Stop at 10:41; Status DC Escitalopram Oxalate (Lexapro) 20 mg DAILY PO Last administered on 05/18/17 07 :17; Start 05/16/17 at 09:00; Stop 05/18/17 at 22:07; Status DC Donepezil HCl (Aricept) 10 mg QHS PO Last administered on 05/22/17 19:47; Start 05/15/17 at 21:00 Clonazepam (KlonoPIN) 0.5 mg QHS PO Last administered on 05/22/17 19:51; Start 05/15/17 at 21:00 Donepezil HCl (Aricept) 5 mg QHS PO Last administered on 05/15/17 19:38; Start 05/15/17 at 21:00; Stop 05/15/17 at 23:44; Status DC Levetiracetam (Keppra) 750 mg BID PO Last administered on 05/23/17 08:08; Start 05/15/17 at 21:00 Clonazepam (KlonoPIN) 0.5 mg PRN BID PRN PO ANXIETY / AGITATION Last administered on 05/16/17 16:22; Start 05/15/17 at 14:00; Stop 05/16/17 at 18:45 ; Status DC Olanzapine (ZyPREXA) 10 mg QHS PO Last administered on 05/22/17 19:48; Start 05/15/17 at 21:00 Mirtazapine (Remeron Genny-Tab) 15 mg QHS PO Last administered on 05/22/17 19:48 ; Start 05/15/17 at 21:00 Aspirin (Children'S Aspirin) 81 mg DAILY PO Last administered on 05/23/17 08: 08; Start 05/16/17 at 09:00 Ferrous Sulfate (Feosol) 325 mg DAILY PO Last administered on 05/23/17 08:08; Start 05/16/17 at 09:00 Hydrochlorothiazide (Hydrodiuril) 25 mg DAILY PO Last administered on 08:11; Start 05/16/17 at 09:00 Oxycodone/ Acetaminophen (Percocet 10/325) 1 tab QID PO Last administered on 08:12; Start 05/15/17 at 17:00 Calcium/Vitamin D (Oscal D 500mg/ 200uts) 1 tab BIDWMEALS PO Last administered on 05/23/17 08:08; Start 05/15/17 at 17:00 Docusate Sodium (Colace) 100 mg BID PO Last administered on 05/20/17 08:27; Start 05/15/17 at 21:00; Stop 05/20/17 at 12:49; Status DC Famotidine (Pepcid) 20 mg BID PO Last administered on 05/23/17 08:08; Start at 21:00 Lisinopril (Prinivil) 20 mg BID PO Last administered on 05/23/17 08:10; Start 05/15/17 at 21:00 Metoprolol Tartrate (Lopressor) 50 mg BID PO Last administered on 05/23/17 08: 08; Start 05/15/17 at 21:00 Clonidine HCl (Catapres) 0.2 mg DAILY PRN PO HYPERTENSION, SEE COMMENTS; Start 05/16/17 at 09:00 Albuterol/ Ipratropium (Duoneb) 3 ml Q4HRS PRN NEB SHORTNESS OF BREATH Last administered on 05/21/17 10:10; Start 05/15/17 at 14:15 Acetaminophen (Tylenol) 650 mg PRN Q8HRS PRN PO PAIN Last administered on 06:42; Start 05/15/17 at 14:15 Cyclobenzaprine HCl (Flexeril) 10 mg Q8HRS PRN PO MUSCLE SPASMS Last administered on 05/22/17 13:27; Start 05/15/17 at 14:15 Ondansetron HCl (Zofran Odt) 4 mg PRN Q8HRS PRN PO NAUSEA/VOMITING; Start 05/15 at 14:15 Loperamide HCl (Imodium) 2 mg PRN Q3HRS PRN PO DIARRHEA; Start 05/15/17 at 14: 15 Nystatin (Nystop) 1 mike BID TP Last administered on 05/15/17 19:38; Start at 21:00; Stop 05/15/17 at 21:00; Status DC Fentanyl (Duragesic 12mcg/ Hr) 1 patch Q3DAYS TD Last administered on 08:26; Start 05/16/17 at 09:00 Nystatin (Nystop) 1 mike BID TP Last administered on 05/22/17 19:51; Start at 21:00 Divalproex Sodium (Depakote Sprinkles) 125 mg TID PO Last administered on 08:09; Start 05/15/17 at 21:00 Vitamin D (Vitamin D3) 50,000 unit WEEKLY PO Last administered on 05/17/17 07: 35; Start 05/17/17 at 09:00 Clonazepam (KlonoPIN) 0.5 mg PRN TID PRN PO ANXIETY / AGITATION Last administered on 05/23/17 06:18; Start 05/17/17 at 06:00 Duloxetine HCl (Cymbalta) 30 mg DAILY PO Last administered on 05/20/17 08:25; Start 05/19/17 at 09:00; Stop 05/20/17 at 10:00; Status DC Duloxetine HCl (Cymbalta) 60 mg DAILY PO Last administered on 05/23/17 08:07; Start 05/21/17 at 09:00; Stop 05/23/17 at 10:00; Status DC Duloxetine HCl (Cymbalta) 90 mg DAILY PO ; Start 05/24/17 at 09:00 Active Scripts Active Reported Trazodone Hcl 50 Mg Tablet 50 Mg PO PRN QHS PRN Miralax (Polyethylene Glycol 3350) 17 Gm Powd.pack 17 Gm PO DAILY Pantoprazole Sodium 40 Mg Tablet.dr 40 Mg PO DAILYAC Oxycontin (Oxycodone Hcl) 10 Mg Tab.er.12h 10 Mg PO [id number] Zyprexa Zydis (Olanzapine) 5 Mg Tab.rapdis 5 Mg PO PRN Q2HR PRN Analgesic Amity (Methyl Salicylate/Menthol) 29 Gm Oint...g. 1 Mike TP PRN QID PRN Milk Of Magnesia (Magnesium Hydroxide) 2,400 Mg/10 Ml Oral.susp 2,400 Mg PO PRN QHS PRN Advanced Antacid Liquid (Mag Hydrox/Al Hydrox/Simeth) 355 Ml Oral.susp 15 Ml PO PRN AFTMEALHC PRN Cymbalta (Duloxetine Hcl) 30 Mg Capsule.dr 30 Mg PO DAILY Colace (Docusate Sodium) 100 Mg Capsule 100 Mg PO BID Tegretol (Carbamazepine) 200 Mg Tablet 400 Mg PO HS Acetaminophen 500 Mg Tablet 650 Mg PO PRN Q6HRS PRN Folic Acid 0.8 Mg Tablet 0.8 Mg PO DAILY Calcium 500 + Vit D 400 Tablet (Calcium Carbonate/Vitamin D3) 1 Each Tablet 1 Tab PO BIDWBKFT/KAYY Hydrocodone-Apap 10-325 (Hydrocodone Bit/Acetaminophen) 1 Each Tablet 1 Tab PO PRN Q4HRS PRN Alprazolam 0.5 Mg Tablet 0.5 Mg PO PRN Q2HR PRN max dosage: 3mg/24hrs Loratadine 10 Mg Tablet 10 Mg PO PRN DAILY PRN Loperamide (Loperamide Hcl) 2 Mg Capsule 2 Mg PO PRN Q4HRS PRN Methylphenidate Er (Methylphenidate Hcl) 10 Mg Tablet.er 10 Mg PO DAILY Multivitamins (Multivitamin) 1 Each Tablet 1 Tab PO DAILY Mupirocin 22 Gm Oint...g. 1 Mike TP PRN BID PRN Cholestyramine Packet (Cholestyramine (With Sugar)) 4 Gm Powd.pack 4 Gm PO BID Ferrous Sulfate 325 Mg Tablet 325 Mg PO NOON Vitamin C (Ascorbic Acid) 500 Mg Tablet 500 Mg PO TID Norvasc (Amlodipine Besylate) 5 Mg Tablet 5 Mg PO BID NITROGLYCERIN SubLingual (Nitroglycerin) 0.4 Mg Tab.subl 0.4 Mg SL PRN Q5MIN PRN Creon 24,000 Units Capsule (Lipase/Protease/Amylase) 1 Each Capsule.dr 5 Cap PO TIDWMEALS Diagnosis: Problems: (1) Impulse control disorder (2) Major depressive disorder, recurrent episode (3) Anxiety disorder (4) Bipolar affective disorder, mixed TESHA MANZANO MD May 23, 2017 10:09
--- NOTE | 2017-05-23 13:15 | NUR ---
THERAPEUTIC RECREATION GROUP NOTE TITLE :[facility] OUTSIDE ACTIVITY : Activities and Games GOAL : Increase alertness, focus, morale, decrease stress, team building, positive communication DURATION : 45 Minutes RESPONSE : No participation.
--- NOTE | 2017-05-23 14:15 | NUR ---
Behavior Intervention Response and Plan: BIRP Note: Behavior: Assumed Care of patient, patient located in Dining Room at shift change. Patient exhibited the following behavior Attention Seeking, Medication Seeking, Compliant. Brief assessment on rounds of vital signs, medication needs, lab studies, and pain. Treatment plan problems . Intervention: Patient assessed and the following interventions initiated safety checks 15 Minute Checks Cognitive Assessment , Head to toe Assessment , Medications. Response: After interactions and interventions patient responded in the following manner, Attention Seeking , Withdrawn ,Drowsy. Continue to assess behaviors and condition will continue to monitor throughout the shift as needed. Patient educated on ADL's, and hand hygiene. 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 Continue to assess patient for changes in above assessment. Monitor for medication needs, pain, and safety concerns. Hourly rounding performed to ensure safe environment.
--- NOTE | 2017-05-23 14:51 | NUR ---
SW met w/Pt. 1:1 while Pt. lay in bed after lunch. SW asked how Pt. was doing and Pt. responded "lousy". Pt. unable to provide specifics of what this meant. Pt. asked who this technical writer and editor was and SW introduced self again, stating we had talked several times before and reviewed this technical writer and editor's role for Pt. SW reviewed psychosocial history w/PT. and reason for admit to the facility. SW stated Pt. was admitted for making statements about "Just wanting to ". SW asked if Pt. was dealing w/anything specific during that time that would lead Pt. to feeling this way and Pt. stated no. PT. had previously reported to this SW she often worried about her grandson. SW asked about Pt's family history of alcohol, substance abuse and Dementia/MHI. Pt. stated her father had Dementia. SW asked if Pt. had any drug or alcohol history and PT. stated "nothing serious". When SW asked details about this, PT. stated she only used "drugs" her doctors prescribed for Depression and Anxiety. When SW asked if Pt. ever used illegal drugs, Pt. became very defensive, stating, "I am not going to hang myself". SW asked what this statement and PT. stated she did not want to continue to discuss this topic w/this SW. SW reported the importance of understanding a person's past as it could impact current medication regime. PT. stated it didn't matter because the current medications are not working anyways. SW suggested reporting this information to her nurse and dr and offered to also pass the information along. Pt. very appreciative of this offer. Pt. stated she would not continue to discuss drugs as this SW did not need to know and she would not report or admit to anything that could result in her getting in trouble.
[2017-05-23 15:52] VITALS: BP 152/84
--- NOTE | 2017-05-23 16:51 | NUR ---
Patient reported to this nurse that she needed to speak to the psychiatrist about some of her medications. Nurse asked which medications she was talking about, she responded that she wants adderal or ritalin, because the meds she is on now make her too tired, will continue to monitor and pass information to Dr. Marsh.
--- NOTE | 2017-05-23 19:47 | PDOC ---
Exam Monty Demential Exam: Monty Note: Please also refer to the separate dictated note~for this date of service dictated separately.~Patient seen individually. Discussed the patient with Nursing staff reviewed the chart.~Reviewed interim history and current functioning. Reviewed vital signs,~Labs/ Radiology~and current medications noted below. Continue current treatment with the changes noted in the dictated addendum note Assessment: Vital Signs: Vital Signs Date Time Temp Pulse Resp B/P (MAP) Pulse Ox O2 Delivery O2 Flow Rate FiO2 05/23/17 15:52 97.8 60 20 152/84 (106) 95 05/21/17 10:12 Room Air I&O Intake and Output 05/23/17 06:59 Intake Total 840 ml Balance 840 ml Intake Oral 840 ml # Bowel Movements 1 Current Medications: Meds: Current Medications Acetaminophen (Tylenol) 1,000 mg 1X ONCE PO Last administered on 05/15/17 11: 38; Start 05/15/17 at 11:45; Stop 05/15/17 at 13:52; Status DC Lorazepam (Ativan) 1 mg 1X ONCE PO Last administered on 05/15/17 11:38; Start 05/15/17 at 11:45; Stop 05/15/17 at 13:50; Status DC Acetaminophen (Tylenol) 650 mg PRN Q6HRS PRN PO PAIN / TEMP Last administered on 05/16/17 14:41; Start 05/15/17 at 13:30; Stop 05/16/17 at 15:30; Status DC Multi-Ingredient Ointment (Analgesic [place]) 1 mike PRN QID PRN TP MUSCLE PAIN; Start 05/15/17 at 13:30 Al Hydroxide/Mg Hydroxide (Mylanta Plus Xs) 15 ml PRN AFTMEALHC PRN PO DYSPEPSIA; Start 05/15/17 at 13:30 Magnesium Hydroxide (Milk Of Magnesia) 2,400 mg PRN QHS PRN PO CONSTIPATION; Start 05/15/17 at 13:30 Nicotine (Nicoderm Cq 14mg) 1 patch DAILY TD ; Start 05/16/17 at 09:00; Stop at 10:41; Status DC Escitalopram Oxalate (Lexapro) 20 mg DAILY PO Last administered on 05/18/17 07 :17; Start 05/16/17 at 09:00; Stop 05/18/17 at 22:07; Status DC Donepezil HCl (Aricept) 10 mg QHS PO Last administered on 05/22/17 19:47; Start 05/15/17 at 21:00 Clonazepam (KlonoPIN) 0.5 mg QHS PO Last administered on 05/22/17 19:51; Start 05/15/17 at 21:00 Donepezil HCl (Aricept) 5 mg QHS PO Last administered on 05/15/17 19:38; Start 05/15/17 at 21:00; Stop 05/15/17 at 23:44; Status DC Levetiracetam (Keppra) 750 mg BID PO Last administered on 05/23/17 08:08; Start 05/15/17 at 21:00 Clonazepam (KlonoPIN) 0.5 mg PRN BID PRN PO ANXIETY / AGITATION Last administered on 05/16/17 16:22; Start 05/15/17 at 14:00; Stop 05/16/17 at 18:45 ; Status DC Olanzapine (ZyPREXA) 10 mg QHS PO Last administered on 05/22/17 19:48; Start 05/15/17 at 21:00 Mirtazapine (Remeron Genny-Tab) 15 mg QHS PO Last administered on 05/22/17 19:48 ; Start 05/15/17 at 21:00 Aspirin (Children'S Aspirin) 81 mg DAILY PO Last administered on 05/23/17 08: 08; Start 05/16/17 at 09:00 Ferrous Sulfate (Feosol) 325 mg DAILY PO Last administered on 05/23/17 08:08; Start 05/16/17 at 09:00 Hydrochlorothiazide (Hydrodiuril) 25 mg DAILY PO Last administered on 08:11; Start 05/16/17 at 09:00 Oxycodone/ Acetaminophen (Percocet 10/325) 1 tab QID PO Last administered on 17:13; Start 05/15/17 at 17:00 Calcium/Vitamin D (Oscal D 500mg/ 200uts) 1 tab BIDWMEALS PO Last administered on 05/23/17 17:13; Start 05/15/17 at 17:00 Docusate Sodium (Colace) 100 mg BID PO Last administered on 05/20/17 08:27; Start 05/15/17 at 21:00; Stop 05/20/17 at 12:49; Status DC Famotidine (Pepcid) 20 mg BID PO Last administered on 05/23/17 08:08; Start at 21:00 Lisinopril (Prinivil) 20 mg BID PO Last administered on 05/23/17 08:10; Start 05/15/17 at 21:00 Metoprolol Tartrate (Lopressor) 50 mg BID PO Last administered on 05/23/17 08: 08; Start 05/15/17 at 21:00 Clonidine HCl (Catapres) 0.2 mg DAILY PRN PO HYPERTENSION, SEE COMMENTS; Start 05/16/17 at 09:00 Albuterol/ Ipratropium (Duoneb) 3 ml Q4HRS PRN NEB SHORTNESS OF BREATH Last administered on 05/21/17 10:10; Start 05/15/17 at 14:15 Acetaminophen (Tylenol) 650 mg PRN Q8HRS PRN PO PAIN Last administered on 06:42; Start 05/15/17 at 14:15 Cyclobenzaprine HCl (Flexeril) 10 mg Q8HRS PRN PO MUSCLE SPASMS Last administered on 05/22/17 13:27; Start 05/15/17 at 14:15 Ondansetron HCl (Zofran Odt) 4 mg PRN Q8HRS PRN PO NAUSEA/VOMITING; Start 05/15 at 14:15 Loperamide HCl (Imodium) 2 mg PRN Q3HRS PRN PO DIARRHEA; Start 05/15/17 at 14: 15 Nystatin (Nystop) 1 mike BID TP Last administered on 05/15/17 19:38; Start at 21:00; Stop 05/15/17 at 21:00; Status DC Fentanyl (Duragesic 12mcg/ Hr) 1 patch Q3DAYS TD Last administered on 08:26; Start 05/16/17 at 09:00 Nystatin (Nystop) 1 mike BID TP Last administered on 05/23/17 09:00; Start at 21:00 Divalproex Sodium (Depakote Sprinkles) 125 mg TID PO Last administered on 14:08; Start 05/15/17 at 21:00 Vitamin D (Vitamin D3) 50,000 unit WEEKLY PO Last administered on 05/17/17 07: 35; Start 05/17/17 at 09:00 Clonazepam (KlonoPIN) 0.5 mg PRN TID PRN PO ANXIETY / AGITATION Last administered on 05/23/17 06:18; Start 05/17/17 at 06:00 Duloxetine HCl (Cymbalta) 30 mg DAILY PO Last administered on 05/20/17 08:25; Start 05/19/17 at 09:00; Stop 05/20/17 at 10:00; Status DC Duloxetine HCl (Cymbalta) 60 mg DAILY PO Last administered on 05/23/17 08:07; Start 05/21/17 at 09:00; Stop 05/23/17 at 10:00; Status DC Duloxetine HCl (Cymbalta) 90 mg DAILY PO ; Start 05/24/17 at 09:00 Active Scripts Active Reported Trazodone Hcl 50 Mg Tablet 50 Mg PO PRN QHS PRN Miralax (Polyethylene Glycol 3350) 17 Gm Powd.pack 17 Gm PO DAILY Pantoprazole Sodium 40 Mg Tablet.dr 40 Mg PO DAILYAC Oxycontin (Oxycodone Hcl) 10 Mg Tab.er.12h 10 Mg PO [id number] Zyprexa Zydis (Olanzapine) 5 Mg Tab.rapdis 5 Mg PO PRN Q2HR PRN Analgesic [place] (Methyl Salicylate/Menthol) 29 Gm Oint...g. 1 Mike TP PRN QID PRN Milk Of Magnesia (Magnesium Hydroxide) 2,400 Mg/10 Ml Oral.susp 2,400 Mg PO PRN QHS PRN Advanced Antacid Liquid (Mag Hydrox/Al Hydrox/Simeth) 355 Ml Oral.susp 15 Ml PO PRN AFTMEALHC PRN Cymbalta (Duloxetine Hcl) 30 Mg Capsule.dr 30 Mg PO DAILY Colace (Docusate Sodium) 100 Mg Capsule 100 Mg PO BID Tegretol (Carbamazepine) 200 Mg Tablet 400 Mg PO HS Acetaminophen 500 Mg Tablet 650 Mg PO PRN Q6HRS PRN Folic Acid 0.8 Mg Tablet 0.8 Mg PO DAILY Calcium 500 + Vit D 400 Tablet (Calcium Carbonate/Vitamin D3) 1 Each Tablet 1 Tab PO BIDWBKFT/KAYY Hydrocodone-Apap 10-325 (Hydrocodone Bit/Acetaminophen) 1 Each Tablet 1 Tab PO PRN Q4HRS PRN Alprazolam 0.5 Mg Tablet 0.5 Mg PO PRN Q2HR PRN max dosage: 3mg/24hrs Loratadine 10 Mg Tablet 10 Mg PO PRN DAILY PRN Loperamide (Loperamide Hcl) 2 Mg Capsule 2 Mg PO PRN Q4HRS PRN Methylphenidate Er (Methylphenidate Hcl) 10 Mg Tablet.er 10 Mg PO DAILY Multivitamins (Multivitamin) 1 Each Tablet 1 Tab PO DAILY Mupirocin 22 Gm Oint...g. 1 Mike TP PRN BID PRN Cholestyramine Packet (Cholestyramine (With Sugar)) 4 Gm Powd.pack 4 Gm PO BID Ferrous Sulfate 325 Mg Tablet 325 Mg PO NOON Vitamin C (Ascorbic Acid) 500 Mg Tablet 500 Mg PO TID Norvasc (Amlodipine Besylate) 5 Mg Tablet 5 Mg PO BID NITROGLYCERIN SubLingual (Nitroglycerin) 0.4 Mg Tab.subl 0.4 Mg SL PRN Q5MIN PRN Creon Dr 24,000 Units Capsule (Lipase/Protease/Amylase) 1 Each Capsule. 5 Cap PO TIDWMEALS Diagnosis: Problems: (1) Dementia (2) Bipolar disorder, mixed (3) Bipolar affective disorder, mixed (4) Anxiety disorder (5) Major depressive disorder, recurrent episode (6) Impulse control disorder TESHA MANZANO MD May 23, 2017 19:47
[2017-05-23] MEDS: DONEPEZIL HCL 10 MG TABLET PO SCH (19:52)
[2017-05-23] MEDS: ACETAMINOPHEN 325 MG TABLET PO PRN (19:55)
[2017-05-23] MEDS: MIRTAZAPINE 15 MG TAB.RAPDIS PO SCH (19:56)
[2017-05-23] MEDS: OLANZapine 10 MG TABLET PO SCH (19:56)
[2017-05-23] MEDS: clonazePAM 0.5 MG TABLET PO SCH (19:59)
--- NOTE | 2017-05-23 22:57 | NUR ---
Behavior Intervention Response and Plan: BIRP Note: Behavior: Assumed Care of patient, patient located in Patient Room at shift change. Patient exhibited the following behavior Calm, Sleeping, Withdrawn. Brief assessment on rounds of vital signs, medication needs, lab studies, and pain. Treatment plan problems 1 and 2. Intervention: Patient assessed and the following interventions initiated safety checks 15 Minute Checks Cognitive Assessment , Head to toe Assessment , Medications. Response: After interactions and interventions patient responded in the following manner, Calm , Compliant ,Cooperative. Continue to assess behaviors and condition will continue to monitor throughout the shift as needed. Patient educated on ADL's, and hand hygiene. 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 Continue to assess patient for changes in above assessment. Monitor for medication needs, pain, and safety concerns. Hourly rounding performed to ensure safe environment.
--- NOTE | 2017-05-24 03:37 | PN ---
DATE: 05/23/2017 This note covers elements not covered in my initial note of 05/23/2017. SUBJECTIVE: I met with the patient in the morning of 05/23/2017. The patient has been somewhat attention seeking, but nursing report medication seeking, constantly asking for some thing, but otherwise compliant. REVIEW OF SYSTEMS: Ambulation impaired, in wheelchair. She complains of back pain. No CV, , pulmonary, eye system symptoms on review. MENTAL STATUS EXAM: Reasonably oriented. Speech is coherent, abstraction fair, computation impaired, language function intact, attention span short. Mood and affect, still somewhat anxious, depressed, labile, but improving. LABORATORY DATA: Reviewed. IMPRESSION: Unchanged from initial note. PLAN: Continue current psychotropics. Reviewed drug interactions. Risk/benefit ratio favors no further change at this time. MAN Mau MANZANO MD DR: SURESH/ame JOB#: [id number] / [id number]
[2017-05-24] MEDS: CYCLOBENZAPRINE 10 MG TABLET. PO PRN ×2 (05:54→20:48)
--- NOTE | 2017-05-24 05:59 | PN ---
DATE: 05/22/2017 This note covers elements not covered in my initial note of 05/22/2017. SUBJECTIVE: I met with the patient at length the evening of 05/22/2017. The patient was staffed at a treatment team meeting with the entire team morning of 05/22/2017, and the patient's grandson Harjeet attended the conference. We reviewed the patient's history, diagnosis, current psychotropic changes, placement options at length. REVIEW OF SYSTEMS: Positive for back pain, sleeping about 6-7 hours. No CV, , pulmonary, eye, ENT system symptoms on review. Appetite 70%. MENTAL STATUS EXAM: Reasonably oriented. Speech is coherent, abstraction fair, computation somewhat impaired, language function intact, attention span short. Mood and affect still depressed, withdrawn, anxious, obsessive, but showing improvement. LABORATORY DATA: Reviewed. IMPRESSION: Unchanged from initial note. PLAN: Continue current psychotropics mentioned in my initial note, reviewed drug interactions, risk/benefit ratio favors no further changes for now. TESHA MANZANO MD DR: SURESH/ame JOB#: [id number] / [id number]
[2017-05-24 06:01] VITALS: BP 150/88
[2017-05-24] MEDS: DIVALPROEX 125 MG CAP.SPRINK PO SCH ×3 (07:51→20:48)
[2017-05-24] MEDS: ASPIRIN 81 MG TAB.CHEW PO SCH (07:51)
[2017-05-24] MEDS: levETIRAcetam 250 MG TABLET PO SCH ×2 (07:51→20:48)
[2017-05-24] MEDS: METOPROLOL TART IMMED RELEASE 50 MG TABLET PO SCH ×2 (07:51→20:49)
[2017-05-24] MEDS: LISINOPRIL 20 MG TABLET PO SCH ×2 (07:52→20:48)
[2017-05-24] MEDS: CALCIUM CARB/VIT D3 500/200 TABLET PO SCH ×2 (07:52→17:17)
[2017-05-24] MEDS: hydroCHLOROthiazide 25 MG TABLET PO SCH (07:52)
[2017-05-24] MEDS: FERROUS SULFATE 325 MG TABLET PO SCH (07:52)
[2017-05-24] MEDS: FAMOTIDINE 20 MG TABLET PO SCH ×2 (07:52→20:48)
[2017-05-24] MEDS: oxyCODONE/APAP 10/325 1 TAB TABLET PO SCH ×4 (07:53→20:48)
[2017-05-24] MEDS: DULoxetine HCL 30 MG CAPSULE.DR PO SCH (07:54)
[2017-05-24] MEDS: CHOLECALCIFEROL (VITAMIN D3) 50,000 UNIT CAPSULE PO SCH (07:54)
[2017-05-24 08:07] LABS: BASO % 1 % (0-3); EOS # 0.2 x10^3/uL (0.0-0.7); EOS % 4 % (0-3); HEMOGLOBIN 12.7 g/dL (12.0-15.5); LYMPH # 1.1 x10^3/uL (1.0-4.8); LYMPH % 24 % (24-48); MEAN CORPUSCULAR HEMOGLOBIN 26 pg (25-35); MEAN CORPUSCULAR HGB CONC 33 g/dL (31-37); MEAN CORPUSCULAR VOLUME 78 fL (79-100); MONO # 0.6 x10^3/uL (0.0-1.1); MONO % 12 % (0-9); NEUT # 2.7 x10^3uL (1.8-7.7); NEUT % 59 % (31-73); PLATELET COUNT 217 x10^3/uL (140-400); RED BLOOD COUNT 4.98 x10^6/uL (3.50-5.40); RED CELL DISTRIBUTION WIDTH 19.7 % (11.5-14.5); WHITE BLOOD COUNT 4.5 x10^3/uL (4.0-11.0)
[2017-05-24 08:17] LABS: ALBUMIN 2.9 g/dL (3.4-5.0); ALBUMIN/GLOBULIN RATIO 0.8 (1.0-1.7); ALK PHOS 76 U/L (46-116); ALT (SGPT) 11 U/L (14-59); ANION GAP 7 (6-14); AST (SGOT) 14 U/L (15-37); BLOOD UREA NITROGEN 16 mg/dL (7-20); BUN/CREATININE RATIO 18 (6-20); CARBON DIOXIDE 29 mmol/L (21-32); CHLORIDE 101 mmol/L (98-107); CREATININE 0.9 mg/dL (0.6-1.0); GFR 60.9; GLUCOSE 90 mg/dL (70-99); POTASSIUM 4.3 mmol/L (3.5-5.1); SODIUM 137 mmol/L (136-145); TOTAL BILIRUBIN 0.2 mg/dL (0.2-1.0); TOTAL PROTEIN 6.5 g/dL (6.4-8.2)
[2017-05-24 08:18] LABS: VAL ACID 27 mcg/mL (50-100)
[2017-05-24] MEDS: NYSTATIN TOPICAL POWDER 15GM BOTTLE. TP SCH ×2 (09:00→20:50)
--- NOTE | 2017-05-24 13:13 | NUR ---
Patient c/o multiple loose stools. Stool sample collected by nurse, Dr. Sis griffin, and sent to lab to test for C-diff, PRN imodium administered, will continue to monitor.
[2017-05-24] MEDS: LOPERAMIDE 2 MG CAPSULE PO PRN (13:20)
[2017-05-24] MEDS: clonazePAM 0.5 MG TABLET PO PRN (15:30)
--- NOTE | 2017-05-24 15:31 | NUR ---
Patient requesting medication for anxiety. No visible signs of anxiety, but patient states she is feeling like she is going to have a panic attack, PRN clonazepam given, will continue to monitor.
[2017-05-24 15:34] VITALS: BP 138/64
--- NOTE | 2017-05-24 20:30 | NUR ---
Behavior Intervention Response and Plan: BIRP Note: Behavior: Assumed Care of patient, patient located in Patient Room at shift change. Patient exhibited the following behavior Calm, Compliant, Irritable. Brief assessment on rounds of vital signs, medication needs, lab studies, and pain. Treatment plan problems 1-2. Intervention: Patient assessed and the following interventions initiated safety checks 15 Minute Checks Head to toe Assessment , Medications , ADL's. Response: After interactions and interventions patient responded in the following manner, Calm , Cooperative ,Compliant. Continue to assess behaviors and condition will continue to monitor throughout the shift as needed. Patient educated on ADL's, and hand hygiene. 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 Continue to assess patient for changes in above assessment. Monitor for medication needs, pain, and safety concerns. Hourly rounding performed to ensure safe environment.
[2017-05-24] MEDS: DONEPEZIL HCL 10 MG TABLET PO SCH (20:48)
[2017-05-24] MEDS: OLANZapine 10 MG TABLET PO SCH (20:48)
[2017-05-24] MEDS: clonazePAM 0.5 MG TABLET PO SCH (20:49)
[2017-05-24] MEDS: MIRTAZAPINE 15 MG TAB.RAPDIS PO SCH (20:49)
[2017-05-25 06:33] VITALS: BP 149/73
[2017-05-25] MEDS: CALCIUM CARB/VIT D3 500/200 TABLET PO SCH ×2 (07:28→17:02)
[2017-05-25] MEDS: clonazePAM 0.5 MG TABLET PO PRN ×2 (07:28→13:34)
--- NOTE | 2017-05-25 07:30 | NUR ---
Patient complained of increased anxiety and requested her anxiety pill. PRN med provided per eMAR.
[2017-05-25] MEDS: METOPROLOL TART IMMED RELEASE 50 MG TABLET PO SCH ×2 (09:08→20:23)
[2017-05-25] MEDS: DULoxetine HCL 30 MG CAPSULE.DR PO SCH (09:08)
[2017-05-25] MEDS: hydroCHLOROthiazide 25 MG TABLET PO SCH (09:08)
[2017-05-25] MEDS: levETIRAcetam 250 MG TABLET PO SCH ×2 (09:08→20:23)
[2017-05-25] MEDS: ASPIRIN 81 MG TAB.CHEW PO SCH (09:08)
[2017-05-25] MEDS: FERROUS SULFATE 325 MG TABLET PO SCH (09:08)
[2017-05-25] MEDS: FAMOTIDINE 20 MG TABLET PO SCH ×2 (09:09→20:23)
[2017-05-25] MEDS: LISINOPRIL 20 MG TABLET PO SCH ×2 (09:09→20:24)
[2017-05-25] MEDS: DIVALPROEX 125 MG CAP.SPRINK PO SCH ×3 (09:09→20:23)
[2017-05-25] MEDS: oxyCODONE/APAP 10/325 1 TAB TABLET PO SCH ×4 (09:10→20:22)
[2017-05-25] MEDS: fentaNYL 12MCG/HR 1 PATCH PATCH TD SCH (09:10)
[2017-05-25] MEDS: NYSTATIN TOPICAL POWDER 15GM BOTTLE. TP SCH ×2 (09:11→20:23)
[2017-05-25] MEDS: CYCLOBENZAPRINE 10 MG TABLET. PO PRN ×2 (09:45→20:21)
--- NOTE | 2017-05-25 09:46 | NUR ---
Patient states the fentanyl patch makes her pain worse, note provided for MD. Patient complains of continued pain, prn med provided per EMR; will monitor for effectiveness.
--- NOTE | 2017-05-25 09:50 | NUR ---
Behavior Intervention Response and Plan: BIRP Note: Behavior: Assumed Care of patient, patient located in Day Room at shift change. Patient exhibited the following behavior Medication Seeking, Attention Seeking, Disorganized. Brief assessment on rounds of vital signs, medication needs, lab studies, and pain. Treatment plan problems 1 & 2. Intervention: Patient assessed and the following interventions initiated safety checks 15 Minute Checks Cognitive Assessment , Head to toe Assessment , Medications. Response: After interactions and interventions patient responded in the following manner, Calm , Appropriate ,Cooperative. Continue to assess behaviors and condition will continue to monitor throughout the shift as needed. Patient educated on ADL's, and hand hygiene. 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 Continue to assess patient for changes in above assessment. Monitor for medication needs, pain, and safety concerns. Hourly rounding performed to ensure safe environment.
--- NOTE | 2017-05-25 11:30 | NUR ---
THERAPEUTIC RECREATION GROUP NOTE TITLE :Movement to Music:Flexibility ACTIVITY : Movement/ Exercise GOAL : Increase morale, attention, flexibility. Decrease stress/anxiety. DURATION : 30 Minutes RESPONSE : No participation.
--- NOTE | 2017-05-25 13:35 | NUR ---
Patient complains of continued anxiety. PRN meds provided per EMR
--- NOTE | 2017-05-25 14:30 | NUR ---
THERAPEUTIC RECREATION GROUP NOTE TITLE :Movie, Popcorn, Cookies and Coffee ACTIVITY : Activities and Games GOAL : Increase alertness, focus, morale, decrease stress DURATION : 90 minutes RESPONSE : No participation.
--- NOTE | 2017-05-25 15:30 | NUR ---
Dressing to patient's mid an Addendum: 05/25/17 at 1846 by LEN SANTORO II RN Dressing to patient's mid abdomen changed. Old dressing was removed, minimal shadowing noted but there appeared to be drainage on the inferior and right portions. Skin cleansed with saline and gauze, allowed to dry, and then skin prep applied. Powder applied to area around fistula then 2x2 gauze placed over the fistula. Aquacell foam applied. Photo not taken as the camera was not available, will photograph the wound tomorrow. Patient tolerated procedure well.
[2017-05-25 16:38] VITALS: BP 106/70
--- NOTE | 2017-05-25 19:39 | PDOC ---
Exam Monty Demential Exam: Monty Note: Please also refer to the separate dictated note~for this date of service dictated separately.~Patient seen individually. Discussed the patient with Nursing staff reviewed the chart.~Reviewed interim history and current functioning. Reviewed vital signs,~Labs/ Radiology~and current medications noted below. Continue current treatment with the changes noted in the dictated addendum note Assessment: Vital Signs: Vital Signs Date Time Temp Pulse Resp B/P (MAP) Pulse Ox O2 Delivery O2 Flow Rate FiO2 05/25/17 16:38 97.4 67 18 106/70 (82) 94 05/25/17 13:34 Room Air I&O Intake and Output 05/25/17 06:59 Intake Total 1380 ml Balance 1380 ml Intake Oral 1380 ml # Bowel Movements 2 Current Medications: Meds: Current Medications Acetaminophen (Tylenol) 1,000 mg 1X ONCE PO Last administered on 05/15/17 11: 38; Start 05/15/17 at 11:45; Stop 05/15/17 at 13:52; Status DC Lorazepam (Ativan) 1 mg 1X ONCE PO Last administered on 05/15/17 11:38; Start 05/15/17 at 11:45; Stop 05/15/17 at 13:50; Status DC Acetaminophen (Tylenol) 650 mg PRN Q6HRS PRN PO PAIN / TEMP Last administered on 05/16/17 14:41; Start 05/15/17 at 13:30; Stop 05/16/17 at 15:30; Status DC Multi-Ingredient Ointment (Analgesic [place]) 1 mike PRN QID PRN TP MUSCLE PAIN; Start 05/15/17 at 13:30 Al Hydroxide/Mg Hydroxide (Mylanta Plus Xs) 15 ml PRN AFTMEALHC PRN PO DYSPEPSIA; Start 05/15/17 at 13:30 Magnesium Hydroxide (Milk Of Magnesia) 2,400 mg PRN QHS PRN PO CONSTIPATION; Start 05/15/17 at 13:30 Nicotine (Nicoderm Cq 14mg) 1 patch DAILY TD ; Start 05/16/17 at 09:00; Stop at 10:41; Status DC Escitalopram Oxalate (Lexapro) 20 mg DAILY PO Last administered on 05/18/17 07 :17; Start 05/16/17 at 09:00; Stop 05/18/17 at 22:07; Status DC Donepezil HCl (Aricept) 10 mg QHS PO Last administered on 05/24/17 20:48; Start 05/15/17 at 21:00 Clonazepam (KlonoPIN) 0.5 mg QHS PO Last administered on 05/24/17 20:49; Start 05/15/17 at 21:00 Donepezil HCl (Aricept) 5 mg QHS PO Last administered on 05/15/17 19:38; Start 05/15/17 at 21:00; Stop 05/15/17 at 23:44; Status DC Levetiracetam (Keppra) 750 mg BID PO Last administered on 05/25/17 09:08; Start 05/15/17 at 21:00 Clonazepam (KlonoPIN) 0.5 mg PRN BID PRN PO ANXIETY / AGITATION Last administered on 05/16/17 16:22; Start 05/15/17 at 14:00; Stop 05/16/17 at 18:45 ; Status DC Olanzapine (ZyPREXA) 10 mg QHS PO Last administered on 05/24/17 20:48; Start 05/15/17 at 21:00 Mirtazapine (Remeron [place]enny-Tab) 15 mg QHS PO Last administered on 05/24/17 20:49 ; Start 05/15/17 at 21:00 Aspirin (Children'S Aspirin) 81 mg DAILY PO Last administered on 05/25/17 09: 08; Start 05/16/17 at 09:00 Ferrous Sulfate (Feosol) 325 mg DAILY PO Last administered on 05/25/17 09:08; Start 05/16/17 at 09:00 Hydrochlorothiazide (Hydrodiuril) 25 mg DAILY PO Last administered on 09:08; Start 05/16/17 at 09:00 Oxycodone/ Acetaminophen (Percocet 10/325) 1 tab QID PO Last administered on 17:02; Start 05/15/17 at 17:00 Calcium/Vitamin D (Oscal D 500mg/ 200uts) 1 tab BIDWMEALS PO Last administered on 05/25/17 17:02; Start 05/15/17 at 17:00 Docusate Sodium (Colace) 100 mg BID PO Last administered on 05/20/17 08:27; Start 05/15/17 at 21:00; Stop 05/20/17 at 12:49; Status DC Famotidine (Pepcid) 20 mg BID PO Last administered on 05/25/17 09:09; Start at 21:00 Lisinopril (Prinivil) 20 mg BID PO Last administered on 05/25/17 09:09; Start 05/15/17 at 21:00 Metoprolol Tartrate (Lopressor) 50 mg BID PO Last administered on 05/25/17 09: 08; Start 05/15/17 at 21:00 Clonidine HCl (Catapres) 0.2 mg DAILY PRN PO HYPERTENSION, SEE COMMENTS; Start 05/16/17 at 09:00 Albuterol/ Ipratropium (Duoneb) 3 ml Q4HRS PRN NEB SHORTNESS OF BREATH Last administered on 05/21/17 10:10; Start 05/15/17 at 14:15 Acetaminophen (Tylenol) 650 mg PRN Q8HRS PRN PO PAIN Last administered on 19:55; Start 05/15/17 at 14:15 Cyclobenzaprine HCl (Flexeril) 10 mg Q8HRS PRN PO MUSCLE SPASMS Last administered on 05/25/17 09:45; Start 05/15/17 at 14:15 Ondansetron HCl (Zofran Odt) 4 mg PRN Q8HRS PRN PO NAUSEA/VOMITING; Start 05/15 at 14:15 Loperamide HCl (Imodium) 2 mg PRN Q3HRS PRN PO DIARRHEA Last administered on 13:20; Start 05/15/17 at 14:15 Nystatin (Nystop) 1 mike BID TP Last administered on 05/15/17 19:38; Start at 21:00; Stop 05/15/17 at 21:00; Status DC Fentanyl (Duragesic 12mcg/ Hr) 1 patch Q3DAYS TD Last administered on 09:10; Start 05/16/17 at 09:00 Nystatin (Nystop) 1 mike BID TP Last administered on 05/25/17 09:11; Start at 21:00 Divalproex Sodium (Depakote Sprinkles) 125 mg TID PO Last administered on 13:33; Start 05/15/17 at 21:00 Vitamin D (Vitamin D3) 50,000 unit WEEKLY PO Last administered on 05/24/17 07: 54; Start 05/17/17 at 09:00 Clonazepam (KlonoPIN) 0.5 mg PRN TID PRN PO ANXIETY / AGITATION Last administered on 05/25/17 13:34; Start 05/17/17 at 06:00 Duloxetine HCl (Cymbalta) 30 mg DAILY PO Last administered on 05/20/17 08:25; Start 05/19/17 at 09:00; Stop 05/20/17 at 10:00; Status DC Duloxetine HCl (Cymbalta) 60 mg DAILY PO Last administered on 05/23/17 08:07; Start 05/21/17 at 09:00; Stop 05/23/17 at 10:00; Status DC Duloxetine HCl (Cymbalta) 90 mg DAILY PO Last administered on 05/25/17 09:08; Start 05/24/17 at 09:00 Active Scripts Active Reported Trazodone Hcl 50 Mg Tablet 50 Mg PO PRN QHS PRN Miralax (Polyethylene Glycol 3350) 17 Gm Powd.pack 17 Gm PO DAILY Pantoprazole Sodium 40 Mg Tablet.dr 40 Mg PO DAILYAC Oxycontin (Oxycodone Hcl) 10 Mg Tab.er.12h 10 Mg PO BID76 Zyprexa Zydis (Olanzapine) 5 Mg Tab.rapdis 5 Mg PO PRN Q2HR PRN Analgesic [place] (Methyl Salicylate/Menthol) 29 Gm Oint...g. 1 Mike TP PRN QID PRN Milk Of Magnesia (Magnesium Hydroxide) 2,400 Mg/10 Ml Oral.susp 2,400 Mg PO PRN QHS PRN Advanced Antacid Liquid (Mag Hydrox/Al Hydrox/Simeth) 355 Ml Oral.susp 15 Ml PO PRN AFTMEALHC PRN Cymbalta (Duloxetine Hcl) 30 Mg Capsule.dr 30 Mg PO DAILY Colace (Docusate Sodium) 100 Mg Capsule 100 Mg PO BID Tegretol (Carbamazepine) 200 Mg Tablet 400 Mg PO HS Acetaminophen 500 Mg Tablet 650 Mg PO PRN Q6HRS PRN Folic Acid 0.8 Mg Tablet 0.8 Mg PO DAILY Calcium 500 + Vit D 400 Tablet (Calcium Carbonate/Vitamin D3) 1 Each Tablet 1 Tab PO BIDWBKFT/KAYY Hydrocodone-Apap 10-325 (Hydrocodone Bit/Acetaminophen) 1 Each Tablet 1 Tab PO PRN Q4HRS PRN Alprazolam 0.5 Mg Tablet 0.5 Mg PO PRN Q2HR PRN max dosage: 3mg/24hrs Loratadine 10 Mg Tablet 10 Mg PO PRN DAILY PRN Loperamide (Loperamide Hcl) 2 Mg Capsule 2 Mg PO PRN Q4HRS PRN Methylphenidate Er (Methylphenidate Hcl) 10 Mg Tablet.er 10 Mg PO DAILY Multivitamins (Multivitamin) 1 Each Tablet 1 Tab PO DAILY Mupirocin 22 Gm Oint...g. 1 Mike TP PRN BID PRN Cholestyramine Packet (Cholestyramine (With Sugar)) 4 Gm Powd.pack 4 Gm PO BID Ferrous Sulfate 325 Mg Tablet 325 Mg PO NOON Vitamin C (Ascorbic Acid) 500 Mg Tablet 500 Mg PO TID Norvasc (Amlodipine Besylate) 5 Mg Tablet 5 Mg PO BID NITROGLYCERIN SubLingual (Nitroglycerin) 0.4 Mg Tab.subl 0.4 Mg SL PRN Q5MIN PRN Creon Dr 24,000 Units Capsule (Lipase/Protease/Amylase) 1 Each Capsule. 5 Cap PO TIDWMEALS Diagnosis: Problems: (1) Bipolar disorder, mixed (2) Bipolar affective disorder, mixed (3) Anxiety disorder (4) Major depressive disorder, recurrent episode (5) Impulse control disorder TESHA MANZANO MD May 25, 2017 19:39
[2017-05-25] MEDS: clonazePAM 0.5 MG TABLET PO SCH (20:22)
[2017-05-25] MEDS: DONEPEZIL HCL 10 MG TABLET PO SCH (20:22)
[2017-05-25] MEDS: MIRTAZAPINE 15 MG TAB.RAPDIS PO SCH (20:22)
[2017-05-25] MEDS: OLANZapine 10 MG TABLET PO SCH (20:23)
--- NOTE | 2017-05-25 20:56 | NUR ---
Behavior Intervention Response and Plan: BIRP Note: Behavior: Assumed Care of patient, patient located in Patient Room at shift change. Patient exhibited the following behavior Calm, Sleeping, Withdrawn. Brief assessment on rounds of vital signs, medication needs, lab studies, and pain. Treatment plan problems 1 and 2. Intervention: Patient assessed and the following interventions initiated safety checks 15 Minute Checks Cognitive Assessment , Head to toe Assessment , Medications. Response: After interactions and interventions patient responded in the following manner, Calm , Compliant ,Cooperative. Continue to assess behaviors and condition will continue to monitor throughout the shift as needed. Patient educated on ADL's, and hand hygiene. 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 Continue to assess patient for changes in above assessment. Monitor for medication needs, pain, and safety concerns. Hourly rounding performed to ensure safe environment.
[2017-05-26 05:57] VITALS: BP 113/60
--- NOTE | 2017-05-26 07:30 | NUR ---
Patient requesting prn anxiety and pain medication. PRN meds provided per eMAR. Lack of pain control reported to medical MD. Addendum: 05/26/17 at 1834 by LEN SANTORO II, RN New orders received, will monitor for effectiveness in pain control.
[2017-05-26] MEDS: CYCLOBENZAPRINE 10 MG TABLET. PO PRN (07:31)
[2017-05-26] MEDS: CALCIUM CARB/VIT D3 500/200 TABLET PO SCH ×2 (07:31→17:13)
[2017-05-26] MEDS: clonazePAM 0.5 MG TABLET PO PRN (07:31)
--- NOTE | 2017-05-26 09:15 | NUR ---
THERAPEUTIC RECREATION GROUP NOTE TITLE :[place]/ 22 ACTIVITY : Activities and Games GOAL : Increase social interaction, fine motor skills. Maintain or improve mental functioning. Decrease restlessness DURATION : 60 minutes RESPONSE : No participation.
[2017-05-26] MEDS: ASPIRIN 81 MG TAB.CHEW PO SCH (09:38)
[2017-05-26] MEDS: DIVALPROEX 125 MG CAP.SPRINK PO SCH ×3 (09:38→20:06)
[2017-05-26] MEDS: DULoxetine HCL 30 MG CAPSULE.DR PO SCH (09:38)
[2017-05-26] MEDS: METOPROLOL TART IMMED RELEASE 50 MG TABLET PO SCH ×2 (09:39→20:05)
[2017-05-26] MEDS: hydroCHLOROthiazide 25 MG TABLET PO SCH (09:39)
[2017-05-26] MEDS: FAMOTIDINE 20 MG TABLET PO SCH ×2 (09:39→20:03)
[2017-05-26] MEDS: levETIRAcetam 250 MG TABLET PO SCH ×2 (09:40→20:04)
[2017-05-26] MEDS: LISINOPRIL 20 MG TABLET PO SCH ×2 (09:40→20:07)
[2017-05-26] MEDS: FERROUS SULFATE 325 MG TABLET PO SCH (09:40)
[2017-05-26] MEDS: oxyCODONE/APAP 10/325 1 TAB TABLET PO SCH ×4 (09:40→20:03)
[2017-05-26] MEDS: NYSTATIN TOPICAL POWDER 15GM BOTTLE. TP SCH ×2 (09:41→20:08)
--- NOTE | 2017-05-26 09:45 | NUR ---
Behavior Intervention Response and Plan: BIRP Note: Behavior: Assumed Care of patient, patient located in Patient Room at shift change. Patient exhibited the following behavior Disorganized, Medication Seeking, Withdrawn. Brief assessment on rounds of vital signs, medication needs, lab studies, and pain. Treatment plan problems 1 & 2. Intervention: Patient assessed and the following interventions initiated safety checks 15 Minute Checks Cognitive Assessment , Head to toe Assessment , Medications. Response: After interactions and interventions patient responded in the following manner, Calm , Appropriate ,Compliant. Continue to assess behaviors and condition will continue to monitor throughout the shift as needed. Patient educated on ADL's, and hand hygiene. 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 Continue to assess patient for changes in above assessment. Monitor for medication needs, pain, and safety concerns. Hourly rounding performed to ensure safe environment.
--- NOTE | 2017-05-26 13:15 | NUR ---
THERAPEUTIC RECREATION GROUP NOTE TITLE :Grid [employer] ACTIVITY : Cognitive Stimulation GOAL : Maintain or improve cognitive functioning and memory. DURATION : 60 minutes RESPONSE : No participation.
[2017-05-26 15:47] VITALS: BP 134/75
[2017-05-26] MEDS: fentaNYL 25MCG/HR 1 PATCH PATCH TD SCH (15:48)
--- NOTE | 2017-05-26 16:00 | NUR ---
Sw met w/Pt. while Pt. lay in her bed. Pt., again, did not remember talking w/this JIMMY at any point during her stay here, but did smile when SW stated her named rhymed w/jonah (PT. smiles every time SW reminder her of this!) Pt. stated she doesn't feel great as she is in pain. SW discussed Dr.'s increased in pain patch and pain med to help manage pain better. Pt. stated she is not sure why she would want to continue living like this as she can't do anything she used to be able to do any more. SW discussed Pt's life changes and validated her sadness and pain level. SW also helped Pt. to discuss the positives in her life such as her grandson. Pt. did perk up a little as we talked about how proud she is of him. Pt. did state she has frustration w/her dtr because she believe she takes advantage of her grandson. She has mentioned several times how her grandson has to do everything for her dtr. Pt. thanked this SW for meeting w/her, stating she feels better after talking and appreciates feeling so at ease w/this JIMMY. Pt. asked if SW would talk w/her again tomorrow.
--- NOTE | 2017-05-26 18:15 | NUR ---
Dressing to abdominal fistula changed. Extensive shadowing of dressing with minimal drainage noted. Old dressing removed, skin cleansed with saline spray, skin prep applied, powder applied, gauze and aquacell foam dressing placed. Photo taken of wound. There is a rash superior and left of the fistula which has developed since last week. Rash under breast folds is greatly diminished.
--- NOTE | 2017-05-26 19:48 | PDOC ---
Exam Monty Demential Exam: Monty Note: Please also refer to the separate dictated note~for this date of service dictated separately.~Patient seen individually. Discussed the patient with Nursing staff reviewed the chart.~Reviewed interim history and current functioning. Reviewed vital signs,~Labs/ Radiology~and current medications noted below. Continue current treatment with the changes noted in the dictated addendum note Assessment: Vital Signs: Vital Signs Date Time Temp Pulse Resp B/P (MAP) Pulse Ox O2 Delivery O2 Flow Rate FiO2 05/26/17 15:48 18 92 Room Air 05/26/17 15:47 98.2 62 134/75 (94) I&O Intake and Output 05/26/17 07:00 Intake Total 1020 ml Balance 1020 ml Intake Oral 1020 ml Current Medications: Meds: Current Medications Acetaminophen (Tylenol) 1,000 mg 1X ONCE PO Last administered on 05/15/17 11: 38; Start 05/15/17 at 11:45; Stop 05/15/17 at 13:52; Status DC Lorazepam (Ativan) 1 mg 1X ONCE PO Last administered on 05/15/17 11:38; Start 05/15/17 at 11:45; Stop 05/15/17 at 13:50; Status DC Acetaminophen (Tylenol) 650 mg PRN Q6HRS PRN PO PAIN / TEMP Last administered on 05/16/17 14:41; Start 05/15/17 at 13:30; Stop 05/16/17 at 15:30; Status DC Multi-Ingredient Ointment (Analgesic [place]) 1 mike PRN QID PRN TP MUSCLE PAIN; Start 05/15/17 at 13:30 Al Hydroxide/Mg Hydroxide (Mylanta Plus Xs) 15 ml PRN AFTMEALHC PRN PO DYSPEPSIA; Start 05/15/17 at 13:30 Magnesium Hydroxide (Milk Of Magnesia) 2,400 mg PRN QHS PRN PO CONSTIPATION; Start 05/15/17 at 13:30 Nicotine (Nicoderm Cq 14mg) 1 patch DAILY TD ; Start 05/16/17 at 09:00; Stop at 10:41; Status DC Escitalopram Oxalate (Lexapro) 20 mg DAILY PO Last administered on 05/18/17 07 :17; Start 05/16/17 at 09:00; Stop 05/18/17 at 22:07; Status DC Donepezil HCl (Aricept) 10 mg QHS PO Last administered on 05/25/17 20:22; Start 05/15/17 at 21:00 Clonazepam (KlonoPIN) 0.5 mg QHS PO Last administered on 05/25/17 20:22; Start 05/15/17 at 21:00 Donepezil HCl (Aricept) 5 mg QHS PO Last administered on 05/15/17 19:38; Start 05/15/17 at 21:00; Stop 05/15/17 at 23:44; Status DC Levetiracetam (Keppra) 750 mg BID PO Last administered on 05/26/17 09:40; Start 05/15/17 at 21:00 Clonazepam (KlonoPIN) 0.5 mg PRN BID PRN PO ANXIETY / AGITATION Last administered on 05/16/17 16:22; Start 05/15/17 at 14:00; Stop 05/16/17 at 18:45 ; Status DC Olanzapine (ZyPREXA) 10 mg QHS PO Last administered on 05/25/17 20:23; Start 05/15/17 at 21:00 Mirtazapine (Remeron Genny-Tab) 15 mg QHS PO Last administered on 05/25/17 20:22 ; Start 05/15/17 at 21:00 Aspirin (Children'S Aspirin) 81 mg DAILY PO Last administered on 05/26/17 09: 38; Start 05/16/17 at 09:00 Ferrous Sulfate (Feosol) 325 mg DAILY PO Last administered on 05/26/17 09:40; Start 05/16/17 at 09:00 Hydrochlorothiazide (Hydrodiuril) 25 mg DAILY PO Last administered on 09:39; Start 05/16/17 at 09:00 Oxycodone/ Acetaminophen (Percocet 10/325) 1 tab QID PO Last administered on 17:13; Start 05/15/17 at 17:00 Calcium/Vitamin D (Oscal D 500mg/ 200uts) 1 tab BIDWMEALS PO Last administered on 05/26/17 17:13; Start 05/15/17 at 17:00 Docusate Sodium (Colace) 100 mg BID PO Last administered on 05/20/17 08:27; Start 05/15/17 at 21:00; Stop 05/20/17 at 12:49; Status DC Famotidine (Pepcid) 20 mg BID PO Last administered on 05/26/17 09:39; Start at 21:00 Lisinopril (Prinivil) 20 mg BID PO Last administered on 05/26/17 09:40; Start 05/15/17 at 21:00 Metoprolol Tartrate (Lopressor) 50 mg BID PO Last administered on 05/26/17 09: 39; Start 05/15/17 at 21:00 Clonidine HCl (Catapres) 0.2 mg DAILY PRN PO HYPERTENSION, SEE COMMENTS; Start 05/16/17 at 09:00 Albuterol/ Ipratropium (Duoneb) 3 ml Q4HRS PRN NEB SHORTNESS OF BREATH Last administered on 05/21/17 10:10; Start 05/15/17 at 14:15 Acetaminophen (Tylenol) 650 mg PRN Q8HRS PRN PO PAIN Last administered on 19:55; Start 05/15/17 at 14:15 Cyclobenzaprine HCl (Flexeril) 10 mg Q8HRS PRN PO MUSCLE SPASMS Last administered on 05/26/17 07:31; Start 05/15/17 at 14:15 Ondansetron HCl (Zofran Odt) 4 mg PRN Q8HRS PRN PO NAUSEA/VOMITING; Start 05/15 at 14:15 Loperamide HCl (Imodium) 2 mg PRN Q3HRS PRN PO DIARRHEA Last administered on 13:20; Start 05/15/17 at 14:15 Nystatin (Nystop) 1 mike BID TP Last administered on 05/15/17 19:38; Start at 21:00; Stop 05/15/17 at 21:00; Status DC Fentanyl (Duragesic 12mcg/ Hr) 1 patch Q3DAYS TD Last administered on 09:10; Start 05/16/17 at 09:00; Stop 05/26/17 at 15:17; Status DC Nystatin (Nystop) 1 mike BID TP Last administered on 05/26/17 09:41; Start at 21:00 Divalproex Sodium (Depakote Sprinkles) 125 mg TID PO Last administered on 13:38; Start 05/15/17 at 21:00; Stop 05/26/17 at 18:17; Status DC Vitamin D (Vitamin D3) 50,000 unit WEEKLY PO Last administered on 05/24/17 07: 54; Start 05/17/17 at 09:00 Clonazepam (KlonoPIN) 0.5 mg PRN TID PRN PO ANXIETY / AGITATION Last administered on 05/26/17 07:31; Start 05/17/17 at 06:00 Duloxetine HCl (Cymbalta) 30 mg DAILY PO Last administered on 05/20/17 08:25; Start 05/19/17 at 09:00; Stop 05/20/17 at 10:00; Status DC Duloxetine HCl (Cymbalta) 60 mg DAILY PO Last administered on 05/23/17 08:07; Start 05/21/17 at 09:00; Stop 05/23/17 at 10:00; Status DC Duloxetine HCl (Cymbalta) 90 mg DAILY PO Last administered on 05/26/17 09:38; Start 05/24/17 at 09:00 Fentanyl (Duragesic 25mcg/ Hr) 1 patch Q3DAYS TD Last administered on 15:48; Start 05/26/17 at 15:30 Divalproex Sodium (Depakote Sprinkles) 250 mg TID PO ; Start 05/26/17 at 21:00 Active Scripts Active Reported Trazodone Hcl 50 Mg Tablet 50 Mg PO PRN QHS PRN Miralax (Polyethylene Glycol 3350) 17 Gm Powd.pack 17 Gm PO DAILY Pantoprazole Sodium 40 Mg Tablet.dr 40 Mg PO DAILYAC Oxycontin (Oxycodone Hcl) 10 Mg Tab.er.12h 10 Mg PO [id number] Zyprexa Zydis (Olanzapine) 5 Mg Tab.rapdis 5 Mg PO PRN Q2HR PRN Analgesic [place] (Methyl Salicylate/Menthol) 29 Gm Oint...g. 1 Mike TP PRN QID PRN Milk Of Magnesia (Magnesium Hydroxide) 2,400 Mg/10 Ml Oral.susp 2,400 Mg PO PRN QHS PRN Advanced Antacid Liquid (Mag Hydrox/Al Hydrox/Simeth) 355 Ml Oral.susp 15 Ml PO PRN AFTMEALHC PRN Cymbalta (Duloxetine Hcl) 30 Mg Capsule.dr 30 Mg PO DAILY Colace (Docusate Sodium) 100 Mg Capsule 100 Mg PO BID Tegretol (Carbamazepine) 200 Mg Tablet 400 Mg PO HS Acetaminophen 500 Mg Tablet 650 Mg PO PRN Q6HRS PRN Folic Acid 0.8 Mg Tablet 0.8 Mg PO DAILY Calcium 500 + Vit D 400 Tablet (Calcium Carbonate/Vitamin D3) 1 Each Tablet 1 Tab PO BIDWBKFT/KAYY Hydrocodone-Apap 10-325 (Hydrocodone Bit/Acetaminophen) 1 Each Tablet 1 Tab PO PRN Q4HRS PRN Alprazolam 0.5 Mg Tablet 0.5 Mg PO PRN Q2HR PRN max dosage: 3mg/24hrs Loratadine 10 Mg Tablet 10 Mg PO PRN DAILY PRN Loperamide (Loperamide Hcl) 2 Mg Capsule 2 Mg PO PRN Q4HRS PRN Methylphenidate Er (Methylphenidate Hcl) 10 Mg Tablet.er 10 Mg PO DAILY Multivitamins (Multivitamin) 1 Each Tablet 1 Tab PO DAILY Mupirocin 22 Gm Oint...g. 1 Mike TP PRN BID PRN Cholestyramine Packet (Cholestyramine (With Sugar)) 4 Gm Powd.pack 4 Gm PO BID Ferrous Sulfate 325 Mg Tablet 325 Mg PO NOON Vitamin C (Ascorbic Acid) 500 Mg Tablet 500 Mg PO TID Norvasc (Amlodipine Besylate) 5 Mg Tablet 5 Mg PO BID NITROGLYCERIN SubLingual (Nitroglycerin) 0.4 Mg Tab.subl 0.4 Mg SL PRN Q5MIN PRN Creon 24,000 Units Capsule (Lipase/Protease/Amylase) 1 Each Capsule. 5 Cap PO TIDWMEALS Diagnosis: Problems: (1) Dementia (2) Bipolar disorder, mixed (3) Bipolar affective disorder, mixed (4) Anxiety disorder (5) Major depressive disorder, recurrent episode (6) Impulse control disorder TESHA MANZANO MD May 26, 2017 19:48
[2017-05-26] MEDS: DONEPEZIL HCL 10 MG TABLET PO SCH (20:03)
[2017-05-26] MEDS: clonazePAM 0.5 MG TABLET PO SCH (20:04)
[2017-05-26] MEDS: MIRTAZAPINE 15 MG TAB.RAPDIS PO SCH (20:05)
[2017-05-26] MEDS: OLANZapine 10 MG TABLET PO SCH (20:05)
--- NOTE | 2017-05-26 20:56 | NUR ---
Behavior Intervention Response and Plan: BIRP Note: Behavior: Assumed Care of patient, patient located in Patient Room at shift change. Patient exhibited the following behavior Calm, Sleeping, Withdrawn. Brief assessment on rounds of vital signs, medication needs, lab studies, and pain. Treatment plan problems 1 and 2. Intervention: Patient assessed and the following interventions initiated safety checks 15 Minute Checks Cognitive Assessment , Head to toe Assessment , Medications. Response: After interactions and interventions patient responded in the following manner, Calm , Compliant ,Cooperative. Continue to assess behaviors and condition will continue to monitor throughout the shift as needed. Patient educated on ADL's, and hand hygiene. 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 Continue to assess patient for changes in above assessment. Monitor for medication needs, pain, and safety concerns. Hourly rounding performed to ensure safe environment.
[2017-05-27 07:00] VITALS: BP 137/61
--- NOTE | 2017-05-27 07:30 | NUR ---
Patient standing at nurses station stating she is in 10/10 pain in her back and she needs medication for that and also some anti-anxiety medication "right now". Advised patient that she has scheduled medications due at 0900 and there is pain medication available at that time. Patient has history of frequently requesting pain and anxiety medications.
[2017-05-27] MEDS: levETIRAcetam 250 MG TABLET PO SCH ×2 (08:49→19:59)
[2017-05-27] MEDS: hydroCHLOROthiazide 25 MG TABLET PO SCH (08:49)
[2017-05-27] MEDS: LISINOPRIL 20 MG TABLET PO SCH ×2 (08:49→20:01)
[2017-05-27] MEDS: FERROUS SULFATE 325 MG TABLET PO SCH (08:49)
[2017-05-27] MEDS: METOPROLOL TART IMMED RELEASE 50 MG TABLET PO SCH ×2 (08:49→20:00)
[2017-05-27] MEDS: DIVALPROEX 125 MG CAP.SPRINK PO SCH ×3 (08:50→20:00)
[2017-05-27] MEDS: DULoxetine HCL 30 MG CAPSULE.DR PO SCH (08:50)
[2017-05-27] MEDS: CALCIUM CARB/VIT D3 500/200 TABLET PO SCH ×2 (08:50→18:01)
[2017-05-27] MEDS: ASPIRIN 81 MG TAB.CHEW PO SCH (08:50)
[2017-05-27] MEDS: FAMOTIDINE 20 MG TABLET PO SCH ×2 (08:50→20:00)
[2017-05-27] MEDS: oxyCODONE/APAP 10/325 1 TAB TABLET PO SCH ×4 (08:52→20:12)
[2017-05-27] MEDS: NYSTATIN TOPICAL POWDER 15GM BOTTLE. TP SCH ×2 (08:53→20:01)
--- NOTE | 2017-05-27 09:00 | NUR ---
THERAPEUTIC RECREATION GROUP NOTE TITLE :RELAX: Self Massage, Guided Imagery, Positive Affirmation, Gratitude Awareness ACTIVITY : Relaxation GOAL : Decrease stress, elevate mood, increase concentration/attention, encourage awareness DURATION : 50 Minutes RESPONSE : No participation.
--- NOTE | 2017-05-27 09:15 | PN ---
DATE: 05/25/2017 PSYCHIATRIC PROGRESS NOTE This late entry 05/25/2017, covers elements not covered in my initial note of 05/25/2017. SUBJECTIVE: The patient has been attention seeking, medications seeking, compliant with care, is anxious, restless. REVIEW OF SYSTEMS: Positive for back pain, lying in bed, met with her in her room individually. No CV, , pulmonary, eye system symptoms on review. MENTAL STATUS EXAM: Reasonably oriented. Speech is coherent, abstraction fair, computation impaired, language function intact. Mood and affect still somewhat anxious, depressed. LABORATORY DATA: Reviewed. Valproic acid level is 27 on 05/24/2017. IMPRESSION: Unchanged from initial note. PLAN: Increase Depakote Sprinkle from 125 mg 3 times a day to 250 mg 3 times a day. Check labs level in 3 days. Adjust further as clinically indicated. Maintain the rest unchanged. Review drug interactions, risk benefit ratio at some length. TESHA MANZANO MD DR: SURESH/ame JOB#: [id number] / [id number]
--- NOTE | 2017-05-27 11:23 | NUR ---
Behavior Intervention Response and Plan: BIRP Note: Behavior: Assumed Care of patient, patient located in Hallway at shift change. Patient exhibited the following behavior Medication Seeking, Attention Seeking, Anxious. Brief assessment on rounds of vital signs, medication needs, lab studies, and pain. Treatment plan problems 1 and 2. Intervention: Patient assessed and the following interventions initiated safety checks 15 Minute Checks Cognitive Assessment , Head to toe Assessment , Medications. Response: After interactions and interventions patient responded in the following manner, Disorganized , Restless ,Compliant. Continue to assess behaviors and condition will continue to monitor throughout the shift as needed. Patient educated on ADL's, and hand hygiene. 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 Continue to assess patient for changes in above assessment. Monitor for medication needs, pain, and safety concerns. Hourly rounding performed to ensure safe environment.
--- NOTE | 2017-05-27 11:30 | NUR ---
THERAPEUTIC RECREATION GROUP NOTE TITLE :Movement to Music: Strength ACTIVITY : Movement/ Exercise GOAL : Increase morale, attention, flexibility. Decrease stress/anxiety. DURATION : 30 Minutes RESPONSE : Full participation. When Pt. was invited, she stated her back was hurting too much to join but with encouragement and peer support, she participated fully. She followed along with the moves to the best of her ability and she responded well to positive encouragement and comments throughout the session.
--- NOTE | 2017-05-27 11:57 | NUR ---
JIMMY received call from Pt's dtr, Coty, regarding dc plans. JIMMY stated is monitoring her Depakote level and lab levels are scheduled for . Possible dc for or Friday. Coty was somewhat annoyed w/this information, however, did thank JIMMY for the information.
--- NOTE | 2017-05-27 12:00 | NUR ---
JIMMY faxed updated clinicals to [facility].
--- NOTE | 2017-05-27 14:15 | NUR ---
THERAPEUTIC RECREATION GROUP NOTE TITLE :Sing along with Amita ACTIVITY : Music GOAL : Increase socialization, elevate mood, stimulate memory DURATION : 75 minutes RESPONSE : No participation.
[2017-05-27 15:49] VITALS: BP 111/70
--- NOTE | 2017-05-27 17:40 | NUR ---
wound care patient seen per f/u of wound care consult. see wound assessment. 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 the patient has a moderate amount of creamy serosanguineous drainage, recommendations of Aquacel ag with an Aquacel foam, change daily. the wound was cleaned and dressing applied at this time. wound care will continue to f/u for possible changes.
--- NOTE | 2017-05-27 19:46 | PDOC ---
Exam Monty Demential Exam: Monty Note: Please also refer to the separate dictated note~for this date of service dictated separately.~Patient seen individually. Discussed the patient with Nursing staff reviewed the chart.~Reviewed interim history and current functioning. Reviewed vital signs,~Labs/ Radiology~and current medications noted below. Continue current treatment with the changes noted in the dictated addendum note Assessment: Vital Signs: Vital Signs Date Time Temp Pulse Resp B/P (MAP) Pulse Ox O2 Delivery O2 Flow Rate FiO2 05/27/17 15:49 98.1 71 18 111/70 (84) 93 05/27/17 07:00 Room Air I&O Intake and Output 05/28/17 07:00 Intake Total 1080 ml Balance 1080 ml Intake Oral 1080 ml Current Medications: Meds: Current Medications Acetaminophen (Tylenol) 1,000 mg 1X ONCE PO Last administered on 05/15/17 11: 38; Start 05/15/17 at 11:45; Stop 05/15/17 at 13:52; Status DC Lorazepam (Ativan) 1 mg 1X ONCE PO Last administered on 05/15/17 11:38; Start 05/15/17 at 11:45; Stop 05/15/17 at 13:50; Status DC Acetaminophen (Tylenol) 650 mg PRN Q6HRS PRN PO PAIN / TEMP Last administered on 05/16/17 14:41; Start 05/15/17 at 13:30; Stop 05/16/17 at 15:30; Status DC Multi-Ingredient Ointment (Analgesic Portal) 1 mike PRN QID PRN TP MUSCLE PAIN; Start 05/15/17 at 13:30 Al Hydroxide/Mg Hydroxide (Mylanta Plus Xs) 15 ml PRN AFTMEALHC PRN PO DYSPEPSIA; Start 05/15/17 at 13:30 Magnesium Hydroxide (Milk Of Magnesia) 2,400 mg PRN QHS PRN PO CONSTIPATION; Start 05/15/17 at 13:30 Nicotine (Nicoderm Cq 14mg) 1 patch DAILY TD ; Start 05/16/17 at 09:00; Stop at 10:41; Status DC Escitalopram Oxalate (Lexapro) 20 mg DAILY PO Last administered on 05/18/17 07 :17; Start 05/16/17 at 09:00; Stop 05/18/17 at 22:07; Status DC Donepezil HCl (Aricept) 10 mg QHS PO Last administered on 05/26/17 20:03; Start 05/15/17 at 21:00 Clonazepam (KlonoPIN) 0.5 mg QHS PO Last administered on 05/26/17 20:04; Start 05/15/17 at 21:00 Donepezil HCl (Aricept) 5 mg QHS PO Last administered on 05/15/17 19:38; Start 05/15/17 at 21:00; Stop 05/15/17 at 23:44; Status DC Levetiracetam (Keppra) 750 mg BID PO Last administered on 05/27/17 08:49; Start 05/15/17 at 21:00 Clonazepam (KlonoPIN) 0.5 mg PRN BID PRN PO ANXIETY / AGITATION Last administered on 05/16/17 16:22; Start 05/15/17 at 14:00; Stop 05/16/17 at 18:45 ; Status DC Olanzapine (ZyPREXA) 10 mg QHS PO Last administered on 05/26/17 20:05; Start 05/15/17 at 21:00 Mirtazapine (Remeron Genny-Tab) 15 mg QHS PO Last administered on 05/26/17 20:05 ; Start 05/15/17 at 21:00 Aspirin (Children'S Aspirin) 81 mg DAILY PO Last administered on 05/27/17 08: 50; Start 05/16/17 at 09:00 Ferrous Sulfate (Feosol) 325 mg DAILY PO Last administered on 05/27/17 08:49; Start 05/16/17 at 09:00 Hydrochlorothiazide (Hydrodiuril) 25 mg DAILY PO Last administered on 08:49; Start 05/16/17 at 09:00 Oxycodone/ Acetaminophen (Percocet 10/325) 1 tab QID PO Last administered on 18:01; Start 05/15/17 at 17:00 Calcium/Vitamin D (Oscal D 500mg/ 200uts) 1 tab BIDWMEALS PO Last administered on 05/27/17 18:01; Start 05/15/17 at 17:00 Docusate Sodium (Colace) 100 mg BID PO Last administered on 05/20/17 08:27; Start 05/15/17 at 21:00; Stop 05/20/17 at 12:49; Status DC Famotidine (Pepcid) 20 mg BID PO Last administered on 05/27/17 08:50; Start at 21:00 Lisinopril (Prinivil) 20 mg BID PO Last administered on 05/27/17 08:49; Start 05/15/17 at 21:00 Metoprolol Tartrate (Lopressor) 50 mg BID PO Last administered on 05/27/17 08: 49; Start 05/15/17 at 21:00 Clonidine HCl (Catapres) 0.2 mg DAILY PRN PO HYPERTENSION, SEE COMMENTS; Start 05/16/17 at 09:00 Albuterol/ Ipratropium (Duoneb) 3 ml Q4HRS PRN NEB SHORTNESS OF BREATH Last administered on 05/21/17 10:10; Start 05/15/17 at 14:15 Acetaminophen (Tylenol) 650 mg PRN Q8HRS PRN PO PAIN Last administered on 19:55; Start 05/15/17 at 14:15 Cyclobenzaprine HCl (Flexeril) 10 mg Q8HRS PRN PO MUSCLE SPASMS Last administered on 05/26/17 07:31; Start 05/15/17 at 14:15 Ondansetron HCl (Zofran Odt) 4 mg PRN Q8HRS PRN PO NAUSEA/VOMITING; Start 05/15 at 14:15 Loperamide HCl (Imodium) 2 mg PRN Q3HRS PRN PO DIARRHEA Last administered on 13:20; Start 05/15/17 at 14:15 Nystatin (Nystop) 1 mike BID TP Last administered on 05/15/17 19:38; Start at 21:00; Stop 05/15/17 at 21:00; Status DC Fentanyl (Duragesic 12mcg/ Hr) 1 patch Q3DAYS TD Last administered on 09:10; Start 05/16/17 at 09:00; Stop 05/26/17 at 15:17; Status DC Nystatin (Nystop) 1 mike BID TP Last administered on 05/27/17 08:53; Start at 21:00 Divalproex Sodium (Depakote Sprinkles) 125 mg TID PO Last administered on 13:38; Start 05/15/17 at 21:00; Stop 05/26/17 at 18:17; Status DC Vitamin D (Vitamin D3) 50,000 unit WEEKLY PO Last administered on 05/24/17 07: 54; Start 05/17/17 at 09:00 Clonazepam (KlonoPIN) 0.5 mg PRN TID PRN PO ANXIETY / AGITATION Last administered on 05/26/17 07:31; Start 05/17/17 at 06:00 Duloxetine HCl (Cymbalta) 30 mg DAILY PO Last administered on 05/20/17 08:25; Start 05/19/17 at 09:00; Stop 05/20/17 at 10:00; Status DC Duloxetine HCl (Cymbalta) 60 mg DAILY PO Last administered on 05/23/17 08:07; Start 05/21/17 at 09:00; Stop 05/23/17 at 10:00; Status DC Duloxetine HCl (Cymbalta) 90 mg DAILY PO Last administered on 05/27/17 08:50; Start 05/24/17 at 09:00 Fentanyl (Duragesic 25mcg/ Hr) 1 patch Q3DAYS TD Last administered on 15:48; Start 05/26/17 at 15:30 Divalproex Sodium (Depakote Sprinkles) 250 mg TID PO Last administered on 13:14; Start 05/26/17 at 21:00 Active Scripts Active Reported Trazodone Hcl 50 Mg Tablet 50 Mg PO PRN QHS PRN Miralax (Polyethylene Glycol 3350) 17 Gm Powd.pack 17 Gm PO DAILY Pantoprazole Sodium 40 Mg Tablet.dr 40 Mg PO DAILYAC Oxycontin (Oxycodone Hcl) 10 Mg Tab.er.12h 10 Mg PO [id number] Zyprexa Zydis (Olanzapine) 5 Mg Tab.rapdis 5 Mg PO PRN Q2HR PRN Analgesic Portal (Methyl Salicylate/Menthol) 29 Gm Oint...g. 1 Mike TP PRN QID PRN Milk Of Magnesia (Magnesium Hydroxide) 2,400 Mg/10 Ml Oral.susp 2,400 Mg PO PRN QHS PRN Advanced Antacid Liquid (Mag Hydrox/Al Hydrox/Simeth) 355 Ml Oral.susp 15 Ml PO PRN AFTMEALHC PRN Cymbalta (Duloxetine Hcl) 30 Mg Capsule.dr 30 Mg PO DAILY Colace (Docusate Sodium) 100 Mg Capsule 100 Mg PO BID Tegretol (Carbamazepine) 200 Mg Tablet 400 Mg PO HS Acetaminophen 500 Mg Tablet 650 Mg PO PRN Q6HRS PRN Folic Acid 0.8 Mg Tablet 0.8 Mg PO DAILY Calcium 500 + Vit D 400 Tablet (Calcium Carbonate/Vitamin D3) 1 Each Tablet 1 Tab PO BIDWBKFT/KAYY Hydrocodone-Apap 10-325 (Hydrocodone Bit/Acetaminophen) 1 Each Tablet 1 Tab PO PRN Q4HRS PRN Alprazolam 0.5 Mg Tablet 0.5 Mg PO PRN Q2HR PRN max dosage: 3mg/24hrs Loratadine 10 Mg Tablet 10 Mg PO PRN DAILY PRN Loperamide (Loperamide Hcl) 2 Mg Capsule 2 Mg PO PRN Q4HRS PRN Methylphenidate Er (Methylphenidate Hcl) 10 Mg Tablet.er 10 Mg PO DAILY Multivitamins (Multivitamin) 1 Each Tablet 1 Tab PO DAILY Mupirocin 22 Gm Oint...g. 1 Mike TP PRN BID PRN Cholestyramine Packet (Cholestyramine (With Sugar)) 4 Gm Powd.pack 4 Gm PO BID Ferrous Sulfate 325 Mg Tablet 325 Mg PO NOON Vitamin C (Ascorbic Acid) 500 Mg Tablet 500 Mg PO TID Norvasc (Amlodipine Besylate) 5 Mg Tablet 5 Mg PO BID NITROGLYCERIN SubLingual (Nitroglycerin) 0.4 Mg Tab.subl 0.4 Mg SL PRN Q5MIN PRN Creon 24,000 Units Capsule (Lipase/Protease/Amylase) 1 Each Capsule. 5 Cap PO TIDWMEALS Diagnosis: Problems: (1) Dementia (2) Bipolar disorder, mixed (3) Bipolar affective disorder, mixed (4) Anxiety disorder (5) Major depressive disorder, recurrent episode (6) Impulse control disorder TESHA MANZANO MD May 27, 2017 19:46
[2017-05-27] MEDS: CYCLOBENZAPRINE 10 MG TABLET. PO PRN (19:59)
[2017-05-27] MEDS: MIRTAZAPINE 15 MG TAB.RAPDIS PO SCH (20:00)
[2017-05-27] MEDS: DONEPEZIL HCL 10 MG TABLET PO SCH (20:00)
[2017-05-27] MEDS: OLANZapine 10 MG TABLET PO SCH (20:01)
[2017-05-27] MEDS: clonazePAM 0.5 MG TABLET PO SCH (20:12)
--- NOTE | 2017-05-28 00:26 | NUR ---
Behavior Intervention Response and Plan: BIRP Note: Behavior: Assumed Care of patient, patient located in Patient Room at shift change. Patient exhibited the following behavior Calm, Sleeping, Withdrawn. Brief assessment on rounds of vital signs, medication needs, lab studies, and pain. Treatment plan problems 1 and 2. Intervention: Patient assessed and the following interventions initiated safety checks 15 Minute Checks Cognitive Assessment , Head to toe Assessment , Medications. Response: After interactions and interventions patient responded in the following manner, Calm , Compliant ,Cooperative. Continue to assess behaviors and condition will continue to monitor throughout the shift as needed. Patient educated on ADL's, and hand hygiene. 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 Continue to assess patient for changes in above assessment. Monitor for medication needs, pain, and safety concerns. Hourly rounding performed to ensure safe environment.
[2017-05-28 05:54] VITALS: BP 151/82
[2017-05-28] MEDS: METOPROLOL TART IMMED RELEASE 50 MG TABLET PO SCH ×2 (08:10→19:38)
[2017-05-28] MEDS: FERROUS SULFATE 325 MG TABLET PO SCH (08:10)
[2017-05-28] MEDS: CALCIUM CARB/VIT D3 500/200 TABLET PO SCH ×2 (08:10→17:24)
[2017-05-28] MEDS: FAMOTIDINE 20 MG TABLET PO SCH ×2 (08:11→19:37)
[2017-05-28] MEDS: oxyCODONE/APAP 10/325 1 TAB TABLET PO SCH ×4 (08:11→19:47)
[2017-05-28] MEDS: ASPIRIN 81 MG TAB.CHEW PO SCH (08:11)
[2017-05-28] MEDS: hydroCHLOROthiazide 25 MG TABLET PO SCH (08:11)
[2017-05-28] MEDS: DIVALPROEX 125 MG CAP.SPRINK PO SCH ×3 (08:11→19:37)
[2017-05-28] MEDS: levETIRAcetam 250 MG TABLET PO SCH ×2 (08:11→19:36)
[2017-05-28] MEDS: LISINOPRIL 20 MG TABLET PO SCH ×2 (08:12→19:37)
[2017-05-28] MEDS: DULoxetine HCL 30 MG CAPSULE.DR PO SCH (08:12)
[2017-05-28] MEDS: NYSTATIN TOPICAL POWDER 15GM BOTTLE. TP SCH ×2 (08:12→19:48)
--- NOTE | 2017-05-28 09:15 | NUR ---
THERAPEUTIC RECREATION GROUP NOTE TITLE :Music Bingo ACTIVITY : Music, Cognitive Stimulation GOAL : Increase socialization, elevate mood, stimulate memory, Maintain or improve cognitive functioning DURATION : 60 minutes RESPONSE : Moderate participation. Pt. was with the gorup the entire time. She stood up and sat back down in her wheelchair several times, she was moved to an actual chair and was able to sit longer. She complained of back pain. She needed the songs pointed out on her card and she was able to place the chip in the correct location.
--- NOTE | 2017-05-28 10:05 | PN ---
DATE: 05/26/2017 This late entry 05/26/2017 covers elements not covered in my initial note of 05/26/2017. I met with the patient evening of 05/26/2017. Overall, per nursing report, she has been attention seeking, med seeking, otherwise compliant with cares. Complains of back pain. Dr. Singh has increased the fentanyl patch. She received Klonopin on a consistent basis between 4:00 a.m. and 7:00 a.m. No CV, , pulmonary, eye system symptoms on review. MENTAL STATUS EXAM: Reasonably oriented. Speech coherent, abstraction fair, computation impaired, language function intact, attention span short. Mood and affect still somewhat dysphoric. LABORATORY DATA: Reviewed. IMPRESSION: Unchanged from initial note. PLAN: Continue current psychotropics, Depakote has been increased. Follow labs level on 05/29/2017. Rest remained unchanged. MAN Mau MANZANO MD DR: SURESH/ame JOB#: [id number] / [id number]
--- NOTE | 2017-05-28 12:51 | NUR ---
Behavior Intervention Response and Plan: BIRP Note: Behavior: Assumed Care of patient, patient located in Patient Room at shift change. Patient exhibited the following behavior Interactive, Demanding, Medication Seeking. Brief assessment on rounds of vital signs, medication needs, lab studies, and pain. Treatment plan problems 1 and 2. Intervention: Patient assessed and the following interventions initiated safety checks 15 Minute Checks Cognitive Assessment , Head to toe Assessment , Medications. Response: After interactions and interventions patient responded in the following manner, Interactive , Drowsy ,Compliant. Continue to assess behaviors and condition will continue to monitor throughout the shift as needed. Patient educated on ADL's, and hand hygiene. Plan: Continue to monitor Master Treatment Plan for patient's progress toward short term goals of Decreased Agitation, Decreased Anxiety, skilled nursing goals to return to previous living setting vs placement. Continue to assess patient for changes in above assessment. Monitor for medication needs, pain, and safety concerns. Hourly rounding performed to ensure safe environment.
--- NOTE | 2017-05-28 12:52 | NUR ---
Asking for pain medications due to back pain. Seems contented to "wait until they are due" as scheduled. Less complaining about pain today, as compared to yesterday. Will continue to monitor.
[2017-05-28] MEDS: CYCLOBENZAPRINE 10 MG TABLET. PO PRN (13:22)
--- NOTE | 2017-05-28 14:15 | NUR ---
THERAPEUTIC RECREATION GROUP NOTE TITLE :Leisure Preferences ACTIVITY : Leisure Education GOAL : Increase knowledge of leisure activities, educate on preferences/ barriers DURATION : 60 minutes RESPONSE : No participation.
[2017-05-28 16:13] VITALS: BP 100/54
--- NOTE | 2017-05-28 18:28 | NUR ---
Did not change bandage on day shift as patient scheduled for shower at night. Will pass on in shift report.
[2017-05-28] MEDS: OLANZapine 10 MG TABLET PO SCH (19:37)
[2017-05-28] MEDS: MIRTAZAPINE 15 MG TAB.RAPDIS PO SCH (19:37)
[2017-05-28] MEDS: DONEPEZIL HCL 10 MG TABLET PO SCH (19:38)
[2017-05-28] MEDS: clonazePAM 0.5 MG TABLET PO SCH (19:48)
--- NOTE | 2017-05-28 19:54 | PDOC ---
Exam Monty Demential Exam: Monty Note: Please also refer to the separate dictated note~for this date of service dictated separately.~Patient seen individually. Discussed the patient with Nursing staff reviewed the chart.~Reviewed interim history and current functioning. Reviewed vital signs,~Labs/ Radiology~and current medications noted below. Continue current treatment with the changes noted in the dictated addendum note Assessment: Vital Signs: Vital Signs Date Time Temp Pulse Resp B/P (MAP) Pulse Ox O2 Delivery O2 Flow Rate FiO2 05/28/17 19:38 58 100/54 05/28/17 16:13 97.9 16 94 05/27/17 07:00 Room Air I&O Intake and Output 05/29/17 07:00 Intake Total 1320 ml Balance 1320 ml Intake Oral 1320 ml Current Medications: Meds: Current Medications Acetaminophen (Tylenol) 1,000 mg 1X ONCE PO Last administered on 05/15/17 11: 38; Start 05/15/17 at 11:45; Stop 05/15/17 at 13:52; Status DC Lorazepam (Ativan) 1 mg 1X ONCE PO Last administered on 05/15/17 11:38; Start 05/15/17 at 11:45; Stop 05/15/17 at 13:50; Status DC Acetaminophen (Tylenol) 650 mg PRN Q6HRS PRN PO PAIN / TEMP Last administered on 05/16/17 14:41; Start 05/15/17 at 13:30; Stop 05/16/17 at 15:30; Status DC Multi-Ingredient Ointment (Analgesic Colon) 1 mike PRN QID PRN TP MUSCLE PAIN; Start 05/15/17 at 13:30 Al Hydroxide/Mg Hydroxide (Mylanta Plus Xs) 15 ml PRN AFTMEALHC PRN PO DYSPEPSIA; Start 05/15/17 at 13:30 Magnesium Hydroxide (Milk Of Magnesia) 2,400 mg PRN QHS PRN PO CONSTIPATION; Start 05/15/17 at 13:30 Nicotine (Nicoderm Cq 14mg) 1 patch DAILY TD ; Start 05/16/17 at 09:00; Stop at 10:41; Status DC Escitalopram Oxalate (Lexapro) 20 mg DAILY PO Last administered on 05/18/17 07 :17; Start 05/16/17 at 09:00; Stop 05/18/17 at 22:07; Status DC Donepezil HCl (Aricept) 10 mg QHS PO Last administered on 05/28/17 19:38; Start 05/15/17 at 21:00 Clonazepam (KlonoPIN) 0.5 mg QHS PO Last administered on 05/28/17 19:48; Start 05/15/17 at 21:00 Donepezil HCl (Aricept) 5 mg QHS PO Last administered on 05/15/17 19:38; Start 05/15/17 at 21:00; Stop 05/15/17 at 23:44; Status DC Levetiracetam (Keppra) 750 mg BID PO Last administered on 05/28/17 19:36; Start 05/15/17 at 21:00 Clonazepam (KlonoPIN) 0.5 mg PRN BID PRN PO ANXIETY / AGITATION Last administered on 05/16/17 16:22; Start 05/15/17 at 14:00; Stop 05/16/17 at 18:45 ; Status DC Olanzapine (ZyPREXA) 10 mg QHS PO Last administered on 05/28/17 19:37; Start 05/15/17 at 21:00 Mirtazapine (Remeron Genny-Tab) 15 mg QHS PO Last administered on 05/28/17 19:37 ; Start 05/15/17 at 21:00 Aspirin (Children'S Aspirin) 81 mg DAILY PO Last administered on 05/28/17 08: 11; Start 05/16/17 at 09:00 Ferrous Sulfate (Feosol) 325 mg DAILY PO Last administered on 05/28/17 08:10; Start 05/16/17 at 09:00 Hydrochlorothiazide (Hydrodiuril) 25 mg DAILY PO Last administered on 08:11; Start 05/16/17 at 09:00 Oxycodone/ Acetaminophen (Percocet 10/325) 1 tab QID PO Last administered on 19:47; Start 05/15/17 at 17:00 Calcium/Vitamin D (Oscal D 500mg/ 200uts) 1 tab BIDWMEALS PO Last administered on 05/28/17 17:24; Start 05/15/17 at 17:00 Docusate Sodium (Colace) 100 mg BID PO Last administered on 05/20/17 08:27; Start 05/15/17 at 21:00; Stop 05/20/17 at 12:49; Status DC Famotidine (Pepcid) 20 mg BID PO Last administered on 05/28/17 19:37; Start at 21:00 Lisinopril (Prinivil) 20 mg BID PO Last administered on 05/28/17 19:37; Start 05/15/17 at 21:00 Metoprolol Tartrate (Lopressor) 50 mg BID PO Last administered on 05/28/17 19: 38; Start 05/15/17 at 21:00 Clonidine HCl (Catapres) 0.2 mg DAILY PRN PO HYPERTENSION, SEE COMMENTS; Start 05/16/17 at 09:00 Albuterol/ Ipratropium (Duoneb) 3 ml Q4HRS PRN NEB SHORTNESS OF BREATH Last administered on 05/21/17 10:10; Start 05/15/17 at 14:15 Acetaminophen (Tylenol) 650 mg PRN Q8HRS PRN PO PAIN Last administered on 19:55; Start 05/15/17 at 14:15 Cyclobenzaprine HCl (Flexeril) 10 mg Q8HRS PRN PO MUSCLE SPASMS Last administered on 05/28/17 13:22; Start 05/15/17 at 14:15 Ondansetron HCl (Zofran Odt) 4 mg PRN Q8HRS PRN PO NAUSEA/VOMITING; Start 05/15 at 14:15 Loperamide HCl (Imodium) 2 mg PRN Q3HRS PRN PO DIARRHEA Last administered on 13:20; Start 05/15/17 at 14:15 Nystatin (Nystop) 1 mike BID TP Last administered on 05/15/17 19:38; Start at 21:00; Stop 05/15/17 at 21:00; Status DC Fentanyl (Duragesic 12mcg/ Hr) 1 patch Q3DAYS TD Last administered on 09:10; Start 05/16/17 at 09:00; Stop 05/26/17 at 15:17; Status DC Nystatin (Nystop) 1 mike BID TP Last administered on 05/28/17 19:48; Start at 21:00 Divalproex Sodium (Depakote Sprinkles) 125 mg TID PO Last administered on 13:38; Start 05/15/17 at 21:00; Stop 05/26/17 at 18:17; Status DC Vitamin D (Vitamin D3) 50,000 unit WEEKLY PO Last administered on 05/24/17 07: 54; Start 05/17/17 at 09:00 Clonazepam (KlonoPIN) 0.5 mg PRN TID PRN PO ANXIETY / AGITATION Last administered on 05/26/17 07:31; Start 05/17/17 at 06:00 Duloxetine HCl (Cymbalta) 30 mg DAILY PO Last administered on 05/20/17 08:25; Start 05/19/17 at 09:00; Stop 05/20/17 at 10:00; Status DC Duloxetine HCl (Cymbalta) 60 mg DAILY PO Last administered on 05/23/17 08:07; Start 05/21/17 at 09:00; Stop 05/23/17 at 10:00; Status DC Duloxetine HCl (Cymbalta) 90 mg DAILY PO Last administered on 05/28/17 08:12; Start 05/24/17 at 09:00 Fentanyl (Duragesic 25mcg/ Hr) 1 patch Q3DAYS TD Last administered on 15:48; Start 05/26/17 at 15:30 Divalproex Sodium (Depakote Sprinkles) 250 mg TID PO Last administered on 19:37; Start 05/26/17 at 21:00 Aripiprazole (Abilify) 5 mg DAILY PO ; Start 05/29/17 at 09:00 Active Scripts Active Reported Trazodone Hcl 50 Mg Tablet 50 Mg PO PRN QHS PRN Miralax (Polyethylene Glycol 3350) 17 Gm Powd.pack 17 Gm PO DAILY Pantoprazole Sodium 40 Mg Tablet.dr 40 Mg PO DAILYAC Oxycontin (Oxycodone Hcl) 10 Mg Tab.er.12h 10 Mg PO [id number] Zyprexa Zydis (Olanzapine) 5 Mg Tab.rapdis 5 Mg PO PRN Q2HR PRN Analgesic Colon (Methyl Salicylate/Menthol) 29 Gm Oint...g. 1 Mike TP PRN QID PRN Milk Of Magnesia (Magnesium Hydroxide) 2,400 Mg/10 Ml Oral.susp 2,400 Mg PO PRN QHS PRN Advanced Antacid Liquid (Mag Hydrox/Al Hydrox/Simeth) 355 Ml Oral.susp 15 Ml PO PRN AFTMEALHC PRN Cymbalta (Duloxetine Hcl) 30 Mg Capsule.dr 30 Mg PO DAILY Colace (Docusate Sodium) 100 Mg Capsule 100 Mg PO BID Tegretol (Carbamazepine) 200 Mg Tablet 400 Mg PO HS Acetaminophen 500 Mg Tablet 650 Mg PO PRN Q6HRS PRN Folic Acid 0.8 Mg Tablet 0.8 Mg PO DAILY Calcium 500 + Vit D 400 Tablet (Calcium Carbonate/Vitamin D3) 1 Each Tablet 1 Tab PO [id number] Hydrocodone-Apap 10-325 (Hydrocodone Bit/Acetaminophen) 1 Each Tablet 1 Tab PO PRN Q4HRS PRN Alprazolam 0.5 Mg Tablet 0.5 Mg PO PRN Q2HR PRN max dosage: 3mg/24hrs Loratadine 10 Mg Tablet 10 Mg PO PRN DAILY PRN Loperamide (Loperamide Hcl) 2 Mg Capsule 2 Mg PO PRN Q4HRS PRN Methylphenidate Er (Methylphenidate Hcl) 10 Mg Tablet.er 10 Mg PO DAILY Multivitamins (Multivitamin) 1 Each Tablet 1 Tab PO DAILY Mupirocin 22 Gm Oint...g. 1 Mike TP PRN BID PRN Cholestyramine Packet (Cholestyramine (With Sugar)) 4 Gm Powd.pack 4 Gm PO BID Ferrous Sulfate 325 Mg Tablet 325 Mg PO NOON Vitamin C (Ascorbic Acid) 500 Mg Tablet 500 Mg PO TID Norvasc (Amlodipine Besylate) 5 Mg Tablet 5 Mg PO BID NITROGLYCERIN SubLingual (Nitroglycerin) 0.4 Mg Tab.subl 0.4 Mg SL PRN Q5MIN PRN Creon Dr 24,000 Units Capsule (Lipase/Protease/Amylase) 1 Each Capsule. 5 Cap PO TIDWMEALS Diagnosis: Problems: (1) Dementia (2) Bipolar disorder, mixed (3) Bipolar affective disorder, mixed (4) Anxiety disorder (5) Major depressive disorder, recurrent episode NATACHA,MAN M MD May 28, 2017 19:54
--- NOTE | 2017-05-28 22:15 | NUR ---
Behavior Intervention Response and Plan: BIRP Note: Behavior: Assumed Care of patient, patient located in Patient Room at shift change. Patient exhibited the following behavior Calm, Disorganized, Cooperative. Brief assessment on rounds of vital signs, medication needs, lab studies, and pain. Treatment plan problems . Intervention: Patient assessed and the following interventions initiated safety checks 15 Minute Checks Head to toe Assessment , Cognitive Assessment , Medications. Response: After interactions and interventions patient responded in the following manner, Able to Focus on Task , Drowsy ,Compliant. Continue to assess behaviors and condition will continue to monitor throughout the shift as needed. Patient educated on ADL's, and hand hygiene. 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 Continue to assess patient for changes in above assessment. Monitor for medication needs, pain, and safety concerns. Hourly rounding performed to ensure safe environment.
[2017-05-29 06:08] VITALS: BP 119/58
[2017-05-29] MEDS: FAMOTIDINE 20 MG TABLET PO SCH ×2 (07:48→21:11)
[2017-05-29] MEDS: METOPROLOL TART IMMED RELEASE 50 MG TABLET PO SCH ×2 (07:49→21:00)
[2017-05-29] MEDS: FERROUS SULFATE 325 MG TABLET PO SCH (07:49)
[2017-05-29] MEDS: DIVALPROEX 125 MG CAP.SPRINK PO SCH ×3 (07:49→21:11)
[2017-05-29] MEDS: CALCIUM CARB/VIT D3 500/200 TABLET PO SCH ×2 (07:49→18:23)
[2017-05-29] MEDS: LISINOPRIL 20 MG TABLET PO SCH ×2 (07:49→21:00)
[2017-05-29] MEDS: ASPIRIN 81 MG TAB.CHEW PO SCH (07:49)
[2017-05-29] MEDS: DULoxetine HCL 30 MG CAPSULE.DR PO SCH (07:50)
[2017-05-29] MEDS: levETIRAcetam 250 MG TABLET PO SCH ×2 (07:50→21:10)
[2017-05-29] MEDS: hydroCHLOROthiazide 25 MG TABLET PO SCH (07:50)
[2017-05-29] MEDS: cloNIDine HCL 0.2 MG TABLET PO PRN (07:50)
[2017-05-29] MEDS: NYSTATIN TOPICAL POWDER 15GM BOTTLE. TP SCH ×2 (07:51→21:11)
[2017-05-29] MEDS: oxyCODONE/APAP 10/325 1 TAB TABLET PO SCH ×4 (07:53→21:15)
[2017-05-29] MEDS: ARIPiprazole 5 MG TABLET PO SCH (07:53)
[2017-05-29] MEDS: fentaNYL 25MCG/HR 1 PATCH PATCH TD SCH (07:54)
[2017-05-29 07:55] LABS: BASO % 1 % (0-3); EOS # 0.2 x10^3/uL (0.0-0.7); EOS % 3 % (0-3); HEMATOCRIT 41.8 % (36.0-47.0); HEMOGLOBIN 13.2 g/dL (12.0-15.5); LYMPH # 1.1 x10^3/uL (1.0-4.8); LYMPH % 21 % (24-48); MEAN CORPUSCULAR HEMOGLOBIN 25 pg (25-35); MEAN CORPUSCULAR HGB CONC 32 g/dL (31-37); MEAN CORPUSCULAR VOLUME 80 fL (79-100); MONO # 0.7 x10^3/uL (0.0-1.1); MONO % 13 % (0-9); NEUT # 3.3 x10^3uL (1.8-7.7); NEUT % 62 % (31-73); PLATELET COUNT 191 x10^3/uL (140-400); RED BLOOD COUNT 5.26 x10^6/uL (3.50-5.40); RED CELL DISTRIBUTION WIDTH 19.9 % (11.5-14.5); WHITE BLOOD COUNT 5.4 x10^3/uL (4.0-11.0)
[2017-05-29 08:17] LABS: ALBUMIN 2.9 g/dL (3.4-5.0); ALBUMIN/GLOBULIN RATIO 0.8 (1.0-1.7); ALK PHOS 77 U/L (46-116); ALT (SGPT) 12 U/L (14-59); ANION GAP 3 (6-14); AST (SGOT) 19 U/L (15-37); BLOOD UREA NITROGEN 21 mg/dL (7-20); BUN/CREATININE RATIO 21 (6-20); CALCIUM 9.1 mg/dL (8.5-10.1); CARBON DIOXIDE 33 mmol/L (21-32); CHLORIDE 101 mmol/L (98-107); GFR 53.9; GLUCOSE 84 mg/dL (70-99); POTASSIUM 4.5 mmol/L (3.5-5.1); SODIUM 137 mmol/L (136-145); TOTAL BILIRUBIN 0.2 mg/dL (0.2-1.0); TOTAL PROTEIN 6.4 g/dL (6.4-8.2)
[2017-05-29 08:20] LABS: VAL ACID 37 mcg/mL (50-100)
[2017-05-29] MEDS: LOPERAMIDE 2 MG CAPSULE PO PRN (09:17)
--- NOTE | 2017-05-29 09:18 | NUR ---
Patient was complaining of constipation at breakfast. Given Prune Juice per her request. Last documented bowel movement was on 05/24. Patient has had a bout of incontinent diarrhea, and is having a second episode on the toilet now. Given PRN immodium per order for diarrhea and will continue to monitor.
--- NOTE | 2017-05-29 09:19 | PN ---
DATE: 05/27/2017 This late entry 05/27/2017 covers elements not covered in my initial note of 05/27/2017. I met with the patient evening of 05/27/2017. Per nursing report, the patient has been quite attention seeking medications seeking for her pain, despite adjustments made by Dr. Singh for this. REVIEW OF SYSTEMS: Positive for back pain. No CV, , pulmonary, eye, ENT system symptoms on review. Ambulation impaired. MENTAL STATUS EXAM: Reasonably oriented. Speech is coherent, has some latency. Abstraction fair, computation impaired, language function intact, attention span short. Mood and affect remain somewhat labile. LABORATORY DATA: Reviewed. Valproic acid level at last check was 27 and will be repeated again on 05/29/2017. IMPRESSION: Unchanged from initial note. PLAN: Continue current psychotropics, repeat labs level on the Depakote. Adjust to reach a therapeutic level. Continue rest, unchanged for now. TESHA MANZANO MD DR: SURESH/ame JOB#: [id number] / [id number]
--- NOTE | 2017-05-29 09:30 | NUR ---
THERAPEUTIC RECREATION GROUP NOTE TITLE :Social Session: Bingo and Painting! -REPORTED AND LED by CNAs ACTIVITY : Activities and Games GOAL : Increase social interaction, fine motor skills. Maintain or improve mental functioning. Decrease restlessness DURATION : Available for 120 minutes RESPONSE : No participation.
--- NOTE | 2017-05-29 11:32 | NUR ---
JIMMY faxed [facility] updated clinicals w/target dc date set for Friday next week.
--- NOTE | 2017-05-29 11:37 | NUR ---
SW left message for Pt's grandson/DPOA, Tucker, regarding dc plans moved to early next week.
--- NOTE | 2017-05-29 14:15 | NUR ---
THERAPEUTIC RECREATION GROUP NOTE TITLE :Karaoke ACTIVITY : Activities and Games GOAL : Increase social interaction, fine motor skills. Maintain or improve mental functioning. Decrease restlessness DURATION : 75 minutes RESPONSE : No participation.
[2017-05-29 16:13] VITALS: BP 90/48
--- NOTE | 2017-05-29 16:24 | NUR ---
Behavior Intervention Response and Plan: BIRP Note: Behavior: Assumed Care of patient, patient located in Patient Room at shift change. Patient exhibited the following behavior Calm, Medication Seeking, Attention Seeking. Brief assessment on rounds of vital signs, medication needs, lab studies, and pain. Treatment plan problems 1 and 2. Intervention: Patient assessed and the following interventions initiated safety checks 15 Minute Checks Cognitive Assessment , Head to toe Assessment , Medications. Response: After interactions and interventions patient responded in the following manner, Disorganized , Demanding ,Medication Seeking. Continue to assess behaviors and condition will continue to monitor throughout the shift as needed. Patient educated on ADL's, and hand hygiene. Plan: Continue to monitor Master Treatment Plan for patient's progress toward short term goals of Decreased Agitation, Decreased Aggression, fourth mate goals to return to previous living setting vs placement. Continue to assess patient for changes in above assessment. Monitor for medication needs, pain, and safety concerns. Hourly rounding performed to ensure safe environment.
--- NOTE | 2017-05-29 16:25 | NUR ---
patient has been withdrawn to room most of the day. No more incidences of diarrhea noted to this point.
--- NOTE | 2017-05-29 18:24 | NUR ---
held patients 1700 Percocet. Patients vital signs BP 90/48 pulse 65. Patient asleep in bed without signs or symptoms of pain. Patient appeared sedated at dinner.
--- NOTE | 2017-05-29 19:53 | PDOC ---
Exam Monty Demential Exam: Monty Note: Please also refer to the separate dictated note~for this date of service dictated separately.~Patient seen individually. Discussed the patient with Nursing staff reviewed the chart.~Reviewed interim history and current functioning. Reviewed vital signs,~Labs/ Radiology~and current medications noted below. Continue current treatment with the changes noted in the dictated addendum note Assessment: Vital Signs: Vital Signs Date Time Temp Pulse Resp B/P (MAP) Pulse Ox O2 Delivery O2 Flow Rate FiO2 05/29/17 16:13 97.5 65 16 90/48 (62) 92 05/27/17 07:00 Room Air I&O Intake and Output 05/30/17 06:59 Intake Total 600 ml Balance 600 ml Intake Oral 600 ml # Bowel Movements 2 Labs: Laboratory Tests Test 05/29/17 06:48 White Blood Count 5.4 x10^3/uL (4.0-11.0) Red Blood Count 5.26 x10^6/uL (3.50-5.40) Hemoglobin 13.2 g/dL (12.0-15.5) Hematocrit 41.8 % (36.0-47.0) Mean Corpuscular Volume 80 fL (79-100) Mean Corpuscular Hemoglobin 25 pg (25-35) Mean Corpuscular Hemoglobin Concent 32 g/dL (31-37) Red Cell Distribution Width 19.9 % (11.5-14.5) H Platelet Count 191 x10^3/uL (140-400) Neutrophils (%) (Auto) 62 % (31-73) Lymphocytes (%) (Auto) 21 % (24-48) L Monocytes (%) (Auto) 13 % (0-9) H Eosinophils (%) (Auto) 3 % (0-3) Basophils (%) (Auto) 1 % (0-3) Neutrophils # (Auto) 3.3 x10^3uL (1.8-7.7) Lymphocytes # (Auto) 1.1 x10^3/uL (1.0-4.8) Monocytes # (Auto) 0.7 x10^3/uL (0.0-1.1) Eosinophils # (Auto) 0.2 x10^3/uL (0.0-0.7) Basophils # (Auto) 0.0 x10^3/uL (0.0-0.2) Sodium Level 137 mmol/L (136-145) Potassium Level 4.5 mmol/L (3.5-5.1) Chloride Level 101 mmol/L (98-107) Carbon Dioxide Level 33 mmol/L (21-32) H Anion Gap 3 (6-14) L Blood Urea Nitrogen 21 mg/dL (7-20) H Creatinine 1.0 mg/dL (0.6-1.0) Estimated GFR (Cockcroft-Gault) 53.9 BUN/Creatinine Ratio 21 (6-20) H Glucose Level 84 mg/dL (70-99) Calcium Level 9.1 mg/dL (8.5-10.1) Total Bilirubin 0.2 mg/dL (0.2-1.0) Aspartate Amino Transferase (AST) 19 U/L (15-37) Alanine Aminotransferase (ALT) 12 U/L (14-59) L Alkaline Phosphatase 77 U/L (46-116) Total Protein 6.4 g/dL (6.4-8.2) Albumin 2.9 g/dL (3.4-5.0) L Albumin/Globulin Ratio 0.8 (1.0-1.7) L Valproic Acid Level 37 mcg/mL (50-100) L Valproic Acid Last Dose Date 05/28/17 Valproic Acid Last Dose Time 2100 Current Medications: Meds: Current Medications Acetaminophen (Tylenol) 1,000 mg 1X ONCE PO Last administered on 05/15/17 11: 38; Start 05/15/17 at 11:45; Stop 05/15/17 at 13:52; Status DC Lorazepam (Ativan) 1 mg 1X ONCE PO Last administered on 05/15/17 11:38; Start 05/15/17 at 11:45; Stop 05/15/17 at 13:50; Status DC Acetaminophen (Tylenol) 650 mg PRN Q6HRS PRN PO PAIN / TEMP Last administered on 05/16/17 14:41; Start 05/15/17 at 13:30; Stop 05/16/17 at 15:30; Status DC Multi-Ingredient Ointment (Analgesic [place]) 1 mike PRN QID PRN TP MUSCLE PAIN; Start 05/15/17 at 13:30 Al Hydroxide/Mg Hydroxide (Mylanta Plus Xs) 15 ml PRN AFTMEALHC PRN PO DYSPEPSIA; Start 05/15/17 at 13:30 Magnesium Hydroxide (Milk Of Magnesia) 2,400 mg PRN QHS PRN PO CONSTIPATION; Start 05/15/17 at 13:30 Nicotine (Nicoderm Cq 14mg) 1 patch DAILY TD ; Start 05/16/17 at 09:00; Stop at 10:41; Status DC Escitalopram Oxalate (Lexapro) 20 mg DAILY PO Last administered on 05/18/17 07 :17; Start 05/16/17 at 09:00; Stop 05/18/17 at 22:07; Status DC Donepezil HCl (Aricept) 10 mg QHS PO Last administered on 05/28/17 19:38; Start 05/15/17 at 21:00 Clonazepam (KlonoPIN) 0.5 mg QHS PO Last administered on 05/28/17 19:48; Start 05/15/17 at 21:00 Donepezil HCl (Aricept) 5 mg QHS PO Last administered on 05/15/17 19:38; Start 05/15/17 at 21:00; Stop 05/15/17 at 23:44; Status DC Levetiracetam (Keppra) 750 mg BID PO Last administered on 05/29/17 07:50; Start 05/15/17 at 21:00 Clonazepam (KlonoPIN) 0.5 mg PRN BID PRN PO ANXIETY / AGITATION Last administered on 05/16/17 16:22; Start 05/15/17 at 14:00; Stop 05/16/17 at 18:45 ; Status DC Olanzapine (ZyPREXA) 10 mg QHS PO Last administered on 05/28/17 19:37; Start 05/15/17 at 21:00 Mirtazapine (Remeron Genny-Tab) 15 mg QHS PO Last administered on 05/28/17 19:37 ; Start 05/15/17 at 21:00 Aspirin (Children'S Aspirin) 81 mg DAILY PO Last administered on 05/29/17 07: 49; Start 05/16/17 at 09:00 Ferrous Sulfate (Feosol) 325 mg DAILY PO Last administered on 05/29/17 07:49; Start 05/16/17 at 09:00 Hydrochlorothiazide (Hydrodiuril) 25 mg DAILY PO Last administered on 07:50; Start 05/16/17 at 09:00 Oxycodone/ Acetaminophen (Percocet 10/325) 1 tab QID PO Last administered on 13:36; Start 05/15/17 at 17:00 Calcium/Vitamin D (Oscal D 500mg/ 200uts) 1 tab BIDWMEALS PO Last administered on 05/29/17 07:49; Start 05/15/17 at 17:00 Docusate Sodium (Colace) 100 mg BID PO Last administered on 05/20/17 08:27; Start 05/15/17 at 21:00; Stop 05/20/17 at 12:49; Status DC Famotidine (Pepcid) 20 mg BID PO Last administered on 05/29/17 07:48; Start at 21:00 Lisinopril (Prinivil) 20 mg BID PO Last administered on 05/29/17 07:49; Start 05/15/17 at 21:00 Metoprolol Tartrate (Lopressor) 50 mg BID PO Last administered on 05/29/17 07: 49; Start 05/15/17 at 21:00 Clonidine HCl (Catapres) 0.2 mg DAILY PRN PO HYPERTENSION, SEE COMMENTS Last administered on 05/29/17 07:50; Start 05/16/17 at 09:00 Albuterol/ Ipratropium (Duoneb) 3 ml Q4HRS PRN NEB SHORTNESS OF BREATH Last administered on 05/21/17 10:10; Start 05/15/17 at 14:15 Acetaminophen (Tylenol) 650 mg PRN Q8HRS PRN PO PAIN Last administered on 19:55; Start 05/15/17 at 14:15 Cyclobenzaprine HCl (Flexeril) 10 mg Q8HRS PRN PO MUSCLE SPASMS Last administered on 05/28/17 13:22; Start 05/15/17 at 14:15 Ondansetron HCl (Zofran Odt) 4 mg PRN Q8HRS PRN PO NAUSEA/VOMITING; Start 05/15 at 14:15 Loperamide HCl (Imodium) 2 mg PRN Q3HRS PRN PO DIARRHEA Last administered on 09:17; Start 05/15/17 at 14:15 Nystatin (Nystop) 1 mike BID TP Last administered on 05/15/17 19:38; Start at 21:00; Stop 05/15/17 at 21:00; Status DC Fentanyl (Duragesic 12mcg/ Hr) 1 patch Q3DAYS TD Last administered on 09:10; Start 05/16/17 at 09:00; Stop 05/26/17 at 15:17; Status DC Nystatin (Nystop) 1 mike BID TP Last administered on 05/29/17 07:51; Start at 21:00 Divalproex Sodium (Depakote Sprinkles) 125 mg TID PO Last administered on 13:38; Start 05/15/17 at 21:00; Stop 05/26/17 at 18:17; Status DC Vitamin D (Vitamin D3) 50,000 unit WEEKLY PO Last administered on 05/24/17 07: 54; Start 05/17/17 at 09:00 Clonazepam (KlonoPIN) 0.5 mg PRN TID PRN PO ANXIETY / AGITATION Last administered on 05/26/17 07:31; Start 05/17/17 at 06:00 Duloxetine HCl (Cymbalta) 30 mg DAILY PO Last administered on 05/20/17 08:25; Start 05/19/17 at 09:00; Stop 05/20/17 at 10:00; Status DC Duloxetine HCl (Cymbalta) 60 mg DAILY PO Last administered on 05/23/17 08:07; Start 05/21/17 at 09:00; Stop 05/23/17 at 10:00; Status DC Duloxetine HCl (Cymbalta) 90 mg DAILY PO Last administered on 05/29/17 07:50; Start 05/24/17 at 09:00 Fentanyl (Duragesic 25mcg/ Hr) 1 patch Q3DAYS TD Last administered on 07:54; Start 05/26/17 at 15:30 Divalproex Sodium (Depakote Sprinkles) 250 mg TID PO Last administered on 07:49; Start 05/26/17 at 21:00; Stop 05/29/17 at 11:02; Status DC Aripiprazole (Abilify) 5 mg DAILY PO Last administered on 05/29/17 07:53; Start 05/29/17 at 09:00 Divalproex Sodium (Depakote Sprinkles) 375 mg TID PO Last administered on 13:35; Start 05/29/17 at 14:00 Active Scripts Active Reported Trazodone Hcl 50 Mg Tablet 50 Mg PO PRN QHS PRN Miralax (Polyethylene Glycol 3350) 17 Gm Powd.pack 17 Gm PO DAILY Pantoprazole Sodium 40 Mg Tablet.dr 40 Mg PO DAILYAC Oxycontin (Oxycodone Hcl) 10 Mg Tab.er.12h 10 Mg PO [id number] Zyprexa Zydis (Olanzapine) 5 Mg Tab.rapdis 5 Mg PO PRN Q2HR PRN Analgesic [place] (Methyl Salicylate/Menthol) 29 Gm Oint...g. 1 Mike TP PRN QID PRN Milk Of Magnesia (Magnesium Hydroxide) 2,400 Mg/10 Ml Oral.susp 2,400 Mg PO PRN QHS PRN Advanced Antacid Liquid (Mag Hydrox/Al Hydrox/Simeth) 355 Ml Oral.susp 15 Ml PO PRN AFTMEALHC PRN Cymbalta (Duloxetine Hcl) 30 Mg Capsule.dr 30 Mg PO DAILY Colace (Docusate Sodium) 100 Mg Capsule 100 Mg PO BID Tegretol (Carbamazepine) 200 Mg Tablet 400 Mg PO HS Acetaminophen 500 Mg Tablet 650 Mg PO PRN Q6HRS PRN Folic Acid 0.8 Mg Tablet 0.8 Mg PO DAILY Calcium 500 + Vit D 400 Tablet (Calcium Carbonate/Vitamin D3) 1 Each Tablet 1 Tab PO BIDWBKFT/KAYY Hydrocodone-Apap 10-325 (Hydrocodone Bit/Acetaminophen) 1 Each Tablet 1 Tab PO PRN Q4HRS PRN Alprazolam 0.5 Mg Tablet 0.5 Mg PO PRN Q2HR PRN max dosage: 3mg/24hrs Loratadine 10 Mg Tablet 10 Mg PO PRN DAILY PRN Loperamide (Loperamide Hcl) 2 Mg Capsule 2 Mg PO PRN Q4HRS PRN Methylphenidate Er (Methylphenidate Hcl) 10 Mg Tablet.er 10 Mg PO DAILY Multivitamins (Multivitamin) 1 Each Tablet 1 Tab PO DAILY Mupirocin 22 Gm Oint...g. 1 Mike TP PRN BID PRN Cholestyramine Packet (Cholestyramine (With Sugar)) 4 Gm Powd.pack 4 Gm PO BID Ferrous Sulfate 325 Mg Tablet 325 Mg PO NOON Vitamin C (Ascorbic Acid) 500 Mg Tablet 500 Mg PO TID Norvasc (Amlodipine Besylate) 5 Mg Tablet 5 Mg PO BID NITROGLYCERIN SubLingual (Nitroglycerin) 0.4 Mg Tab.subl 0.4 Mg SL PRN Q5MIN PRN Creon 24,000 Units Capsule (Lipase/Protease/Amylase) 1 Each Capsule. 5 Cap PO TIDWMEALS Diagnosis: Problems: (1) Dementia (2) Bipolar disorder, mixed (3) Bipolar affective disorder, mixed (4) Anxiety disorder (5) Major depressive disorder, recurrent episode (6) Impulse control disorder TESHA MANZANO MD May 29, 2017 19:53
[2017-05-29] MEDS: MIRTAZAPINE 15 MG TAB.RAPDIS PO SCH (21:10)
[2017-05-29] MEDS: DONEPEZIL HCL 10 MG TABLET PO SCH (21:11)
[2017-05-29] MEDS: clonazePAM 0.5 MG TABLET PO SCH (21:14)
[2017-05-29] MEDS: OLANZapine 10 MG TABLET PO SCH (21:15)
--- NOTE | 2017-05-29 21:55 | NUR ---
Behavior Intervention Response and Plan: BIRP Note: Behavior: Assumed Care of patient, patient located in Patient Room at shift change. Patient exhibited the following behavior Drowsy, Sleeping, Compliant. Brief assessment on rounds of vital signs, medication needs, lab studies, and pain. Treatment plan problems . Intervention: Patient assessed and the following interventions initiated safety checks 15 Minute Checks Head to toe Assessment , Cognitive Assessment , Medications. Response: After interactions and interventions patient responded in the following manner, Withdrawn , Interactive ,Disorganized. Continue to assess behaviors and condition will continue to monitor throughout the shift as needed. Patient educated on ADL's, and hand hygiene. Plan: Continue to monitor Master Treatment Plan for patient's progress toward short term goals of Improved Mood, Medication Compliance, care home goals to return to previous living setting vs placement. Continue to assess patient for changes in above assessment. Monitor for medication needs, pain, and safety concerns. Hourly rounding performed to ensure safe environment.
[2017-05-30 05:27] VITALS: BP 158/51
--- NOTE | 2017-05-30 05:45 | PN ---
DATE: 05/28/2017 This entry 05/28/2017 covers elements not covered in my initial note of 05/28/2017. I met with the patient evening of 05/28/2017. The patient has been withdrawn, spending much time in bed, but states the pain in the back is better. She is still depressed, anxious. REVIEW OF SYSTEMS: Ambulation impaired. Complains of back pain. No CV, , pulmonary, eye system symptoms on review. MENTAL STATUS EXAM: Reasonably oriented. Speech is coherent, has some latency, abstraction fair, computation impaired, language function intact, attention span short. Mood and affect still remains depressed, but showing improvement. LABORATORY DATA: Reviewed. IMPRESSION: Unchanged from initial note. PLAN: Continue current psychotropics mentioned in my initial note including Cymbalta 90 mg a day. Depakote is being adjusted, last level was 27, will be repeating labs to reach a therapeutic level. We will add Abilify 5 mg a day to augment the Cymbalta because of her symptoms of depression and for mood stability. Make further adjustments as clinically indicated. Review drug interactions, risk/benefit ratio favors no further change. MAN Mau MANZANO MD DR: SURESH/ame JOB#: [id number] / [id number]
[2017-05-30] MEDS: ARIPiprazole 5 MG TABLET PO SCH (08:14)
[2017-05-30] MEDS: hydroCHLOROthiazide 25 MG TABLET PO SCH (08:14)
[2017-05-30] MEDS: DULoxetine HCL 30 MG CAPSULE.DR PO SCH (08:14)
[2017-05-30] MEDS: cloNIDine HCL 0.2 MG TABLET PO PRN (08:15)
[2017-05-30] MEDS: CALCIUM CARB/VIT D3 500/200 TABLET PO SCH ×2 (08:15→17:16)
[2017-05-30] MEDS: METOPROLOL TART IMMED RELEASE 50 MG TABLET PO SCH ×2 (08:15→20:24)
[2017-05-30] MEDS: FAMOTIDINE 20 MG TABLET PO SCH ×2 (08:15→20:23)
[2017-05-30] MEDS: FERROUS SULFATE 325 MG TABLET PO SCH (08:15)
[2017-05-30] MEDS: LISINOPRIL 20 MG TABLET PO SCH ×2 (08:15→20:24)
[2017-05-30] MEDS: DIVALPROEX 125 MG CAP.SPRINK PO SCH ×3 (08:16→20:23)
[2017-05-30] MEDS: oxyCODONE/APAP 10/325 1 TAB TABLET PO SCH ×4 (08:16→20:23)
[2017-05-30] MEDS: ASPIRIN 81 MG TAB.CHEW PO SCH (08:16)
[2017-05-30] MEDS: levETIRAcetam 250 MG TABLET PO SCH ×2 (08:16→20:23)
[2017-05-30] MEDS: NYSTATIN TOPICAL POWDER 15GM BOTTLE. TP SCH ×2 (08:17→20:26)
--- NOTE | 2017-05-30 09:27 | NUR ---
Behavior Intervention Response and Plan: BIRP Note: Behavior: Assumed Care of patient, patient located in Dining Room at shift change. Patient exhibited the following behavior Disorganized, Calm, Compliant. Brief assessment on rounds of vital signs, medication needs, lab studies, and pain. Treatment plan problems . Intervention: Patient assessed and the following interventions initiated safety checks 15 Minute Checks Cognitive Assessment , Head to toe Assessment , Medications. Response: After interactions and interventions patient responded in the following manner, Disorganized , Compliant ,Withdrawn. Continue to assess behaviors and condition will continue to monitor throughout the shift as needed. Patient educated on ADL's, and hand hygiene. 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 Continue to assess patient for changes in above assessment. Monitor for medication needs, pain, and safety concerns. Hourly rounding performed to ensure safe environment.
--- NOTE | 2017-05-30 14:18 | NUR ---
SW received call from Pt's grandson, Tucker regarding dc plans. SW asked if Tucker had received SW's message afternoon and Tucker stated he had not received the message. SW stated VPA levels are being monitored and adjusted before dc early next week. SW to follow up w/Tucker at start of next week.
--- NOTE | 2017-05-30 15:00 | NUR ---
JIMMY walled w/Pt. as Pt. ambulated in the hallway. Pt. asked for SW's help as Pt. stated her dtr. is "psychotic". JIMMY asked Pt. to explain more about this statement. Pt. stated her dtr. took all the meds out of this SW's office and took them. JIMMY asked if Pt's dtr. was here at this facility visiting, Pt. stated no. JIMMY asked if Pt. had spoken to her on the phone, Pt. stated no, but she knows the "psychotic dr" prescribed them and the dtr. took them. JIMMY stated there were no medications in JIMMY's office and Pt. stated the dtr. is "psychotic" and took them. JIMMY assisted Pt. to the nearest chair in the hallway where Pt. then received a phone call from jennifer. The Pt. handed the phone to JIMMY and JIMMY spoke w/the Grandson who stated he was not understanding the Pt.. JIMMY stated Pt. appeared to be very confused at the present and jennifer agreed. JIMMY returned the phone to PT, as requested.
[2017-05-30 16:06] VITALS: BP 123/77
[2017-05-30] MEDS: clonazePAM 0.5 MG TABLET PO PRN (17:16)
[2017-05-30] MEDS ORDERED: traZODone 50 MG TABLET. PO PRN (19:00)
--- NOTE | 2017-05-30 19:44 | PDOC ---
Exam Monty Demential Exam: Monty Note: Please also refer to the separate dictated note~for this date of service dictated separately.~Patient seen individually. Discussed the patient with Nursing staff reviewed the chart.~Reviewed interim history and current functioning. Reviewed vital signs,~Labs/ Radiology~and current medications noted below. Continue current treatment with the changes noted in the dictated addendum note Assessment: Vital Signs: Vital Signs Date Time Temp Pulse Resp B/P (MAP) Pulse Ox O2 Delivery O2 Flow Rate FiO2 05/30/17 16:06 97.7 66 16 123/77 (92) 94 05/27/17 07:00 Room Air I&O Intake and Output 05/31/17 06:59 Intake Total 1020 ml Balance 1020 ml Intake Oral 1020 ml Current Medications: Meds: Current Medications Acetaminophen (Tylenol) 1,000 mg 1X ONCE PO Last administered on 05/15/17 11: 38; Start 05/15/17 at 11:45; Stop 05/15/17 at 13:52; Status DC Lorazepam (Ativan) 1 mg 1X ONCE PO Last administered on 05/15/17 11:38; Start 05/15/17 at 11:45; Stop 05/15/17 at 13:50; Status DC Acetaminophen (Tylenol) 650 mg PRN Q6HRS PRN PO PAIN / TEMP Last administered on 05/16/17 14:41; Start 05/15/17 at 13:30; Stop 05/16/17 at 15:30; Status DC Multi-Ingredient Ointment (Analgesic [place]) 1 mike PRN QID PRN TP MUSCLE PAIN; Start 05/15/17 at 13:30 Al Hydroxide/Mg Hydroxide (Mylanta Plus Xs) 15 ml PRN AFTMEALHC PRN PO DYSPEPSIA; Start 05/15/17 at 13:30 Magnesium Hydroxide (Milk Of Magnesia) 2,400 mg PRN QHS PRN PO CONSTIPATION; Start 05/15/17 at 13:30 Nicotine (Nicoderm Cq 14mg) 1 patch DAILY TD ; Start 05/16/17 at 09:00; Stop at 10:41; Status DC Escitalopram Oxalate (Lexapro) 20 mg DAILY PO Last administered on 05/18/17 07 :17; Start 05/16/17 at 09:00; Stop 05/18/17 at 22:07; Status DC Donepezil HCl (Aricept) 10 mg QHS PO Last administered on 05/29/17 21:11; Start 05/15/17 at 21:00 Clonazepam (KlonoPIN) 0.5 mg QHS PO Last administered on 05/29/17 21:14; Start 05/15/17 at 21:00 Donepezil HCl (Aricept) 5 mg QHS PO Last administered on 05/15/17 19:38; Start 05/15/17 at 21:00; Stop 05/15/17 at 23:44; Status DC Levetiracetam (Keppra) 750 mg BID PO Last administered on 05/30/17 08:16; Start 05/15/17 at 21:00 Clonazepam (KlonoPIN) 0.5 mg PRN BID PRN PO ANXIETY / AGITATION Last administered on 05/16/17 16:22; Start 05/15/17 at 14:00; Stop 05/16/17 at 18:45 ; Status DC Olanzapine (ZyPREXA) 10 mg QHS PO Last administered on 05/29/17 21:15; Start 05/15/17 at 21:00; Stop 05/30/17 at 18:51; Status DC Mirtazapine (Remeron Genny-Tab) 15 mg QHS PO Last administered on 05/29/17 21:10 ; Start 05/15/17 at 21:00 Aspirin (Children'S Aspirin) 81 mg DAILY PO Last administered on 05/30/17 08:16 ; Start 05/16/17 at 09:00 Ferrous Sulfate (Feosol) 325 mg DAILY PO Last administered on 05/30/17 08:15; Start 05/16/17 at 09:00 Hydrochlorothiazide (Hydrodiuril) 25 mg DAILY PO Last administered on 05/30/17 08:14; Start 05/16/17 at 09:00 Oxycodone/ Acetaminophen (Percocet 10/325) 1 tab QID PO Last administered on 17:16; Start 05/15/17 at 17:00 Calcium/Vitamin D (Oscal D 500mg/ 200uts) 1 tab BIDWMEALS PO Last administered on 05/30/17 17:16; Start 05/15/17 at 17:00 Docusate Sodium (Colace) 100 mg BID PO Last administered on 05/20/17 08:27; Start 05/15/17 at 21:00; Stop 05/20/17 at 12:49; Status DC Famotidine (Pepcid) 20 mg BID PO Last administered on 05/30/17 08:15; Start at 21:00 Lisinopril (Prinivil) 20 mg BID PO Last administered on 05/30/17 08:15; Start 05/15/17 at 21:00 Metoprolol Tartrate (Lopressor) 50 mg BID PO Last administered on 05/30/17 08: 15; Start 05/15/17 at 21:00 Clonidine HCl (Catapres) 0.2 mg DAILY PRN PO HYPERTENSION, SEE COMMENTS Last administered on 05/30/17 08:15; Start 05/16/17 at 09:00 Albuterol/ Ipratropium (Duoneb) 3 ml Q4HRS PRN NEB SHORTNESS OF BREATH Last administered on 05/21/17 10:10; Start 05/15/17 at 14:15 Acetaminophen (Tylenol) 650 mg PRN Q8HRS PRN PO PAIN Last administered on 19:55; Start 05/15/17 at 14:15 Cyclobenzaprine HCl (Flexeril) 10 mg Q8HRS PRN PO MUSCLE SPASMS Last administered on 05/28/17 13:22; Start 05/15/17 at 14:15 Ondansetron HCl (Zofran Odt) 4 mg PRN Q8HRS PRN PO NAUSEA/VOMITING; Start 05/15 at 14:15 Loperamide HCl (Imodium) 2 mg PRN Q3HRS PRN PO DIARRHEA Last administered on 09:17; Start 05/15/17 at 14:15 Nystatin (Nystop) 1 mike BID TP Last administered on 05/15/17 19:38; Start at 21:00; Stop 05/15/17 at 21:00; Status DC Fentanyl (Duragesic 12mcg/ Hr) 1 patch Q3DAYS TD Last administered on 09:10; Start 05/16/17 at 09:00; Stop 05/26/17 at 15:17; Status DC Nystatin (Nystop) 1 mike BID TP Last administered on 05/30/17 08:17; Start 05/15 at 21:00 Divalproex Sodium (Depakote Sprinkles) 125 mg TID PO Last administered on 13:38; Start 05/15/17 at 21:00; Stop 05/26/17 at 18:17; Status DC Vitamin D (Vitamin D3) 50,000 unit WEEKLY PO Last administered on 05/24/17 07: 54; Start 05/17/17 at 09:00 Clonazepam (KlonoPIN) 0.5 mg PRN TID PRN PO ANXIETY / AGITATION Last administered on 05/30/17 17:16; Start 05/17/17 at 06:00 Duloxetine HCl (Cymbalta) 30 mg DAILY PO Last administered on 05/20/17 08:25; Start 05/19/17 at 09:00; Stop 05/20/17 at 10:00; Status DC Duloxetine HCl (Cymbalta) 60 mg DAILY PO Last administered on 05/23/17 08:07; Start 05/21/17 at 09:00; Stop 05/23/17 at 10:00; Status DC Duloxetine HCl (Cymbalta) 90 mg DAILY PO Last administered on 05/30/17 08:14; Start 05/24/17 at 09:00 Fentanyl (Duragesic 25mcg/ Hr) 1 patch Q3DAYS TD Last administered on 07:54; Start 05/26/17 at 15:30 Divalproex Sodium (Depakote Sprinkles) 250 mg TID PO Last administered on 07:49; Start 05/26/17 at 21:00; Stop 05/29/17 at 11:02; Status DC Aripiprazole (Abilify) 5 mg DAILY PO Last administered on 05/30/17 08:14; Start 05/29/17 at 09:00 Divalproex Sodium (Depakote Sprinkles) 375 mg TID PO Last administered on 13:01; Start 05/29/17 at 14:00 Olanzapine (ZyPREXA) 5 mg HS PO ; Start 05/30/17 at 21:00 Trazodone HCl (Desyrel) 50 mg QHS PO ; Start 05/30/17 at 21:00 Trazodone HCl (Desyrel) 50 mg PRN QHS PRN PO INSOMNIA; Start 05/30/17 at 19:00 Active Scripts Active Reported Trazodone Hcl 50 Mg Tablet 50 Mg PO PRN QHS PRN Miralax (Polyethylene Glycol 3350) 17 Gm Powd.pack 17 Gm PO DAILY Pantoprazole Sodium 40 Mg Tablet.dr 40 Mg PO DAILYAC Oxycontin (Oxycodone Hcl) 10 Mg Tab.er.12h 10 Mg PO [id number] Zyprexa Zydis (Olanzapine) 5 Mg Tab.rapdis 5 Mg PO PRN Q2HR PRN Analgesic [place] (Methyl Salicylate/Menthol) 29 Gm Oint...g. 1 Mike TP PRN QID PRN Milk Of Magnesia (Magnesium Hydroxide) 2,400 Mg/10 Ml Oral.susp 2,400 Mg PO PRN QHS PRN Advanced Antacid Liquid (Mag Hydrox/Al Hydrox/Simeth) 355 Ml Oral.susp 15 Ml PO PRN AFTMEALHC PRN Cymbalta (Duloxetine Hcl) 30 Mg Capsule.dr 30 Mg PO DAILY Colace (Docusate Sodium) 100 Mg Capsule 100 Mg PO BID Tegretol (Carbamazepine) 200 Mg Tablet 400 Mg PO HS Acetaminophen 500 Mg Tablet 650 Mg PO PRN Q6HRS PRN Folic Acid 0.8 Mg Tablet 0.8 Mg PO DAILY Calcium 500 + Vit D 400 Tablet (Calcium Carbonate/Vitamin D3) 1 Each Tablet 1 Tab PO BIDWBKFT/KAYY Hydrocodone-Apap 10-325 (Hydrocodone Bit/Acetaminophen) 1 Each Tablet 1 Tab PO PRN Q4HRS PRN Alprazolam 0.5 Mg Tablet 0.5 Mg PO PRN Q2HR PRN max dosage: 3mg/24hrs Loratadine 10 Mg Tablet 10 Mg PO PRN DAILY PRN Loperamide (Loperamide Hcl) 2 Mg Capsule 2 Mg PO PRN Q4HRS PRN Methylphenidate Er (Methylphenidate Hcl) 10 Mg Tablet.er 10 Mg PO DAILY Multivitamins (Multivitamin) 1 Each Tablet 1 Tab PO DAILY Mupirocin 22 Gm Oint...g. 1 Mike TP PRN BID PRN Cholestyramine Packet (Cholestyramine (With Sugar)) 4 Gm Powd.pack 4 Gm PO BID Ferrous Sulfate 325 Mg Tablet 325 Mg PO NOON Vitamin C (Ascorbic Acid) 500 Mg Tablet 500 Mg PO TID Norvasc (Amlodipine Besylate) 5 Mg Tablet 5 Mg PO BID NITROGLYCERIN SubLingual (Nitroglycerin) 0.4 Mg Tab.subl 0.4 Mg SL PRN Q5MIN PRN Creon 24,000 Units Capsule (Lipase/Protease/Amylase) 1 Each Capsule. 5 Cap PO TIDWMEALS Diagnosis: Problems: (1) Dementia (2) Cataract (3) Bipolar disorder, mixed (4) Bipolar affective disorder, mixed (5) Anxiety disorder (6) Major depressive disorder, recurrent episode (7) Impulse control disorder TESHA MANZANO MD May 30, 2017 19:44
[2017-05-30] MEDS: CYCLOBENZAPRINE 10 MG TABLET. PO PRN (20:22)
[2017-05-30] MEDS: MIRTAZAPINE 15 MG TAB.RAPDIS PO SCH (20:23)
[2017-05-30] MEDS: clonazePAM 0.5 MG TABLET PO SCH (20:23)
[2017-05-30] MEDS: DONEPEZIL HCL 10 MG TABLET PO SCH (20:23)
[2017-05-30] MEDS: traZODone 50 MG TABLET. PO SCH (20:26)
[2017-05-30] MEDS: OLANZapine 5 MG TABLET PO SCH (20:26)
--- NOTE | 2017-05-30 22:56 | NUR ---
Behavior Intervention Response and Plan: BIRP Note: Behavior: Assumed Care of patient, patient located in Patient Room at shift change. Patient exhibited the following behavior Withdrawn, Somatic, Sleeping. Brief assessment on rounds of vital signs, medication needs, lab studies, and pain. Treatment plan problems 1 and 2. Intervention: Patient assessed and the following interventions initiated safety checks 15 Minute Checks Cognitive Assessment , Head to toe Assessment , Medications. Response: After interactions and interventions patient responded in the following manner, Calm , Compliant ,Cooperative. Continue to assess behaviors and condition will continue to monitor throughout the shift as needed. Patient educated on ADL's, and hand hygiene. 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 Continue to assess patient for changes in above assessment. Monitor for medication needs, pain, and safety concerns. Hourly rounding performed to ensure safe environment.
[2017-05-31 05:43] VITALS: BP 163/97
[2017-05-31] MEDS: DIVALPROEX 125 MG CAP.SPRINK PO SCH ×3 (07:38→20:00)
[2017-05-31] MEDS: hydroCHLOROthiazide 25 MG TABLET PO SCH (07:39)
[2017-05-31] MEDS: LISINOPRIL 20 MG TABLET PO SCH ×2 (07:39→20:10)
[2017-05-31] MEDS: levETIRAcetam 250 MG TABLET PO SCH ×2 (07:39→19:59)
[2017-05-31] MEDS: ASPIRIN 81 MG TAB.CHEW PO SCH (07:40)
[2017-05-31] MEDS: ARIPiprazole 5 MG TABLET PO SCH (07:40)
[2017-05-31] MEDS: METOPROLOL TART IMMED RELEASE 50 MG TABLET PO SCH ×2 (07:40→20:09)
[2017-05-31] MEDS: CALCIUM CARB/VIT D3 500/200 TABLET PO SCH ×2 (07:40→18:36)
[2017-05-31] MEDS: FAMOTIDINE 20 MG TABLET PO SCH ×2 (07:40→20:02)
[2017-05-31] MEDS: cloNIDine HCL 0.2 MG TABLET PO PRN (07:40)
[2017-05-31] MEDS: CYCLOBENZAPRINE 10 MG TABLET. PO PRN (07:40)
[2017-05-31] MEDS: FERROUS SULFATE 325 MG TABLET PO SCH (07:40)
[2017-05-31] MEDS: NYSTATIN TOPICAL POWDER 15GM BOTTLE. TP SCH ×2 (07:41→20:02)
[2017-05-31] MEDS: DULoxetine HCL 30 MG CAPSULE.DR PO SCH (07:41)
[2017-05-31] MEDS: oxyCODONE/APAP 10/325 1 TAB TABLET PO SCH ×4 (07:42→20:01)
[2017-05-31] MEDS: CHOLECALCIFEROL (VITAMIN D3) 50,000 UNIT CAPSULE PO SCH (07:43)
--- NOTE | 2017-05-31 10:02 | NUR ---
Behavior Intervention Response and Plan: BIRP Note: Behavior: Assumed Care of patient, patient located in Dining Room at shift change. Patient exhibited the following behavior Disorganized, Calm, Compliant. Brief assessment on rounds of vital signs, medication needs, lab studies, and pain. Treatment plan problems . Intervention: Patient assessed and the following interventions initiated safety checks 15 Minute Checks Cognitive Assessment , Head to toe Assessment , Medications. Response: After interactions and interventions patient responded in the following manner, Disorganized , Compliant ,Withdrawn. Continue to assess behaviors and condition will continue to monitor throughout the shift as needed. Patient educated on ADL's, and hand hygiene. 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 Continue to assess patient for changes in above assessment. Monitor for medication needs, pain, and safety concerns. Hourly rounding performed to ensure safe environment.
[2017-05-31 12:12] LABS: BASO % 1 % (0-3); EOS # 0.1 x10^3/uL (0.0-0.7); EOS % 2 % (0-3); HEMATOCRIT 41.2 % (36.0-47.0); LYMPH % 15 % (24-48); MEAN CORPUSCULAR HEMOGLOBIN 25 pg (25-35); MEAN CORPUSCULAR HGB CONC 32 g/dL (31-37); MEAN CORPUSCULAR VOLUME 79 fL (79-100); MONO # 0.8 x10^3/uL (0.0-1.1); MONO % 13 % (0-9); NEUT # 4.3 x10^3uL (1.8-7.7); NEUT % 69 % (31-73); PLATELET COUNT 207 x10^3/uL (140-400); RED BLOOD COUNT 5.19 x10^6/uL (3.50-5.40); RED CELL DISTRIBUTION WIDTH 19.3 % (11.5-14.5); WHITE BLOOD COUNT 6.2 x10^3/uL (4.0-11.0)
[2017-05-31 12:23] LABS: ALBUMIN/GLOBULIN RATIO 0.9 (1.0-1.7); CALCIUM 8.9 mg/dL (8.5-10.1); CREATININE 1.5 mg/dL (0.6-1.0); GFR 33.8; TOTAL BILIRUBIN 0.2 mg/dL (0.2-1.0); TOTAL PROTEIN 6.5 g/dL (6.4-8.2)
--- NOTE | 2017-05-31 12:35 | RAD ---
EXAM: CHEST 1 VIEW Study: Chest congestion COMPARISON: None available. TECHNIQUE: Single portable radiograph of the chest FINDINGS: The cardiac silhouette is unremarkable. The lungs are clear bilaterally. The costophrenic sulci are clear and well demarcated. IMPRESSION: No radiographic evidence of an acute cardiopulmonary process.
--- NOTE | 2017-05-31 13:16 | NUR ---
pt up in wc. ambulating at times. unsteady on feet. very sleepy. upper resp congestion. sats 91%. held afternoon meds. dr thomason notified. labs ordered. cxr neg. dr thomason to see. pt resting quietly in bed. refused lunch.
[2017-05-31 16:02] VITALS: BP 98/61
--- NOTE | 2017-05-31 17:14 | NUR ---
pt up in halls in afternoon. bp low. c/o anxiety. pt redirected. refused lunch but drank boost. dr thomason to see. no new orders.
[2017-05-31] MEDS: traZODone 50 MG TABLET. PO SCH (19:59)
[2017-05-31] MEDS: clonazePAM 0.5 MG TABLET PO SCH (20:00)
[2017-05-31] MEDS: MIRTAZAPINE 15 MG TAB.RAPDIS PO SCH (20:02)
[2017-05-31] MEDS: OLANZapine 5 MG TABLET PO SCH (20:02)
[2017-05-31] MEDS: DONEPEZIL HCL 10 MG TABLET PO SCH (20:04)
--- NOTE | 2017-05-31 23:18 | PDOC ---
Exam Monty Demential Exam: Monty Note: Please also refer to the separate dictated note~for this date of service dictated separately.~Patient seen individually. Discussed the patient with Nursing staff reviewed the chart.~Reviewed interim history and current functioning. Reviewed vital signs,~Labs/ Radiology~and current medications noted below. Continue current treatment with the changes noted in the dictated addendum note Assessment: Vital Signs: Vital Signs Date Time Temp Pulse Resp B/P (MAP) Pulse Ox O2 Delivery O2 Flow Rate FiO2 05/31/17 20:10 135 81/72 05/31/17 16:02 97.4 18 94 05/27/17 07:00 Room Air I&O Intake and Output 06/01/17 06:59 Intake Total 720 ml Balance 720 ml Intake Oral 720 ml # Voids 2 Labs: Laboratory Tests Test 05/31/17 11:55 05/31/17 14:11 White Blood Count 6.2 x10^3/uL (4.0-11.0) Red Blood Count 5.19 x10^6/uL (3.50-5.40) Hemoglobin 13.0 g/dL (12.0-15.5) Hematocrit 41.2 % (36.0-47.0) Mean Corpuscular Volume 79 fL (79-100) Mean Corpuscular Hemoglobin 25 pg (25-35) Mean Corpuscular Hemoglobin Concent 32 g/dL (31-37) Red Cell Distribution Width 19.3 % (11.5-14.5) H Platelet Count 207 x10^3/uL (140-400) Neutrophils (%) (Auto) 69 % (31-73) Lymphocytes (%) (Auto) 15 % (24-48) L Monocytes (%) (Auto) 13 % (0-9) H Eosinophils (%) (Auto) 2 % (0-3) Basophils (%) (Auto) 1 % (0-3) Neutrophils # (Auto) 4.3 x10^3uL (1.8-7.7) Lymphocytes # (Auto) 1.0 x10^3/uL (1.0-4.8) Monocytes # (Auto) 0.8 x10^3/uL (0.0-1.1) Eosinophils # (Auto) 0.1 x10^3/uL (0.0-0.7) Basophils # (Auto) 0.0 x10^3/uL (0.0-0.2) Sodium Level 138 mmol/L (136-145) Potassium Level 4.0 mmol/L (3.5-5.1) Chloride Level 100 mmol/L (98-107) Carbon Dioxide Level 32 mmol/L (21-32) Anion Gap 6 (6-14) Blood Urea Nitrogen 20 mg/dL (7-20) Creatinine 1.5 mg/dL (0.6-1.0) H Estimated GFR (Cockcroft-Gault) 33.8 BUN/Creatinine Ratio 13 (6-20) Glucose Level 63 mg/dL (70-99) L Lactic Acid Level 2.2 mmol/L (0.4-2.0) H Calcium Level 8.9 mg/dL (8.5-10.1) Total Bilirubin 0.2 mg/dL (0.2-1.0) Aspartate Amino Transferase (AST) 13 U/L (15-37) L Alanine Aminotransferase (ALT) 12 U/L (14-59) L Alkaline Phosphatase 82 U/L (46-116) Total Protein 6.5 g/dL (6.4-8.2) Albumin 3.0 g/dL (3.4-5.0) L Albumin/Globulin Ratio 0.9 (1.0-1.7) L Glucose (Fingerstick) 86 mg/dL (70-99) Current Medications: Meds: Current Medications Acetaminophen (Tylenol) 1,000 mg 1X ONCE PO Last administered on 05/15/17 11: 38; Start 05/15/17 at 11:45; Stop 05/15/17 at 13:52; Status DC Lorazepam (Ativan) 1 mg 1X ONCE PO Last administered on 05/15/17 11:38; Start 05/15/17 at 11:45; Stop 05/15/17 at 13:50; Status DC Acetaminophen (Tylenol) 650 mg PRN Q6HRS PRN PO PAIN / TEMP Last administered on 05/16/17 14:41; Start 05/15/17 at 13:30; Stop 05/16/17 at 15:30; Status DC Multi-Ingredient Ointment (Analgesic [place]) 1 mike PRN QID PRN TP MUSCLE PAIN; Start 05/15/17 at 13:30 Al Hydroxide/Mg Hydroxide (Mylanta Plus Xs) 15 ml PRN AFTMEALHC PRN PO DYSPEPSIA; Start 05/15/17 at 13:30 Magnesium Hydroxide (Milk Of Magnesia) 2,400 mg PRN QHS PRN PO CONSTIPATION; Start 05/15/17 at 13:30 Nicotine (Nicoderm Cq 14mg) 1 patch DAILY TD ; Start 05/16/17 at 09:00; Stop at 10:41; Status DC Escitalopram Oxalate (Lexapro) 20 mg DAILY PO Last administered on 05/18/17 07 :17; Start 05/16/17 at 09:00; Stop 05/18/17 at 22:07; Status DC Donepezil HCl (Aricept) 10 mg QHS PO Last administered on 05/31/17 20:04; Start 05/15/17 at 21:00 Clonazepam (KlonoPIN) 0.5 mg QHS PO Last administered on 05/31/17 20:00; Start 05/15/17 at 21:00 Donepezil HCl (Aricept) 5 mg QHS PO Last administered on 05/15/17 19:38; Start 05/15/17 at 21:00; Stop 05/15/17 at 23:44; Status DC Levetiracetam (Keppra) 750 mg BID PO Last administered on 05/31/17 19:59; Start 05/15/17 at 21:00 Clonazepam (KlonoPIN) 0.5 mg PRN BID PRN PO ANXIETY / AGITATION Last administered on 05/16/17 16:22; Start 05/15/17 at 14:00; Stop 05/16/17 at 18:45 ; Status DC Olanzapine (ZyPREXA) 10 mg QHS PO Last administered on 05/29/17 21:15; Start 05/15/17 at 21:00; Stop 05/30/17 at 18:51; Status DC Mirtazapine (Remeron Genny-Tab) 15 mg QHS PO Last administered on 05/31/17 20:02 ; Start 05/15/17 at 21:00 Aspirin (Children'S Aspirin) 81 mg DAILY PO Last administered on 05/31/17 07:40 ; Start 05/16/17 at 09:00 Ferrous Sulfate (Feosol) 325 mg DAILY PO Last administered on 05/31/17 07:40; Start 05/16/17 at 09:00 Hydrochlorothiazide (Hydrodiuril) 25 mg DAILY PO Last administered on 05/31/17 07:39; Start 05/16/17 at 09:00 Oxycodone/ Acetaminophen (Percocet 10/325) 1 tab QID PO Last administered on 20:01; Start 05/15/17 at 17:00 Calcium/Vitamin D (Oscal D 500mg/ 200uts) 1 tab BIDWMEALS PO Last administered on 05/31/17 18:36; Start 05/15/17 at 17:00 Docusate Sodium (Colace) 100 mg BID PO Last administered on 05/20/17 08:27; Start 05/15/17 at 21:00; Stop 05/20/17 at 12:49; Status DC Famotidine (Pepcid) 20 mg BID PO Last administered on 05/31/17 20:02; Start at 21:00 Lisinopril (Prinivil) 20 mg BID PO Last administered on 05/31/17 20:10; Start 05/15/17 at 21:00 Metoprolol Tartrate (Lopressor) 50 mg BID PO Last administered on 05/31/17 20: 09; Start 05/15/17 at 21:00 Clonidine HCl (Catapres) 0.2 mg DAILY PRN PO HYPERTENSION, SEE COMMENTS Last administered on 05/31/17 07:40; Start 05/16/17 at 09:00 Albuterol/ Ipratropium (Duoneb) 3 ml Q4HRS PRN NEB SHORTNESS OF BREATH Last administered on 05/21/17 10:10; Start 05/15/17 at 14:15 Acetaminophen (Tylenol) 650 mg PRN Q8HRS PRN PO PAIN Last administered on 19:55; Start 05/15/17 at 14:15 Cyclobenzaprine HCl (Flexeril) 10 mg Q8HRS PRN PO MUSCLE SPASMS Last administered on 05/31/17 07:40; Start 05/15/17 at 14:15 Ondansetron HCl (Zofran Odt) 4 mg PRN Q8HRS PRN PO NAUSEA/VOMITING Last administered on 05/31/17 12:40; Start 05/15/17 at 14:15 Loperamide HCl (Imodium) 2 mg PRN Q3HRS PRN PO DIARRHEA Last administered on 09:17; Start 05/15/17 at 14:15 Nystatin (Nystop) 1 mike BID TP Last administered on 05/15/17 19:38; Start at 21:00; Stop 05/15/17 at 21:00; Status DC Fentanyl (Duragesic 12mcg/ Hr) 1 patch Q3DAYS TD Last administered on 09:10; Start 05/16/17 at 09:00; Stop 05/26/17 at 15:17; Status DC Nystatin (Nystop) 1 mike BID TP Last administered on 05/31/17 20:02; Start 05/15 at 21:00 Divalproex Sodium (Depakote Sprinkles) 125 mg TID PO Last administered on 13:38; Start 05/15/17 at 21:00; Stop 05/26/17 at 18:17; Status DC Vitamin D (Vitamin D3) 50,000 unit WEEKLY PO Last administered on 05/31/17 07: 43; Start 05/17/17 at 09:00 Clonazepam (KlonoPIN) 0.5 mg PRN TID PRN PO ANXIETY / AGITATION Last administered on 05/30/17 17:16; Start 05/17/17 at 06:00 Duloxetine HCl (Cymbalta) 30 mg DAILY PO Last administered on 05/20/17 08:25; Start 05/19/17 at 09:00; Stop 05/20/17 at 10:00; Status DC Duloxetine HCl (Cymbalta) 60 mg DAILY PO Last administered on 05/23/17 08:07; Start 05/21/17 at 09:00; Stop 05/23/17 at 10:00; Status DC Duloxetine HCl (Cymbalta) 90 mg DAILY PO Last administered on 05/31/17 07:41; Start 05/24/17 at 09:00 Fentanyl (Duragesic 25mcg/ Hr) 1 patch Q3DAYS TD Last administered on 07:54; Start 05/26/17 at 15:30 Divalproex Sodium (Depakote Sprinkles) 250 mg TID PO Last administered on 07:49; Start 05/26/17 at 21:00; Stop 05/29/17 at 11:02; Status DC Aripiprazole (Abilify) 5 mg DAILY PO Last administered on 05/31/17 07:40; Start 05/29/17 at 09:00 Divalproex Sodium (Depakote Sprinkles) 375 mg TID PO Last administered on 20:00; Start 05/29/17 at 14:00 Olanzapine (ZyPREXA) 5 mg HS PO Last administered on 05/31/17 20:02; Start 05/30 at 21:00 Trazodone HCl (Desyrel) 50 mg QHS PO Last administered on 05/31/17 19:59; Start 05/30/17 at 21:00 Trazodone HCl (Desyrel) 50 mg PRN QHS PRN PO INSOMNIA; Start 05/30/17 at 19:00 Active Scripts Active Reported Trazodone Hcl 50 Mg Tablet 50 Mg PO PRN QHS PRN Miralax (Polyethylene Glycol 3350) 17 Gm Powd.pack 17 Gm PO DAILY Pantoprazole Sodium 40 Mg Tablet.dr 40 Mg PO DAILYAC Oxycontin (Oxycodone Hcl) 10 Mg Tab.er.12h 10 Mg PO [id number] Zyprexa Zydis (Olanzapine) 5 Mg Tab.rapdis 5 Mg PO PRN Q2HR PRN Analgesic [place] (Methyl Salicylate/Menthol) 29 Gm Oint...g. 1 Mike TP PRN QID PRN Milk Of Magnesia (Magnesium Hydroxide) 2,400 Mg/10 Ml Oral.susp 2,400 Mg PO PRN QHS PRN Advanced Antacid Liquid (Mag Hydrox/Al Hydrox/Simeth) 355 Ml Oral.susp 15 Ml PO PRN AFTMEALHC PRN Cymbalta (Duloxetine Hcl) 30 Mg Capsule.dr 30 Mg PO DAILY Colace (Docusate Sodium) 100 Mg Capsule 100 Mg PO BID Tegretol (Carbamazepine) 200 Mg Tablet 400 Mg PO HS Acetaminophen 500 Mg Tablet 650 Mg PO PRN Q6HRS PRN Folic Acid 0.8 Mg Tablet 0.8 Mg PO DAILY Calcium 500 + Vit D 400 Tablet (Calcium Carbonate/Vitamin D3) 1 Each Tablet 1 Tab PO [id number] Hydrocodone-Apap 10-325 (Hydrocodone Bit/Acetaminophen) 1 Each Tablet 1 Tab PO PRN Q4HRS PRN Alprazolam 0.5 Mg Tablet 0.5 Mg PO PRN Q2HR PRN max dosage: 3mg/24hrs Loratadine 10 Mg Tablet 10 Mg PO PRN DAILY PRN Loperamide (Loperamide Hcl) 2 Mg Capsule 2 Mg PO PRN Q4HRS PRN Methylphenidate Er (Methylphenidate Hcl) 10 Mg Tablet.er 10 Mg PO DAILY Multivitamins (Multivitamin) 1 Each Tablet 1 Tab PO DAILY Mupirocin 22 Gm Oint...g. 1 Mike TP PRN BID PRN Cholestyramine Packet (Cholestyramine (With Sugar)) 4 Gm Powd.pack 4 Gm PO BID Ferrous Sulfate 325 Mg Tablet 325 Mg PO NOON Vitamin C (Ascorbic Acid) 500 Mg Tablet 500 Mg PO TID Norvasc (Amlodipine Besylate) 5 Mg Tablet 5 Mg PO BID NITROGLYCERIN SubLingual (Nitroglycerin) 0.4 Mg Tab.subl 0.4 Mg SL PRN Q5MIN PRN Creon 24,000 Units Capsule (Lipase/Protease/Amylase) 1 Each Capsule. 5 Cap PO TIDWMEALS Diagnosis: Problems: (1) Dementia (2) Bipolar disorder, mixed (3) Bipolar affective disorder, mixed (4) Anxiety disorder (5) Major depressive disorder, recurrent episode (6) Impulse control disorder TESHA MANZANO MD May 31, 2017 23:17
--- NOTE | 2017-06-01 00:26 | NUR ---
Behavior Intervention Response and Plan: BIRP Note: Behavior: Assumed Care of patient, patient located in Day Room at shift change. Patient exhibited the following behavior Interactive, Disorganized, Restless. Brief assessment on rounds of vital signs, medication needs, lab studies, and pain. Treatment plan problems :1-2 Intervention: Patient assessed and the following interventions initiated safety checks 15 Minute Checks Cognitive Assessment , Head to toe Assessment , Medications. Response: After interactions and interventions patient responded in the following manner, Interactive , Able to Focus on Task ,Compliant. Continue to assess behaviors and condition will continue to monitor throughout the shift as needed. Patient educated on ADL's, and hand hygiene. 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 Continue to assess patient for changes in above assessment. Monitor for medication needs, pain, and safety concerns. Hourly rounding performed to ensure safe environment.
--- NOTE | 2017-06-01 03:21 | PN ---
DATE: 05/30/2017 PSYCHIATRIC PROGRESS NOTE This is a late entry of 05/30/2017 covers elements not covered in my initial note. SUBJECTIVE: I met with the patient in the evening of 05/30/2017. She is having problems with insomnia. We will start trazodone 50 mg at bedtime, may repeat x 1 p.r.n. insomnia. At times withdrawn to her room, still complains of back pain. REVIEW OF SYSTEMS: Impaired ambulation. No CV, , pulmonary, eye system symptoms on review. MENTAL STATUS EXAM: Reasonably oriented. Speech is coherent, has some latency. Abstraction fair, computation impaired, language function intact. Mood and affect somewhat withdrawn and depressed. LABORATORY DATA: Reviewed. No suicidal or homicidal ideation. IMPRESSION: Unchanged from initial note. PLAN: Reduce Zyprexa from 10 mg at bedtime to 5 mg at bedtime. Continue Abilify 5 mg a day to augment Cymbalta 90 mg a day. Maintain Remeron, Keppra, Depakote, Klonopin, and Aricept at current dosage. Adjust further as clinically indicated. Review of drug interactions risk/benefit ratio favors no further change. MAN Mau MANZANO MD DR: SURESH/ame JOB#: [id number] / [id number]
[2017-06-01 05:53] VITALS: BP 154/85
[2017-06-01] MEDS: ASPIRIN 81 MG TAB.CHEW PO SCH (07:23)
[2017-06-01] MEDS: FERROUS SULFATE 325 MG TABLET PO SCH (07:23)
[2017-06-01] MEDS: ARIPiprazole 5 MG TABLET PO SCH (07:24)
[2017-06-01] MEDS: DULoxetine HCL 30 MG CAPSULE.DR PO SCH (07:24)
[2017-06-01] MEDS: CALCIUM CARB/VIT D3 500/200 TABLET PO SCH ×2 (07:24→17:11)
[2017-06-01] MEDS: FAMOTIDINE 20 MG TABLET PO SCH ×2 (07:24→20:34)
[2017-06-01] MEDS: hydroCHLOROthiazide 25 MG TABLET PO SCH (07:24)
[2017-06-01] MEDS: levETIRAcetam 250 MG TABLET PO SCH ×2 (07:25→20:33)
[2017-06-01] MEDS: LISINOPRIL 20 MG TABLET PO SCH ×2 (07:25→20:35)
[2017-06-01] MEDS: oxyCODONE/APAP 10/325 1 TAB TABLET PO SCH ×4 (07:26→20:33)
[2017-06-01] MEDS: DIVALPROEX 125 MG CAP.SPRINK PO SCH ×3 (07:26→20:33)
[2017-06-01] MEDS: METOPROLOL TART IMMED RELEASE 50 MG TABLET PO SCH ×2 (07:28→20:34)
[2017-06-01] MEDS: fentaNYL 25MCG/HR 1 PATCH PATCH TD SCH (07:33)
[2017-06-01] MEDS: NYSTATIN TOPICAL POWDER 15GM BOTTLE. TP SCH ×2 (07:34→20:37)
[2017-06-01 07:56] LABS: ALBUMIN/GLOBULIN RATIO 0.9 (1.0-1.7); ALK PHOS 78 U/L (46-116); ALT (SGPT) 11 U/L (14-59); ANION GAP 2 (6-14); AST (SGOT) 13 U/L (15-37); BLOOD UREA NITROGEN 20 mg/dL (7-20); BUN/CREATININE RATIO 18 (6-20); CALCIUM 9.1 mg/dL (8.5-10.1); CARBON DIOXIDE 35 mmol/L (21-32); CHLORIDE 99 mmol/L (98-107); CREATININE 1.1 mg/dL (0.6-1.0); GFR 48.3; GLUCOSE 89 mg/dL (70-99); POTASSIUM 4.3 mmol/L (3.5-5.1); SODIUM 136 mmol/L (136-145); TOTAL BILIRUBIN 0.3 mg/dL (0.2-1.0); TOTAL PROTEIN 6.5 g/dL (6.4-8.2)
[2017-06-01 07:58] LABS: VAL ACID 42 mcg/mL (50-100)
[2017-06-01 08:12] LABS: BASO % 1 % (0-3); EOS # 0.1 x10^3/uL (0.0-0.7); EOS % 3 % (0-3); HEMATOCRIT 40.5 % (36.0-47.0); HEMOGLOBIN 12.8 g/dL (12.0-15.5); LYMPH # 0.8 x10^3/uL (1.0-4.8); LYMPH % 16 % (24-48); MEAN CORPUSCULAR HEMOGLOBIN 25 pg (25-35); MEAN CORPUSCULAR HGB CONC 32 g/dL (31-37); MEAN CORPUSCULAR VOLUME 79 fL (79-100); MONO # 0.6 x10^3/uL (0.0-1.1); MONO % 12 % (0-9); NEUT # 3.4 x10^3uL (1.8-7.7); NEUT % 69 % (31-73); PLATELET COUNT 182 x10^3/uL (140-400); RED BLOOD COUNT 5.09 x10^6/uL (3.50-5.40); RED CELL DISTRIBUTION WIDTH 20.1 % (11.5-14.5); WHITE BLOOD COUNT 4.9 x10^3/uL (4.0-11.0)
[2017-06-01 11:36] LABS: PLT ESTIMATE ADEQUATE (ADEQUATE)
[2017-06-01 11:37] LABS: ANISOCYTOSIS SLIGHT; OVALOCYTES FEW; SCHISTOCYTES OCC
[2017-06-01 15:44] VITALS: BP 119/61
--- NOTE | 2017-06-01 16:01 | NUR ---
Behavior Intervention Response and Plan: BIRP Note: Behavior: Assumed Care of patient, patient located in Dining Room at shift change. Patient exhibited the following behavior Disorganized, Calm, Compliant. Brief assessment on rounds of vital signs, medication needs, lab studies, and pain. Treatment plan problems . Intervention: Patient assessed and the following interventions initiated safety checks 15 Minute Checks Cognitive Assessment , Head to toe Assessment , Medications. Response: After interactions and interventions patient responded in the following manner, Disorganized , Compliant ,Withdrawn. Continue to assess behaviors and condition will continue to monitor throughout the shift as needed. Patient educated on ADL's, and hand hygiene. 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 Continue to assess patient for changes in above assessment. Monitor for medication needs, pain, and safety concerns. Hourly rounding performed to ensure safe environment.
[2017-06-01] MEDS: MIRTAZAPINE 15 MG TAB.RAPDIS PO SCH (20:32)
[2017-06-01] MEDS: CYCLOBENZAPRINE 10 MG TABLET. PO PRN (20:33)
[2017-06-01] MEDS: clonazePAM 0.5 MG TABLET PO SCH (20:34)
[2017-06-01] MEDS: DONEPEZIL HCL 10 MG TABLET PO SCH (20:34)
[2017-06-01] MEDS: OLANZapine 5 MG TABLET PO SCH (20:34)
[2017-06-01] MEDS: traZODone 50 MG TABLET. PO SCH (20:35)
--- NOTE | 2017-06-01 21:46 | PDOC ---
Exam Monty Demential Exam: Monty Note: Please also refer to the separate dictated note~for this date of service dictated separately.~Patient seen individually. Discussed the patient with Nursing staff reviewed the chart.~Reviewed interim history and current functioning. Reviewed vital signs,~Labs/ Radiology~and current medications noted below. Continue current treatment with the changes noted in the dictated addendum note Assessment: Vital Signs: Vital Signs Date Time Temp Pulse Resp B/P (MAP) Pulse Ox O2 Delivery O2 Flow Rate FiO2 06/01/17 20:35 71 119/61 06/01/17 15:44 97.7 18 92 05/27/17 07:00 Room Air I&O Intake and Output 06/02/17 06:59 Intake Total 1020 ml Balance 1020 ml Intake Oral 1020 ml # Bowel Movements 1 Labs: Laboratory Tests Test 06/01/17 07:21 White Blood Count 4.9 x10^3/uL (4.0-11.0) Red Blood Count 5.09 x10^6/uL (3.50-5.40) Hemoglobin 12.8 g/dL (12.0-15.5) Hematocrit 40.5 % (36.0-47.0) Mean Corpuscular Volume 79 fL (79-100) Mean Corpuscular Hemoglobin 25 pg (25-35) Mean Corpuscular Hemoglobin Concent 32 g/dL (31-37) Red Cell Distribution Width 20.1 % (11.5-14.5) H Platelet Count 182 x10^3/uL (140-400) Neutrophils (%) (Auto) 69 % (31-73) Lymphocytes (%) (Auto) 16 % (24-48) L Monocytes (%) (Auto) 12 % (0-9) H Eosinophils (%) (Auto) 3 % (0-3) Basophils (%) (Auto) 1 % (0-3) Neutrophils # (Auto) 3.4 x10^3uL (1.8-7.7) Lymphocytes # (Auto) 0.8 x10^3/uL (1.0-4.8) L Monocytes # (Auto) 0.6 x10^3/uL (0.0-1.1) Eosinophils # (Auto) 0.1 x10^3/uL (0.0-0.7) Basophils # (Auto) 0.0 x10^3/uL (0.0-0.2) Platelet Estimate Adequate (ADEQUATE) Anisocytosis Slight Ovalocytes Few Schistocytes Occ Sodium Level 136 mmol/L (136-145) Potassium Level 4.3 mmol/L (3.5-5.1) Chloride Level 99 mmol/L (98-107) Carbon Dioxide Level 35 mmol/L (21-32) H Anion Gap 2 (6-14) L Blood Urea Nitrogen 20 mg/dL (7-20) Creatinine 1.1 mg/dL (0.6-1.0) H Estimated GFR (Cockcroft-Gault) 48.3 BUN/Creatinine Ratio 18 (6-20) Glucose Level 89 mg/dL (70-99) Calcium Level 9.1 mg/dL (8.5-10.1) Total Bilirubin 0.3 mg/dL (0.2-1.0) Aspartate Amino Transferase (AST) 13 U/L (15-37) L Alanine Aminotransferase (ALT) 11 U/L (14-59) L Alkaline Phosphatase 78 U/L (46-116) Ammonia < 10 mcmol/L (11-34) L Total Protein 6.5 g/dL (6.4-8.2) Albumin 3.0 g/dL (3.4-5.0) L Albumin/Globulin Ratio 0.9 (1.0-1.7) L Valproic Acid Level 42 mcg/mL (50-100) L Valproic Acid Last Dose Date 05/31/2017 Valproic Acid Last Dose Time 2100 Current Medications: Meds: Current Medications Acetaminophen (Tylenol) 1,000 mg 1X ONCE PO Last administered on 05/15/17 11: 38; Start 05/15/17 at 11:45; Stop 05/15/17 at 13:52; Status DC Lorazepam (Ativan) 1 mg 1X ONCE PO Last administered on 05/15/17 11:38; Start 05/15/17 at 11:45; Stop 05/15/17 at 13:50; Status DC Acetaminophen (Tylenol) 650 mg PRN Q6HRS PRN PO PAIN / TEMP Last administered on 05/16/17 14:41; Start 05/15/17 at 13:30; Stop 05/16/17 at 15:30; Status DC Multi-Ingredient Ointment (Analgesic [place]) 1 mike PRN QID PRN TP MUSCLE PAIN; Start 05/15/17 at 13:30 Al Hydroxide/Mg Hydroxide (Mylanta Plus Xs) 15 ml PRN AFTMEALHC PRN PO DYSPEPSIA; Start 05/15/17 at 13:30 Magnesium Hydroxide (Milk Of Magnesia) 2,400 mg PRN QHS PRN PO CONSTIPATION; Start 05/15/17 at 13:30 Nicotine (Nicoderm Cq 14mg) 1 patch DAILY TD ; Start 05/16/17 at 09:00; Stop at 10:41; Status DC Escitalopram Oxalate (Lexapro) 20 mg DAILY PO Last administered on 05/18/17 07 :17; Start 05/16/17 at 09:00; Stop 05/18/17 at 22:07; Status DC Donepezil HCl (Aricept) 10 mg QHS PO Last administered on 06/01/17 20:34; Start 05/15/17 at 21:00 Clonazepam (KlonoPIN) 0.5 mg QHS PO Last administered on 06/01/17 20:34; Start 05/15/17 at 21:00 Donepezil HCl (Aricept) 5 mg QHS PO Last administered on 05/15/17 19:38; Start 05/15/17 at 21:00; Stop 05/15/17 at 23:44; Status DC Levetiracetam (Keppra) 750 mg BID PO Last administered on 06/01/17 20:33; Start 05/15/17 at 21:00 Clonazepam (KlonoPIN) 0.5 mg PRN BID PRN PO ANXIETY / AGITATION Last administered on 05/16/17 16:22; Start 05/15/17 at 14:00; Stop 05/16/17 at 18:45 ; Status DC Olanzapine (ZyPREXA) 10 mg QHS PO Last administered on 05/29/17 21:15; Start 05/15/17 at 21:00; Stop 05/30/17 at 18:51; Status DC Mirtazapine (Remeron Genny-Tab) 15 mg QHS PO Last administered on 06/01/17 20:32 ; Start 05/15/17 at 21:00 Aspirin (Children'S Aspirin) 81 mg DAILY PO Last administered on 06/01/17 07:23 ; Start 05/16/17 at 09:00 Ferrous Sulfate (Feosol) 325 mg DAILY PO Last administered on 06/01/17 07:23; Start 05/16/17 at 09:00 Hydrochlorothiazide (Hydrodiuril) 25 mg DAILY PO Last administered on 06/01/17 07:24; Start 05/16/17 at 09:00 Oxycodone/ Acetaminophen (Percocet 10/325) 1 tab QID PO Last administered on 20:33; Start 05/15/17 at 17:00 Calcium/Vitamin D (Oscal D 500mg/ 200uts) 1 tab BIDWMEALS PO Last administered on 06/01/17 17:11; Start 05/15/17 at 17:00 Docusate Sodium (Colace) 100 mg BID PO Last administered on 05/20/17 08:27; Start 05/15/17 at 21:00; Stop 05/20/17 at 12:49; Status DC Famotidine (Pepcid) 20 mg BID PO Last administered on 06/01/17 20:34; Start at 21:00 Lisinopril (Prinivil) 20 mg BID PO Last administered on 06/01/17 20:35; Start 05/15/17 at 21:00 Metoprolol Tartrate (Lopressor) 50 mg BID PO Last administered on 06/01/17 20: 34; Start 05/15/17 at 21:00 Clonidine HCl (Catapres) 0.2 mg DAILY PRN PO HYPERTENSION, SEE COMMENTS Last administered on 05/31/17 07:40; Start 05/16/17 at 09:00 Albuterol/ Ipratropium (Duoneb) 3 ml Q4HRS PRN NEB SHORTNESS OF BREATH Last administered on 05/21/17 10:10; Start 05/15/17 at 14:15 Acetaminophen (Tylenol) 650 mg PRN Q8HRS PRN PO PAIN Last administered on 19:55; Start 05/15/17 at 14:15 Cyclobenzaprine HCl (Flexeril) 10 mg Q8HRS PRN PO MUSCLE SPASMS Last administered on 06/01/17 20:33; Start 05/15/17 at 14:15 Ondansetron HCl (Zofran Odt) 4 mg PRN Q8HRS PRN PO NAUSEA/VOMITING Last administered on 05/31/17 12:40; Start 05/15/17 at 14:15 Loperamide HCl (Imodium) 2 mg PRN Q3HRS PRN PO DIARRHEA Last administered on 09:17; Start 05/15/17 at 14:15 Nystatin (Nystop) 1 mike BID TP Last administered on 05/15/17 19:38; Start at 21:00; Stop 05/15/17 at 21:00; Status DC Fentanyl (Duragesic 12mcg/ Hr) 1 patch Q3DAYS TD Last administered on 09:10; Start 05/16/17 at 09:00; Stop 05/26/17 at 15:17; Status DC Nystatin (Nystop) 1 mike BID TP Last administered on 06/01/17 20:37; Start 05/15 at 21:00 Divalproex Sodium (Depakote Sprinkles) 125 mg TID PO Last administered on 13:38; Start 05/15/17 at 21:00; Stop 05/26/17 at 18:17; Status DC Vitamin D (Vitamin D3) 50,000 unit WEEKLY PO Last administered on 05/31/17 07: 43; Start 05/17/17 at 09:00 Clonazepam (KlonoPIN) 0.5 mg PRN TID PRN PO ANXIETY / AGITATION Last administered on 05/30/17 17:16; Start 05/17/17 at 06:00 Duloxetine HCl (Cymbalta) 30 mg DAILY PO Last administered on 05/20/17 08:25; Start 05/19/17 at 09:00; Stop 05/20/17 at 10:00; Status DC Duloxetine HCl (Cymbalta) 60 mg DAILY PO Last administered on 05/23/17 08:07; Start 05/21/17 at 09:00; Stop 05/23/17 at 10:00; Status DC Duloxetine HCl (Cymbalta) 90 mg DAILY PO Last administered on 06/01/17 07:24; Start 05/24/17 at 09:00 Fentanyl (Duragesic 25mcg/ Hr) 1 patch Q3DAYS TD Last administered on 06/01/17 07:33; Start 05/26/17 at 15:30 Divalproex Sodium (Depakote Sprinkles) 250 mg TID PO Last administered on 07:49; Start 05/26/17 at 21:00; Stop 05/29/17 at 11:02; Status DC Aripiprazole (Abilify) 5 mg DAILY PO Last administered on 06/01/17 07:24; Start 05/29/17 at 09:00 Divalproex Sodium (Depakote Sprinkles) 375 mg TID PO Last administered on 14:36; Start 05/29/17 at 14:00; Stop 06/01/17 at 18:37; Status DC Olanzapine (ZyPREXA) 5 mg HS PO Last administered on 06/01/17 20:34; Start 05/30 at 21:00 Trazodone HCl (Desyrel) 50 mg QHS PO Last administered on 06/01/17 20:35; Start 05/30/17 at 21:00 Trazodone HCl (Desyrel) 50 mg PRN QHS PRN PO INSOMNIA; Start 05/30/17 at 19:00 Divalproex Sodium (Depakote Sprinkles) 500 mg TID PO Last administered on 20:33; Start 06/01/17 at 21:00 Active Scripts Active Reported Trazodone Hcl 50 Mg Tablet 50 Mg PO PRN QHS PRN Miralax (Polyethylene Glycol 3350) 17 Gm Powd.pack 17 Gm PO DAILY Pantoprazole Sodium 40 Mg Tablet.dr 40 Mg PO DAILYAC Oxycontin (Oxycodone Hcl) 10 Mg Tab.er.12h 10 Mg PO BID76 Zyprexa Zydis (Olanzapine) 5 Mg Tab.rapdis 5 Mg PO PRN Q2HR PRN Analgesic [place] (Methyl Salicylate/Menthol) 29 Gm Oint...g. 1 Mike TP PRN QID PRN Milk Of Magnesia (Magnesium Hydroxide) 2,400 Mg/10 Ml Oral.susp 2,400 Mg PO PRN QHS PRN Advanced Antacid Liquid (Mag Hydrox/Al Hydrox/Simeth) 355 Ml Oral.susp 15 Ml PO PRN AFTMEALHC PRN Cymbalta (Duloxetine Hcl) 30 Mg Capsule.dr 30 Mg PO DAILY Colace (Docusate Sodium) 100 Mg Capsule 100 Mg PO BID Tegretol (Carbamazepine) 200 Mg Tablet 400 Mg PO HS Acetaminophen 500 Mg Tablet 650 Mg PO PRN Q6HRS PRN Folic Acid 0.8 Mg Tablet 0.8 Mg PO DAILY Calcium 500 + Vit D 400 Tablet (Calcium Carbonate/Vitamin D3) 1 Each Tablet 1 Tab PO BIDWBKFT/KAYY Hydrocodone-Apap 10-325 (Hydrocodone Bit/Acetaminophen) 1 Each Tablet 1 Tab PO PRN Q4HRS PRN Alprazolam 0.5 Mg Tablet 0.5 Mg PO PRN Q2HR PRN max dosage: 3mg/24hrs Loratadine 10 Mg Tablet 10 Mg PO PRN DAILY PRN Loperamide (Loperamide Hcl) 2 Mg Capsule 2 Mg PO PRN Q4HRS PRN Methylphenidate Er (Methylphenidate Hcl) 10 Mg Tablet.er 10 Mg PO DAILY Multivitamins (Multivitamin) 1 Each Tablet 1 Tab PO DAILY Mupirocin 22 Gm Oint...g. 1 Mike TP PRN BID PRN Cholestyramine Packet (Cholestyramine (With Sugar)) 4 Gm Powd.pack 4 Gm PO BID Ferrous Sulfate 325 Mg Tablet 325 Mg PO NOON Vitamin C (Ascorbic Acid) 500 Mg Tablet 500 Mg PO TID Norvasc (Amlodipine Besylate) 5 Mg Tablet 5 Mg PO BID NITROGLYCERIN SubLingual (Nitroglycerin) 0.4 Mg Tab.subl 0.4 Mg SL PRN Q5MIN PRN Creon 24,000 Units Capsule (Lipase/Protease/Amylase) 1 Each Capsule. 5 Cap PO TIDWMEALS Diagnosis: Problems: (1) Dementia (2) Bipolar disorder, mixed (3) Bipolar affective disorder, mixed (4) Anxiety disorder (5) Major depressive disorder, recurrent episode (6) Impulse control disorder TESHA MANZANO MD Jun 01, 2017 21:46
--- NOTE | 2017-06-01 23:15 | NUR ---
Behavior Intervention Response and Plan: BIRP Note: Behavior: Assumed Care of patient, patient located in Bed at shift change. Patient exhibited the following behavior Calm, Able to Focus on Task, Withdrawn. Brief assessment on rounds of vital signs, medication needs, lab studies, and pain. Treatment plan problems :1-2 Intervention: Patient assessed and the following interventions initiated safety checks 15 Minute Checks Cognitive Assessment , Head to toe Assessment , Medications. Response: After interactions and interventions patient responded in the following manner, Calm , Able to Focus on Task ,Compliant. Continue to assess behaviors and condition will continue to monitor throughout the shift as needed. Patient educated on ADL's, and hand hygiene. Plan: Continue to monitor Master Treatment Plan for patient's progress toward short term goals of Decreased Anxiety, Improved Mood, chcf goals to return to previous living setting vs placement. Continue to assess patient for changes in above assessment. Monitor for medication needs, pain, and safety concerns. Hourly rounding performed to ensure safe environment.
[2017-06-02 06:23] VITALS: BP 143/60
--- NOTE | 2017-06-02 06:42 | PN ---
DATE: 05/29/2017 This late entry 05/29/2017 covers elements not covered in my initial note of 05/29/2017. SUBJECTIVE: The patient was staffed at a treatment team meeting with the entire team morning of 05/29/2017, seen individually evening of 05/29/2017. She slept 6-1/2 hours the previous evening. He remains somewhat anxious, labile, fixated on back pain, will defer to Dr. Singh. REVIEW OF SYSTEMS: Back pain, impaired ambulation. No CV, , pulmonary, eye system symptoms on review. MENTAL STATUS EXAM: Reasonably oriented. Speech has some latency, coherent. Abstraction fair, computation impaired, language function intact, attention span short. Mood and affect still somewhat depressed. LABORATORIES: Valproic acid level is 37. IMPRESSION: Unchanged from initial note. PLAN: Increase Depakote Sprinkles from 250 mg 3 times a day to 375 mg 3 times a day. Check labs level, ammonia level in 3 days. Maintain the rest of psychotropics unchanged. Reviewed drug interactions and risk/benefit ratio favors no further change at this time. Reviewed all of this with the patient. MAN Mau MANZANO MD DR: SURESH/ame JOB#: [id number] / [id number]
[2017-06-02] MEDS: CYCLOBENZAPRINE 10 MG TABLET. PO PRN (07:36)
[2017-06-02] MEDS: DULoxetine HCL 30 MG CAPSULE.DR PO SCH (07:36)
[2017-06-02] MEDS: hydroCHLOROthiazide 25 MG TABLET PO SCH (07:37)
[2017-06-02] MEDS: ASPIRIN 81 MG TAB.CHEW PO SCH (07:37)
[2017-06-02] MEDS: FERROUS SULFATE 325 MG TABLET PO SCH (07:37)
[2017-06-02] MEDS: levETIRAcetam 250 MG TABLET PO SCH ×2 (07:38→20:09)
[2017-06-02] MEDS: CALCIUM CARB/VIT D3 500/200 TABLET PO SCH ×2 (07:38→16:40)
[2017-06-02] MEDS: FAMOTIDINE 20 MG TABLET PO SCH ×3 (07:38→21:00)
[2017-06-02] MEDS: DIVALPROEX 125 MG CAP.SPRINK PO SCH ×4 (07:39→21:00)
[2017-06-02] MEDS: LISINOPRIL 20 MG TABLET PO SCH ×3 (07:39→21:00)
[2017-06-02] MEDS: ARIPiprazole 5 MG TABLET PO SCH (07:40)
[2017-06-02] MEDS: oxyCODONE/APAP 10/325 1 TAB TABLET PO SCH ×5 (07:53→21:00)
[2017-06-02] MEDS: METOPROLOL TART IMMED RELEASE 50 MG TABLET PO SCH ×2 (07:53→20:10)
[2017-06-02] MEDS: NYSTATIN TOPICAL POWDER 15GM BOTTLE. TP SCH ×2 (07:54→20:10)
--- NOTE | 2017-06-02 10:36 | NUR ---
Behavior Intervention Response and Plan: BIRP Note: Behavior: Assumed Care of patient, patient located in Dining Room at shift change. Patient exhibited the following behavior Calm, Compliant, Cooperative. Brief assessment on rounds of vital signs, medication needs, lab studies, and pain. Treatment plan problems 1 and 2. Intervention: Patient assessed and the following interventions initiated safety checks 15 Minute Checks Cognitive Assessment , Head to toe Assessment , Medications. Response: After interactions and interventions patient responded in the following manner, Calm , Cooperative ,Compliant. Continue to assess behaviors and condition will continue to monitor throughout the shift as needed. Patient educated on ADL's, and hand hygiene. 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 Continue to assess patient for changes in above assessment. Monitor for medication needs, pain, and safety concerns. Hourly rounding performed to ensure safe environment. Pt complained of back pain this am during assessment; pt has chronic pain related to compression fracture. Pt has scheduled Percocet QID, which was given with morning meds. Will continue to monitor.
[2017-06-02] MEDS: clonazePAM 0.5 MG TABLET PO PRN (13:35)
--- NOTE | 2017-06-02 14:21 | PN ---
DATE: 05/31/2017 SUBJECTIVE: This is a late entry 05/31/2017, covers elements not covered in my initial note. I met with the patient evening on 05/31/2017. The patient has been somewhat drowsy. Dr. Singh is working her up medically. She was hypotensive. Chest x-ray and lactic acid were checked. Creatinine is elevated. She is anxious. REVIEW OF SYSTEMS: Positive for back pain, impaired ambulation. No CV, , pulmonary, or eye system symptoms on review. MENTAL STATUS EXAM: Reasonably oriented. Speech is coherent. Often responses monosyllabic. Abstraction fair, computation impaired, language function intact, attention span short, and mood and affect somewhat withdrawn. LABORATORY DATA: Reviewed. IMPRESSION: Unchanged from initial note. PLAN: Continue psychotropics mentioned in my initial note. Adjust further as clinically indicated. MAN Mau MANZANO MD DR: SURESH/ame JOB#: [id number] / [id number]
--- NOTE | 2017-06-02 14:31 | NUR ---
Group Note [facility] Group Type: Pet Therapy w/[facility] Start Time: 1:00pm End Time: 2:00pm Problem: Depression Purpose: Stimulate Memory Level of Participation: High Behaviors or Symptoms Observed: PT. out of her room after lunch, socialization somewhat Interventions: Reminiscence Response: Pt. interested in sharing things [place] Plan: continue to monitor
[2017-06-02 15:43] VITALS: BP 176/82
[2017-06-02] MEDS: traZODone 50 MG TABLET. PO SCH ×2 (20:09→21:00)
[2017-06-02] MEDS: DONEPEZIL HCL 10 MG TABLET PO SCH ×2 (20:09→21:00)
[2017-06-02] MEDS: OLANZapine 5 MG TABLET PO SCH ×2 (20:09→21:00)
[2017-06-02] MEDS: MIRTAZAPINE 15 MG TAB.RAPDIS PO SCH ×2 (20:10→21:00)
[2017-06-02] MEDS: clonazePAM 0.5 MG TABLET PO SCH ×2 (20:12→21:00)
--- NOTE | 2017-06-02 21:30 | NUR ---
Pt HS medications held with the exception of Metoprolol and Keppra d/t pt being drowsy and sedated.
--- NOTE | 2017-06-02 22:42 | PDOC ---
Exam Monty Demential Exam: Monty Note: Please also refer to the separate dictated note~for this date of service dictated separately.~Patient seen individually. Discussed the patient with Nursing staff reviewed the chart.~Reviewed interim history and current functioning. Reviewed vital signs,~Labs/ Radiology~and current medications noted below. Continue current treatment with the changes noted in the dictated addendum note Assessment: Vital Signs: Vital Signs Date Time Temp Pulse Resp B/P (MAP) Pulse Ox O2 Delivery O2 Flow Rate FiO2 06/02/17 21:00 113 176/82 06/02/17 15:43 98.3 18 94 05/27/17 07:00 Room Air I&O Intake and Output 06/03/17 06:59 Intake Total 1200 ml Balance 1200 ml Intake Oral 1200 ml # Voids 2 Current Medications: Meds: Current Medications Acetaminophen (Tylenol) 1,000 mg 1X ONCE PO Last administered on 05/15/17 11: 38; Start 05/15/17 at 11:45; Stop 05/15/17 at 13:52; Status DC Lorazepam (Ativan) 1 mg 1X ONCE PO Last administered on 05/15/17 11:38; Start 05/15/17 at 11:45; Stop 05/15/17 at 13:50; Status DC Acetaminophen (Tylenol) 650 mg PRN Q6HRS PRN PO PAIN / TEMP Last administered on 05/16/17 14:41; Start 05/15/17 at 13:30; Stop 05/16/17 at 15:30; Status DC Multi-Ingredient Ointment (Analgesic [place]) 1 mike PRN QID PRN TP MUSCLE PAIN; Start 05/15/17 at 13:30 Al Hydroxide/Mg Hydroxide (Mylanta Plus Xs) 15 ml PRN AFTMEALHC PRN PO DYSPEPSIA; Start 05/15/17 at 13:30 Magnesium Hydroxide (Milk Of Magnesia) 2,400 mg PRN QHS PRN PO CONSTIPATION; Start 05/15/17 at 13:30 Nicotine (Nicoderm Cq 14mg) 1 patch DAILY TD ; Start 05/16/17 at 09:00; Stop at 10:41; Status DC Escitalopram Oxalate (Lexapro) 20 mg DAILY PO Last administered on 05/18/17 07 :17; Start 05/16/17 at 09:00; Stop 05/18/17 at 22:07; Status DC Donepezil HCl (Aricept) 10 mg QHS PO Last administered on 06/01/17 20:34; Start 05/15/17 at 21:00 Clonazepam (KlonoPIN) 0.5 mg QHS PO Last administered on 06/01/17 20:34; Start 05/15/17 at 21:00 Donepezil HCl (Aricept) 5 mg QHS PO Last administered on 05/15/17 19:38; Start 05/15/17 at 21:00; Stop 05/15/17 at 23:44; Status DC Levetiracetam (Keppra) 750 mg BID PO Last administered on 06/02/17 20:09; Start 05/15/17 at 21:00 Clonazepam (KlonoPIN) 0.5 mg PRN BID PRN PO ANXIETY / AGITATION Last administered on 05/16/17 16:22; Start 05/15/17 at 14:00; Stop 05/16/17 at 18:45 ; Status DC Olanzapine (ZyPREXA) 10 mg QHS PO Last administered on 05/29/17 21:15; Start 05/15/17 at 21:00; Stop 05/30/17 at 18:51; Status DC Mirtazapine (Remeron Genny-Tab) 15 mg QHS PO Last administered on 06/01/17 20:32 ; Start 05/15/17 at 21:00 Aspirin (Children'S Aspirin) 81 mg DAILY PO Last administered on 06/02/17 07:37 ; Start 05/16/17 at 09:00 Ferrous Sulfate (Feosol) 325 mg DAILY PO Last administered on 06/02/17 07:37; Start 05/16/17 at 09:00 Hydrochlorothiazide (Hydrodiuril) 25 mg DAILY PO Last administered on 06/02/17 07:37; Start 05/16/17 at 09:00 Oxycodone/ Acetaminophen (Percocet 10/325) 1 tab QID PO Last administered on 16:40; Start 05/15/17 at 17:00 Calcium/Vitamin D (Oscal D 500mg/ 200uts) 1 tab BIDWMEALS PO Last administered on 06/02/17 16:40; Start 05/15/17 at 17:00 Docusate Sodium (Colace) 100 mg BID PO Last administered on 05/20/17 08:27; Start 05/15/17 at 21:00; Stop 05/20/17 at 12:49; Status DC Famotidine (Pepcid) 20 mg BID PO Last administered on 06/02/17 07:38; Start at 21:00 Lisinopril (Prinivil) 20 mg BID PO Last administered on 06/02/17 07:39; Start 05/15/17 at 21:00 Metoprolol Tartrate (Lopressor) 50 mg BID PO Last administered on 06/02/17 20: 10; Start 05/15/17 at 21:00 Clonidine HCl (Catapres) 0.2 mg DAILY PRN PO HYPERTENSION, SEE COMMENTS Last administered on 05/31/17 07:40; Start 05/16/17 at 09:00 Albuterol/ Ipratropium (Duoneb) 3 ml Q4HRS PRN NEB SHORTNESS OF BREATH Last administered on 05/21/17 10:10; Start 05/15/17 at 14:15 Acetaminophen (Tylenol) 650 mg PRN Q8HRS PRN PO PAIN Last administered on 19:55; Start 05/15/17 at 14:15 Cyclobenzaprine HCl (Flexeril) 10 mg Q8HRS PRN PO MUSCLE SPASMS Last administered on 06/02/17 07:36; Start 05/15/17 at 14:15 Ondansetron HCl (Zofran Odt) 4 mg PRN Q8HRS PRN PO NAUSEA/VOMITING Last administered on 05/31/17 12:40; Start 05/15/17 at 14:15 Loperamide HCl (Imodium) 2 mg PRN Q3HRS PRN PO DIARRHEA Last administered on 09:17; Start 05/15/17 at 14:15 Nystatin (Nystop) 1 mike BID TP Last administered on 05/15/17 19:38; Start at 21:00; Stop 05/15/17 at 21:00; Status DC Fentanyl (Duragesic 12mcg/ Hr) 1 patch Q3DAYS TD Last administered on 09:10; Start 05/16/17 at 09:00; Stop 05/26/17 at 15:17; Status DC Nystatin (Nystop) 1 mike BID TP Last administered on 06/02/17 20:10; Start 05/15 at 21:00 Divalproex Sodium (Depakote Sprinkles) 125 mg TID PO Last administered on 13:38; Start 05/15/17 at 21:00; Stop 05/26/17 at 18:17; Status DC Vitamin D (Vitamin D3) 50,000 unit WEEKLY PO Last administered on 05/31/17 07: 43; Start 05/17/17 at 09:00 Clonazepam (KlonoPIN) 0.5 mg PRN TID PRN PO ANXIETY / AGITATION Last administered on 06/02/17 13:35; Start 05/17/17 at 06:00 Duloxetine HCl (Cymbalta) 30 mg DAILY PO Last administered on 05/20/17 08:25; Start 05/19/17 at 09:00; Stop 05/20/17 at 10:00; Status DC Duloxetine HCl (Cymbalta) 60 mg DAILY PO Last administered on 05/23/17 08:07; Start 05/21/17 at 09:00; Stop 05/23/17 at 10:00; Status DC Duloxetine HCl (Cymbalta) 90 mg DAILY PO Last administered on 06/02/17 07:36; Start 05/24/17 at 09:00 Fentanyl (Duragesic 25mcg/ Hr) 1 patch Q3DAYS TD Last administered on 06/01/17 07:33; Start 05/26/17 at 15:30 Divalproex Sodium (Depakote Sprinkles) 250 mg TID PO Last administered on 07:49; Start 05/26/17 at 21:00; Stop 05/29/17 at 11:02; Status DC Aripiprazole (Abilify) 5 mg DAILY PO Last administered on 06/02/17 07:40; Start 05/29/17 at 09:00 Divalproex Sodium (Depakote Sprinkles) 375 mg TID PO Last administered on 14:36; Start 05/29/17 at 14:00; Stop 06/01/17 at 18:37; Status DC Olanzapine (ZyPREXA) 5 mg HS PO Last administered on 06/01/17 20:34; Start 05/30 at 21:00 Trazodone HCl (Desyrel) 50 mg QHS PO Last administered on 06/01/17 20:35; Start 05/30/17 at 21:00 Trazodone HCl (Desyrel) 50 mg PRN QHS PRN PO INSOMNIA; Start 05/30/17 at 19:00 Divalproex Sodium (Depakote Sprinkles) 500 mg TID PO Last administered on 12:26; Start 06/01/17 at 21:00 Active Scripts Active Reported Trazodone Hcl 50 Mg Tablet 50 Mg PO PRN QHS PRN Miralax (Polyethylene Glycol 3350) 17 Gm Powd.pack 17 Gm PO DAILY Pantoprazole Sodium 40 Mg Tablet.dr 40 Mg PO DAILYAC Oxycontin (Oxycodone Hcl) 10 Mg Tab.er.12h 10 Mg PO BID76 Zyprexa Zydis (Olanzapine) 5 Mg Tab.rapdis 5 Mg PO PRN Q2HR PRN Analgesic [place] (Methyl Salicylate/Menthol) 29 Gm Oint...g. 1 Mike TP PRN QID PRN Milk Of Magnesia (Magnesium Hydroxide) 2,400 Mg/10 Ml Oral.susp 2,400 Mg PO PRN QHS PRN Advanced Antacid Liquid (Mag Hydrox/Al Hydrox/Simeth) 355 Ml Oral.susp 15 Ml PO PRN AFTMEALHC PRN Cymbalta (Duloxetine Hcl) 30 Mg Capsule.dr 30 Mg PO DAILY Colace (Docusate Sodium) 100 Mg Capsule 100 Mg PO BID Tegretol (Carbamazepine) 200 Mg Tablet 400 Mg PO HS Acetaminophen 500 Mg Tablet 650 Mg PO PRN Q6HRS PRN Folic Acid 0.8 Mg Tablet 0.8 Mg PO DAILY Calcium 500 + Vit D 400 Tablet (Calcium Carbonate/Vitamin D3) 1 Each Tablet 1 Tab PO BIDWBKFT/KAYY Hydrocodone-Apap 10-325 (Hydrocodone Bit/Acetaminophen) 1 Each Tablet 1 Tab PO PRN Q4HRS PRN Alprazolam 0.5 Mg Tablet 0.5 Mg PO PRN Q2HR PRN max dosage: 3mg/24hrs Loratadine 10 Mg Tablet 10 Mg PO PRN DAILY PRN Loperamide (Loperamide Hcl) 2 Mg Capsule 2 Mg PO PRN Q4HRS PRN Methylphenidate Er (Methylphenidate Hcl) 10 Mg Tablet.er 10 Mg PO DAILY Multivitamins (Multivitamin) 1 Each Tablet 1 Tab PO DAILY Mupirocin 22 Gm Oint...g. 1 Mike TP PRN BID PRN Cholestyramine Packet (Cholestyramine (With Sugar)) 4 Gm Powd.pack 4 Gm PO BID Ferrous Sulfate 325 Mg Tablet 325 Mg PO NOON Vitamin C (Ascorbic Acid) 500 Mg Tablet 500 Mg PO TID Norvasc (Amlodipine Besylate) 5 Mg Tablet 5 Mg PO BID NITROGLYCERIN SubLingual (Nitroglycerin) 0.4 Mg Tab.subl 0.4 Mg SL PRN Q5MIN PRN Creon Dr 24,000 Units Capsule (Lipase/Protease/Amylase) 1 Each Capsule. 5 Cap PO TIDWMEALS Diagnosis: Problems: (1) Dementia (2) Bipolar disorder, mixed (3) Bipolar affective disorder, mixed (4) Anxiety disorder (5) Major depressive disorder, recurrent episode (6) Impulse control disorder TESHA MANZANO MD Jun 02, 2017 22:42
--- NOTE | 2017-06-02 23:29 | NUR ---
Behavior Intervention Response and Plan: BIRP Note: Behavior: Assumed Care of patient, patient located in Patient Room at shift change. Patient exhibited the following behavior Drowsy, Withdrawn, Sleeping. Brief assessment on rounds of vital signs, medication needs, lab studies, and pain. Treatment plan problems 1 and 2. Intervention: Patient assessed and the following interventions initiated safety checks 15 Minute Checks Cognitive Assessment , Head to toe Assessment , Medications. Response: After interactions and interventions patient responded in the following manner, Calm , Compliant ,Drowsy. Continue to assess behaviors and condition will continue to monitor throughout the shift as needed. Patient educated on ADL's, and hand hygiene. 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 Continue to assess patient for changes in above assessment. Monitor for medication needs, pain, and safety concerns. Hourly rounding performed to ensure safe environment.
--- NOTE | 2017-06-02 23:36 | PN ---
DATE: 06/01/2017 This late entry of 06/01/2017 covers elements not covered in my initial note of 06/01/2017. SUBJECTIVE: I met with the patient evening of 06/01/2017. The patient continues to be quite labile, anxious, somatically preoccupied with her back pain. She slept 8-1/4 hours previous evening. REVIEW OF SYSTEMS: Positive for back pain, impaired ambulation. No CV, , pulmonary, eye, ENT system symptoms on review. MENTAL STATUS EXAMINATION: Oriented to herself and situation. Speech is coherent and some latency. Abstraction fair, computation impaired, language function intact, attention span short, mood and affect somewhat withdrawn. LABORATORY DATA: Reviewed. IMPRESSION: Unchanged from initial note. PLAN: Valproic acid level is 42 on 375 mg Depakote Sprinkles 3 times a day. We will increase it to 500 mg 3 times a day. Check CBC, CMP, valproic acid, ammonia level in 3 days. Continue rest unchanged. Make further adjustments as clinically indicated. MAN Mau MANZANO MD DR: SURESH/ame JOB#: [id number] / [id number]
[2017-06-03 06:31] VITALS: BP 153/69
[2017-06-03] MEDS ORDERED: fentaNYL 12MCG/HR 1 PATCH PATCH TD SCH (09:00)
[2017-06-03] MEDS: NYSTATIN TOPICAL POWDER 15GM BOTTLE. TP SCH ×2 (09:00→19:35)
--- NOTE | 2017-06-03 09:00 | NUR ---
THERAPEUTIC RECREATION GROUP NOTE TITLE :Ball Bounce and Reminisce about Seasons ACTIVITY : Activities and Games GOAL : Increase social interaction, fine motor skills. Maintain or improve mental functioning. Decrease restlessness DURATION : 60 minutes RESPONSE : Full participation. Pt. was with the group the entire time. She needed occasional prompting when it was her turn. She took breaks as needed and was mostly quiet with minimal interaction with others.
[2017-06-03] MEDS: hydroCHLOROthiazide 25 MG TABLET PO SCH (10:07)
[2017-06-03] MEDS: DIVALPROEX 125 MG CAP.SPRINK PO SCH ×3 (10:08→19:23)
[2017-06-03] MEDS: ASPIRIN 81 MG TAB.CHEW PO SCH (10:08)
[2017-06-03] MEDS: FERROUS SULFATE 325 MG TABLET PO SCH (10:08)
[2017-06-03] MEDS: LISINOPRIL 20 MG TABLET PO SCH ×2 (10:08→19:23)
[2017-06-03] MEDS: DULoxetine HCL 30 MG CAPSULE.DR PO SCH (10:09)
[2017-06-03] MEDS: METOPROLOL TART IMMED RELEASE 50 MG TABLET PO SCH ×2 (10:09→19:24)
[2017-06-03] MEDS: levETIRAcetam 250 MG TABLET PO SCH ×2 (10:09→19:22)
[2017-06-03] MEDS: CALCIUM CARB/VIT D3 500/200 TABLET PO SCH ×2 (10:09→17:11)
[2017-06-03] MEDS: ARIPiprazole 5 MG TABLET PO SCH (10:09)
[2017-06-03] MEDS: FAMOTIDINE 20 MG TABLET PO SCH ×2 (10:09→19:23)
[2017-06-03] MEDS: oxyCODONE/APAP 10/325 1 TAB TABLET PO SCH ×4 (10:12→19:29)
--- NOTE | 2017-06-03 10:30 | NUR ---
Patient appears more lethargic, O2 sats low in the evenings and CO2 35. Nurse informed Dr. Andre of these changes and asked to review her medications- changes made per MD, will continue to monitor.
--- NOTE | 2017-06-03 11:48 | NUR ---
SW faxed updated clinicals to [facility] w/anticipated dc date set for Friday. SW to follow up in the am w/transport time.
--- NOTE | 2017-06-03 13:03 | NUR ---
SW received message from Pt's dtr, Coty (NOT the DPOA) stating her son would be at this facility later today in anticipation of dc plans. JIMMY contacted PT's grandson/DPOA, Tucker, to discuss the miscommunication as JIMMY told Tucker late last week the dc plan was targeted for Friday or Friday this week. Lab draws are scheduled for Friday AM and SW has arranged for dc back to [place] Friday. Tucker stated concerns w/having Pt. remain at this facility longer as the medication levels can be monitored at Pt's facility. JIMMY stated this would be passed along to Dr. Marsh in the AM w/final approval for dc. JIMMY will contact Pt's grandson once transportation is arranged.
--- NOTE | 2017-06-03 14:00 | NUR ---
THERAPEUTIC RECREATION GROUP NOTE TITLE :Sing along with Amita ACTIVITY : Music GOAL : Increase socialization, elevate mood, stimulate memory DURATION : 60 minutes RESPONSE : No participation
--- NOTE | 2017-06-03 16:41 | NUR ---
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 Pt refused to allow me to remove dressing at this time, stating they had just changed it. Pt allowed me to peek under edge of dressing. Surrounding skin is intact but slightly reddened. Recommend using skin prep and stoma powder to create a crust before applying dressing of aquacel ag and bordered foam. Discussed POC with pt and ANGELY Alan. Both verbalized understanding. Gave stoma powder to RN for future dressing changes, she stated pt may go home tomorrow. Will continue to monitor for wound care. Pt refused to allow me to inspect the rest of her skin, educated pt on importance of rotating from side to side while sitting or laying down to prevent skin breakdown.
--- NOTE | 2017-06-03 16:58 | NUR ---
Behavior Intervention Response and Plan: BIRP Note: Behavior: Assumed Care of patient, patient located in Patient Room at shift change. Patient exhibited the following behavior Calm, Compliant, Withdrawn. Brief assessment on rounds of vital signs, medication needs, lab studies, and pain. Treatment plan problems . Intervention: Patient assessed and the following interventions initiated safety checks 15 Minute Checks Cognitive Assessment , Head to toe Assessment , Medications. Response: After interactions and interventions patient responded in the following manner, Calm , Withdrawn ,Drowsy. Continue to assess behaviors and condition will continue to monitor throughout the shift as needed. Patient educated on ADL's, and hand hygiene. 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 Continue to assess patient for changes in above assessment. Monitor for medication needs, pain, and safety concerns. Hourly rounding performed to ensure safe environment.
[2017-06-03 17:28] VITALS: BP 168/83
[2017-06-03] MEDS: DONEPEZIL HCL 10 MG TABLET PO SCH (19:22)
[2017-06-03] MEDS: MIRTAZAPINE 15 MG TAB.RAPDIS PO SCH (19:23)
[2017-06-03] MEDS: OLANZapine 5 MG TABLET PO SCH (19:24)
[2017-06-03] MEDS: clonazePAM 0.5 MG TABLET PO SCH (19:29)
--- NOTE | 2017-06-03 19:31 | PDOC ---
Exam Monty Demential Exam: Monty Note: Please also refer to the separate dictated note~for this date of service dictated separately.~Patient seen individually. Discussed the patient with Nursing staff reviewed the chart.~Reviewed interim history and current functioning. Reviewed vital signs,~Labs/ Radiology~and current medications noted below. Continue current treatment with the changes noted in the dictated addendum note Assessment: Vital Signs: Vital Signs Date Time Temp Pulse Resp B/P (MAP) Pulse Ox O2 Delivery O2 Flow Rate FiO2 06/03/17 19:24 68 168/83 06/03/17 17:28 97.8 18 93 Room Air I&O Intake and Output 06/04/17 07:00 Intake Total 1320 ml Balance 1320 ml Intake Oral 1320 ml # Bowel Movements 1 Current Medications: Meds: Current Medications Acetaminophen (Tylenol) 1,000 mg 1X ONCE PO Last administered on 05/15/17 11: 38; Start 05/15/17 at 11:45; Stop 05/15/17 at 13:52; Status DC Lorazepam (Ativan) 1 mg 1X ONCE PO Last administered on 05/15/17 11:38; Start 05/15/17 at 11:45; Stop 05/15/17 at 13:50; Status DC Acetaminophen (Tylenol) 650 mg PRN Q6HRS PRN PO PAIN / TEMP Last administered on 05/16/17 14:41; Start 05/15/17 at 13:30; Stop 05/16/17 at 15:30; Status DC Multi-Ingredient Ointment (Analgesic [place]) 1 mike PRN QID PRN TP MUSCLE PAIN; Start 05/15/17 at 13:30 Al Hydroxide/Mg Hydroxide (Mylanta Plus Xs) 15 ml PRN AFTMEALHC PRN PO DYSPEPSIA; Start 05/15/17 at 13:30 Magnesium Hydroxide (Milk Of Magnesia) 2,400 mg PRN QHS PRN PO CONSTIPATION; Start 05/15/17 at 13:30 Nicotine (Nicoderm Cq 14mg) 1 patch DAILY TD ; Start 05/16/17 at 09:00; Stop at 10:41; Status DC Escitalopram Oxalate (Lexapro) 20 mg DAILY PO Last administered on 05/18/17 07 :17; Start 05/16/17 at 09:00; Stop 05/18/17 at 22:07; Status DC Donepezil HCl (Aricept) 10 mg QHS PO Last administered on 06/03/17 19:22; Start 05/15/17 at 21:00 Clonazepam (KlonoPIN) 0.5 mg QHS PO Last administered on 06/01/17 20:34; Start 05/15/17 at 21:00 Donepezil HCl (Aricept) 5 mg QHS PO Last administered on 05/15/17 19:38; Start 05/15/17 at 21:00; Stop 05/15/17 at 23:44; Status DC Levetiracetam (Keppra) 750 mg BID PO Last administered on 06/03/17 19:22; Start 05/15/17 at 21:00 Clonazepam (KlonoPIN) 0.5 mg PRN BID PRN PO ANXIETY / AGITATION Last administered on 05/16/17 16:22; Start 05/15/17 at 14:00; Stop 05/16/17 at 18:45 ; Status DC Olanzapine (ZyPREXA) 10 mg QHS PO Last administered on 05/29/17 21:15; Start 05/15/17 at 21:00; Stop 05/30/17 at 18:51; Status DC Mirtazapine (Remeron Genny-Tab) 15 mg QHS PO Last administered on 06/03/17 19:23 ; Start 05/15/17 at 21:00 Aspirin (Children'S Aspirin) 81 mg DAILY PO Last administered on 06/03/17 10:08 ; Start 05/16/17 at 09:00 Ferrous Sulfate (Feosol) 325 mg DAILY PO Last administered on 06/03/17 10:08; Start 05/16/17 at 09:00 Hydrochlorothiazide (Hydrodiuril) 25 mg DAILY PO Last administered on 06/03/17 10:07; Start 05/16/17 at 09:00 Oxycodone/ Acetaminophen (Percocet 10/325) 1 tab QID PO Last administered on 16:40; Start 05/15/17 at 17:00; Stop 06/03/17 at 08:56; Status DC Calcium/Vitamin D (Oscal D 500mg/ 200uts) 1 tab BIDWMEALS PO Last administered on 06/03/17 17:11; Start 05/15/17 at 17:00 Docusate Sodium (Colace) 100 mg BID PO Last administered on 05/20/17 08:27; Start 05/15/17 at 21:00; Stop 05/20/17 at 12:49; Status DC Famotidine (Pepcid) 20 mg BID PO Last administered on 06/03/17 19:23; Start at 21:00 Lisinopril (Prinivil) 20 mg BID PO Last administered on 06/03/17 19:23; Start 05/15/17 at 21:00 Metoprolol Tartrate (Lopressor) 50 mg BID PO Last administered on 06/03/17 19: 24; Start 05/15/17 at 21:00 Clonidine HCl (Catapres) 0.2 mg DAILY PRN PO HYPERTENSION, SEE COMMENTS Last administered on 05/31/17 07:40; Start 05/16/17 at 09:00 Albuterol/ Ipratropium (Duoneb) 3 ml Q4HRS PRN NEB SHORTNESS OF BREATH Last administered on 05/21/17 10:10; Start 05/15/17 at 14:15 Acetaminophen (Tylenol) 650 mg PRN Q8HRS PRN PO PAIN Last administered on 19:55; Start 05/15/17 at 14:15 Cyclobenzaprine HCl (Flexeril) 10 mg Q8HRS PRN PO MUSCLE SPASMS Last administered on 06/02/17 07:36; Start 05/15/17 at 14:15 Ondansetron HCl (Zofran Odt) 4 mg PRN Q8HRS PRN PO NAUSEA/VOMITING Last administered on 05/31/17 12:40; Start 05/15/17 at 14:15 Loperamide HCl (Imodium) 2 mg PRN Q3HRS PRN PO DIARRHEA Last administered on 09:17; Start 05/15/17 at 14:15 Nystatin (Nystop) 1 mike BID TP Last administered on 05/15/17 19:38; Start at 21:00; Stop 05/15/17 at 21:00; Status DC Fentanyl (Duragesic 12mcg/ Hr) 1 patch Q3DAYS TD Last administered on 09:10; Start 05/16/17 at 09:00; Stop 05/26/17 at 15:17; Status DC Nystatin (Nystop) 1 mike BID TP Last administered on 06/03/17 09:00; Start 05/15 at 21:00 Divalproex Sodium (Depakote Sprinkles) 125 mg TID PO Last administered on 13:38; Start 05/15/17 at 21:00; Stop 05/26/17 at 18:17; Status DC Vitamin D (Vitamin D3) 50,000 unit WEEKLY PO Last administered on 05/31/17 07: 43; Start 05/17/17 at 09:00 Clonazepam (KlonoPIN) 0.5 mg PRN TID PRN PO ANXIETY / AGITATION Last administered on 06/02/17 13:35; Start 05/17/17 at 06:00 Duloxetine HCl (Cymbalta) 30 mg DAILY PO Last administered on 05/20/17 08:25; Start 05/19/17 at 09:00; Stop 05/20/17 at 10:00; Status DC Duloxetine HCl (Cymbalta) 60 mg DAILY PO Last administered on 05/23/17 08:07; Start 05/21/17 at 09:00; Stop 05/23/17 at 10:00; Status DC Duloxetine HCl (Cymbalta) 90 mg DAILY PO Last administered on 06/03/17 10:09; Start 05/24/17 at 09:00 Fentanyl (Duragesic 25mcg/ Hr) 1 patch Q3DAYS TD Last administered on 06/01/17 07:33; Start 05/26/17 at 15:30; Stop 06/03/17 at 08:56; Status DC Divalproex Sodium (Depakote Sprinkles) 250 mg TID PO Last administered on 07:49; Start 05/26/17 at 21:00; Stop 05/29/17 at 11:02; Status DC Aripiprazole (Abilify) 5 mg DAILY PO Last administered on 06/03/17 10:09; Start 05/29/17 at 09:00 Divalproex Sodium (Depakote Sprinkles) 375 mg TID PO Last administered on 14:36; Start 05/29/17 at 14:00; Stop 06/01/17 at 18:37; Status DC Olanzapine (ZyPREXA) 5 mg HS PO Last administered on 06/03/17 19:24; Start 05/30 at 21:00 Trazodone HCl (Desyrel) 50 mg QHS PO Last administered on 06/01/17 20:35; Start 05/30/17 at 21:00; Stop 06/03/17 at 08:56; Status DC Trazodone HCl (Desyrel) 50 mg PRN QHS PRN PO INSOMNIA; Start 05/30/17 at 19:00 Divalproex Sodium (Depakote Sprinkles) 500 mg TID PO Last administered on 19:23; Start 06/01/17 at 21:00 Fentanyl (Duragesic 12mcg/ Hr) 1 patch Q3DAYS TD Last administered on 06/03/17 10:12; Start 06/03/17 at 09:00 Oxycodone/ Acetaminophen (Percocet 10/325) 0.5 tab QID PO Last administered on 06/03/17 17:11; Start 06/03/17 at 09:00 Trazodone HCl (Desyrel) 25 mg QHS PO ; Start 06/03/17 at 21:00 Cyanocobalamin (Vitamin B-12) 1,000 mcg DAILY PO ; Start 06/04/17 at 09:00 Active Scripts Active Reported Trazodone Hcl 50 Mg Tablet 50 Mg PO PRN QHS PRN Miralax (Polyethylene Glycol 3350) 17 Gm Powd.pack 17 Gm PO DAILY Pantoprazole Sodium 40 Mg Tablet.dr 40 Mg PO DAILYAC Oxycontin (Oxycodone Hcl) 10 Mg Tab.er.12h 10 Mg PO [id number] Zyprexa Zydis (Olanzapine) 5 Mg Tab.rapdis 5 Mg PO PRN Q2HR PRN Analgesic [place] (Methyl Salicylate/Menthol) 29 Gm Oint...g. 1 Mike TP PRN QID PRN Milk Of Magnesia (Magnesium Hydroxide) 2,400 Mg/10 Ml Oral.susp 2,400 Mg PO PRN QHS PRN Advanced Antacid Liquid (Mag Hydrox/Al Hydrox/Simeth) 355 Ml Oral.susp 15 Ml PO PRN AFTMEALHC PRN Cymbalta (Duloxetine Hcl) 30 Mg Capsule.dr 30 Mg PO DAILY Colace (Docusate Sodium) 100 Mg Capsule 100 Mg PO BID Tegretol (Carbamazepine) 200 Mg Tablet 400 Mg PO HS Acetaminophen 500 Mg Tablet 650 Mg PO PRN Q6HRS PRN Folic Acid 0.8 Mg Tablet 0.8 Mg PO DAILY Calcium 500 + Vit D 400 Tablet (Calcium Carbonate/Vitamin D3) 1 Each Tablet 1 Tab PO [id number] Hydrocodone-Apap 10-325 (Hydrocodone Bit/Acetaminophen) 1 Each Tablet 1 Tab PO PRN Q4HRS PRN Alprazolam 0.5 Mg Tablet 0.5 Mg PO PRN Q2HR PRN max dosage: 3mg/24hrs Loratadine 10 Mg Tablet 10 Mg PO PRN DAILY PRN Loperamide (Loperamide Hcl) 2 Mg Capsule 2 Mg PO PRN Q4HRS PRN Methylphenidate Er (Methylphenidate Hcl) 10 Mg Tablet.er 10 Mg PO DAILY Multivitamins (Multivitamin) 1 Each Tablet 1 Tab PO DAILY Mupirocin 22 Gm Oint...g. 1 Mike TP PRN BID PRN Cholestyramine Packet (Cholestyramine (With Sugar)) 4 Gm Powd.pack 4 Gm PO BID Ferrous Sulfate 325 Mg Tablet 325 Mg PO NOON Vitamin C (Ascorbic Acid) 500 Mg Tablet 500 Mg PO TID Norvasc (Amlodipine Besylate) 5 Mg Tablet 5 Mg PO BID NITROGLYCERIN SubLingual (Nitroglycerin) 0.4 Mg Tab.subl 0.4 Mg SL PRN Q5MIN PRN Creon 24,000 Units Capsule (Lipase/Protease/Amylase) 1 Each Capsule. 5 Cap PO TIDWMEALS Diagnosis: Problems: (1) Dementia (2) Cataract (3) Bipolar disorder, mixed (4) Bipolar affective disorder, mixed (5) Anxiety disorder (6) Major depressive disorder, recurrent episode (7) Impulse control disorder TESHA MANZANO MD Jun 03, 2017 19:31
[2017-06-03] MEDS ORDERED: traZODone 50 MG TABLET. PO SCH (21:00)
--- NOTE | 2017-06-04 01:27 | PN ---
DATE: 06/02/2017 This late entry for 06/02/2017 covers elements not covered in my initial note of 06/02/2017. SUBJECTIVE: The patient slept 5 hours previous evening withdrawn to her room; otherwise, cooperative. REVIEW OF SYSTEMS: Positive for back pain, impaired ambulation. No CV, , pulmonary, eye, ENT system symptoms on review. MENTAL STATUS EXAM: Reasonably oriented. Speech has some latency, coherent, low in volume. Abstraction fair, computation impaired, language function intact. Attention span short. Mood dysphoric, affect, mood congruent, anxious. LABORATORY DATA: Reviewed. IMPRESSION: Unchanged from initial note. PLAN: Continue current psychotropics mentioned in my initial note. Reviewed drug interactions. Risk/benefit ratio favors no further change for now. MAN Mau MANZANO MD DR: SURESH/ame JOB#: [id number] / [id number]
[2017-06-04] MEDS ORDERED: ACET500T68 PO ×3 (02:15→03:17)
[2017-06-04] MEDS ORDERED: ARIP5TAB13 PO ×2 (02:17→03:18)
[2017-06-04] MEDS ORDERED: ASPI81TA50 PO ×2 (02:18→03:19)
[2017-06-04] MEDS ORDERED: CALC-157 PO ×4 (02:19→03:19)
[2017-06-04] MEDS ORDERED: CHOL500016 PO ×2 (02:31→03:21)
[2017-06-04] MEDS ORDERED: CYCL-331 PO ×2 (02:32→03:22)
[2017-06-04] MEDS ORDERED: DIVA125C PO ×2 (02:35→03:26)
[2017-06-04] MEDS ORDERED: DONE10TA61 PO ×2 (02:38→03:27)
[2017-06-04] MEDS ORDERED: DULO60CA6 PO ×2 (02:41→03:27)
[2017-06-04] MEDS ORDERED: FAMO20TA5 PO ×2 (02:42→03:28)
[2017-06-04] MEDS ORDERED: FERR325T72 PO (02:43)
[2017-06-04] MEDS ORDERED: IPRA3AMP NEB ×2 (02:46→03:30)
[2017-06-04] MEDS ORDERED: LISI-334 PO (02:47)
[2017-06-04] MEDS ORDERED: LOPE2CAP88 PO (02:48)
[2017-06-04] MEDS ORDERED: MAG30ORA PO (02:51)
[2017-06-04] MEDS ORDERED: MAGN2400 PO (02:53)
[2017-06-04] MEDS ORDERED: METH113C6 TP (02:56)
[2017-06-04] MEDS ORDERED: METO50TA2 PO (02:57)
[2017-06-04] MEDS ORDERED: MIRT15TA3 PO (02:59)
[2017-06-04] MEDS ORDERED: NYST15PO9 TP (03:01)
[2017-06-04] MEDS ORDERED: OLAN10TA9 PO (03:02)
[2017-06-04] MEDS ORDERED: ONDA4TAB12 PO (03:03)
[2017-06-04] MEDS ORDERED: CLON-276 PO (03:04)
[2017-06-04] MEDS ORDERED: CLON1TAB3 PO (03:06)
[2017-06-04] MEDS ORDERED: CLON0.5T3 PO ×2 (03:06→03:07)
[2017-06-04] MEDS ORDERED: FENT1PAT15 TD (03:08)
[2017-06-04] MEDS ORDERED: HYDR50TA6 PO (03:09)
[2017-06-04] MEDS ORDERED: LEVE500T56 PO (03:11)
[2017-06-04] MEDS ORDERED: OXYC1TAB9 PO (03:14)
[2017-06-04] MEDS ORDERED: FERR-26 PO (03:29)
[2017-06-04 06:04] VITALS: BP_SYST 74
[2017-06-04 07:24] VITALS: BP 177/74
[2017-06-04 08:00] LABS: BASO % 0 % (0-3); EOS # 0.2 x10^3/uL (0.0-0.7); EOS % 3 % (0-3); HEMOGLOBIN 13.7 g/dL (12.0-15.5); LYMPH # 0.9 x10^3/uL (1.0-4.8); LYMPH % 15 % (24-48); MEAN CORPUSCULAR HEMOGLOBIN 26 pg (25-35); MEAN CORPUSCULAR HGB CONC 33 g/dL (31-37); MEAN CORPUSCULAR VOLUME 78 fL (79-100); MONO # 0.7 x10^3/uL (0.0-1.1); MONO % 12 % (0-9); NEUT # 4.2 x10^3uL (1.8-7.7); NEUT % 69 % (31-73); PLATELET COUNT 195 x10^3/uL (140-400); RED BLOOD COUNT 5.39 x10^6/uL (3.50-5.40); RED CELL DISTRIBUTION WIDTH 19.9 % (11.5-14.5); WHITE BLOOD COUNT 6.1 x10^3/uL (4.0-11.0)
[2017-06-04 08:17] LABS: ALBUMIN/GLOBULIN RATIO 0.9 (1.0-1.7); ALK PHOS 79 U/L (46-116); ALT (SGPT) 10 U/L (14-59); ANION GAP 4 (6-14); AST (SGOT) 13 U/L (15-37); BLOOD UREA NITROGEN 16 mg/dL (7-20); BUN/CREATININE RATIO 16 (6-20); CALCIUM 9.2 mg/dL (8.5-10.1); CARBON DIOXIDE 36 mmol/L (21-32); CHLORIDE 97 mmol/L (98-107); GFR 53.9; GLUCOSE 89 mg/dL (70-99); POTASSIUM 3.8 mmol/L (3.5-5.1); SODIUM 137 mmol/L (136-145); TOTAL BILIRUBIN 0.3 mg/dL (0.2-1.0); TOTAL PROTEIN 6.5 g/dL (6.4-8.2); VAL ACID 63 mcg/mL (50-100)
[2017-06-04] MEDS: FERROUS SULFATE 325 MG TABLET PO SCH (08:31)
[2017-06-04] MEDS: CYCLOBENZAPRINE 10 MG TABLET. PO PRN (08:31)
[2017-06-04] MEDS: ARIPiprazole 5 MG TABLET PO SCH (08:31)
[2017-06-04] MEDS: levETIRAcetam 250 MG TABLET PO SCH (08:31)
[2017-06-04] MEDS: FAMOTIDINE 20 MG TABLET PO SCH (08:31)
[2017-06-04] MEDS: DIVALPROEX 125 MG CAP.SPRINK PO SCH ×2 (08:31→13:29)
[2017-06-04] MEDS: ASPIRIN 81 MG TAB.CHEW PO SCH (08:32)
[2017-06-04] MEDS: METOPROLOL TART IMMED RELEASE 50 MG TABLET PO SCH (08:32)
[2017-06-04] MEDS: DULoxetine HCL 30 MG CAPSULE.DR PO SCH (08:32)
[2017-06-04] MEDS: LISINOPRIL 20 MG TABLET PO SCH (08:32)
[2017-06-04] MEDS: hydroCHLOROthiazide 25 MG TABLET PO SCH (08:32)
[2017-06-04] MEDS: CALCIUM CARB/VIT D3 500/200 TABLET PO SCH (08:32)
[2017-06-04 08:36] VITALS: BP 177/74
[2017-06-04] MEDS: NYSTATIN TOPICAL POWDER 15GM BOTTLE. TP SCH (08:36)
[2017-06-04] MEDS: oxyCODONE/APAP 10/325 1 TAB TABLET PO SCH ×2 (08:36→13:29)
[2017-06-04] MEDS ORDERED: amLODIPine BESYLATE 5 MG TABLET PO SCH (09:00)
[2017-06-04] MEDS ORDERED: CYANOCOBALAMIN (VITAMIN B-12) 1,000 MCG TABLET. PO SCH (09:00)
--- NOTE | 2017-06-04 09:30 | NUR ---
THERAPEUTIC RECREATION GROUP NOTE TITLE :Fall Critter Painting ACTIVITY : Arts/ Crafts GOAL : Increase socialization, fine motor skills, creativity DURATION : 90 Minutes RESPONSE : No participation
[2017-06-04] MEDS ORDERED: ACET325T9 PO (11:17)
[2017-06-04] MEDS ORDERED: CYAN10005 PO (11:27)
--- NOTE | 2017-06-04 11:30 | NUR ---
THERAPEUTIC RECREATION GROUP NOTE TITLE :Movement to Music: Flexibility ACTIVITY : Movement/ Exercise GOAL : Increase morale, attention, flexibility. Decrease stress/anxiety. DURATION : 30 Minutes RESPONSE : No participation
[2017-06-04] MEDS ORDERED: FENT1PAT89 TD (11:40)
[2017-06-04] MEDS ORDERED: OXYC-323 PO (11:55)
--- NOTE | 2017-06-04 12:47 | NUR ---
JIMMY has called [facility] 3 times this morning to coordinate transportation for Pt's dc set for today. JIMMY has left messages for the , Carmina, and Administration.
--- NOTE | 2017-06-04 14:08 | NUR ---
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
--- NOTE | 2017-06-04 14:11 | NUR ---
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
--- NOTE | 2017-06-04 14:44 | NUR ---
Behavior Intervention Response and Plan: BIRP Note: Behavior: Assumed Care of patient, patient located in Dining Room at shift change. Patient exhibited the following behavior Calm, , Drowsy. Brief assessment on rounds of vital signs, medication needs, lab studies, and pain. Treatment plan problems . Intervention: Patient assessed and the following interventions initiated safety checks 15 Minute Checks Cognitive Assessment , Head to toe Assessment , Medications. Response: After interactions and interventions patient responded in the following manner, Withdrawn , Cooperative ,Compliant. Continue to assess behaviors and condition will continue to monitor throughout the shift as needed. Patient educated on ADL's, and hand hygiene. 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 Continue to assess patient for changes in above assessment. Monitor for medication needs, pain, and safety concerns. Hourly rounding performed to ensure safe environment.
--- NOTE | 2017-06-04 14:46 | NUR ---
Transition Record was faxed to follow-up provider with the following elements: Reason for admission, procedures, tests, principal diagnosis, pending studies, patient instructions, 21/04 contact information for unit, phone number to obtain pending test results, plan for follow-up care, physician follow-up, advanced directive information, and medication list with dose, duration and instructions. This information was included in the following documents: History and physical, lab results, study results, progress notes, social work planning form, DC instruction form, patient visit summary, and medication reconciliation form. Date & time record faxed:06/04/17 @ [id number] Record faxed to: Angelo RED Record discussed with/ report given to: Left message for nurse
--- NOTE | 2017-06-04 19:17 | PN ---
DATE: 06/03/2017 This is a late entry for 06/03/2017, covers the elements not covered in my initial note of 06/03/2017. I met with the patient in the evening of 06/03/2017. She has been somewhat sedated. Dr. Andre has reduced her narcotics. REVIEW OF SYSTEMS: Still complains of back pain, impaired ambulation. No CV, , pulmonary, eye system symptoms on review. MENTAL STATUS EXAM: Reasonably oriented. Speech moderate latency, often responses monosyllabic. Abstraction fair, computation impaired, language function intact, attention span short. Mood and affect withdrawn. Labs reviewed. No suicidal or homicidal ideation. IMPRESSION: Bipolar 1 disorder, depressed; anxiety disorder, unspecified; impulse control disorder, unspecified. PLAN: Continue psychotropics mentioned in my initial note. Abilify is being used to augment the Cymbalta. Maintain Depakote 500 t.i.d. Check labs level on 06/04/2017. Adjust further as clinically indicated. Reviewed drug interactions, risk/benefit ratio, favors no further change. MAN Mau MANZANO MD DR: SURESH/ame JOB#: [id number] / [id number]
--- NOTE | 2017-06-04 20:05 | PDOC ---
Exam Monty Demential Exam: Monty Note: Please also refer to the separate dictated note~for this date of service dictated separately.~Patient seen individually. Discussed the patient with Nursing staff reviewed the chart.~Reviewed interim history and current functioning. Reviewed vital signs,~Labs/ Radiology~and current medications noted below. Continue current treatment with the changes noted in the dictated addendum note Assessment: Vital Signs: Vital Signs Date Time Temp Pulse Resp B/P (MAP) Pulse Ox O2 Delivery O2 Flow Rate FiO2 06/04/17 08:36 62 177/74 06/04/17 06:04 97.0 18 95 06/03/17 17:28 Room Air I&O Intake and Output 06/05/17 07:00 Intake Total 600 ml Balance 600 ml Intake Oral 600 ml Labs: Laboratory Tests Test 06/04/17 07:28 White Blood Count 6.1 x10^3/uL (4.0-11.0) Red Blood Count 5.39 x10^6/uL (3.50-5.40) Hemoglobin 13.7 g/dL (12.0-15.5) Hematocrit 42.0 % (36.0-47.0) Mean Corpuscular Volume 78 fL (79-100) L Mean Corpuscular Hemoglobin 26 pg (25-35) Mean Corpuscular Hemoglobin Concent 33 g/dL (31-37) Red Cell Distribution Width 19.9 % (11.5-14.5) H Platelet Count 195 x10^3/uL (140-400) Neutrophils (%) (Auto) 69 % (31-73) Lymphocytes (%) (Auto) 15 % (24-48) L Monocytes (%) (Auto) 12 % (0-9) H Eosinophils (%) (Auto) 3 % (0-3) Basophils (%) (Auto) 0 % (0-3) Neutrophils # (Auto) 4.2 x10^3uL (1.8-7.7) Lymphocytes # (Auto) 0.9 x10^3/uL (1.0-4.8) L Monocytes # (Auto) 0.7 x10^3/uL (0.0-1.1) Eosinophils # (Auto) 0.2 x10^3/uL (0.0-0.7) Basophils # (Auto) 0.0 x10^3/uL (0.0-0.2) Sodium Level 137 mmol/L (136-145) Potassium Level 3.8 mmol/L (3.5-5.1) Chloride Level 97 mmol/L (98-107) L Carbon Dioxide Level 36 mmol/L (21-32) H Anion Gap 4 (6-14) L Blood Urea Nitrogen 16 mg/dL (7-20) Creatinine 1.0 mg/dL (0.6-1.0) Estimated GFR (Cockcroft-Gault) 53.9 BUN/Creatinine Ratio 16 (6-20) Glucose Level 89 mg/dL (70-99) Calcium Level 9.2 mg/dL (8.5-10.1) Total Bilirubin 0.3 mg/dL (0.2-1.0) Aspartate Amino Transferase (AST) 13 U/L (15-37) L Alanine Aminotransferase (ALT) 10 U/L (14-59) L Alkaline Phosphatase 79 U/L (46-116) Ammonia < 10 mcmol/L (11-34) L Total Protein 6.5 g/dL (6.4-8.2) Albumin 3.0 g/dL (3.4-5.0) L Albumin/Globulin Ratio 0.9 (1.0-1.7) L Valproic Acid Level 63 mcg/mL (50-100) Valproic Acid Last Dose Date 06/03/2017 Valproic Acid Last Dose Time 2100 Current Medications: Meds: Current Medications Acetaminophen (Tylenol) 1,000 mg 1X ONCE PO Last administered on 05/15/17 11: 38; Start 05/15/17 at 11:45; Stop 05/15/17 at 13:52; Status DC Lorazepam (Ativan) 1 mg 1X ONCE PO Last administered on 05/15/17 11:38; Start 05/15/17 at 11:45; Stop 05/15/17 at 13:50; Status DC Acetaminophen (Tylenol) 650 mg PRN Q6HRS PRN PO PAIN / TEMP Last administered on 05/16/17 14:41; Start 05/15/17 at 13:30; Stop 05/16/17 at 15:30; Status DC Multi-Ingredient Ointment (Analgesic [place]) 1 mike PRN QID PRN TP MUSCLE PAIN; Start 05/15/17 at 13:30; Stop 06/04/17 at 14:46; Status DC Al Hydroxide/Mg Hydroxide (Mylanta Plus Xs) 15 ml PRN AFTMEALHC PRN PO DYSPEPSIA; Start 05/15/17 at 13:30; Stop 06/04/17 at 14:46; Status DC Magnesium Hydroxide (Milk Of Magnesia) 2,400 mg PRN QHS PRN PO CONSTIPATION; Start 05/15/17 at 13:30; Stop 06/04/17 at 14:46; Status DC Nicotine (Nicoderm Cq 14mg) 1 patch DAILY TD ; Start 05/16/17 at 09:00; Stop at 10:41; Status DC Escitalopram Oxalate (Lexapro) 20 mg DAILY PO Last administered on 05/18/17 07 :17; Start 05/16/17 at 09:00; Stop 05/18/17 at 22:07; Status DC Donepezil HCl (Aricept) 10 mg QHS PO Last administered on 06/03/17 19:22; Start 05/15/17 at 21:00; Stop 06/04/17 at 14:46; Status DC Clonazepam (KlonoPIN) 0.5 mg QHS PO Last administered on 06/03/17 19:29; Start 05/15/17 at 21:00; Stop 06/04/17 at 14:46; Status DC Donepezil HCl (Aricept) 5 mg QHS PO Last administered on 05/15/17 19:38; Start 05/15/17 at 21:00; Stop 05/15/17 at 23:44; Status DC Levetiracetam (Keppra) 750 mg BID PO Last administered on 06/04/17 08:31; Start 05/15/17 at 21:00; Stop 06/04/17 at 14:46; Status DC Clonazepam (KlonoPIN) 0.5 mg PRN BID PRN PO ANXIETY / AGITATION Last administered on 05/16/17 16:22; Start 05/15/17 at 14:00; Stop 05/16/17 at 18:45 ; Status DC Olanzapine (ZyPREXA) 10 mg QHS PO Last administered on 05/29/17 21:15; Start 05/15/17 at 21:00; Stop 05/30/17 at 18:51; Status DC Mirtazapine (Remeron Genny-Tab) 15 mg QHS PO Last administered on 06/03/17 19:23 ; Start 05/15/17 at 21:00; Stop 06/04/17 at 14:46; Status DC Aspirin (Children'S Aspirin) 81 mg DAILY PO Last administered on 06/04/17 08:32 ; Start 05/16/17 at 09:00; Stop 06/04/17 at 14:46; Status DC Ferrous Sulfate (Feosol) 325 mg DAILY PO Last administered on 06/04/17 08:31; Start 05/16/17 at 09:00; Stop 06/04/17 at 14:46; Status DC Hydrochlorothiazide (Hydrodiuril) 25 mg DAILY PO Last administered on 06/04/17 08:32; Start 05/16/17 at 09:00; Stop 06/04/17 at 14:46; Status DC Oxycodone/ Acetaminophen (Percocet 10/325) 1 tab QID PO Last administered on 16:40; Start 05/15/17 at 17:00; Stop 06/03/17 at 08:56; Status DC Calcium/Vitamin D (Oscal D 500mg/ 200uts) 1 tab BIDWMEALS PO Last administered on 06/04/17 08:32; Start 05/15/17 at 17:00; Stop 06/04/17 at 14:46; Status DC Docusate Sodium (Colace) 100 mg BID PO Last administered on 05/20/17 08:27; Start 05/15/17 at 21:00; Stop 05/20/17 at 12:49; Status DC Famotidine (Pepcid) 20 mg BID PO Last administered on 06/04/17 08:31; Start at 21:00; Stop 06/04/17 at 14:46; Status DC Lisinopril (Prinivil) 20 mg BID PO Last administered on 06/04/17 08:32; Start 05/15/17 at 21:00; Stop 06/04/17 at 14:46; Status DC Metoprolol Tartrate (Lopressor) 50 mg BID PO Last administered on 06/04/17 08: 32; Start 05/15/17 at 21:00; Stop 06/04/17 at 14:46; Status DC Clonidine HCl (Catapres) 0.2 mg DAILY PRN PO HYPERTENSION, SEE COMMENTS Last administered on 05/31/17 07:40; Start 05/16/17 at 09:00; Stop 06/04/17 at 14:46; Status DC Albuterol/ Ipratropium (Duoneb) 3 ml Q4HRS PRN NEB SHORTNESS OF BREATH Last administered on 05/21/17 10:10; Start 05/15/17 at 14:15; Stop 06/04/17 at 14:46 ; Status DC Acetaminophen (Tylenol) 650 mg PRN Q8HRS PRN PO PAIN Last administered on 19:55; Start 05/15/17 at 14:15; Stop 06/04/17 at 14:46; Status DC Cyclobenzaprine HCl (Flexeril) 10 mg Q8HRS PRN PO MUSCLE SPASMS Last administered on 06/04/17 08:31; Start 05/15/17 at 14:15; Stop 06/04/17 at 14:46; Status DC Ondansetron HCl (Zofran Odt) 4 mg PRN Q8HRS PRN PO NAUSEA/VOMITING Last administered on 05/31/17 12:40; Start 05/15/17 at 14:15; Stop 06/04/17 at 14:46; Status DC Loperamide HCl (Imodium) 2 mg PRN Q3HRS PRN PO DIARRHEA Last administered on 09:17; Start 05/15/17 at 14:15; Stop 06/04/17 at 14:46; Status DC Nystatin (Nystop) 1 mike BID TP Last administered on 05/15/17 19:38; Start at 21:00; Stop 05/15/17 at 21:00; Status DC Fentanyl (Duragesic 12mcg/ Hr) 1 patch Q3DAYS TD Last administered on 09:10; Start 05/16/17 at 09:00; Stop 05/26/17 at 15:17; Status DC Nystatin (Nystop) 1 mike BID TP Last administered on 06/04/17 08:36; Start 05/15 at 21:00; Stop 06/04/17 at 14:46; Status DC Divalproex Sodium (Depakote Sprinkles) 125 mg TID PO Last administered on 13:38; Start 05/15/17 at 21:00; Stop 05/26/17 at 18:17; Status DC Vitamin D (Vitamin D3) 50,000 unit WEEKLY PO Last administered on 05/31/17 07: 43; Start 05/17/17 at 09:00; Stop 06/04/17 at 14:46; Status DC Clonazepam (KlonoPIN) 0.5 mg PRN TID PRN PO ANXIETY / AGITATION Last administered on 06/02/17 13:35; Start 05/17/17 at 06:00; Stop 06/04/17 at 14:46; Status DC Duloxetine HCl (Cymbalta) 30 mg DAILY PO Last administered on 05/20/17 08:25; Start 05/19/17 at 09:00; Stop 05/20/17 at 10:00; Status DC Duloxetine HCl (Cymbalta) 60 mg DAILY PO Last administered on 05/23/17 08:07; Start 05/21/17 at 09:00; Stop 05/23/17 at 10:00; Status DC Duloxetine HCl (Cymbalta) 90 mg DAILY PO Last administered on 06/04/17 08:32; Start 05/24/17 at 09:00; Stop 06/04/17 at 14:46; Status DC Fentanyl (Duragesic 25mcg/ Hr) 1 patch Q3DAYS TD Last administered on 06/01/17 07:33; Start 05/26/17 at 15:30; Stop 06/03/17 at 08:56; Status DC Divalproex Sodium (Depakote Sprinkles) 250 mg TID PO Last administered on 07:49; Start 05/26/17 at 21:00; Stop 05/29/17 at 11:02; Status DC Aripiprazole (Abilify) 5 mg DAILY PO Last administered on 06/04/17 08:31; Start 05/29/17 at 09:00; Stop 06/04/17 at 14:46; Status DC Divalproex Sodium (Depakote Sprinkles) 375 mg TID PO Last administered on 14:36; Start 05/29/17 at 14:00; Stop 06/01/17 at 18:37; Status DC Olanzapine (ZyPREXA) 5 mg HS PO Last administered on 06/03/17 19:24; Start 05/30 at 21:00; Stop 06/04/17 at 14:46; Status DC Trazodone HCl (Desyrel) 50 mg QHS PO Last administered on 06/01/17 20:35; Start 05/30/17 at 21:00; Stop 06/03/17 at 08:56; Status DC Trazodone HCl (Desyrel) 50 mg PRN QHS PRN PO INSOMNIA; Start 05/30/17 at 19:00; Stop 06/04/17 at 14:46; Status DC Divalproex Sodium (Depakote Sprinkles) 500 mg TID PO Last administered on 13:29; Start 06/01/17 at 21:00; Stop 06/04/17 at 14:46; Status DC Fentanyl (Duragesic 12mcg/ Hr) 1 patch Q3DAYS TD Last administered on 06/03/17 10:12; Start 06/03/17 at 09:00; Stop 06/04/17 at 14:46; Status DC Oxycodone/ Acetaminophen (Percocet 10/325) 0.5 tab QID PO Last administered on 06/04/17 13:29; Start 06/03/17 at 09:00; Stop 06/04/17 at 14:46; Status DC Trazodone HCl (Desyrel) 25 mg QHS PO Last administered on 06/03/17 19:29; Start 06/03/17 at 21:00; Stop 06/04/17 at 14:46; Status DC Cyanocobalamin (Vitamin B-12) 1,000 mcg DAILY PO Last administered on 06/04/17 08:35; Start 06/04/17 at 09:00; Stop 06/04/17 at 14:46; Status DC Amlodipine Besylate (Norvasc) 5 mg DAILY PO Last administered on 06/04/17 08:36 ; Start 06/04/17 at 09:00; Stop 06/04/17 at 14:46; Status DC Active Scripts Active Reported Percocet 5-325 Mg Tablet (Oxycodone Hcl/Acetaminophen) 1 Each Tablet 1 Tab PO QID DURAGESIC 12mcg/hr (Fentanyl) 1 Each Patch.td72 1 Patch TD Q72H Vitamin B-12 (Cyanocobalamin (Vitamin B-12)) 1,000 Mcg Tablet 1 Tab PO DAILY Tylenol (Acetaminophen) 325 Mg Tablet 650 Mg PO PRN Q8HRS PRN Depakote Sprinkle (Divalproex Sodium) 125 Mg Cap.sprink 500 Mg PO TID Vitamin D3 (Cholecalciferol (Vitamin D3)) 5,000 Unit Tablet 50,000 Unit PO WEEKLY Abilify (Aripiprazole) 5 Mg Tablet 5 Mg PO DAILY Keppra (Levetiracetam) 500 Mg Tablet 750 Mg PO BID Hydrochlorothiazide Tablet (Hydrochlorothiazide) 50 Mg Tablet 25 Mg PO DAILY Clonazepam 0.5 Mg Tablet 0.5 Mg PO PRN BID PRN Clonazepam 0.5 Mg Tablet 0.5 Mg PO HS Clonidine Hcl 0.2 Mg Tablet 0.2 Mg PO PRN DAILY PRN Ondansetron Odt (Ondansetron) 4 Mg Tab.rapdis 4 Mg PO PRN Q8HRS PRN Olanzapine 10 Mg Tablet 5 Mg PO HS Nystatin 15 Gm Powder 1 Mike TP [id number] Mirtazapine 15 Mg Tablet 15 Mg PO HS Metoprolol Tartrate 50 Mg Tablet 50 Mg PO BID Mag-Al Plus Suspension (Mag Hydrox/Al Hydrox/Simeth) 30 Ml Oral.susp 15 Ml PO PRN AFTMEALHC PRN Lisinopril 20 Mg Tablet 20 Mg PO BID Duoneb 0.5-3(2.5) Mg/3 Ml (Albuterol/Ipratropium) 3 Ml Ampul.neb 3 Ml NEB PRN Q4HRS PRN Feosol (Ferrous Sulfate) 325 Mg Tablet 325 Mg PO DAILY Famotidine 20 Mg Tablet 20 Mg PO BID Aricept (Donepezil Hcl) 10 Mg Tablet 10 Mg PO HS Vitamin D3 (Cholecalciferol (Vitamin D3)) 5,000 Unit Tablet 50,000 Unit PO WEEKLY EVERY FRIDAY Aspir-Low (Aspirin) 81 Mg Tablet.dr 81 Mg PO Trazodone Hcl 50 Mg Tablet 25 Mg PO PRN QHS PRN Analgesic [place] (Methyl Salicylate/Menthol) 29 Gm Oint...g. 1 Mike TP PRN QID PRN Milk Of Magnesia (Magnesium Hydroxide) 2,400 Mg/10 Ml Oral.susp 2,400 Mg PO PRN QHS PRN Cymbalta (Duloxetine Hcl) 30 Mg Capsule. 90 Mg PO DAILY Calcium 500 + Vit D 400 Tablet (Calcium Carbonate/Vitamin D3) 1 Each Tablet 1 Tab PO BIDWBKFT/KAYY Loratadine 10 Mg Tablet 10 Mg PO PRN DAILY PRN Loperamide (Loperamide Hcl) 2 Mg Capsule 2 Mg PO PRN Q4HRS PRN Multivitamins (Multivitamin) 1 Each Tablet 1 Tab PO DAILY Cholestyramine Packet (Cholestyramine (With Sugar)) 4 Gm Powd.pack 4 Gm PO BID Vitamin C (Ascorbic Acid) 500 Mg Tablet 500 Mg PO TID Norvasc (Amlodipine Besylate) 5 Mg Tablet 5 Mg PO DAILY NITROGLYCERIN SubLingual (Nitroglycerin) 0.4 Mg Tab.subl 0.4 Mg SL PRN Q5MIN PRN Creon 24,000 Units Capsule (Lipase/Protease/Amylase) 1 Each Capsule. 5 Cap PO TIDWMEALS Diagnosis: Problems: (1) Dementia (2) Bipolar disorder, mixed (3) Bipolar affective disorder, mixed (4) Anxiety disorder (5) Major depressive disorder, recurrent episode (6) Impulse control disorder TESHA MANZANO MD Jun 04, 2017 20:05
--- NOTE | 2017-06-05 19:49 | DS ---
DATE OF DISCHARGE: 06/04/2017 DISCHARGE SUMMARY/PSYCHIATRIC PROGRESS NOTE REASON FOR ADMISSION: Please refer to the admission history for details. Briefly, the patient is a 77-year-old female referred back to us from [facility] by her primary care physician and Dr. Valerie Wilson, her psychiatrist on account of worsening symptoms of depression within the context of bipolar disorder, anxiety and impulse control problems. The patient had failed outpatient psychiatric interventions. SIGNIFICANT FINDINGS AND CLINICAL COURSE: Following admission, the patient was seen daily individually by myself, followed medically per Dr. Andre/Dr. Singh. She remained extremely somatically preoccupied with back pain, agitation, and paranoia. Adjustments were made in her psychotropics and she seemed to respond to a combination of Klonopin 0.5 mg at bedtime, plus 0.5 mg t.i.d. p.r.n. Aricept 10 mg a day, Keppra was continued at 750 b.i.d. Remeron was 15 mg at bedtime, Zyprexa 5 mg at bedtime, Depakote 500 mg t.i.d. A level was somewhat subtherapeutic at 42, but she is not responding to this. In fact, the level was repeated on 06/04/2017, but those results are not in the chart at the time of this dictation. She was also on Cymbalta 90 mg a day, Abilify 5 mg a day, trazodone 25 mg at bedtime, may repeat x 1. She was somewhat sedated during the day. Dr. Andre had reduced her on narcotics, which seemed to help. Prior to discharge on 06/04/2017 still complained of back pain. Impaired ambulation. No CV, , pulmonary, eye system symptoms on review. MENTAL STATUS EXAM: Oriented to herself and situation. Speech moderate latency, low in volume, coherent, abstraction fair, computation impaired, language function intact, attention span short. Mood and affect still dysphoric, but improved, not aggressive. FINAL DIAGNOSES: Bipolar 1 disorder mixed with psychotic features, in partial remission; anxiety disorder, unspecified; impulse control disorder, unspecified; chronic pain. DISCHARGE MEDICATIONS: Please refer to the MRAD. DISCHARGE INSTRUCTIONS: Outpatient psychiatric and medical followup at the [facility]. MAN Mau MANZANO MD DR: Azalia JOB#: [id number] / [id number]
--- NOTE | 2017-06-05 20:12 | DS ---
DATE OF DISCHARGE: 06/04/2017 ADDENDUM This note is being dictated for plans since the patient was on 2 antipsychotics at the time of discharge, aripiprazole and olanzapine. Once the patient has been stable back at [facility]. Starting in about 30 days attempt should be made to reduce her olanzapine by 1.25 mg a day every month till it is discontinued. This is to avoid use of two atypical antipsychotics. It is justified to keep the current dosage till the end to maintain stability. TESHA MANZANO MD DR: SURESH/ame JOB#: [id number] / [id number]
== END 2017-06-04 14:45 | disposition home or self-care (01) | DRG 885 ==
LOC: ER 10:34 → EEVIPCON 10:34 → ER 12:10 → GEROPSY 13:03
PROVIDERS: ADMIT Psychiatry & Neurology Psychiatry; ATTEND Psychiatry & Neurology Psychiatry
DX: F31.64 Bipolar disorder, current episode mixed, severe, with psychotic features (principal); K63.2 Fistula of intestine; I95.9 Hypotension, unspecified; F03.90 Unspecified dementia, unspecified severity, without behavioral disturbance, psychotic disturbance, mood disturbance, and anxiety; K76.0 Fatty (change of) liver, not elsewhere classified; R45.851 Suicidal ideations; M48.56XA Collapsed vertebra, not elsewhere classified, lumbar region, initial encounter for fracture; G40.909 Epilepsy, unspecified, not intractable, without status epilepticus; I10 Essential (primary) hypertension; K21.9 Gastro-esophageal reflux disease without esophagitis; F41.9 Anxiety disorder, unspecified; F63.9 Impulse disorder, unspecified; G89.4 Chronic pain syndrome; M43.16 Spondylolisthesis, lumbar region; I71.4 Abdominal aortic aneurysm, without rupture; D50.9 Iron deficiency anemia, unspecified; H26.9 Unspecified cataract; G47.00 Insomnia, unspecified; Z88.2 Allergy status to sulfonamides; Z79.899 Other long term (current) drug therapy; Z88.8 Allergy status to other drugs, medicaments and biological substances; Z86.73 Personal history of transient ischemic attack (TIA), and cerebral infarction without residual deficits; Z81.8 Family history of other mental and behavioral disorders
CPT/HCPCS: 36415; 71010; 72131; 74150; 76700; 80053; 80061; 80164; 80307; 81001; 82140; 82306; 82607; 82947; 83036; 83540; 83550; 83605; 83735; 84436; 84443; 84480; 84484; 85025; 86592; 86593; 87324; 93005; 94640; 94760; 95816; 99407; G0480; J7620; Q0162; 99285-25; G0479